=== PATIENT | male | born 1950 | race African-American/Black ===

== ENCOUNTER 2016-06-09 01:21 | Inpatient (IN) | payer MEDICARE, MEDICAID ==
[2016-06-09] MEDS ORDERED: NITROGLYCERIN/D5W 250 ML IV PRN (01:28)
--- NOTE | 2016-06-09 01:28 | ER Document Report ---
ED Respiratory Problem - General Stated Complaint: DIFFICULT BREATHING Time seen by provider: 01:28 Mode of Arrival: Medic Information source: Patient, Emergency Med Personnel TRAVEL OUTSIDE OF THE [place] IN LAST 30 DAYS: No - HPI Patient complains to provider of: Chest pain, Cough, Short of breath Onset: This evening Duration: Worse/persistent Quality of pain: Achy Severity: Mild Short of Breath: Severe Chest pain/discomfort: Tightness Cough: Nonproductive Associated symptoms: Chest pain/discomfort, Cough, Difficulty breathing, Short of breath Similar symptoms previously: Yes Recently seen / treated by doctor: Yes Notes: Patient is a 66-year-old male with a history of end-stage renal disease who was brought to the emergency room by EMS for complaints of chest tightness with difficulty breathing that's worsened throughout the evening, at time of arrival patient was on BiPAP which was started by EMS, reports chest tightness, difficulty breathing, feeling short of breath, nonproductive cough, no fever, no sick contacts, he does report that he saw his primary care provider proximally 3 weeks ago for similar symptoms and was placed on the antibiotic which he cannot recall the name of, patient denies any fevers - Related Data Allergies/Adverse Reactions: No Known Allergies Allergy (Unverified 06/09/10 10:59) Past Medical History - General Information source: Patient, Emergency Med Personnel - Social History Smoking Status: Unknown if Ever Smoked Family History: Reviewed & Not Pertinent - Past Medical History Cardiac Medical History: Reports: Hx Hypertension Denies: Hx Coronary Artery Disease, Hx Heart Attack Pulmonary Medical History: Reports: Hx Pneumonia Denies: Hx Asthma, Hx Bronchitis, Hx COPD Neurological Medical History: Denies: Hx Cerebrovascular Accident, Hx Seizures Endocrine Medical History: Reports: Hx Diabetes Mellitus Type 2 - INSULIN DEPENDENT Renal/ Medical History: Reports: Hx End Stage Renal Disease, Hx Hemodialysis Musculoskeltal Medical History: Reports Hx Arthritis Past Surgical History: Reports: Hx Neurologic Surgery - back BIOPSY, Hx Vascular Surgery - AV FISTULA ARAMIS. Denies: Hx Pacemaker - Immunizations Hx Diphtheria, Pertussis, Tetanus Vaccination: Yes Hx Pneumococcal Vaccination: 03/26/06 Review of Systems - Review of Systems Constitutional: No symptoms reported EENT: No symptoms reported Cardiovascular: See HPI Respiratory: See HPI Gastrointestinal: No symptoms reported Genitourinary: No symptoms reported Male Genitourinary: No symptoms reported Musculoskeletal: No symptoms reported Skin: No symptoms reported Hematologic/Lymphatic: No symptoms reported Neurological/Psychological: No symptoms reported -: Yes All other systems reviewed and negative Physical Exam - Vital signs Vitals: Resp Pulse Ox 24 H 97 06/09/16 01:25 06/09/16 01:25 Interpretation: Hypertensive, Tachycardic, Tachypneic - General General appearance: Alert In distress: Severe - HEENT Head: Normocephalic, Atraumatic Eyes: Normal Conjunctiva: Normal Extraocular movements intact: Yes Eyelashes: Normal Pupils: PERRL - Respiratory Respiratory status: Respiratory distress, Labored, Tachypnea Chest status: Nontender Breath sounds: Nonproductive cough, Rales, Rhonchi Chest palpation: Normal - Cardiovascular Rhythm: Regular, Tachycardia Heart sounds: Normal auscultation Murmur: No - Abdominal Inspection: Normal Distension: No distension Bowel sounds: Normal Tenderness: Nontender Organomegaly: No organomegaly - Back Back: Normal, Nontender - Extremities General upper extremity: Nontender, Normal color, Normal ROM, Normal temperature General lower extremity: Normal inspection, Nontender, Normal color, Normal ROM , Normal temperature. No: Janice's sign Arm: Other - AV fistula in right upper arm, positive thrill - Neurological Neuro grossly intact: Yes Cognition: Normal Orientation: AAOx4 Hallie Coma Scale Eye Opening: Spontaneous Hallie Coma Scale Verbal: Oriented [place] Coma Scale Motor: Obeys Commands [place] Coma Scale Total: 15 Speech: Normal Motor strength normal: LUE, RUE, LLE, RLE Sensory: Normal - Psychological Associated symptoms: Normal affect, Normal mood - Skin Skin Temperature: Warm Skin Moisture: Dry Skin Color: Normal Course - Re-evaluation Re-evalutation: 06/09/16 02:33 Patient was discussed with primary care provider, Dr. Burleson, who agrees with admission, he reports that he believes that patient was recently on a Z-Marky , request patient get ceftriaxone intravenously, patient will be admitted to the IMCU where he reports feeling much better and vital signs are significantly improved 06/09/16 03:28 Patient vital signs are significantly improved, he reports feeling much better, chest pain is resolved, IV antibiotics have been ordered, patient will be admitted to the IMCU, patient stable at time of transfer of care - Vital Signs Vital signs: Temp Pulse Resp BP Pulse Ox 96.8 F L 107 H 15 163/66 H 97 03/17/17 01:49 06/09/16 01:49 06/09/16 02:31 06/09/16 02:31 06/09/16 02:31 - Laboratory Result Diagrams: 06/09/16 01:28 06/09/16 01:28 Laboratory results interpreted by me: 06/09/16 06/09/16 06/09/16 01:28 01:28 01:28 WBC 18.9 H RBC 3.71 L Hgb 11.1 L Hct 34.9 L MCHC 31.9 L RDW 16.7 H Seg Neutrophils % 80.7 H Lymphocytes % 10.8 L Absolute Neutrophils 15.3 H Anion Gap 21 H BUN 44 H Creatinine 10.23 H Est GFR ( Amer) 6 L Est GFR (Non-Af Amer) 5 L Glucose 143 H Alkaline Phosphatase 133 H NT-Pro-B Natriuret Pep 72807 H Total Protein 8.7 H - Diagnostic Test Radiology reviewed: Image reviewed, Reports reviewed - EKG Interpretation by Me EKG shows normal: Sinus rhythm Rate: Normal Rhythm: NSR Voltage: Consistant with LVH Critical Care Note - Critical Care Note Total time excluding time spent on procedures (mins): 60 Comments: Patient arrived in respiratory distress, tachypnea, tachycardic, hypertensive, requiring BiPAP placement nitroglycerin drip Discharge - Discharge Clinical Impression: Hypertensive urgency, End stage renal disease Pneumonia Qualifiers: Pneumonia type: due to unspecified organism Laterality: bilateral Lung location : unspecified part of lung Qualified Code(s): J18.9 - Pneumonia, unspecified organism Condition: Serious Disposition: ADMITTED INPATIENT Admitting Provider: [facility] Admitted: [facility]
[2016-06-09 02:03] LABS: ABSOLUTE BASOPHILS # (AUTO) 0.2 10^3/uL (0.0-0.2); ABSOLUTE EOSINOPHILS # (AUTO) 0.3 10^3/uL (0.0-0.6); ABSOLUTE MONOCYTES (AUTO) 1.1 10^3/uL (0.1-1.4); ABSOLUTE NEUT (AUTO) 15.3 10^3/uL (1.7-8.2); EOSINOPHILS % (AUTO) 1.8 % (0-6); HEMATOCRIT 34.9 % (37.9-51.0); HEMOGLOBIN 11.1 g/dL (13.5-17.0); HGB HCT DIFFERENCE -1.6; LYMPHOCYTES % (AUTO) 10.8 % (13-45); MEAN CORPUSCULAR HGB CONC 31.9 g/dL (32.0-36.0); MEAN CORPUSCULAR VOLUME 94 fl (80-97); MONOCYTES % (AUTO) 5.7 % (3-13); RED BLOOD COUNT 3.71 10^6/uL (4.35-5.55); RED CELL DISTRIBUTION WIDTH 16.7 % (11.5-14.0); SEGMENTED NEUTROPHILS % (AUTO) 80.7 % (42-78); WHITE BLOOD COUNT 18.9 10^3/uL (4.0-10.5)
[2016-06-09 02:04] LABS: ALANINE AMINOTRANSFERASE 37 U/L (21-72); ALBUMIN 4.7 g/dL (3.5-5.0); ALKALINE PHOSPHATASE 133 U/L (38-126); ASPARTATE AMINO TRANSFERASE 28 U/L (17-59); BILIRUBIN,TOTAL 0.7 mg/dL (0.2-1.3); BLOOD UREA NITROGEN 44 mg/dL (7-20); CALCIUM 10.1 mg/dL (8.4-10.2); CARBON DIOXIDE 26 mmol/L (22-30); CHLORIDE 98 mmol/L (98-107); CREATINE KINASE 146 U/L (55-170); CREATININE RESULT 10.23 mg/dL (0.52-1.25); GLUCOSE 143 mg/dL (75-110); POTASSIUM 4.1 mmol/L (3.6-5.0); TOTAL PROTEIN 8.7 g/dL (6.3-8.2)
[2016-06-09 02:16] LABS: CREATINE KINASE MB 2.54 ng/mL (<4.55)
[2016-06-09 02:21] LABS: SODIUM 144.9 mmol/L (137-145)
[2016-06-09 02:22] LABS: ANION GAP 21 (5-19); TROPONIN I 0.046 ng/mL
[2016-06-09] MEDS ORDERED: CEFTRIAXONE INJ 500 MG VIAL IV ONE (03:28)
[2016-06-09] MEDS ORDERED: AZITHROMYCIN INJ 500 MG VIAL IV ONE (03:28)
[2016-06-09] MEDS ORDERED: CEFTRIAXONE 1 GM/D5W RTU 1 GM/50 ML RTUPB IV ONE (03:43)
--- NOTE | 2016-06-09 05:40 | EKG REPORT ---
SEVERITY:- ABNORMAL ECG - SINUS RHYTHM BIATRIAL ABNORMALITIES LEFT VENTRICULAR HYPERTROPHY ANTERIOR Q WAVES, POSSIBLY DUE TO LVH BORDERLINE PROLONGED QT INTERVAL : Confirmed by: Eri Luna MD 09-Jun-2016 05:39:50
[2016-06-09] MEDS ORDERED: CALCIUM ACETATE 667 MG CAPSULE PO PRN (11:15)
[2016-06-09] MEDS ORDERED: ACETAMINOPHEN 325 MG TABLET PO PRN (12:30)
[2016-06-09] MEDS ORDERED: ASPIRIN 81 MG TABLET, ENT COATED PO ONE (13:00)
[2016-06-09] MEDS ORDERED: CEFEPIME 1 GM/D5W RTU 1 GM/50 ML RTUPB IV ONE (13:00)
[2016-06-09] MEDS ORDERED: FUROSEMIDE 40 MG TABLET PO ONE (13:00)
[2016-06-09] MEDS ORDERED: AZITHROMYCIN 500 MG in DEXTROSE 5%-WATER 250 ML IV ONE (13:00)
[2016-06-09] MEDS ORDERED: FOLIC ACID/VITAMIN B COMP W-C CAPSULE PO ONE (13:00)
[2016-06-09] MEDS: CALCIUM ACETATE 667 MG CAPSULE PO SCH ×2 (13:39→17:03)
[2016-06-09] MEDS: CLONIDINE HCL 0.1 MG TABLET PO SCH ×2 (13:40→21:43)
--- NOTE | 2016-06-09 16:34 | PDOC CONSULTATION ---
Consultation Consult Date: 06/09/16 Consult reason:: Hypertensive urgency and ESRD for dialysis History of Present Illness Admission Date/PCP: 06/09/16 06:10 ALEKS HARKINS MD History of Present Illness: MARILU CRAWFORD is a 66 year old male With history of long-standing diabetes mellitus hypertension and ESRD on hemodialysis comes in with history of progressive shortness of breath. He apparently had some shaking chills but denies any history of fever no history of any chest pains. Has noticed some pedal edema of lately but also admits to indiscretions with diet. Initial evaluations in the ER revealed that he was having hypertensive urgency. Chest x-ray showed possibilities of CHF versus multifocal pneumonia. He has been given antibiotics and is being admitted for further evaluations and treatment. Patient seen currently undergoing emergency dialysis. Discussions were done with the treating nurse Belkis. Plan to remove at least 3 L of fluid as tolerated. Past Medical History Cardiac Medical History: Reports: Hypertension-primary Denies: Coronary Artery Disease, Myocardial Infarction Pulmonary Medical History: Reports: Pneumonia Denies: Asthma, Bronchitis, Chronic Obstructive Pulmonary Disease (COPD) Neurological Medical History: Denies: Seizures Endocrine Medical History: Reports: Diabetes Mellitus Type 2 - INSULIN DEPENDENT Renal/ Medical History: Reports: End Stage Renal Disease Musculoskeltal Medical History: Reports: Arthritis Hematology Medical History: Reports Anemia of Chronic Kidney Disease Past Surgical History Past Surgical History: Reports: Vascular Surgery - AV FISTULA ARAMIS Denies: Pacemaker Social History Smoking Status: Current Every Day Smoker Cigarettes Packs Per Day: 0.5 Frequency of Alcohol Use: None Hx Recreational Drug Use: No Drugs: None Hx Prescription Drug Abuse: No - Advance Directive Resuscitation Status: Full Code Family History Parental Family History Reviewed: Yes Children Family History Reviewed: Yes Sibling(s) Family History Reviewed.: Yes - His brother with diabetes also had ESRD and was on hemodialysis before he . Medication/Allergy Home Medications: Acetaminophen [Tylenol Extra Strength 500 mg Tablet] 500 mg PO DAILYP PRN Aspirin [Ecotrin 81 mg EC Tablet] 81 mg PO DAILY 06/09/16 Atorvastatin Calcium [Lipitor 20 mg Tablet] 20 mg PO QHS 06/09/16 Calcium Acetate [Phoslo 667 mg Capsule] 2,001 mg PO MEALS 06/09/16 Calcium Acetate [Phoslo 667 mg Capsule] 667 mg PO .ASDIR 06/09/16 Clonidine HCl [Catapres 0.3 mg Tablet] 0.3 mg PO Q8 06/09/16 Docusate Sodium [Colace 100 mg Capsule] 100 mg PO BID 06/09/16 Folic Acid/Vitamin B Comp W-C [Nephrocaps Multiple Vitamin Capsule] 1 cap PO DAILY 06/09/16 Furosemide [Lasix] 40 mg PO DAILY 06/09/16 Insulin Glargine,Hum.rec.anlog [Lantus] 20 units SQ QHS 06/09/16 Irbesartan [Avapro] 150 mg PO DAILY 06/09/16 Nifedipine [Procardia Xl] 90 mg PO Q12 06/09/16 Omeprazole 20 mg PO BID 06/09/16 Allergies/Adverse Reactions: No Known Allergies Allergy (Unverified 06/09/10 10:59) Review of Systems Review of Systems: Constitutional: PRESENT: as per HPI. ABSENT: chills, headache(s), weight gain, weight loss Eyes: ABSENT: visual disturbances Ears: ABSENT: hearing changes Cardiovascular: ABSENT: chest pain, edema, orthropnea, palpitations Respiratory: ABSENT: cough, hemoptysis Gastrointestinal: ABSENT: abdominal pain, constipation, diarrhea, hematemesis, hematochezia, nausea, vomiting Musculoskeletal: ABSENT: joint swelling Integumentary: ABSENT: rash, wounds Neurological: ABSENT: abnormal gait, abnormal speech, confusion, dizziness, focal weakness, syncope Psychiatric: ABSENT: anxiety, depression, homicidal ideation, suicidal ideation Endocrine: ABSENT: cold intolerance, heat intolerance, polydipsia, polyuria Hematologic/Lymphatic: ABSENT: easy bleeding, easy bruising, lymphadenopathy Physical Exam Vital Signs: Temp Pulse Resp BP Pulse Ox 97.8 F 70 19 181/72 H 100 06/09/16 15:48 06/09/16 15:48 06/09/16 15:48 06/09/16 15:48 06/09/16 15:48 Intake & Output 06/08/16 06/09/16 06/10/16 06:59 06:59 06:59 Intake Total 356 Balance 356 Weight 88.5 kg General appearance: PRESENT: no acute distress Eye exam: PRESENT: conjunctiva pink, EOMI, PERRLA. ABSENT: nystagmus, scleral icterus Ear exam: PRESENT: normal external ear exam Mouth exam: PRESENT: moist Neck exam: ABSENT: lymphadenopathy, meningismus, tenderness, thyromegaly, tracheal deviation Respiratory exam: PRESENT: clear to auscultation bob, crackles, symmetrical. ABSENT: rhonchi Cardiovascular exam: PRESENT: +S1, +S2, systolic murmur GI/Abdominal exam: PRESENT: normal bowel sounds, soft. ABSENT: firm, guarding, hernia, hyperactive bowel sounds, mass, tenderness Extremities exam: PRESENT: +1 edema Neurological exam: PRESENT: alert, awake, oriented to person, oriented to place , oriented to time Psychiatric exam: PRESENT: flat affect Skin exam: ABSENT: cyanosis, erythema, mottled, rash Results Impressions: Chest X-Ray 06/09/16 01:28 IMPRESSION: [id number] CHF pattern. Differential diagnosis includes multifocal pneumonia. Assessment & Plan - Diagnosis (1) CHF (congestive heart failure), NYHA class II Plan: Clinically and radiologically he looks like he has got an element of congestive heart failure. He could very well also have pneumonia in combination. Hypertensive urgency could be as a result of his CHF. Therefore prompt dialysis as he is undergoing now should help him. See how he responds to dialysis and ultrafiltration. See how his blood pressure response to fluid removal before we make any titration of his medications. Discussed with patient 's about dietary indiscretions that he should not be having. (2) End stage renal disease Plan: Patient presently undergoing dialysis without any issues. Discussions on orders were done with the treating nurse. See how he responds to ultrafiltration of approximately 3 L in morning if tolerated. Signs are stable. (3) Hypertensive urgency Plan: She response to ultrafiltration and hemodialysis before he further titrate his medications. (4) Pneumonia Qualifiers: Pneumonia type: due to unspecified organism Laterality: bilateral Lung location: unspecified part of lung Qualified Code(s): J18.9 - Pneumonia , unspecified organism Plan: He has been begun on antibiotics and see the response.
[2016-06-09] MEDS ORDERED: NIFEDIPINE 30 MG TAB.ER.24 PO ONE (17:00)
[2016-06-09] MEDS: LANSOPRAZOLE 15 MG TAB.RAP.DR PO SCH (17:03)
[2016-06-09] MEDS: DOCUSATE SODIUM 100 MG CAPSULE PO SCH (17:03)
[2016-06-09] MEDS ORDERED: GLUCAGON,HUMAN RECOMB 1 MG INJ IM PRN (19:02)
[2016-06-09] MEDS ORDERED: DEXTROSE 50%-WATER SYRINGE 25 GM/50 ML DOSE IV PRN (19:02)
[2016-06-09] MEDS ORDERED: DEXTROSE 50%-WATER SYRINGE 12.5 GM/25 ML DOSE IV PRN (19:02)
[2016-06-09] MEDS ORDERED: DEXTROSE 40% GEL 15 GM TUBE PO PRN (19:02)
[2016-06-09] MEDS ORDERED: DEXTROSE 40% GEL 15 GM TUBE X 2 PO PRN (19:02)
[2016-06-09] MEDS: INSULIN LISPRO 100 UNIT/ML 3 ML VIAL SUBCUT PRN (19:06)
--- NOTE | 2016-06-09 19:39 | PDOC H&P ---
History of Present Illness Admission Date/PCP: 06/09/16 06:10 ALEKS HARKINS MD History of Present Illness: Patient 66-year-old male with end-stage renal disease on maintenance hemodialysis he came emergency room this morning because of progressive shortness of breath orthopnea cough in the emergency room was evaluated, he was found to have leukocytosis WBC was 18,000 pretest echo that was done showed multifocal pneumonia versus pulmonary edema. He was dialyzed earlier this morning on repeat chest x-ray was done the multifocal airspace disease persist despite hemodialysis this suggests that he has pneumonia rather than pulmonary edema. Patient is a lifelong smoker he also had peripheral vascular disease and diabetes mellitus on insulin. Past Medical History Cardiac Medical History: Reports: Hypertension, Peripheral Vascular Disease Pulmonary Medical History: Reports: Pneumonia Endocrine Medical History: Reports: Diabetes Mellitus Type 2 - INSULIN DEPENDENT Renal/ Medical History: Reports: End Stage Renal Disease Musculoskeltal Medical History: Reports: Arthritis Hematology: Denies: Anemia Past Surgical History Past Surgical History: Reports: Vascular Surgery - AV FISTULA ARAMIS Social History Smoking Status: Current Every Day Smoker Cigarettes Packs Per Day: 0.5 Frequency of Alcohol Use: None Hx Recreational Drug Use: No Drugs: None Hx Prescription Drug Abuse: No - Advance Directive Resuscitation Status: Full Code Family History Family History: Reviewed & Not Pertinent, DM Parental Family History Reviewed: Yes Children Family History Reviewed: Yes Sibling(s) Family History Reviewed.: Yes Medication/Allergy Home Medications: Acetaminophen [Tylenol Extra Strength 500 mg Tablet] 500 mg PO DAILYP PRN Aspirin [Ecotrin 81 mg EC Tablet] 81 mg PO DAILY 06/09/16 Atorvastatin Calcium [Lipitor 20 mg Tablet] 20 mg PO QHS 06/09/16 Calcium Acetate [Phoslo 667 mg Capsule] 2,001 mg PO MEALS 06/09/16 Calcium Acetate [Phoslo 667 mg Capsule] 667 mg PO .ASDIR 06/09/16 Clonidine HCl [Catapres 0.3 mg Tablet] 0.3 mg PO Q8 06/09/16 Docusate Sodium [Colace 100 mg Capsule] 100 mg PO BID 06/09/16 Folic Acid/Vitamin B Comp W-C [Nephrocaps Multiple Vitamin Capsule] 1 cap PO DAILY 06/09/16 Furosemide [Lasix] 40 mg PO DAILY 06/09/16 Insulin Glargine,Hum.rec.anlog [Lantus] 20 units SQ QHS 06/09/16 Irbesartan [Avapro] 75 mg PO DAILY 06/09/16 Nifedipine [Procardia Xl] 90 mg PO Q12 06/09/16 Omeprazole 20 mg PO BID 06/09/16 Allergies/Adverse Reactions: No Known Allergies Allergy (Unverified 06/09/10 10:59) Review of Systems Constitutional: PRESENT: chills, fever(s) Eyes: ABSENT: visual disturbances Ears: ABSENT: hearing changes Cardiovascular: PRESENT: dyspnea on exertion, orthropnea Respiratory: PRESENT: cough, dyspnea Gastrointestinal: ABSENT: abdominal pain, constipation, diarrhea, hematemesis, hematochezia, nausea, vomiting Genitourinary: ABSENT: dysuria, hematuria Musculoskeletal: ABSENT: joint swelling Integumentary: ABSENT: rash, wounds Neurological: ABSENT: abnormal gait, abnormal speech, confusion, dizziness, focal weakness, syncope Psychiatric: ABSENT: anxiety, depression, homidical ideation, suicidal ideation Endocrine: ABSENT: cold intolerance, heat intolerance, menstrual abnormalities, polydipsia, polyuria Hematologic/Lymphatic: ABSENT: easy bleeding, easy bruising, lymphadenopathy Physical Exam Vital Signs: Temp Pulse Resp BP Pulse Ox 97.8 F 70 19 181/72 H 100 06/09/16 15:48 06/09/16 15:48 06/09/16 15:48 06/09/16 15:48 06/09/16 16:00 Intake & Output 06/08/16 06/09/16 06/10/16 06:59 06:59 06:59 Intake Total 916 Balance 916 Weight 88.5 kg General appearance: PRESENT: mild distress Head exam: PRESENT: atraumatic, normocephalic Eye exam: PRESENT: conjunctiva pink, EOMI, PERRLA Ear exam: PRESENT: normal external ear exam Mouth exam: PRESENT: moist Neck exam: PRESENT: full ROM Respiratory exam: PRESENT: rhonchi, wheezes Cardiovascular exam: PRESENT: RRR, +S1, +S2 Vascular exam: PRESENT: normal capillary refill GI/Abdominal exam: PRESENT: normal bowel sounds, soft Rectal exam: PRESENT: deferred Neurological exam: PRESENT: alert, awake, oriented to person, oriented to place , oriented to time, oriented to situation, CN II-XII grossly intact Psychiatric exam: PRESENT: appropriate affect, normal mood Skin exam: PRESENT: dry, intact, warm Results Impressions: Chest X-Ray 06/09/16 01:28 IMPRESSION: [id number] CHF pattern. Differential diagnosis includes multifocal pneumonia. Assessment & Plan - Diagnosis (1) Multifocal pneumonia Is this a current diagnosis for this admission?: YesPlan: Patient is admitted to the hospital to be treated with IV antibiotic for community-acquired pneumonia. (2) End stage renal disease Plan: He was dialyzed today when he arrived in the hospital, postdialysis chest x-ray still showed persistent multifocal airspace disease, did suggest pneumonia rather than the fluid overload from end-stage renal disease. 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 and IV medication to control blood pressure, patient to be placed on hydralazine on as needed basis for systolic blood pressure more than 160.
[2016-06-09] MEDS: ATORVASTATIN CALCIUM 20 MG TABLET PO SCH (21:42)
[2016-06-09] MEDS: INSULIN GLARGINE,HUM.REC.ANLOG 300 UNIT/3 ML INSULN.PEN SUBCUT SCH (21:46)
[2016-06-09] MEDS ORDERED: NIFEDIPINE 30 MG TAB.ER.24 PO SCH (22:00)
[2016-06-10] MEDS: HYDRALAZINE HCL INJ/PF 20 MG/1 ML SDV IV PRN (00:49)
[2016-06-10] MEDS: CLONIDINE HCL 0.1 MG TABLET PO SCH ×3 (05:35→21:35)
[2016-06-10] MEDS: NIFEDIPINE 30 MG TAB.ER.24 PO SCH ×2 (05:35→18:49)
[2016-06-10] MEDS: CALCIUM ACETATE 667 MG CAPSULE PO SCH ×3 (07:48→18:49)
[2016-06-10] MEDS: ASPIRIN 81 MG TABLET, ENT COATED PO SCH (09:43)
[2016-06-10] MEDS: DOCUSATE SODIUM 100 MG CAPSULE PO SCH ×2 (09:44→18:49)
[2016-06-10] MEDS: AZITHROMYCIN 500 MG in DEXTROSE 5%-WATER 250 ML IV SCH (09:44)
[2016-06-10] MEDS: LANSOPRAZOLE 15 MG TAB.RAP.DR PO SCH ×2 (09:44→18:49)
[2016-06-10] MEDS: FUROSEMIDE 40 MG TABLET PO SCH (09:44)
[2016-06-10] MEDS: FOLIC ACID/VITAMIN B COMP W-C CAPSULE PO SCH (09:54)
[2016-06-10] MEDS ORDERED: (PENDING PHARMACY ID) (Irbesartan [Avapro] 150 MG) PO SCH (10:00)
[2016-06-10] MEDS: INSULIN LISPRO 100 UNIT/ML 3 ML VIAL SUBCUT PRN ×2 (11:58→21:57)
--- NOTE | 2016-06-10 17:36 | PDOC PROGRESS REPORT ---
Subjective Progress Note for:: 06/10/16 Subjective:: Was seen by the bedside, he feels much better, there is no more shortness of breath on IV antibiotic Physical Exam Vital Signs: Temp Pulse Resp BP Pulse Ox 98.2 F 78 20 154/68 H 98 06/10/16 11:46 06/10/16 14:00 06/10/16 11:46 06/10/16 11:46 06/10/16 11:46 Intake & Output 06/09/16 06/10/16 06/11/16 06:59 06:59 06:59 Intake Total 1347 360 Balance 1347 360 Weight 88.5 kg General appearance: PRESENT: no acute distress Eye exam: PRESENT: PERRLA Respiratory exam: PRESENT: clear to auscultation bob Cardiovascular exam: PRESENT: +S1, +S2 GI/Abdominal exam: PRESENT: soft Neurological exam: PRESENT: alert, CN II-XII grossly intact Results Impressions: Chest X-Ray 06/09/16 01:28 IMPRESSION: [id number] CHF pattern. Differential diagnosis includes multifocal pneumonia. Assessment & Plan - Diagnosis (1) Multifocal pneumonia Is this a current diagnosis for this admission?: YesPlan: He will continue IV antibiotic for the pneumonia. 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
[2016-06-10] MEDS: CEFEPIME 1 GM/D5W RTU 1 GM/50 ML RTUPB IV SCH (21:35)
[2016-06-10] MEDS: ATORVASTATIN CALCIUM 20 MG TABLET PO SCH (21:35)
[2016-06-10] MEDS: INSULIN GLARGINE,HUM.REC.ANLOG 300 UNIT/3 ML INSULN.PEN SUBCUT SCH (21:51)
[2016-06-11] MEDS: NIFEDIPINE 30 MG TAB.ER.24 PO SCH ×2 (05:22→17:15)
[2016-06-11] MEDS: CLONIDINE HCL 0.1 MG TABLET PO SCH ×3 (05:22→21:09)
[2016-06-11] MEDS: CALCIUM ACETATE 667 MG CAPSULE PO SCH ×3 (08:35→17:15)
[2016-06-11] MEDS: NICOTINE 21 MG/24 HR PATCH.TD24 TD SCH (10:02)
[2016-06-11] MEDS: FOLIC ACID/VITAMIN B COMP W-C CAPSULE PO SCH (10:03)
[2016-06-11] MEDS: ASPIRIN 81 MG TABLET, ENT COATED PO SCH (10:03)
[2016-06-11] MEDS: FUROSEMIDE 40 MG TABLET PO SCH (10:03)
[2016-06-11] MEDS: DOCUSATE SODIUM 100 MG CAPSULE PO SCH ×2 (10:03→17:15)
[2016-06-11] MEDS: LANSOPRAZOLE 15 MG TAB.RAP.DR PO SCH ×2 (10:03→17:13)
[2016-06-11] MEDS: AZITHROMYCIN 500 MG in DEXTROSE 5%-WATER 250 ML IV SCH (10:18)
[2016-06-11] MEDS: INSULIN LISPRO 100 UNIT/ML 3 ML VIAL SUBCUT PRN (17:12)
--- NOTE | 2016-06-11 17:32 | PDOC PROGRESS REPORT ---
Subjective Progress Note for:: 06/11/16 Subjective:: Patient was seen by the bedside, it was admitted because of pneumonia Physical Exam Vital Signs: Temp Pulse Resp BP Pulse Ox 98.0 F 72 16 162/70 H 100 06/11/16 16:00 06/11/16 16:00 06/11/16 16:00 06/11/16 16:00 06/11/16 11:57 Intake & Output 06/10/16 06/11/16 06/12/16 06:59 06:59 06:59 Intake Total 1347 1544 Balance 1347 1544 Weight 88.5 kg General appearance: PRESENT: no acute distress Eye exam: PRESENT: PERRLA Respiratory exam: PRESENT: clear to auscultation bob Cardiovascular exam: PRESENT: +S1, +S2 GI/Abdominal exam: PRESENT: soft Neurological exam: PRESENT: alert, CN II-XII grossly intact Results Impressions: Chest X-Ray 06/09/16 01:28 IMPRESSION: [id number] CHF pattern. Differential diagnosis includes multifocal pneumonia. 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
[2016-06-11 18:08] LABS: ABSOLUTE BASOPHILS # (AUTO) 0.1 10^3/uL (0.0-0.2); ABSOLUTE EOSINOPHILS # (AUTO) 0.3 10^3/uL (0.0-0.6); ABSOLUTE LYMPHOCYTES (AUTO) 1.2 10^3/uL (0.5-4.7); ABSOLUTE MONOCYTES (AUTO) 0.7 10^3/uL (0.1-1.4); ABSOLUTE NEUT (AUTO) 4.7 10^3/uL (1.7-8.2); BASOPHILS % (AUTO) 1.5 % (0-2); EOSINOPHILS % (AUTO) 3.7 % (0-6); HEMATOCRIT 31.8 % (37.9-51.0); HEMOGLOBIN 10.3 g/dL (13.5-17.0); HGB HCT DIFFERENCE -0.9; LYMPHOCYTES % (AUTO) 17.3 % (13-45); MEAN CORPUSCULAR HEMOGLOBIN 30.1 pg (27.0-33.4); MEAN CORPUSCULAR HGB CONC 32.4 g/dL (32.0-36.0); MEAN CORPUSCULAR VOLUME 93 fl (80-97); MONOCYTES % (AUTO) 9.6 % (3-13); RED BLOOD COUNT 3.43 10^6/uL (4.35-5.55); RED CELL DISTRIBUTION WIDTH 16.8 % (11.5-14.0); SEGMENTED NEUTROPHILS % (AUTO) 67.9 % (42-78); WHITE BLOOD COUNT 6.9 10^3/uL (4.0-10.5)
[2016-06-11] MEDS: ATORVASTATIN CALCIUM 20 MG TABLET PO SCH (21:08)
[2016-06-11] MEDS: CEFEPIME 1 GM/D5W RTU 1 GM/50 ML RTUPB IV SCH (21:10)
[2016-06-11] MEDS: INSULIN GLARGINE,HUM.REC.ANLOG 300 UNIT/3 ML INSULN.PEN SUBCUT SCH (21:11)
[2016-06-11] MEDS: HYDRALAZINE HCL INJ/PF 20 MG/1 ML SDV IV PRN (23:56)
[2016-06-12] MEDS: NIFEDIPINE 30 MG TAB.ER.24 PO SCH ×2 (05:30→17:25)
[2016-06-12] MEDS: CLONIDINE HCL 0.1 MG TABLET PO SCH ×3 (05:42→22:23)
[2016-06-12] MEDS: CALCIUM ACETATE 667 MG CAPSULE PO SCH ×3 (08:39→17:25)
[2016-06-12] MEDS: NICOTINE 21 MG/24 HR PATCH.TD24 TD SCH (13:28)
[2016-06-12] MEDS: FUROSEMIDE 40 MG TABLET PO SCH (13:29)
[2016-06-12] MEDS: ASPIRIN 81 MG TABLET, ENT COATED PO SCH (13:29)
[2016-06-12] MEDS: FOLIC ACID/VITAMIN B COMP W-C CAPSULE PO SCH (13:29)
[2016-06-12] MEDS: LANSOPRAZOLE 15 MG TAB.RAP.DR PO SCH ×2 (13:30→17:25)
[2016-06-12] MEDS: DOCUSATE SODIUM 100 MG CAPSULE PO SCH ×2 (13:30→17:25)
[2016-06-12] MEDS: AZITHROMYCIN 500 MG in DEXTROSE 5%-WATER 250 ML IV SCH (13:32)
--- NOTE | 2016-06-12 16:59 | PDOC PROGRESS REPORT ---
Subjective Progress Note for:: 06/12/16 Subjective:: Patient was seen on dialysis today. He is feeling lots better. He denies any history of chest pain shortness of breath. No history of any fever chills. Orders were discussed with the treating dialysis nurse. Physical Exam Vital Signs: Temp Pulse Resp BP Pulse Ox 97.3 F 86 18 191/69 H 97 06/12/16 13:17 06/12/16 14:00 06/12/16 13:17 06/12/16 13:17 06/12/16 13:17 Intake & Output 06/11/16 06/12/16 06/13/16 06:59 06:59 06:59 Intake Total 1544 1037 222 Output Total 0 Balance 1544 1037 222 Weight 89.4 kg General appearance: PRESENT: no acute distress Respiratory exam: PRESENT: clear to auscultation bob. ABSENT: crackles, rhonchi Cardiovascular exam: PRESENT: +S1, +S2, systolic murmur GI/Abdominal exam: PRESENT: normal bowel sounds, soft. ABSENT: firm, guarding, hernia, hyperactive bowel sounds, mass, tenderness Extremities exam: ABSENT: pedal edema Neurological exam: PRESENT: awake, oriented to person, oriented to place, oriented to time Skin exam: ABSENT: cyanosis, erythema, mottled, rash Results Laboratory Results: 06/11/16 17:40 06/11/16 17:40 WBC 6.9 RBC 3.43 L Hgb 10.3 L Hct 31.8 L MCV 93 MCH 30.1 MCHC 32.4 RDW 16.8 H Plt Count 259 Seg Neutrophils % 67.9 Lymphocytes % 17.3 Monocytes % 9.6 Eosinophils % 3.7 Basophils % 1.5 Absolute Neutrophils 4.7 Absolute Lymphocytes 1.2 Absolute Monocytes 0.7 Absolute Eosinophils 0.3 Absolute Basophils 0.1 Impressions: Chest X-Ray 06/09/16 01:28 IMPRESSION: [id number] CHF pattern. Differential diagnosis includes multifocal pneumonia. Assessment & Plan - Diagnosis (1) CHF (congestive heart failure), NYHA class II Plan: Doing very well. Continue present lines of management. See how he responds to further pooling of fluid. Advised appropriate dietary modifications as I think he will be going home soon (2) End stage renal disease Plan: Patient presently undergoing dialysis without any issues. Discussions on orders were done with the treating nurse. See how he responds to ultrafiltration of approximately 1-2L.Vital Signs are stable. (3) Hypertensive urgency Plan: Uncontrolled. Start hydralazine 25 mg 3 times daily. See further response to ultrafiltration and hemodialysis . (4) Pneumonia Qualifiers: Pneumonia type: due to unspecified organism Laterality: bilateral Lung location: unspecified part of lung Qualified Code(s): J18.9 - Pneumonia , unspecified organism Plan: Improving on antibiotics . 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
[2016-06-12] MEDS: INSULIN LISPRO 100 UNIT/ML 3 ML VIAL SUBCUT PRN (17:23)
--- NOTE | 2016-06-12 20:58 | PDOC DISCHARGE SUMMARY ---
General - Admit/Disc Date/PCP Admission Date/Primary Care Provider: 06/09/16 06:10 ALEKS HARKINS MD Discharge Date: 06/12/16 - Discharge Diagnosis (1) Multifocal pneumonia Is this a current diagnosis for this admission?: Yes (3) Diabetes mellitus type II, controlled Is this a current diagnosis for this admission?: Yes (4) Peripheral arterial disease Is this a current diagnosis for this admission?: Yes (5) Hypertensive urgency Is this a current diagnosis for this admission?: Yes - Additional Information Resuscitation Status: Full Code Home Medications: Acetaminophen [Tylenol Extra Strength 500 mg Tablet] 500 mg PO DAILYP PRN Aspirin [Ecotrin 81 mg EC Tablet] 81 mg PO DAILY 06/09/16 Atorvastatin Calcium [Lipitor 20 mg Tablet] 20 mg PO QHS 06/09/16 Calcium Acetate [Phoslo 667 mg Capsule] 2,001 mg PO MEALS 06/09/16 Calcium Acetate [Phoslo 667 mg Capsule] 667 mg PO .ASDIR 06/09/16 Clonidine HCl [Catapres 0.3 mg Tablet] 0.3 mg PO Q8 06/09/16 Docusate Sodium [Colace 100 mg Capsule] 100 mg PO BID 06/09/16 Folic Acid/Vitamin B Comp W-C [Nephrocaps Multiple Vitamin Capsule] 1 cap PO DAILY 06/09/16 Furosemide [Lasix] 40 mg PO DAILY 06/09/16 Insulin Glargine,Hum.rec.anlog [Lantus] 20 units SQ QHS 06/09/16 Irbesartan [Avapro] 75 mg PO DAILY 06/09/16 Nifedipine [Procardia Xl] 90 mg PO Q12 06/09/16 Omeprazole 20 mg PO BID 06/09/16 History of Present Illness History of Present Illness: Patient 66-year-old male with end-stage renal disease on maintenance hemodialysis he came emergency room this morning because of progressive shortness of breath orthopnea cough in the emergency room he was evaluated, he was found to have leukocytosis WBC was 18,000 CXR was done showed multifocal pneumonia versus pulmonary edema. He was dialyzed earlier this morning , repeat chest x-ray was done ,the multifocal airspace disease persist despite hemodialysis this suggests that he has pneumonia rather than pulmonary edema. Patient is a lifelong smoker he also had peripheral vascular disease and diabetes mellitus on insulin. Hospital Course Hospital Course: Patient was admitted because of multifocal pneumonia, he was treated with IV antibiotic azithromycin and cefepime with good results he was also hemodialyzed in the hospital because he has end-stage renal disease on hemodialysis. Physical Exam Vital Signs: Temp Pulse Resp BP Pulse Ox 98.1 F 73 16 176/68 H 97 06/12/16 19:41 06/12/16 19:41 06/12/16 19:41 06/12/16 19:41 06/12/16 19:41 Intake & Output 06/11/16 06/12/16 06/13/16 06:59 06:59 06:59 Intake Total 1544 1037 709 Output Total 0 Balance 1544 1037 709 Weight 89.4 kg General appearance: PRESENT: no acute distress Eye exam: PRESENT: PERRLA Respiratory exam: PRESENT: clear to auscultation bob Cardiovascular exam: PRESENT: +S1, +S2 GI/Abdominal exam: PRESENT: soft Neurological exam: PRESENT: alert Results Laboratory Results: 06/11/16 17:40 Impressions: Chest X-Ray 06/09/16 01:28 IMPRESSION: [id number] CHF pattern. Differential diagnosis includes multifocal pneumonia.
[2016-06-12] MEDS: INSULIN GLARGINE,HUM.REC.ANLOG 300 UNIT/3 ML INSULN.PEN SUBCUT SCH (22:15)
[2016-06-12] MEDS: CEFEPIME 1 GM/D5W RTU 1 GM/50 ML RTUPB IV SCH (22:22)
[2016-06-12] MEDS: HYDRALAZINE HCL 25 MG TABLET PO SCH (22:24)
[2016-06-12] MEDS: ATORVASTATIN CALCIUM 20 MG TABLET PO SCH (22:24)
[2016-06-13] MEDS: CLONIDINE HCL 0.1 MG TABLET PO SCH (06:38)
[2016-06-13] MEDS: HYDRALAZINE HCL 25 MG TABLET PO SCH (06:40)
[2016-06-13] MEDS: NIFEDIPINE 30 MG TAB.ER.24 PO SCH (06:40)
[2016-06-13] MEDS: CALCIUM ACETATE 667 MG CAPSULE PO SCH (08:34)
[2016-06-13] MEDS: DOCUSATE SODIUM 100 MG CAPSULE PO SCH (09:31)
[2016-06-13] MEDS: LANSOPRAZOLE 15 MG TAB.RAP.DR PO SCH (09:31)
[2016-06-13] MEDS: FOLIC ACID/VITAMIN B COMP W-C CAPSULE PO SCH (09:31)
[2016-06-13] MEDS: FUROSEMIDE 40 MG TABLET PO SCH (09:31)
[2016-06-13] MEDS: ASPIRIN 81 MG TABLET, ENT COATED PO SCH (09:31)
[2016-06-13] MEDS: NICOTINE 21 MG/24 HR PATCH.TD24 TD SCH (09:34)
[2016-06-13 09:46] VITALS: BP 161/71
[2016-06-13] MEDS ORDERED: AZITHROMYCIN 250 MG TABLET PO SCH (10:00)
== END 2016-06-13 11:18 | disposition home or self-care (01) | DRG 193 ==
LOC: ER 01:21 → UNDOADMIN 02:40 → EH 02:40 → 3S 05:10
PROVIDERS: ADMIT Internal Medicine; ATTEND Internal Medicine
PROC: 5A1D60Z (ICD-10-PCS; principal; 2016-06-09)
PROC: 5A09357 Assistance with Respiratory Ventilation, Less than 24 Consecutive Hours, Continuous Positive Airway Pressure (ICD-10-PCS; 2016-06-09)
DX: J18.9 Pneumonia, unspecified organism (principal); N18.6 End stage renal disease; I13.2 Hypertensive heart and chronic kidney disease with heart failure and with stage 5 chronic kidney disease, or end stage renal disease; E11.51 Type 2 diabetes mellitus with diabetic peripheral angiopathy without gangrene; I16.0 Hypertensive urgency; M19.90 Unspecified osteoarthritis, unspecified site; D63.1 Anemia in chronic kidney disease; E11.22 Type 2 diabetes mellitus with diabetic chronic kidney disease; I50.9 Heart failure, unspecified; F17.210 Nicotine dependence, cigarettes, uncomplicated; Z99.2 Dependence on renal dialysis; Z79.899 Other long term (current) drug therapy; Z79.4 Long term (current) use of insulin
CPT/HCPCS: 36415; 71010; 80053; 82550; 82553; 82962; 83880; 84484; 85025; 87040; 93005; 93010; 94660; 96365; 99291; J0360; J0456; J0692; J0696; J1815; J3490; J7060

== ENCOUNTER 2016-07-19 01:19 | Inpatient (IN) | payer MEDICARE, MEDICAID ==
--- NOTE | 2016-07-19 01:37 | ER Document Report ---
ED Respiratory Problem - General Chief Complaint: Shortness Of Breath Stated Complaint: RESPIRATORY DISTRESS Notes: The patient is a 66-year-old male, past medical history ESRD (MWF), hypertension , presents with 2 hours of increasing shortness of breath. He called 911 and when EMS arrived, he tried to refuse transport. He was 72% on room air and he does not wear oxygen at home. He was placed on a nonrebreather with a DuoNeb and his oxygenation increased to 86%. He is still tachypneic on arrival and unable to speak any words. He said that he has not missed any of his dialysis treatments or medications and denies chest pain, cough, back pain, nausea, vomiting, leg swelling, hemoptysis, fevers or chills. TRAVEL OUTSIDE OF THE [place] IN LAST 30 DAYS: No - Related Data Allergies/Adverse Reactions: No Known Allergies Allergy (Verified 07/19/16 03:07) Past Medical History - General Information source: Patient - Social History Smoking Status: Current Every Day Smoker Family History: Reviewed & Not Pertinent, DM - Past Medical History Cardiac Medical History: Reports: Hx Hypertension, Hx Peripheral Vascular Disease Denies: Hx Coronary Artery Disease, Hx Heart Attack Pulmonary Medical History: Reports: Hx Pneumonia Denies: Hx Asthma, Hx Bronchitis, Hx COPD Neurological Medical History: Denies: Hx Cerebrovascular Accident, Hx Seizures Endocrine Medical History: Reports: Hx Diabetes Mellitus Type 2 - INSULIN DEPENDENT Renal/ Medical History: Reports: Hx End Stage Renal Disease, Hx Hemodialysis Musculoskeltal Medical History: Reports Hx Arthritis Past Surgical History: Reports: Hx Neurologic Surgery - back BIOPSY, Hx Vascular Surgery - AV FISTULA ARAMIS. Denies: Hx Pacemaker - Immunizations Hx Diphtheria, Pertussis, Tetanus Vaccination: Yes Hx Pneumococcal Vaccination: 03/26/06 Review of Systems - Review of Systems Notes: REVIEW OF SYSTEMS: CONSTITUTIONAL: -fevers, -chills EENT: -eye pain, -difficulty swallowing, -nasal congestion CARDIOVASCULAR:-chest pain, -syncope. RESPIRATORY: -cough, +SOB GASTROINTESTINAL: -abdominal pain, - nausea, -vomiting, -diarrhea GENITOURINARY: -dysuria, -hematuria MUSCULOSKELETAL: -back pain, -neck pain SKIN: -rash or skin lesions. HEMATOLOGIC: -easy bruising or bleeding. LYMPHATIC: -swollen, enlarged glands. NEUROLOGICAL: -altered mental status or loss of consciousness, -headache, - neurologic symptoms PSYCHIATRIC: -anxiety, -depression. ALL OTHER SYSTEMS REVIEWED AND NEGATIVE. Physical Exam - Vital signs Vitals: Temp 97.4 F 07/19/16 01:20 - Notes Notes: PHYSICAL EXAMINATION: GENERAL: Moderate respiratory distress HEAD: Atraumatic, normocephalic. EYES: Pupils equal round and reactive to light, extraocular movements intact, sclera anicteric, conjunctiva are normal. ENT: Poor dentition, very loose top front tooth, nares patent, oropharynx clear without exudates. Moist mucous membranes. NECK: Normal range of motion, supple without lymphadenopathy LUNGS: Bilateral rales and crackles up to the mid lungs, tachypnea, no wheezing HEART: Regular rhythm, tachycardia ABDOMEN: Soft, nontender, normoactive bowel sounds. No guarding, no rebound. No masses appreciated. EXTREMITIES: Normal range of motion, no pitting or edema. No cyanosis. Dialysis graft in right upper extremity with good thrill. NEUROLOGICAL: Cranial nerves grossly intact. Normal speech, normal gait. Normal sensory, motor, and reflex exams. PSYCH: Normal mood, normal affect. SKIN: Warm, Dry, normal turgor, no rashes or lesions noted. Course - Re-evaluation Re-evalutation: Patient with hypoxia and severe respiratory distress. On arrival to the emergency room, he is placed on BiPAP. Chest x-ray shows bilateral pulmonary edema and possible multifocal pneumonia. With the leukocytosis, tachypnea and tachycardia, will cover for HCAP. Patient appears fluid overloaded and started on nitro drip. ABG reveals a respiratory acidosis and patient is not tolerating BiPAP. Decision was made to intubate patient due to worsening hypoxic and hypercarbic respiratory failure. When opening the mouth for the intubation, the patient's loose top front tooth fell out. Patient's primary care physician is Dr. Harkins. Patient is due for dialysis this morning. Will contact nephrology to arrange. 07/19/16 05:[address] Tomas ([employer] division chair) and she will arrange dialysis. She is calling Dr. Abbott. 07/19/16 05:[address] Harkins and will admit patient to ICU as inpatient. Pt remains hypertensive despite propofol and high-dose nitroglycerin gtt. This should resolve after dialysis. - Vital Signs Vital signs: Temp Pulse Resp BP Pulse Ox 97.4 F 16 237/98 H 98 07/19/16 01:20 07/19/16 05:31 07/19/16 05:31 07/19/16 05:31 - Laboratory Result Diagrams: 07/19/16 01:45 07/19/16 01:45 Laboratory results interpreted by me: 07/19/16 07/19/16 07/19/16 01:45 01:45 01:45 WBC 20.6 H RBC 3.44 L Hgb 10.5 L Hct 33.0 L MCHC 31.7 L RDW 17.9 H Seg Neuts % (Manual) 82 H Band Neutrophils % 2 L Lymphocytes % (Manual) 11 L Abs Neuts (Manual) 17.3 H Carbonic Acid ABG pH ABG pCO2 ABG pO2 ABG HCO3 ABG Total CO2 ABG O2 Saturation Sodium 148.3 H Chloride 97 L Anion Gap 22 H BUN 45 H Creatinine 10.18 H Est GFR ( Amer) 6 L Est GFR (Non-Af Amer) 5 L Glucose 225 H Direct Bilirubin 0.8 H Alkaline Phosphatase 148 H NT-Pro-B Natriuret Pep 68830 H Total Protein 8.6 H 07/19/16 02:13 WBC RBC Hgb Hct MCHC RDW Seg Neuts % (Manual) Band Neutrophils % Lymphocytes % (Manual) Abs Neuts (Manual) Carbonic Acid 2.31 H ABG pH 7.21 L ABG pCO2 76.8 H* ABG pO2 40.8 L* ABG HCO3 29.7 H ABG Total CO2 32.0 H ABG O2 Saturation 63.2 L Sodium Chloride Anion Gap BUN Creatinine Est GFR ( Amer) Est GFR (Non-Af Amer) Glucose Direct Bilirubin Alkaline Phosphatase NT-Pro-B Natriuret Pep Total Protein - Diagnostic Test Radiology reviewed: Image reviewed, Reports reviewed Radiology results interpreted by me: CXR: Worsened severe bilateral airspace opacities may indicate pulmonary edema, multifocal pneumonia, and/or CHF. - EKG Interpretation by Me EKG shows normal: Sinus rhythm, [place], Intervals, QRS Complexes Rate: Tachycardia Voltage: Consistant with LVH When compared to previous EKG there are: No significant change Additional EKG results interpreted by me: ST depressions in anterolateral leads Critical Care Note - Critical Care Note Total time excluding time spent on procedures (mins): 50 Discharge - Discharge Clinical Impression: Acute respiratory failure with hypoxia and hypercapnia Pulmonary edema Qualifiers: Chronicity: acute Qualified Code(s): J81.0 - Acute pulmonary edema Pneumonia Qualifiers: Pneumonia type: due to unspecified organism Laterality: bilateral Lung location : lower lobe of lung Qualified Code(s): J18.9 - Pneumonia, unspecified organism Condition: Serious Disposition: ADMITTED INPATIENT Admitting Provider: Benjy Unit Admitted: ICU Referrals: ALEKS HARKINS MD [Primary Care Provider] - Follow up as needed
[2016-07-19 02:12] LABS: PROTHROMBIN TIME 12.7 SEC (11.4-15.4)
[2016-07-19 02:13] LABS: PARTIAL THROMBOPLASTIN TIME 33.8 SEC (23.5-35.8)
[2016-07-19 02:18] LABS: ALANINE AMINOTRANSFERASE 35 U/L (21-72); ALBUMIN 4.7 g/dL (3.5-5.0); ALKALINE PHOSPHATASE 148 U/L (38-126); ASPARTATE AMINO TRANSFERASE 35 U/L (17-59); BILIRUBIN,DIRECT 0.8 mg/dL (0.0-0.4); BILIRUBIN,TOTAL 0.9 mg/dL (0.2-1.3); BLOOD UREA NITROGEN 45 mg/dL (7-20); CALCIUM 9.8 mg/dL (8.4-10.2); CARBON DIOXIDE 29 mmol/L (22-30); CHLORIDE 97 mmol/L (98-107); CREATINE KINASE 157 U/L (55-170); CREATININE RESULT 10.18 mg/dL (0.52-1.25); GLUCOSE 225 mg/dL (75-110); LIPASE 168.5 U/L (23-300); POTASSIUM 4.1 mmol/L (3.6-5.0); SODIUM 148.3 mmol/L (137-145); TOTAL PROTEIN 8.6 g/dL (6.3-8.2)
[2016-07-19 02:20] LABS: ANION GAP 22 (5-19)
[2016-07-19] MEDS: NITROGLYCERIN/D5W 250 ML IV PRN ×2 (02:22→21:03)
[2016-07-19 02:33] LABS: TROPONIN I 0.043 ng/mL
[2016-07-19 02:40] LABS: ARTERIAL BLOOD BASE EXCESS 0 mmol/L; ARTERIAL BLOOD O2 SATURATION 63.2 % (94-98)
[2016-07-19 02:46] LABS: HEMOGLOBIN 10.5 g/dL (13.5-17.0); HGB HCT DIFFERENCE -1.5; MEAN CORPUSCULAR HEMOGLOBIN 30.4 pg (27.0-33.4); MEAN CORPUSCULAR HGB CONC 31.7 g/dL (32.0-36.0); MEAN CORPUSCULAR VOLUME 96 fl (80-97); RED BLOOD COUNT 3.44 10^6/uL (4.35-5.55); RED CELL DISTRIBUTION WIDTH 17.9 % (11.5-14.0); WHITE BLOOD COUNT 20.6 10^3/uL (4.0-10.5)
[2016-07-19 02:48] LABS: BAND NEUTROPHILS % (MANUAL) 2 % (3-5); BASOPHILS % (MANUAL) 0 % (0-2); EOSINOPHILS % (MANUAL) 1 % (0-6); LYMPHOCYTES % (MANUAL) 11 % (13-45); TOTAL CELLS COUNTED 100
[2016-07-19 02:50] LABS: ANISOCYTOSIS 1+; BURR CELLS SLIGHT; OVALOCYTES SLIGHT; POIKILOCYTOSIS SLIGHT; POLYCHROMASIA SLIGHT; SCHISTOCYTES SLIGHT; TOXIC GRANULATION SLIGHT
[2016-07-19] MEDS ORDERED: PIPERACILLIN/TAZOBACTAM 3.375 GM VIAL IV ONE (02:52)
[2016-07-19] MEDS ORDERED: VANCOMYCIN HCL INJ 1000 MG VIAL IV ONE (02:52)
[2016-07-19] MEDS ORDERED: ETOMIDATE INJ/PF 20 MG/10 ML SDV IV ONE (03:24)
[2016-07-19] MEDS ORDERED: ROCURONIUM BROMIDE INJ 50 MG/5 ML VIAL IV ONE ×2 (03:24→09:06)
[2016-07-19] MEDS ORDERED: PROPOFOL 100 ML IV ONE (03:53)
[2016-07-19] MEDS: PROPOFOL 100 ML IV PRN ×5 (05:07→23:00)
[2016-07-19] MEDS ORDERED: GLUCAGON,HUMAN RECOMB 1 MG INJ IM PRN (07:35)
[2016-07-19] MEDS ORDERED: DEXTROSE 40% GEL 15 GM TUBE PO PRN ×2 (07:35)
[2016-07-19] MEDS ORDERED: CEFEPIME 2 GM/D5W RTU 50 ML IV SCH (07:45)
[2016-07-19] MEDS ORDERED: VANCOMYCIN HCL 0 MG in DEXTROSE 5%-WATER 250 ML IV NR (07:45)
--- NOTE | 2016-07-19 07:47 | EKG REPORT ---
SEVERITY:- ABNORMAL ECG - SINUS TACHYCARDIA LEFT ATRIAL ABNORMALITY LVH WITH SECONDARY REPOLARIZATION ABNORMALITY ST DEPRESSION, CONSIDER ISCHEMIA, ANT-LAT LDS ANTERIOR ST ELEVATION, PROBABLY DUE TO LVH : Confirmed by: Elsa Quick 19-Jul-2016 07:46:34
[2016-07-19 09:12] LABS: PARTIAL THROMBOPLASTIN TIME 28.6 SEC (23.5-35.8)
[2016-07-19 09:43] LABS: CREATINE KINASE MB 7.36 ng/mL (<4.55)
[2016-07-19 09:54] LABS: TROPONIN I 0.69 ng/mL
--- NOTE | 2016-07-19 09:59 | PDOC PROGRESS REPORT ---
Bedside Procedure - Central Line Right Internal jugular Consent obtained: Yes Central line pre-insertion: Sterile PPE donned, Betadine prep applied, Sterile drapes applied Central line lumen type: Triple Anesthetic type: 1% Lidocaine Ultrasound guided: Yes Line secured with sutures: Yes Central line post-insertion: Blood return from lumens, Biopatch applied, Sutured , Sterile dressing applied, Position confirmed w/ CXR Complications: No
[2016-07-19 10:01] LABS: THYROID STIMULATING HORMONE 0.87 uIU/mL (0.47-4.68)
--- NOTE | 2016-07-19 10:17 | PDOC CONSULTATION ---
Consultation Consult Date: 07/19/16 Attending physician:: ALEKS HARKINS Consult reason:: resp fail History of Present Illness Admission Date/PCP: 07/19/16 07:28 ALEKS HARKINS MD History of Present Illness: MARILU CRAWFORD is a 66 year old malemultipe medical problems found unresponsive decreased respiratory rate aspirated was subsequently intubabatedPatient is on hemo Past Medical History Cardiac Medical History: Reports: Hypertension, Peripheral Vascular Disease Denies: Coronary Artery Disease, Myocardial Infarction Pulmonary Medical History: Reports: Pneumonia Denies: Asthma, Bronchitis, Chronic Obstructive Pulmonary Disease (COPD) Neurological Medical History: Denies: Seizures Endocrine Medical History: Reports: Diabetes Mellitus Type 2 - INSULIN DEPENDENT Renal/ Medical History: Reports: End Stage Renal Disease Musculoskeltal Medical History: Reports: Arthritis Hematology: Denies: Anemia Past Surgical History Past Surgical History: Reports: Vascular Surgery - AV FISTULA ARAMIS Denies: Pacemaker Social History Information Source: [facility] Records Smoking Status: Current Every Day Smoker Frequency of Alcohol Use: None Hx Recreational Drug Use: No Drugs: None Hx Prescription Drug Abuse: No Family History Family History: Reviewed & Not Pertinent, DM Parental Family History Reviewed: No Children Family History Reviewed: No Sibling(s) Family History Reviewed.: No Medication/Allergy Home Medications: Aspirin [Aspirin EC] 81 mg PO DAILY 07/19/16 Atorvastatin Calcium [Lipitor 20 mg Tablet] 20 mg PO QHS 07/19/16 B Complex & C No.20/Folic Acid [[place] Caps Softgel] 1 cap PO DAILY 07/19/16 Calcium Acetate [Phoslo 667 mg Capsule] 3 cap PO BID 07/19/16 Clonidine HCl [Catapres 0.3 mg Tablet] 0.3 mg PO Q8 07/19/16 Docusate Sodium [Colace 100 mg Capsule] 100 mg PO BID 07/19/16 Furosemide [Lasix] 40 mg PO DAILY 07/19/16 Insulin Glargine,Hum.rec.anlog [Lantus] 20 units SQ QHS 07/19/16 Irbesartan [Avapro] 150 mg PO QHS 07/19/16 Isosorb Dinit/Hydralazine HCl [Bidil Tablet] 1 tab PO TID 07/19/16 Nifedipine [Procardia Xl] 90 mg PO Q12 07/19/16 Omeprazole 20 mg PO BID 07/19/16 Allergies/Adverse Reactions: No Known Allergies Allergy (Verified 07/19/16 03:07) Review of Systems ROS unobtainable: Due to endotracheal tube Physical Exam Vital Signs: Temp Pulse Resp BP Pulse Ox 98.2 F 22 H 158/76 H 98 07/19/16 08:00 07/19/16 08:00 07/19/16 07:55 07/19/16 08:00 General appearance: PRESENT: no acute distress, disheveled, severe distress Head exam: PRESENT: atraumatic, normocephalic Eye exam: PRESENT: conjunctiva pale Mouth exam: PRESENT: dry mucosa, other - ET tube Teeth exam: PRESENT: poor dentation Neck exam: ABSENT: carotid bruit, JVD, lymphadenopathy, thyromegaly Respiratory exam: PRESENT: crackles, decreased breath sounds, prolonged expiratory phas, rhonchi, symmetrical, unlabored Cardiovascular exam: PRESENT: RRR, +S1, +S2 Pulses: PRESENT: normal radial pulses GI/Abdominal exam: PRESENT: normal bowel sounds, soft. ABSENT: distended, guarding, mass, organolmegaly, rebound, tenderness Rectal exam: PRESENT: deferred Gentrourinary exam: PRESENT: indwelling catheter Musculoskeletal exam: PRESENT: normal inspection Skin exam: PRESENT: dry, warm Results Impressions: Chest X-Ray 07/19/16 03:50 IMPRESSION: Worsened moderate-severe pulmonary edema pattern. Cannot exclude multifocal pneumonia. Lines and tubes. Assessment & Plan - Diagnosis (1) Acute respiratory failure with hypoxia and hypercapnia Is this a current diagnosis for this admission?: YesPlan: adjust for current hypoventilation (2) Pneumonia Qualifiers: Pneumonia type: due to unspecified organism Laterality: bilateral Lung location: lower lobe of lung Qualified Code(s): J18.9 - Pneumonia, unspecified organism (3) Pulmonary edema Qualifiers: Chronicity: acute Qualified Code(s): J81.0 - Acute pulmonary edema Is this a current diagnosis for this admission?: Yes (4) CHF (congestive heart failure), NYHA class II Is this a current diagnosis for this admission?: Yes (5) End stage renal disease Is this a current diagnosis for this admission?: Yes - Time Critical Time spent with patient: 35 or more minutes - 90 min
[2016-07-19 10:55] LABS: ARTERIAL BLOOD BASE EXCESS -0.2 mmol/L; ARTERIAL BLOOD O2 SATURATION 98.7 % (94-98)
[2016-07-19] MEDS: AZITHROMYCIN 500 MG in DEXTROSE 5%-WATER 250 ML IV SCH (11:53)
[2016-07-19] MEDS ORDERED: ACETAMINOPHEN 650 MG SUPP.RECT PR ONE (13:35)
[2016-07-19] MEDS: INSULIN LISPRO 100 UNIT/ML 3 ML VIAL SUBCUT PRN (14:50)
[2016-07-19] MEDS: HEPARIN SOD (PORCINE) 5,000 UNIT/ML 1 ML SYRINGE SUBCUT SCH ×2 (14:52→21:22)
--- NOTE | 2016-07-19 16:05 | PDOC H&P ---
History of Present Illness Admission Date/PCP: 07/19/16 07:28 ALEKS HARKINS MD History of Present Illness: Patient 66-year-old with history of end-stage renal disease on maintenance hemodialysis, he came to the emergency room this morning because of acute onset shortness of breath, he called rescue squad when EMS arrived at his residence the oxygen saturation was 72% he was placed on a nonrebreather and the oxygen saturation improved to 86% when he arrived in the emergency room he was tachypneic unable to speak any words he was then intubated in the emergency room. The chest x-ray was done showed severe multifocal predominantly midlower bilateral airspace opacities there is a suggestion of multifocal pneumonia versus CHF but there is associated leukocytosis. He presented in a similar fashion back on 06/09/2016 and at that time he was discharged on 06/12/2016 and on that admission he had multifocal pneumonia and he was successfully treated with intravenous cefepime and. azithromycin .when I saw patient he was already intubated in the emergency room no history could be taken from this patient, most of the history is from chart review and old records. Patient unfortunately continues to smoke cigarettes despite history of severe PAD, COPD and insulin requiring diabetes mellitus. Past Medical History Cardiac Medical History: Reports: Hypertension, Peripheral Vascular Disease Pulmonary Medical History: Reports: Chronic Obstructive Pulmonary Disease (COPD) , Pneumonia Endocrine Medical History: Reports: Diabetes Mellitus Type 2 - INSULIN DEPENDENT Renal/ Medical History: Reports: End Stage Renal Disease, Other - Secondary hyperparathyroidism Musculoskeltal Medical History: Reports: Arthritis Past Surgical History Past Surgical History: Reports: Vascular Surgery - AV FISTULA ARAMIS Social History Smoking Status: Current Every Day Smoker Frequency of Alcohol Use: None Hx Recreational Drug Use: No Drugs: None Hx Prescription Drug Abuse: No Family History Family History: Reviewed & Not Pertinent, DM Parental Family History Reviewed: Yes Children Family History Reviewed: Yes Sibling(s) Family History Reviewed.: Yes Medication/Allergy Home Medications: Aspirin [Aspirin EC] 81 mg PO DAILY 07/19/16 Atorvastatin Calcium [Lipitor 20 mg Tablet] 20 mg PO QHS 07/19/16 B Complex & C No.20/Folic Acid [[place] Caps Softgel] 1 cap PO DAILY 07/19/16 Calcium Acetate [Phoslo 667 mg Capsule] 3 cap PO BID 07/19/16 Clonidine HCl [Catapres 0.3 mg Tablet] 0.3 mg PO Q8 07/19/16 Docusate Sodium [Colace 100 mg Capsule] 100 mg PO BID 07/19/16 Furosemide [Lasix] 40 mg PO DAILY 07/19/16 Insulin Glargine,Hum.rec.anlog [Lantus] 20 units SQ QHS 07/19/16 Irbesartan [Avapro] 150 mg PO QHS 07/19/16 Isosorb Dinit/Hydralazine HCl [Bidil Tablet] 1 tab PO TID 07/19/16 Nifedipine [Procardia Xl] 90 mg PO Q12 07/19/16 Omeprazole 20 mg PO BID 07/19/16 Allergies/Adverse Reactions: No Known Allergies Allergy (Verified 07/19/16 03:07) Review of Systems ROS unobtainable: Due to endotracheal tube Physical Exam Vital Signs: Temp Pulse Resp BP Pulse Ox 100.6 F H 79 22 H 158/76 H 100 07/19/16 09:00 07/19/16 09:00 07/19/16 08:00 07/19/16 07:55 07/19/16 11:43 Intake & Output 07/18/16 07/19/16 07/20/16 06:59 06:59 06:59 Weight 87.5 kg General appearance: PRESENT: severe distress Eye exam: PRESENT: PERRLA Respiratory exam: PRESENT: crackles Cardiovascular exam: PRESENT: +S1, +S2 GI/Abdominal exam: PRESENT: soft Neurological exam: PRESENT: other Results Laboratory Results: 07/19/16 07/19/16 07/19/16 08:50 08:50 08:50 Carbonic Acid HCO3/H2CO3 Ratio ABG pH ABG pCO2 ABG pO2 ABG HCO3 ABG O2 Saturation ABG Base Excess FiO2 Ammonia 23.8 Triglycerides Amylase 205 H TSH 0.87 Free T4 1.11 07/19/16 07/19/16 08:50 10:35 Carbonic Acid 0.95 L HCO3/H2CO3 Ratio 24:1 ABG pH 7.48 H ABG pCO2 31.7 L ABG pO2 122.3 H ABG HCO3 22.9 ABG O2 Saturation 98.7 H ABG Base Excess -0.2 FiO2 50% Ammonia Triglycerides 106 Amylase TSH Free T4 07/19/16 07/19/16 08:50 08:50 Creatine Kinase 139 CK-MB (CK-2) 7.36 H Troponin I 0.690 Impressions: Chest X-Ray 07/19/16 09:51 IMPRESSION: 1. Support tubes and lines above. 2. Diffuse airspace opacities noted throughout the lungs, similar to prior study. Pulmonary vascular congestion interstitial edema, unchanged. SUPPORT DEVICE(S) IN EXPECTED LOCATIONS. Assessment & Plan - Diagnosis (1) Acute hypoxemic respiratory failure Is this a current diagnosis for this admission?: YesPlan: Patient on mechanical ventilation, consultation will be obtained from pulmonary for vent management (2) Multifocal pneumonia Is this a current diagnosis for this admission?: YesPlan: He has multifocal pneumonia he will empirically be treated with intravenous azithromycin, cefepime and vancomycin this antibiotic will cover all potential pathogens (4) Diabetes mellitus type 2 in nonobese Is this a current diagnosis for this admission?: Yes (5) Peripheral vascular disease Is this a current diagnosis for this admission?: Yes (6) Sepsis Qualifiers: Sepsis type: sepsis due to unspecified organism Qualified Code(s): A41.9 - Sepsis, unspecified organism Is this a current diagnosis for this admission?: YesPlan: Patient with sepsis from pneumonia
[2016-07-19 16:17] LABS: CREATINE KINASE MB 7.58 ng/mL (<4.55); TROPONIN I 3.33 ng/mL
[2016-07-19 16:25] LABS: ARTERIAL BLOOD BASE EXCESS 8.5 mmol/L; ARTERIAL BLOOD O2 SATURATION 92.1 % (94-98)
[2016-07-19] MEDS: MIDAZOLAM HCL 100 ML IV PRN ×2 (16:52→23:00)
[2016-07-19] MEDS ORDERED: CEFEPIME 1 GM/D5W RTU 1 GM/50 ML RTUPB IV ONE (18:00)
--- NOTE | 2016-07-19 18:23 | PDOC CONSULTATION ---
Consultation Consult Date: 07/19/16 Consult reason:: Hemodialysis in the setting of heart failure and respiratory failure status post intubation. History of Present Illness Admission Date/PCP: 07/19/16 07:28 ALEKS HARKINS MD History of Present Illness: Patient 66-year-old with history of diabetes mellitus, hypertension, end- stage renal disease on maintenance hemodialysis, came to the emergency room this morning because of acute onset shortness of breath. Apparently he called rescue squad and when EMS arrived at his residence the oxygen saturation was 72% . He was placed on a nonrebreather and the oxygen saturation improved to 86%. When he arrived in the emergency room he was tachypneic unable to speak any words he was then intubated in the emergency room. The chest x-ray done showed severe multifocal predominantly midlower bilateral airspace opacities there is a suggestion of multifocal pneumonia versus CHF. He presented in a similar fashion back on 06/09/2016 and at that time he was discharged on 06/12/2016 and on that admission he had multifocal pneumonia and he was successfully treated with intravenous cefepime and. azithromycin . Patient is currently intubated and sedated and unable to cooperate with history taking. Past Medical History Cardiac Medical History: Reports: Hypertension-primary, Peripheral Vascular Disease Denies: Coronary Artery Disease, Myocardial Infarction Pulmonary Medical History: Reports: Chronic Obstructive Pulmonary Disease (COPD) , Pneumonia Denies: Asthma, Bronchitis Neurological Medical History: Denies: Seizures Endocrine Medical History: Reports: Diabetes Mellitus Type 2 - INSULIN DEPENDENT Renal/ Medical History: Reports: End Stage Renal Disease, Other - Secondary hyperparathyroidism Musculoskeltal Medical History: Reports: Arthritis Hematology Medical History: Reports Anemia of Chronic Kidney Disease Past Surgical History Past Surgical History: Reports: Vascular Surgery - AV FISTULA ARAMIS Denies: Pacemaker Social History Smoking Status: Current Every Day Smoker Frequency of Alcohol Use: None Hx Recreational Drug Use: No Drugs: None Hx Prescription Drug Abuse: No Family History Parental Family History Reviewed: No Children Family History Reviewed: No Sibling(s) Family History Reviewed.: Yes - He had a brother on hemodialysis who has earlier. Medication/Allergy Home Medications: Aspirin [Aspirin EC] 81 mg PO DAILY 07/19/16 Atorvastatin Calcium [Lipitor 20 mg Tablet] 20 mg PO QHS 07/19/16 B Complex & C No.20/Folic Acid [[place] Caps Softgel] 1 cap PO DAILY 07/19/16 Calcium Acetate [Phoslo 667 mg Capsule] 3 cap PO BID 07/19/16 Clonidine HCl [Catapres 0.3 mg Tablet] 0.3 mg PO Q8 07/19/16 Docusate Sodium [Colace 100 mg Capsule] 100 mg PO BID 07/19/16 Furosemide [Lasix] 40 mg PO DAILY 07/19/16 Insulin Glargine,Hum.rec.anlog [Lantus] 20 units SQ QHS 07/19/16 Irbesartan [Avapro] 150 mg PO QHS 07/19/16 Isosorb Dinit/Hydralazine HCl [Bidil Tablet] 1 tab PO TID 07/19/16 Nifedipine [Procardia Xl] 90 mg PO Q12 07/19/16 Omeprazole 20 mg PO BID 07/19/16 Allergies/Adverse Reactions: No Known Allergies Allergy (Verified 07/19/16 03:07) Review of Systems Review of Systems: He is intubated and sedated state and unable to cooperate. Chart review was done and discussions were done the treating nurse. Physical Exam Vital Signs: Temp Pulse Resp BP Pulse Ox 99.9 F 79 20 158/69 H 100 07/19/16 18:00 07/19/16 09:00 07/19/16 16:45 07/19/16 16:45 07/19/16 16:45 Intake & Output 07/18/16 07/19/16 07/20/16 06:59 06:59 06:59 Intake Total 685 Output Total 4801 Balance -4116 Weight 87.5 kg Exam: Patient intubated and sedated. Eye exam: PRESENT: EOMI, PERRLA Neck exam: ABSENT: lymphadenopathy, meningismus, tenderness, thyromegaly Respiratory exam: PRESENT: clear to auscultation bob, crackles Cardiovascular exam: PRESENT: +S1, +S2 GI/Abdominal exam: PRESENT: normal bowel sounds, soft. ABSENT: distended, firm , organomegaly, tenderness Extremities exam: PRESENT: +1 edema Skin exam: ABSENT: cyanosis, erythema, mottled, rash Results Laboratory Results: 07/19/16 07/19/16 07/19/16 08:50 08:50 08:50 Carbonic Acid HCO3/H2CO3 Ratio ABG pH ABG pCO2 ABG pO2 ABG HCO3 ABG O2 Saturation ABG Base Excess FiO2 Ammonia 23.8 Triglycerides Amylase 205 H TSH 0.87 Free T4 1.11 07/19/16 07/19/16 07/19/16 08:50 10:35 16:10 Carbonic Acid 0.95 L 1.25 HCO3/H2CO3 Ratio 24:1 25:1 ABG pH 7.48 H 7.51 H ABG pCO2 31.7 L 41.4 ABG pO2 122.3 H 57.1 L ABG HCO3 22.9 32.3 H ABG O2 Saturation 98.7 H 92.1 L ABG Base Excess -0.2 8.5 FiO2 50% 40% Ammonia Triglycerides 106 Amylase TSH Free T4 07/19/16 07/19/16 07/19/16 08:50 08:50 15:35 Creatine Kinase 139 CK-MB (CK-2) 7.36 H 7.58 H Troponin I 0.690 3.330 07/19/16 15:35 Creatine Kinase 132 CK-MB (CK-2) Troponin I Impressions: Chest X-Ray 07/19/16 09:51 IMPRESSION: 1. Support tubes and lines above. 2. Diffuse airspace opacities noted throughout the lungs, similar to prior study. Pulmonary vascular congestion interstitial edema, unchanged. SUPPORT DEVICE(S) IN EXPECTED LOCATIONS. Assessment & Plan - Diagnosis (1) Acute congestive heart failure Plan: He should Respond to dialysis which is undergoing at the moment. Discuss orders with the treating nurse. Plan to ultrafiltrate 5 L and see how he responds. (2) Acute hypoxemic respiratory failure Is this a current diagnosis for this admission?: YesPlan: Also combination of congestive heart failure with possible underlying pneumonia as well. Patient on antibiotics as well besides undergoing emergent hemodialysis. (4) Multifocal pneumonia Is this a current diagnosis for this admission?: YesPlan: Possible. On antibiotics. (5) Pulmonary edema Qualifiers: Chronicity: acute Qualified Code(s): J81.0 - Acute pulmonary edema Is this a current diagnosis for this admission?: Yes (6) Hypertension Qualifiers: Hypertension type: essential hypertension Qualified Code(s): I10 - Essential (primary) hypertension Plan: See the response to dialysis.
[2016-07-19 20:54] LABS: CREATINE KINASE MB 5.37 ng/mL (<4.55); TROPONIN I 3.24 ng/mL
[2016-07-20] MEDS: PROPOFOL 100 ML IV PRN ×5 (01:30→20:56)
[2016-07-20] MEDS: MIDAZOLAM HCL 100 ML IV PRN (04:15)
[2016-07-20] MEDS: HEPARIN SOD (PORCINE) 5,000 UNIT/ML 1 ML SYRINGE SUBCUT SCH ×3 (06:20→21:10)
[2016-07-20 06:47] LABS: ARTERIAL BLOOD BASE EXCESS 4.8 mmol/L; ARTERIAL BLOOD O2 SATURATION 98.6 % (94-98)
[2016-07-20 07:00] LABS: ALANINE AMINOTRANSFERASE 35 U/L (21-72); ALBUMIN 3.4 g/dL (3.5-5.0); ALKALINE PHOSPHATASE 113 U/L (38-126); ANION GAP 18 (5-19); ASPARTATE AMINO TRANSFERASE 38 U/L (17-59); BILIRUBIN,DIRECT 0.7 mg/dL (0.0-0.4); BILIRUBIN,TOTAL 0.9 mg/dL (0.2-1.3); BLOOD UREA NITROGEN 32 mg/dL (7-20); CARBON DIOXIDE 29 mmol/L (22-30); CHLORIDE 95 mmol/L (98-107); CHOLESTEROL 117.29 mg/dL (0-200); CREATININE RESULT 7.78 mg/dL (0.52-1.25); Direct HDL 33 mg/dL (>40); GLUCOSE 122 mg/dL (75-110); MAGNESIUM 1.8 mg/dL (1.6-2.3); POTASSIUM 3.8 mmol/L (3.6-5.0); SODIUM 141.8 mmol/L (137-145); TOTAL PROTEIN 6.6 g/dL (6.3-8.2); TRIGLYCERIDES 129 mg/dL (<150)
[2016-07-20] MEDS: NITROGLYCERIN/D5W 250 ML IV PRN ×2 (07:00→14:29)
[2016-07-20 07:01] LABS: ABSOLUTE EOSINOPHILS # (AUTO) 0.1 10^3/uL (0.0-0.6); ABSOLUTE LYMPHOCYTES (AUTO) 0.7 10^3/uL (0.5-4.7); ABSOLUTE MONOCYTES (AUTO) 0.9 10^3/uL (0.1-1.4); BASOPHILS % (AUTO) 0.5 % (0-2); EOSINOPHILS % (AUTO) 0.6 % (0-6); HEMATOCRIT 27.5 % (37.9-51.0); HEMOGLOBIN 9.2 g/dL (13.5-17.0); HGB HCT DIFFERENCE 0.1; LYMPHOCYTES % (AUTO) 7.6 % (13-45); MEAN CORPUSCULAR HEMOGLOBIN 30.9 pg (27.0-33.4); MEAN CORPUSCULAR HGB CONC 33.3 g/dL (32.0-36.0); MONOCYTES % (AUTO) 9.1 % (3-13); RED BLOOD COUNT 2.97 10^6/uL (4.35-5.55); RED CELL DISTRIBUTION WIDTH 17.5 % (11.5-14.0); SEGMENTED NEUTROPHILS % (AUTO) 82.2 % (42-78); WHITE BLOOD COUNT 9.7 10^3/uL (4.0-10.5)
[2016-07-20 07:02] LABS: MEAN CORPUSCULAR VOLUME 93 fl (80-97)
[2016-07-20 07:11] LABS: DIRECT LDL 43 mg/dL (<100)
[2016-07-20] MEDS: AZITHROMYCIN 500 MG in DEXTROSE 5%-WATER 250 ML IV SCH (11:22)
[2016-07-20] MEDS: FUROSEMIDE 40 MG TABLET NG SCH (11:23)
[2016-07-20] MEDS: LOSARTAN POTASSIUM 50 MG TABLET NG SCH (11:24)
[2016-07-20] MEDS ORDERED: ASPIRIN 81 MG TABLET, ENT COATED PO SCH (12:00)
[2016-07-20] MEDS ORDERED: FUROSEMIDE 40 MG TABLET PO SCH (12:00)
[2016-07-20] MEDS ORDERED: LOSARTAN POTASSIUM 50 MG TABLET PO SCH (12:00)
[2016-07-20] MEDS ORDERED: NIFEDIPINE 30 MG TAB.ER.24 PO ONE (12:00)
[2016-07-20] MEDS ORDERED: FOLIC ACID/VITAMIN B COMP W-C CAPSULE PO SCH (12:00)
[2016-07-20] MEDS: FOLIC ACID/VITAMIN B COMP W-C CAPSULE NG SCH (12:08)
[2016-07-20] MEDS: ISOSORB DINIT/HYDRALAZINE HCL 20-37.5 MG TABLET NG SCH ×2 (13:40→18:50)
[2016-07-20] MEDS: CLONIDINE HCL 0.1 MG TABLET NG SCH ×2 (13:40→21:08)
[2016-07-20] MEDS ORDERED: ISOSORB DINIT/HYDRALAZINE HCL 20-37.5 MG TABLET PO SCH (14:00)
[2016-07-20] MEDS ORDERED: CLONIDINE HCL 0.1 MG TABLET PO SCH (14:00)
[2016-07-20] MEDS ORDERED: AMLODIPINE BESYLATE 10 MG TABLET NG ONE (15:00)
[2016-07-20] MEDS ORDERED: NICARDIPINE HCL RTU, ISO-OS 20 MG/200 ML RTUINJ IV ONE (15:17)
[2016-07-20] MEDS ORDERED: LANSOPRAZOLE 15 MG TAB.RAP.DR PO SCH ×2 (17:00→18:00)
[2016-07-20] MEDS: NICARDIPINE HCL RTU, ISO-OS 20 MG/200 ML RTUINJ IV PRN ×3 (17:46→23:00)
[2016-07-20] MEDS ORDERED: CALCIUM ACETATE 667 MG CAPSULE PO SCH (18:00)
[2016-07-20] MEDS ORDERED: DOCUSATE SODIUM 100 MG CAPSULE PO SCH (18:00)
[2016-07-20] MEDS: LANSOPRAZOLE 15 MG TAB.RAP.DR NG SCH (18:50)
[2016-07-20] MEDS: CEFEPIME HCL 0.5 GM in DEXTROSE 5%-WATER 25 ML IV SCH (18:53)
--- NOTE | 2016-07-20 19:07 | PDOC PROGRESS REPORT ---
Subjective Progress Note for:: 07/20/16 Subjective:: Was seen in the ICU today. Remains intubated and sedated. Discussed his care with the treating nurse. Labs were reviewed. As well as medications.For dialysis in the morning. Physical Exam Vital Signs: Temp Pulse Resp BP Pulse Ox 99.4 F 99 18 146/55 H 99 07/20/16 16:00 07/20/16 16:00 07/20/16 18:57 07/20/16 18:57 07/20/16 18:57 Intake & Output 07/19/16 07/20/16 07/21/16 06:59 06:59 06:59 Intake Total 1726 1166 Output Total 4801 Balance -3075 1166 Weight 82.2 kg Exam: Intubated sedated. Respiratory exam: PRESENT: clear to auscultation bob. ABSENT: crackles, rhonchi Cardiovascular exam: PRESENT: +S1, +S2 GI/Abdominal exam: PRESENT: normal bowel sounds, soft. ABSENT: distended, firm , organomegaly, tenderness Extremities exam: PRESENT: pedal edema Results Laboratory Results: 07/20/16 06:30 07/20/16 06:30 07/20/16 07/20/16 07/20/16 06:30 06:30 06:30 WBC 9.7 RBC 2.97 L Hgb 9.2 L Hct 27.5 L MCV 93 MCH 30.9 MCHC 33.3 RDW 17.5 H Plt Count 213 Seg Neutrophils % 82.2 H Lymphocytes % 7.6 L Monocytes % 9.1 Eosinophils % 0.6 Basophils % 0.5 Absolute Neutrophils 8.0 Absolute Lymphocytes 0.7 Absolute Monocytes 0.9 Absolute Eosinophils 0.1 Absolute Basophils 0.0 Carbonic Acid 0.98 L HCO3/H2CO3 Ratio 27:1 ABG pH 7.54 H ABG pCO2 32.4 L ABG pO2 113.2 H ABG HCO3 27.1 H ABG O2 Saturation 98.6 H ABG Base Excess 4.8 FiO2 40% Sodium 141.8 Potassium 3.8 Chloride 95 L Carbon Dioxide 29 Anion Gap 18 BUN 32 H Creatinine 7.78 H Est GFR ( Amer) 8 L Est GFR (Non-Af Amer) 7 L Glucose 122 H Calcium 9.0 Magnesium 1.8 Total Bilirubin 0.9 AST 38 ALT 35 Alkaline Phosphatase 113 Total Protein 6.6 Albumin 3.4 L Triglycerides 129 Cholesterol 117.29 LDL Cholesterol Direct 43 VLDL Cholesterol 26.0 HDL Cholesterol 33 L 07/19/16 07/19/16 07/19/16 08:50 08:50 15:35 Creatine Kinase 139 CK-MB (CK-2) 7.36 H 7.58 H Troponin I 0.690 3.330 NT-Pro-B Natriuret Pep 07/19/16 07/19/16 07/19/16 15:35 20:05 20:05 Creatine Kinase 132 101 CK-MB (CK-2) 5.37 H Troponin I 3.240 NT-Pro-B Natriuret Pep 07/20/16 06:30 Creatine Kinase CK-MB (CK-2) Troponin I NT-Pro-B Natriuret Pep 23853 H Impressions: Chest X-Ray 07/20/16 06:00 IMPRESSION: 1. Support tubes and lines as above. 2. There has been interval improvement in the airspace opacities noted throughout both lungs in comparison the prior study. Some residual opacity seen in the left hilar and left lung base which could represent residual of effusion/infiltrate and/or atelectasis. There is small left-sided pleural effusion. Assessment & Plan - Diagnosis (1) Acute congestive heart failure Plan: Better. However patient still intubated. Reviewed x-ray. See response to further ultrafiltration tomorrow. (2) Acute hypoxemic respiratory failure Is this a current diagnosis for this admission?: YesPlan: Debated sedated. (3) End stage renal disease Plan: Orders placed for dialysis in the morning. (4) Multifocal pneumonia Is this a current diagnosis for this admission?: Yes (5) Pulmonary edema Qualifiers: Chronicity: acute Qualified Code(s): J81.0 - Acute pulmonary edema Is this a current diagnosis for this admission?: Yes (6) Hypertension Qualifiers: Hypertension type: essential hypertension Qualified Code(s): I10 - Essential (primary) hypertension Plan: Was labile earlier but seems to responded to change from nitroglycerin to Cardene IV drip.
[2016-07-20] MEDS: CALCIUM ACETATE 667 MG CAPSULE NG SCH (19:08)
[2016-07-20] MEDS ORDERED: ACETAMINOPHEN SOLN 325 MG/10.15 ML UDCUP NG PRN (19:09)
[2016-07-20] MEDS: INSULIN LISPRO 100 UNIT/ML 3 ML VIAL SUBCUT PRN (19:16)
--- NOTE | 2016-07-20 21:00 | PDOC PROGRESS REPORT ---
Subjective Progress Note for:: 07/20/16 Subjective:: Patient remained intubated, blood pressure elevated now requires Cardizem infusion Physical Exam Vital Signs: Temp Pulse Resp BP Pulse Ox 99.2 F 99 18 146/55 H 99 07/20/16 19:45 07/20/16 16:00 07/20/16 18:57 07/20/16 18:57 07/20/16 18:57 Intake & Output 07/19/16 07/20/16 07/21/16 06:59 06:59 06:59 Intake Total 1726 1166 Output Total 4801 0 Balance -3075 1166 Weight 82.2 kg Eye exam: PRESENT: PERRLA Respiratory exam: PRESENT: crackles Cardiovascular exam: PRESENT: +S1, +S2 GI/Abdominal exam: PRESENT: soft Neurological exam: PRESENT: altered Results Laboratory Results: 07/20/16 06:30 07/20/16 06:30 07/20/16 07/20/16 07/20/16 06:30 06:30 06:30 WBC 9.7 RBC 2.97 L Hgb 9.2 L Hct 27.5 L MCV 93 MCH 30.9 MCHC 33.3 RDW 17.5 H Plt Count 213 Seg Neutrophils % 82.2 H Lymphocytes % 7.6 L Monocytes % 9.1 Eosinophils % 0.6 Basophils % 0.5 Absolute Neutrophils 8.0 Absolute Lymphocytes 0.7 Absolute Monocytes 0.9 Absolute Eosinophils 0.1 Absolute Basophils 0.0 Carbonic Acid 0.98 L HCO3/H2CO3 Ratio 27:1 ABG pH 7.54 H ABG pCO2 32.4 L ABG pO2 113.2 H ABG HCO3 27.1 H ABG O2 Saturation 98.6 H ABG Base Excess 4.8 FiO2 40% Sodium 141.8 Potassium 3.8 Chloride 95 L Carbon Dioxide 29 Anion Gap 18 BUN 32 H Creatinine 7.78 H Est GFR ( Amer) 8 L Est GFR (Non-Af Amer) 7 L Glucose 122 H Calcium 9.0 Magnesium 1.8 Total Bilirubin 0.9 AST 38 ALT 35 Alkaline Phosphatase 113 Total Protein 6.6 Albumin 3.4 L Triglycerides 129 Cholesterol 117.29 LDL Cholesterol Direct 43 VLDL Cholesterol 26.0 HDL Cholesterol 33 L 07/19/16 07/19/16 07/19/16 08:50 08:50 15:35 Creatine Kinase 139 CK-MB (CK-2) 7.36 H 7.58 H Troponin I 0.690 3.330 NT-Pro-B Natriuret Pep 07/19/16 07/19/16 07/19/16 15:35 20:05 20:05 Creatine Kinase 132 101 CK-MB (CK-2) 5.37 H Troponin I 3.240 NT-Pro-B Natriuret Pep 07/20/16 06:30 Creatine Kinase CK-MB (CK-2) Troponin I NT-Pro-B Natriuret Pep 81584 H Impressions: Chest X-Ray 07/20/16 06:00 IMPRESSION: 1. Support tubes and lines as above. 2. There has been interval improvement in the airspace opacities noted throughout both lungs in comparison the prior study. Some residual opacity seen in the left hilar and left lung base which could represent residual of effusion/infiltrate and/or atelectasis. There is small left-sided pleural effusion. Assessment & Plan - Diagnosis (1) Acute hypoxemic respiratory failure Is this a current diagnosis for this admission?: YesPlan: Patient continues to require mechanical ventilation, pulmonary is following (2) Multifocal pneumonia Is this a current diagnosis for this admission?: YesPlan: Continue IV antibiotic (3) End stage renal disease Is this a current diagnosis for this admission?: YesPlan: Hemodialysis per nephrology (4) Diabetes mellitus type 2 in nonobese Is this a current diagnosis for this admission?: Yes (5) Peripheral vascular disease Is this a current diagnosis for this admission?: Yes (6) Sepsis Qualifiers: Sepsis type: sepsis due to unspecified organism Qualified Code(s): A41.9 - Sepsis, unspecified organism Is this a current diagnosis for this admission?: Yes
[2016-07-20] MEDS: ATORVASTATIN CALCIUM 20 MG TABLET NG SCH (21:08)
[2016-07-20] MEDS: INSULIN GLARGINE,HUM.REC.ANLOG 300 UNIT/3 ML INSULN.PEN SUBCUT SCH (21:11)
[2016-07-20] MEDS ORDERED: ATORVASTATIN CALCIUM 20 MG TABLET PO SCH (22:00)
[2016-07-20] MEDS ORDERED: NIFEDIPINE 30 MG TAB.ER.24 PO SCH (22:00)
[2016-07-21] MEDS: PROPOFOL 100 ML IV PRN ×5 (00:20→23:41)
[2016-07-21] MEDS: NICARDIPINE HCL RTU, ISO-OS 20 MG/200 ML RTUINJ IV PRN ×2 (02:17→05:58)
[2016-07-21] MEDS ORDERED: EPOETIN ALFA INJ 20000 UNIT/1 ML VIAL (RENAL) IV PRN (05:00)
[2016-07-21] MEDS: HEPARIN SOD (PORCINE) 5,000 UNIT/ML 1 ML SYRINGE SUBCUT SCH ×3 (05:59→22:52)
[2016-07-21] MEDS: LANSOPRAZOLE 15 MG TAB.RAP.DR NG SCH ×2 (05:59→17:44)
[2016-07-21] MEDS: CLONIDINE HCL 0.1 MG TABLET NG SCH ×3 (05:59→22:52)
[2016-07-21 06:14] LABS: ABSOLUTE BASOPHILS # (AUTO) 0.1 10^3/uL (0.0-0.2); ABSOLUTE EOSINOPHILS # (AUTO) 0.2 10^3/uL (0.0-0.6); ABSOLUTE LYMPHOCYTES (AUTO) 0.9 10^3/uL (0.5-4.7); ABSOLUTE NEUT (AUTO) 6.6 10^3/uL (1.7-8.2); ARTERIAL BLOOD BASE EXCESS 4.2 mmol/L; ARTERIAL BLOOD O2 SATURATION 96.4 % (94-98); BASOPHILS % (AUTO) 0.6 % (0-2); EOSINOPHILS % (AUTO) 2.8 % (0-6); HEMATOCRIT 28.3 % (37.9-51.0); HEMOGLOBIN 9.4 g/dL (13.5-17.0); HGB HCT DIFFERENCE -0.1; LYMPHOCYTES % (AUTO) 10.1 % (13-45); MEAN CORPUSCULAR HEMOGLOBIN 30.7 pg (27.0-33.4); MEAN CORPUSCULAR HGB CONC 33.3 g/dL (32.0-36.0); MEAN CORPUSCULAR VOLUME 92 fl (80-97); MONOCYTES % (AUTO) 11.8 % (3-13); RED BLOOD COUNT 3.07 10^6/uL (4.35-5.55); RED CELL DISTRIBUTION WIDTH 17.4 % (11.5-14.0); SEGMENTED NEUTROPHILS % (AUTO) 74.7 % (42-78); WHITE BLOOD COUNT 8.9 10^3/uL (4.0-10.5)
[2016-07-21 06:41] LABS: ALANINE AMINOTRANSFERASE 37 U/L (21-72); ALBUMIN 3.4 g/dL (3.5-5.0); ALKALINE PHOSPHATASE 107 U/L (38-126); ASPARTATE AMINO TRANSFERASE 28 U/L (17-59); BILIRUBIN,DIRECT 0.5 mg/dL (0.0-0.4); BILIRUBIN,TOTAL 0.7 mg/dL (0.2-1.3); BLOOD UREA NITROGEN 41 mg/dL (7-20); CALCIUM 8.9 mg/dL (8.4-10.2); CARBON DIOXIDE 26 mmol/L (22-30); CREATININE RESULT 9.74 mg/dL (0.52-1.25); GLUCOSE 66 mg/dL (75-110); TOTAL PROTEIN 6.2 g/dL (6.3-8.2)
[2016-07-21 06:51] LABS: ANION GAP 19 (5-19); CHLORIDE 92 mmol/L (98-107); SODIUM 137.1 mmol/L (137-145)
[2016-07-21] MEDS: DEXTROSE 50%-WATER 25 GM/50 ML DISP.SYRIN IV PRN (07:58)
--- NOTE | 2016-07-21 09:54 | PDOC PROGRESS REPORT ---
Subjective Progress Note for:: 07/21/16 Subjective:: Patient was seen in the ICU today. He still remains intubated but he is not as sedated as he is in the process of being weaned. Discussions were done with the treating nurse in the ICU as well as Stella by dialysis nurse who is treating him with dialysis. He is undergoing dialysis without any issues. Vital signs are stable. Plan to remove at least 4 and 5 L of fluid as tolerated. Labs were reviewed with the treating nurses.Chest x-ray done today was reviewed which shows possibility of left basilar pneumonia/atelectasis. Physical Exam Vital Signs: Temp Pulse Resp BP Pulse Ox 97.9 F 69 12 145/61 H 100 07/21/16 08:00 07/21/16 08:00 07/21/16 08:00 07/21/16 08:00 07/21/16 08:00 Intake & Output 07/20/16 07/21/16 07/22/16 06:59 06:59 06:59 Intake Total 1726 6 Output Total 4801 0 Balance -3075 6 Weight 82.2 kg 84.8 kg Exam: Is intubated but not as sedated as he is in the process of being weaned. Respiratory exam: PRESENT: clear to auscultation bob, crackles. ABSENT: rhonchi Cardiovascular exam: PRESENT: +S1, +S2 GI/Abdominal exam: PRESENT: normal bowel sounds, soft. ABSENT: distended, firm , organomegaly, tenderness Extremities exam: PRESENT: pedal edema Skin exam: ABSENT: erythema, mottled, rash Results Laboratory Results: 07/21/16 06:09 07/21/16 06:09 07/21/16 07/21/16 07/21/16 06:09 06:09 06:09 WBC 8.9 RBC 3.07 L Hgb 9.4 L Hct 28.3 L MCV 92 MCH 30.7 MCHC 33.3 RDW 17.4 H Plt Count 225 Seg Neutrophils % 74.7 Lymphocytes % 10.1 L Monocytes % 11.8 Eosinophils % 2.8 Basophils % 0.6 Absolute Neutrophils 6.6 Absolute Lymphocytes 0.9 Absolute Monocytes 1.0 Absolute Eosinophils 0.2 Absolute Basophils 0.1 Carbonic Acid 1.08 HCO3/H2CO3 Ratio 25:1 ABG pH 7.50 H ABG pCO2 35.9 ABG pO2 77.1 L ABG HCO3 27.4 H ABG O2 Saturation 96.4 ABG Base Excess 4.2 FiO2 30% Sodium 137.1 Potassium 4.0 Chloride 92 L Carbon Dioxide 26 Anion Gap 19 BUN 41 H Creatinine 9.74 H Est GFR ( Amer) 7 L Est GFR (Non-Af Amer) 5 L Glucose 66 L Calcium 8.9 Total Bilirubin 0.7 AST 28 ALT 37 Alkaline Phosphatase 107 Total Protein 6.2 L Albumin 3.4 L 07/19/16 07/19/16 07/19/16 08:50 08:50 15:35 Creatine Kinase 139 CK-MB (CK-2) 7.36 H 7.58 H Troponin I 0.690 3.330 NT-Pro-B Natriuret Pep 07/19/16 07/19/16 07/19/16 15:35 20:05 20:05 Creatine Kinase 132 101 CK-MB (CK-2) 5.37 H Troponin I 3.240 NT-Pro-B Natriuret Pep 07/20/16 07/21/16 06:30 06:09 Creatine Kinase CK-MB (CK-2) Troponin I NT-Pro-B Natriuret Pep 10247 H 75551 H Impressions: Chest X-Ray 07/21/16 06:00 IMPRESSION: Trace right pleural fluid. Left retrocardiac basilar consolidation atelectasis versus pneumonia. This is unchanged from 07/20/2016 Assessment & Plan - Diagnosis (1) Acute congestive heart failure Plan: Still in respiratory failure but improving as to be able to remove fluid on dialysis. See how he responds to today's ultrafiltration and hopefully he will be successfully weaned later on today. (2) Acute hypoxemic respiratory failure Is this a current diagnosis for this admission?: YesPlan: Remains intubated but less sedated as he is in the process of being weaned postdialysis. (3) End stage renal disease Plan: Patient undergoing dialysis without any issues. Vital signs are stable. Orders were discussed with the treating nurse. Plan to remove between 4 and 5 L as tolerated. (4) Multifocal pneumonia Is this a current diagnosis for this admission?: YesPlan: Patient on antibiotics currently. Chest x-ray reviewed today shows possibility of left basilar pneumonia (5) Pulmonary edema Qualifiers: Chronicity: acute Qualified Code(s): J81.0 - Acute pulmonary edema Is this a current diagnosis for this admission?: Yes (6) Hypertension Qualifiers: Hypertension type: essential hypertension Qualified Code(s): I10 - Essential (primary) hypertension Plan: Stable. Currently weaned off the IV antihypertensives. Monitor. See response to removal of fluid.
[2016-07-21] MEDS: AMLODIPINE BESYLATE 10 MG TABLET NG SCH (13:10)
[2016-07-21] MEDS: ISOSORB DINIT/HYDRALAZINE HCL 20-37.5 MG TABLET NG SCH ×3 (13:11→17:45)
[2016-07-21] MEDS: ASPIRIN 81 MG TABLET, CHEWABLE NG SCH (13:11)
[2016-07-21] MEDS: LOSARTAN POTASSIUM 50 MG TABLET NG SCH (13:11)
[2016-07-21] MEDS: FUROSEMIDE 40 MG TABLET NG SCH (13:12)
--- NOTE | 2016-07-21 14:29 | PDOC PROGRESS REPORT ---
Subjective Progress Note for:: 07/20/16 Subjective:: Intubated and sedated Physical Exam Vital Signs: Temp Pulse Resp BP Pulse Ox 98.3 F 79 18 169/78 H 100 07/20/16 07:44 07/20/16 07:44 07/20/16 07:44 07/20/16 06:12 07/20/16 06:12 Intake & Output 07/19/16 07/20/16 07/21/16 06:59 06:59 06:59 Intake Total 1726 Output Total 4801 Balance -3075 Weight 82.2 kg General appearance: PRESENT: no acute distress, disheveled, thin, well-developed Head exam: PRESENT: atraumatic, normocephalic Eye exam: PRESENT: conjunctiva pale Mouth exam: PRESENT: dry mucosa, neck supple, other - ET tube in place Teeth exam: PRESENT: poor dentation Neck exam: ABSENT: carotid bruit, JVD, lymphadenopathy, thyromegaly Respiratory exam: PRESENT: decreased breath sounds, prolonged expiratory phas, rhonchi, symmetrical, unlabored Cardiovascular exam: PRESENT: RRR, +S1, +S2 Pulses: PRESENT: normal radial pulses GI/Abdominal exam: PRESENT: normal bowel sounds, soft. ABSENT: distended, guarding, mass, organolmegaly, rebound, tenderness Rectal exam: PRESENT: deferred Gentrourinary exam: PRESENT: indwelling catheter Extremities exam: PRESENT: other - A-V access right upper extremity Skin exam: PRESENT: dry, warm Results Laboratory Results: 07/20/16 06:30 07/20/16 06:30 07/19/16 07/19/16 07/19/16 08:50 08:50 08:50 WBC RBC Hgb Hct MCV MCH MCHC RDW Plt Count Seg Neutrophils % Lymphocytes % Monocytes % Eosinophils % Basophils % Absolute Neutrophils Absolute Lymphocytes Absolute Monocytes Absolute Eosinophils Absolute Basophils Carbonic Acid HCO3/H2CO3 Ratio ABG pH ABG pCO2 ABG pO2 ABG HCO3 ABG O2 Saturation ABG Base Excess FiO2 Sodium Potassium Chloride Carbon Dioxide Anion Gap BUN Creatinine Est GFR ( Amer) Est GFR (Non-Af Amer) Glucose Calcium Magnesium Total Bilirubin AST ALT Alkaline Phosphatase Ammonia 23.8 Total Protein Albumin Triglycerides Cholesterol LDL Cholesterol Direct VLDL Cholesterol HDL Cholesterol Amylase 205 H TSH 0.87 Free T4 1.11 07/19/16 07/19/16 07/19/16 08:50 10:35 16:10 WBC RBC Hgb Hct MCV MCH MCHC RDW Plt Count Seg Neutrophils % Lymphocytes % Monocytes % Eosinophils % Basophils % Absolute Neutrophils Absolute Lymphocytes Absolute Monocytes Absolute Eosinophils Absolute Basophils Carbonic Acid 0.95 L 1.25 HCO3/H2CO3 Ratio 24:1 25:1 ABG pH 7.48 H 7.51 H ABG pCO2 31.7 L 41.4 ABG pO2 122.3 H 57.1 L ABG HCO3 22.9 32.3 H ABG O2 Saturation 98.7 H 92.1 L ABG Base Excess -0.2 8.5 FiO2 50% 40% Sodium Potassium Chloride Carbon Dioxide Anion Gap BUN Creatinine Est GFR ( Amer) Est GFR (Non-Af Amer) Glucose Calcium Magnesium Total Bilirubin AST ALT Alkaline Phosphatase Ammonia Total Protein Albumin Triglycerides 106 Cholesterol LDL Cholesterol Direct VLDL Cholesterol HDL Cholesterol Amylase TSH Free T4 07/20/16 07/20/16 07/20/16 06:30 06:30 06:30 WBC 9.7 RBC 2.97 L Hgb 9.2 L Hct 27.5 L MCV 93 MCH 30.9 MCHC 33.3 RDW 17.5 H Plt Count 213 Seg Neutrophils % 82.2 H Lymphocytes % 7.6 L Monocytes % 9.1 Eosinophils % 0.6 Basophils % 0.5 Absolute Neutrophils 8.0 Absolute Lymphocytes 0.7 Absolute Monocytes 0.9 Absolute Eosinophils 0.1 Absolute Basophils 0.0 Carbonic Acid 0.98 L HCO3/H2CO3 Ratio 27:1 ABG pH 7.54 H ABG pCO2 32.4 L ABG pO2 113.2 H ABG HCO3 27.1 H ABG O2 Saturation 98.6 H ABG Base Excess 4.8 FiO2 40% Sodium 141.8 Potassium 3.8 Chloride 95 L Carbon Dioxide 29 Anion Gap 18 BUN 32 H Creatinine 7.78 H Est GFR ( Amer) 8 L Est GFR (Non-Af Amer) 7 L Glucose 122 H Calcium 9.0 Magnesium 1.8 Total Bilirubin 0.9 AST 38 ALT 35 Alkaline Phosphatase 113 Ammonia Total Protein 6.6 Albumin 3.4 L Triglycerides 129 Cholesterol 117.29 LDL Cholesterol Direct 43 VLDL Cholesterol 26.0 HDL Cholesterol 33 L Amylase TSH Free T4 07/19/16 07/19/16 07/19/16 08:50 08:50 15:35 Creatine Kinase 139 CK-MB (CK-2) 7.36 H 7.58 H Troponin I 0.690 3.330 07/19/16 07/19/16 07/19/16 15:35 20:05 20:05 Creatine Kinase 132 101 CK-MB (CK-2) 5.37 H Troponin I 3.240 Impressions: Chest X-Ray 07/20/16 06:00 IMPRESSION: 1. Support tubes and lines as above. 2. There has been interval improvement in the airspace opacities noted throughout both lungs in comparison the prior study. Some residual opacity seen in the left hilar and left lung base which could represent residual of effusion/infiltrate and/or atelectasis. There is small left-sided pleural effusion. Assessment & Plan - Diagnosis (1) Acute respiratory failure with hypoxia and hypercapnia Is this a current diagnosis for this admission?: Yes (2) Pneumonia Qualifiers: Pneumonia type: due to unspecified organism Laterality: bilateral Lung location: lower lobe of lung Qualified Code(s): J18.9 - Pneumonia, unspecified organism (3) Pulmonary edema Qualifiers: Chronicity: acute Qualified Code(s): J81.0 - Acute pulmonary edema Is this a current diagnosis for this admission?: Yes (4) CHF (congestive heart failure), NYHA class II Is this a current diagnosis for this admission?: Yes (5) End stage renal disease Is this a current diagnosis for this admission?: Yes - Time Critical Time spent with patient: 35 or more minutes
--- NOTE | 2016-07-21 14:31 | PDOC PROGRESS REPORT ---
Subjective Progress Note for:: 07/21/16 Subjective:: Intubated and sedated Physical Exam Vital Signs: Temp Pulse Resp BP Pulse Ox 97.9 F 69 12 145/61 H 100 07/21/16 08:00 07/21/16 08:00 07/21/16 08:00 07/21/16 08:00 07/21/16 08:00 Intake & Output 07/20/16 07/21/16 07/22/16 06:59 06:59 06:59 Intake Total 1726 2055 Output Total 4801 0 Balance -3075 2055 Weight 82.2 kg 84.8 kg General appearance: PRESENT: no acute distress, disheveled, thin, well-developed Head exam: PRESENT: normocephalic Eye exam: PRESENT: conjunctiva pale Mouth exam: PRESENT: dry mucosa, neck supple, other - ET tube in place Teeth exam: PRESENT: poor dentation Neck exam: ABSENT: carotid bruit, JVD, lymphadenopathy, thyromegaly Respiratory exam: PRESENT: decreased breath sounds, prolonged expiratory phas, rales, rhonchi, unlabored Cardiovascular exam: PRESENT: RRR, +S1, +S2 Pulses: PRESENT: normal radial pulses GI/Abdominal exam: PRESENT: normal bowel sounds, soft. ABSENT: distended, guarding, mass, organolmegaly, rebound, tenderness Rectal exam: PRESENT: deferred Gentrourinary exam: PRESENT: indwelling catheter Extremities exam: PRESENT: other - Arterial venous access right upper Skin exam: PRESENT: dry Results Laboratory Results: 07/21/16 06:09 07/21/16 06:09 07/21/16 07/21/16 07/21/16 06:09 06:09 06:09 WBC 8.9 RBC 3.07 L Hgb 9.4 L Hct 28.3 L MCV 92 MCH 30.7 MCHC 33.3 RDW 17.4 H Plt Count 225 Seg Neutrophils % 74.7 Lymphocytes % 10.1 L Monocytes % 11.8 Eosinophils % 2.8 Basophils % 0.6 Absolute Neutrophils 6.6 Absolute Lymphocytes 0.9 Absolute Monocytes 1.0 Absolute Eosinophils 0.2 Absolute Basophils 0.1 Carbonic Acid 1.08 HCO3/H2CO3 Ratio 25:1 ABG pH 7.50 H ABG pCO2 35.9 ABG pO2 77.1 L ABG HCO3 27.4 H ABG O2 Saturation 96.4 ABG Base Excess 4.2 FiO2 30% Sodium 137.1 Potassium 4.0 Chloride 92 L Carbon Dioxide 26 Anion Gap 19 BUN 41 H Creatinine 9.74 H Est GFR ( Amer) 7 L Est GFR (Non-Af Amer) 5 L Glucose 66 L Calcium 8.9 Total Bilirubin 0.7 AST 28 ALT 37 Alkaline Phosphatase 107 Total Protein 6.2 L Albumin 3.4 L 07/19/16 07/19/16 07/19/16 08:50 08:50 15:35 Creatine Kinase 139 CK-MB (CK-2) 7.36 H 7.58 H Troponin I 0.690 3.330 NT-Pro-B Natriuret Pep 07/19/16 07/19/16 07/19/16 15:35 20:05 20:05 Creatine Kinase 132 101 CK-MB (CK-2) 5.37 H Troponin I 3.240 NT-Pro-B Natriuret Pep 07/20/16 07/21/16 06:30 06:09 Creatine Kinase CK-MB (CK-2) Troponin I NT-Pro-B Natriuret Pep 55456 H 12030 H Assessment & Plan - Diagnosis (1) Acute respiratory failure with hypoxia and hypercapnia Is this a current diagnosis for this admission?: Yes (2) Pneumonia Qualifiers: Pneumonia type: due to unspecified organism Laterality: bilateral Lung location: lower lobe of lung Qualified Code(s): J18.9 - Pneumonia, unspecified organism (3) Pulmonary edema Qualifiers: Chronicity: acute Qualified Code(s): J81.0 - Acute pulmonary edema Is this a current diagnosis for this admission?: Yes (4) CHF (congestive heart failure), NYHA class II Is this a current diagnosis for this admission?: Yes (5) End stage renal disease Is this a current diagnosis for this admission?: Yes - Time Critical Time spent with patient: 35 or more minutes
[2016-07-21] MEDS: FOLIC ACID/VITAMIN B COMP W-C CAPSULE NG SCH (15:39)
[2016-07-21] MEDS: CALCIUM ACETATE 667 MG CAPSULE NG SCH ×2 (15:39→17:46)
[2016-07-21] MEDS: AZITHROMYCIN 250 MG TABLET NG SCH (15:44)
[2016-07-21] MEDS: CEFEPIME HCL 0.5 GM in DEXTROSE 5%-WATER 25 ML IV SCH (17:45)
[2016-07-21] MEDS ORDERED: VANCOMYCIN HCL 750 MG in DEXTROSE 5%-WATER 250 ML IV SCH (18:00)
--- NOTE | 2016-07-21 20:52 | PDOC PROGRESS REPORT ---
Subjective Progress Note for:: 07/21/16 Subjective:: Patient is seen by the bedside he continues to require mechanical ventilation Physical Exam Vital Signs: Temp Pulse Resp BP Pulse Ox 98.7 F 73 16 135/68 H 99 07/21/16 18:00 07/21/16 12:00 07/21/16 18:00 07/21/16 17:58 07/21/16 18:00 Intake & Output 07/20/16 07/21/16 07/22/16 06:59 06:59 06:59 Intake Total 1726 6 419 Output Total 4801 0 5000 Balance -3075 2055 -594 Weight 82.2 kg 84.8 kg General appearance: PRESENT: mild distress Eye exam: PRESENT: PERRLA Respiratory exam: PRESENT: rhonchi Cardiovascular exam: PRESENT: +S1, +S2 GI/Abdominal exam: PRESENT: soft Neurological exam: PRESENT: alert Results Laboratory Results: 07/21/16 06:09 07/21/16 06:09 07/21/16 07/21/16 07/21/16 06:09 06:09 06:09 WBC 8.9 RBC 3.07 L Hgb 9.4 L Hct 28.3 L MCV 92 MCH 30.7 MCHC 33.3 RDW 17.4 H Plt Count 225 Seg Neutrophils % 74.7 Lymphocytes % 10.1 L Monocytes % 11.8 Eosinophils % 2.8 Basophils % 0.6 Absolute Neutrophils 6.6 Absolute Lymphocytes 0.9 Absolute Monocytes 1.0 Absolute Eosinophils 0.2 Absolute Basophils 0.1 Carbonic Acid 1.08 HCO3/H2CO3 Ratio 25:1 ABG pH 7.50 H ABG pCO2 35.9 ABG pO2 77.1 L ABG HCO3 27.4 H ABG O2 Saturation 96.4 ABG Base Excess 4.2 FiO2 30% Sodium 137.1 Potassium 4.0 Chloride 92 L Carbon Dioxide 26 Anion Gap 19 BUN 41 H Creatinine 9.74 H Est GFR ( Amer) 7 L Est GFR (Non-Af Amer) 5 L Glucose 66 L Calcium 8.9 Total Bilirubin 0.7 AST 28 ALT 37 Alkaline Phosphatase 107 Total Protein 6.2 L Albumin 3.4 L 07/19/16 07/19/16 07/19/16 08:50 08:50 15:35 Creatine Kinase 139 CK-MB (CK-2) 7.36 H 7.58 H Troponin I 0.690 3.330 NT-Pro-B Natriuret Pep 07/19/16 07/19/16 07/19/16 15:35 20:05 20:05 Creatine Kinase 132 101 CK-MB (CK-2) 5.37 H Troponin I 3.240 NT-Pro-B Natriuret Pep 07/20/16 07/21/16 06:30 06:09 Creatine Kinase CK-MB (CK-2) Troponin I NT-Pro-B Natriuret Pep 52581 H 38392 H Impressions: Chest X-Ray 07/21/16 06:00 IMPRESSION: Trace right pleural fluid. Left retrocardiac basilar consolidation atelectasis versus pneumonia. This is unchanged from 07/20/2016 Assessment & Plan - Diagnosis (1) Acute hypoxemic respiratory failure Is this a current diagnosis for this admission?: YesPlan: Patient is on weaning mode (2) Multifocal pneumonia Is this a current diagnosis for this admission?: Yes (3) End stage renal disease Is this a current diagnosis for this admission?: Yes (4) Diabetes mellitus type 2 in nonobese Is this a current diagnosis for this admission?: Yes (5) Peripheral vascular disease Is this a current diagnosis for this admission?: Yes (6) Sepsis Qualifiers: Sepsis type: sepsis due to unspecified organism Qualified Code(s): A41.9 - Sepsis, unspecified organism Is this a current diagnosis for this admission?: Yes
[2016-07-21] MEDS: INSULIN GLARGINE,HUM.REC.ANLOG 300 UNIT/3 ML INSULN.PEN SUBCUT SCH (22:52)
[2016-07-21] MEDS: ATORVASTATIN CALCIUM 20 MG TABLET NG SCH (22:52)
[2016-07-22 04:36] LABS: ABSOLUTE BASOPHILS # (AUTO) 0.1 10^3/uL (0.0-0.2); ABSOLUTE EOSINOPHILS # (AUTO) 0.2 10^3/uL (0.0-0.6); ABSOLUTE LYMPHOCYTES (AUTO) 0.8 10^3/uL (0.5-4.7); ABSOLUTE MONOCYTES (AUTO) 0.9 10^3/uL (0.1-1.4); ABSOLUTE NEUT (AUTO) 4.3 10^3/uL (1.7-8.2); BASOPHILS % (AUTO) 1.2 % (0-2); EOSINOPHILS % (AUTO) 3.5 % (0-6); HEMATOCRIT 27.6 % (37.9-51.0); HEMOGLOBIN 9.2 g/dL (13.5-17.0); LYMPHOCYTES % (AUTO) 13.1 % (13-45); MEAN CORPUSCULAR HEMOGLOBIN 31.1 pg (27.0-33.4); MEAN CORPUSCULAR HGB CONC 33.3 g/dL (32.0-36.0); MEAN CORPUSCULAR VOLUME 93 fl (80-97); RED BLOOD COUNT 2.96 10^6/uL (4.35-5.55); RED CELL DISTRIBUTION WIDTH 17.8 % (11.5-14.0); SEGMENTED NEUTROPHILS % (AUTO) 68.2 % (42-78); WHITE BLOOD COUNT 6.3 10^3/uL (4.0-10.5)
[2016-07-22 04:57] LABS: ALANINE AMINOTRANSFERASE 31 U/L (21-72); ALBUMIN 3.4 g/dL (3.5-5.0); ALKALINE PHOSPHATASE 104 U/L (38-126); ANION GAP 14 (5-19); ASPARTATE AMINO TRANSFERASE 31 U/L (17-59); BILIRUBIN,DIRECT 0.6 mg/dL (0.0-0.4); BILIRUBIN,TOTAL 0.8 mg/dL (0.2-1.3); BLOOD UREA NITROGEN 30 mg/dL (7-20); CARBON DIOXIDE 28 mmol/L (22-30); CHLORIDE 95 mmol/L (98-107); CREATININE RESULT 7.31 mg/dL (0.52-1.25); GLUCOSE 41 mg/dL (75-110); POTASSIUM 4.5 mmol/L (3.6-5.0); SODIUM 137.3 mmol/L (137-145); TOTAL PROTEIN 6.6 g/dL (6.3-8.2); TRIGLYCERIDES 109 mg/dL (<150)
[2016-07-22 05:22] LABS: ARTERIAL BLOOD BASE EXCESS 3.7 mmol/L
[2016-07-22] MEDS: HEPARIN SOD (PORCINE) 5,000 UNIT/ML 1 ML SYRINGE SUBCUT SCH ×3 (05:24→22:40)
[2016-07-22] MEDS: DEXTROSE 50%-WATER 25 GM/50 ML DISP.SYRIN IV PRN ×4 (05:25→18:50)
[2016-07-22] MEDS: LANSOPRAZOLE 15 MG TAB.RAP.DR NG SCH ×2 (05:25→16:52)
[2016-07-22] MEDS: CLONIDINE HCL 0.1 MG TABLET NG SCH ×3 (05:26→22:40)
[2016-07-22] MEDS: PROPOFOL 100 ML IV PRN (05:36)
[2016-07-22] MEDS: AZITHROMYCIN 250 MG TABLET NG SCH (09:39)
[2016-07-22] MEDS: AMLODIPINE BESYLATE 10 MG TABLET NG SCH (09:39)
[2016-07-22] MEDS: ASPIRIN 81 MG TABLET, CHEWABLE NG SCH (09:39)
[2016-07-22] MEDS: CALCIUM ACETATE 667 MG CAPSULE NG SCH ×2 (09:40→17:35)
[2016-07-22] MEDS: ISOSORB DINIT/HYDRALAZINE HCL 20-37.5 MG TABLET NG SCH ×3 (09:40→20:33)
--- NOTE | 2016-07-22 10:32 | PDOC PROGRESS REPORT ---
Subjective Progress Note for:: 07/22/16 Subjective:: Intubated and responsive Physical Exam Vital Signs: Temp Pulse Resp BP Pulse Ox 98.2 F 72 14 137/65 H 100 07/22/16 08:00 07/22/16 04:00 07/22/16 07:45 07/22/16 07:45 07/22/16 08:05 Intake & Output 07/21/16 07/22/16 07/23/16 06:59 06:59 06:59 Intake Total 6 605 Output Total 0 5000 0 Balance 2055 -4395 0 Weight 84.8 kg 80.1 kg General appearance: PRESENT: no acute distress, thin, well-developed Head exam: PRESENT: atraumatic, normocephalic Eye exam: PRESENT: conjunctiva pale, EOMI Mouth exam: PRESENT: dry mucosa, neck supple, other - ET tube Neck exam: ABSENT: carotid bruit, JVD, lymphadenopathy, thyromegaly Respiratory exam: PRESENT: prolonged expiratory phas, rhonchi, unlabored Cardiovascular exam: PRESENT: RRR, +S1, +S2 Pulses: PRESENT: normal radial pulses GI/Abdominal exam: PRESENT: ascites Rectal exam: PRESENT: deferred Musculoskeletal exam: PRESENT: normal inspection Neurological exam: PRESENT: awake Skin exam: PRESENT: dry Results Laboratory Results: 07/22/16 04:25 07/22/16 04:25 07/22/16 07/22/16 07/22/16 04:25 04:25 04:50 WBC 6.3 RBC 2.96 L Hgb 9.2 L Hct 27.6 L MCV 93 MCH 31.1 MCHC 33.3 RDW 17.8 H Plt Count 229 Seg Neutrophils % 68.2 Lymphocytes % 13.1 Monocytes % 14.0 H Eosinophils % 3.5 Basophils % 1.2 Absolute Neutrophils 4.3 Absolute Lymphocytes 0.8 Absolute Monocytes 0.9 Absolute Eosinophils 0.2 Absolute Basophils 0.1 Carbonic Acid 1.22 HCO3/H2CO3 Ratio 22:1 ABG pH 7.46 H ABG pCO2 40.4 ABG pO2 77.5 L ABG HCO3 27.9 H ABG O2 Saturation 96.0 ABG Base Excess 3.7 FiO2 25% Sodium 137.3 Potassium 4.5 Chloride 95 L Carbon Dioxide 28 Anion Gap 14 BUN 30 H Creatinine 7.31 H Est GFR ( Amer) 9 L Est GFR (Non-Af Amer) 8 L Glucose 41 L Calcium 9.0 Total Bilirubin 0.8 AST 31 ALT 31 Alkaline Phosphatase 104 Total Protein 6.6 Albumin 3.4 L Triglycerides 109 07/19/16 07/19/16 07/19/16 08:50 08:50 15:35 Creatine Kinase 139 CK-MB (CK-2) 7.36 H 7.58 H Troponin I 0.690 3.330 NT-Pro-B Natriuret Pep 07/19/16 07/19/16 07/19/16 15:35 20:05 20:05 Creatine Kinase 132 101 CK-MB (CK-2) 5.37 H Troponin I 3.240 NT-Pro-B Natriuret Pep 07/20/16 07/21/16 07/22/16 06:30 06:09 04:25 Creatine Kinase CK-MB (CK-2) Troponin I NT-Pro-B Natriuret Pep 94681 H 84852 H 51739 H Impressions: Chest X-Ray 07/22/16 06:00 IMPRESSION: Mild improved aeration in the left lung base. Assessment & Plan - Diagnosis (1) Acute respiratory failure with hypoxia and hypercapnia Is this a current diagnosis for this admission?: YesPlan: plan to extubate (2) Pneumonia Qualifiers: Pneumonia type: due to unspecified organism Laterality: bilateral Lung location: lower lobe of lung Qualified Code(s): J18.9 - Pneumonia, unspecified organism (3) Pulmonary edema Qualifiers: Chronicity: acute Qualified Code(s): J81.0 - Acute pulmonary edema Is this a current diagnosis for this admission?: Yes (4) CHF (congestive heart failure), NYHA class II Is this a current diagnosis for this admission?: Yes (5) End stage renal disease Is this a current diagnosis for this admission?: Yes - Time Critical Time spent with patient: 35 or more minutes
[2016-07-22] MEDS: LOSARTAN POTASSIUM 50 MG TABLET NG SCH ×2 (11:56→20:31)
[2016-07-22] MEDS: FUROSEMIDE 40 MG TABLET NG SCH ×2 (11:56→20:33)
[2016-07-22] MEDS: FOLIC ACID/VITAMIN B COMP W-C CAPSULE NG SCH (11:56)
[2016-07-22] MEDS: ENALAPRILAT DIHYDRATE INJ/PF 2.5 MG/2 ML SDV IV SCH ×2 (15:01→20:39)
[2016-07-22] MEDS: NICARDIPINE HCL RTU, ISO-OS 20 MG/200 ML RTUINJ IV PRN ×3 (16:51→22:40)
--- NOTE | 2016-07-22 17:17 | PDOC PROGRESS REPORT ---
Subjective Progress Note for:: 07/22/16 Subjective:: Patient was extubated today, he has profuse diarrhea, stool negative for C. difficile toxin, he is not able to take p.o. meds yet Physical Exam Vital Signs: Temp Pulse Resp BP Pulse Ox 99.0 F 84 20 198/86 H 99 07/22/16 16:00 07/22/16 16:00 07/22/16 16:00 07/22/16 16:00 07/22/16 16:00 Intake & Output 07/21/16 07/22/16 07/23/16 06:59 06:59 06:59 Intake Total 6 605 Output Total 0 5000 1 Balance 2055 -4395 -1 Weight 84.8 kg 80.1 kg General appearance: PRESENT: no acute distress Eye exam: PRESENT: PERRLA Respiratory exam: PRESENT: rhonchi Cardiovascular exam: PRESENT: +S1, +S2 GI/Abdominal exam: PRESENT: soft Neurological exam: PRESENT: alert, CN II-XII grossly intact Results Laboratory Results: 07/22/16 04:25 07/22/16 04:25 07/22/16 07/22/16 07/22/16 04:25 04:25 04:50 WBC 6.3 RBC 2.96 L Hgb 9.2 L Hct 27.6 L MCV 93 MCH 31.1 MCHC 33.3 RDW 17.8 H Plt Count 229 Seg Neutrophils % 68.2 Lymphocytes % 13.1 Monocytes % 14.0 H Eosinophils % 3.5 Basophils % 1.2 Absolute Neutrophils 4.3 Absolute Lymphocytes 0.8 Absolute Monocytes 0.9 Absolute Eosinophils 0.2 Absolute Basophils 0.1 Carbonic Acid 1.22 HCO3/H2CO3 Ratio 22:1 ABG pH 7.46 H ABG pCO2 40.4 ABG pO2 77.5 L ABG HCO3 27.9 H ABG O2 Saturation 96.0 ABG Base Excess 3.7 FiO2 25% Sodium 137.3 Potassium 4.5 Chloride 95 L Carbon Dioxide 28 Anion Gap 14 BUN 30 H Creatinine 7.31 H Est GFR ( Amer) 9 L Est GFR (Non-Af Amer) 8 L Glucose 41 L Calcium 9.0 Total Bilirubin 0.8 AST 31 ALT 31 Alkaline Phosphatase 104 Total Protein 6.6 Albumin 3.4 L Triglycerides 109 07/20/16 14:00 Sputum Gram Stain - Final 07/20/16 14:00 Sputum Sputum Culture - Final NO GROWTH 2 DAYS 07/19/16 07/19/16 07/19/16 08:50 08:50 15:35 Creatine Kinase 139 CK-MB (CK-2) 7.36 H 7.58 H Troponin I 0.690 3.330 NT-Pro-B Natriuret Pep 07/19/16 07/19/16 07/19/16 15:35 20:05 20:05 Creatine Kinase 132 101 CK-MB (CK-2) 5.37 H Troponin I 3.240 NT-Pro-B Natriuret Pep 07/20/16 07/21/16 07/22/16 06:30 06:09 04:25 Creatine Kinase CK-MB (CK-2) Troponin I NT-Pro-B Natriuret Pep 73140 H 48501 H 72183 H Impressions: Chest X-Ray 07/22/16 06:00 IMPRESSION: Mild improved aeration in the left lung base. Assessment & Plan - Diagnosis (1) Acute hypoxemic respiratory failure Is this a current diagnosis for this admission?: Yes (2) Multifocal pneumonia Is this a current diagnosis for this admission?: Yes (3) End stage renal disease Is this a current diagnosis for this admission?: Yes (4) Diabetes mellitus type 2 in nonobese Is this a current diagnosis for this admission?: Yes (5) Peripheral vascular disease Is this a current diagnosis for this admission?: Yes (6) Sepsis Qualifiers: Sepsis type: sepsis due to unspecified organism Qualified Code(s): A41.9 - Sepsis, unspecified organism Is this a current diagnosis for this admission?: Yes - Plan Summary Plan Summary: Uncontrolled hypertension he be started on Cardene infusion
[2016-07-22] MEDS ORDERED: PHARMACY COMMUNICATION ORDER MC NR (17:30)
[2016-07-22] MEDS ORDERED: LOPERAMIDE HCL ORAL SOLN 1 MG/5 ML UDC NG PRN (17:48)
[2016-07-22] MEDS ORDERED: LOPERAMIDE HCL ORAL SOLN 1 MG/5 ML UDC ONE (18:33)
[2016-07-22] MEDS: CEFEPIME HCL 0.5 GM in DEXTROSE 5%-WATER 25 ML IV SCH (18:49)
[2016-07-22] MEDS: ATORVASTATIN CALCIUM 20 MG TABLET NG SCH (22:40)
[2016-07-23] MEDS: ENALAPRILAT DIHYDRATE INJ/PF 2.5 MG/2 ML SDV IV SCH ×4 (02:32→21:01)
[2016-07-23] MEDS: LANSOPRAZOLE 15 MG TAB.RAP.DR NG SCH ×2 (05:17→17:32)
[2016-07-23] MEDS: CLONIDINE HCL 0.1 MG TABLET NG SCH ×3 (05:18→22:27)
[2016-07-23] MEDS: HEPARIN SOD (PORCINE) 5,000 UNIT/ML 1 ML SYRINGE SUBCUT SCH ×3 (05:18→22:27)
[2016-07-23] MEDS: NICARDIPINE HCL RTU, ISO-OS 20 MG/200 ML RTUINJ IV PRN ×4 (05:21→20:46)
[2016-07-23 06:38] LABS: ABSOLUTE BASOPHILS # (AUTO) 0.1 10^3/uL (0.0-0.2); ABSOLUTE EOSINOPHILS # (AUTO) 0.4 10^3/uL (0.0-0.6); ABSOLUTE LYMPHOCYTES (AUTO) 0.8 10^3/uL (0.5-4.7); ABSOLUTE MONOCYTES (AUTO) 1.7 10^3/uL (0.1-1.4); EOSINOPHILS % (AUTO) 3.8 % (0-6); HEMATOCRIT 29.9 % (37.9-51.0); HEMOGLOBIN 9.9 g/dL (13.5-17.0); HGB HCT DIFFERENCE -0.2; MEAN CORPUSCULAR HEMOGLOBIN 30.6 pg (27.0-33.4); MEAN CORPUSCULAR HGB CONC 33.2 g/dL (32.0-36.0); MEAN CORPUSCULAR VOLUME 92 fl (80-97); MONOCYTES % (AUTO) 15.3 % (3-13); RED BLOOD COUNT 3.25 10^6/uL (4.35-5.55); RED CELL DISTRIBUTION WIDTH 16.8 % (11.5-14.0); SEGMENTED NEUTROPHILS % (AUTO) 72.9 % (42-78)
[2016-07-23 06:40] LABS: ARTERIAL BLOOD BASE EXCESS 1.9 mmol/L; ARTERIAL BLOOD O2 SATURATION 96.1 % (94-98)
[2016-07-23 06:56] LABS: ALANINE AMINOTRANSFERASE 34 U/L (21-72); ALBUMIN 3.7 g/dL (3.5-5.0); ALKALINE PHOSPHATASE 128 U/L (38-126); ANION GAP 19 (5-19); ASPARTATE AMINO TRANSFERASE 34 U/L (17-59); BILIRUBIN,DIRECT 0.9 mg/dL (0.0-0.4); BILIRUBIN,TOTAL 0.9 mg/dL (0.2-1.3); BLOOD UREA NITROGEN 41 mg/dL (7-20); CALCIUM 9.2 mg/dL (8.4-10.2); CARBON DIOXIDE 25 mmol/L (22-30); CHLORIDE 93 mmol/L (98-107); CREATININE RESULT 10.52 mg/dL (0.52-1.25); GLUCOSE 99 mg/dL (75-110); SODIUM 137.3 mmol/L (137-145)
[2016-07-23 07:01] LABS: POTASSIUM 4.3 mmol/L (3.6-5.0)
[2016-07-23] MEDS: ISOSORB DINIT/HYDRALAZINE HCL 20-37.5 MG TABLET NG SCH ×3 (09:28→17:32)
[2016-07-23] MEDS: ASPIRIN 81 MG TABLET, CHEWABLE NG SCH (09:28)
[2016-07-23] MEDS: AZITHROMYCIN 250 MG TABLET NG SCH (09:28)
[2016-07-23] MEDS: CALCIUM ACETATE 667 MG CAPSULE NG SCH ×2 (09:29→17:11)
[2016-07-23] MEDS: AMLODIPINE BESYLATE 10 MG TABLET NG SCH (10:00)
--- NOTE | 2016-07-23 12:19 | PDOC PROGRESS REPORT ---
Subjective Progress Note for:: 07/23/16 Subjective:: 24hrs/s/p extubation,stable awake ,lethargic but responsive Physical Exam Vital Signs: Temp Pulse Resp BP Pulse Ox 97.5 F 73 19 165/62 H 100 07/23/16 01:32 07/23/16 01:32 07/23/16 06:01 07/23/16 06:01 07/23/16 06:01 Intake & Output 07/22/16 07/23/16 07/24/16 06:59 06:59 06:59 Intake Total 605 916 Output Total 5000 2 Balance -4395 914 Weight 80.1 kg 78.5 kg General appearance: PRESENT: no acute distress, cooperative, disheveled, well- developed, well-nourished Head exam: PRESENT: atraumatic, normocephalic Eye exam: PRESENT: conjunctiva pale, EOMI Mouth exam: PRESENT: dry mucosa, neck supple, tongue midline Teeth exam: PRESENT: poor dentation Neck exam: ABSENT: carotid bruit, JVD, lymphadenopathy, thyromegaly Respiratory exam: PRESENT: decreased breath sounds, prolonged expiratory phas, rhonchi, symmetrical, unlabored Cardiovascular exam: PRESENT: RRR, +S1, +S2 Pulses: PRESENT: normal radial pulses GI/Abdominal exam: PRESENT: normal bowel sounds, soft. ABSENT: distended, guarding, mass, organolmegaly, rebound, tenderness Rectal exam: PRESENT: deferred Gentrourinary exam: PRESENT: indwelling catheter Musculoskeletal exam: PRESENT: normal inspection Neurological exam: PRESENT: awake, oriented to person, oriented to place, oriented to time Psychiatric exam: PRESENT: flat affect Skin exam: PRESENT: dry, warm Results Laboratory Results: 07/23/16 06:20 07/23/16 06:20 07/23/16 07/23/16 07/23/16 06:20 06:20 06:20 WBC 11.0 H RBC 3.25 L Hgb 9.9 L Hct 29.9 L MCV 92 MCH 30.6 MCHC 33.2 RDW 16.8 H Plt Count 257 Seg Neutrophils % 72.9 Lymphocytes % 7.0 L Monocytes % 15.3 H Eosinophils % 3.8 Basophils % 1.0 Absolute Neutrophils 8.0 Absolute Lymphocytes 0.8 Absolute Monocytes 1.7 H Absolute Eosinophils 0.4 Absolute Basophils 0.1 Carbonic Acid 1.19 HCO3/H2CO3 Ratio 21:1 ABG pH 7.44 ABG pCO2 39.5 ABG pO2 79.3 L ABG HCO3 26.1 H ABG O2 Saturation 96.1 ABG Base Excess 1.9 FiO2 FLOW RATE 2 Sodium 137.3 Potassium 4.3 Chloride 93 L Carbon Dioxide 25 Anion Gap 19 BUN 41 H Creatinine 10.52 H Est GFR ( Amer) 6 L Est GFR (Non-Af Amer) 5 L Glucose 99 Calcium 9.2 Total Bilirubin 0.9 AST 34 ALT 34 Alkaline Phosphatase 128 H Total Protein 7.0 Albumin 3.7 07/20/16 14:00 Sputum Gram Stain - Final 07/20/16 14:00 Sputum Sputum Culture - Final NO GROWTH 2 DAYS 07/19/16 07/19/16 07/19/16 08:50 08:50 15:35 Creatine Kinase 139 CK-MB (CK-2) 7.36 H 7.58 H Troponin I 0.690 3.330 NT-Pro-B Natriuret Pep 07/19/16 07/19/16 07/19/16 15:35 20:05 20:05 Creatine Kinase 132 101 CK-MB (CK-2) 5.37 H Troponin I 3.240 NT-Pro-B Natriuret Pep 07/20/16 07/21/16 07/22/16 06:30 06:09 04:25 Creatine Kinase CK-MB (CK-2) Troponin I NT-Pro-B Natriuret Pep 51409 H 07085 H 02049 H Impressions: Chest X-Ray 07/22/16 06:00 IMPRESSION: Mild improved aeration in the left lung base. KUB X-Ray 07/22/16 17:31 IMPRESSION: Nonstandard patient positioning limits examination. Enteric tube with the tip and proximal port projecting subdiaphragmatically in the left upper quadrant. Grossly stable position and appearance of a right central vascular access catheter. Stable, persistent left lung base pulmonary parenchymal opacities. Assessment & Plan - Diagnosis (1) Acute respiratory failure with hypoxia and hypercapnia Is this a current diagnosis for this admission?: YesPlan: stable (2) Pneumonia Qualifiers: Pneumonia type: due to unspecified organism Laterality: bilateral Lung location: lower lobe of lung Qualified Code(s): J18.9 - Pneumonia, unspecified organism (3) Pulmonary edema Qualifiers: Chronicity: acute Qualified Code(s): J81.0 - Acute pulmonary edema Is this a current diagnosis for this admission?: Yes (4) CHF (congestive heart failure), NYHA class II Is this a current diagnosis for this admission?: Yes (5) End stage renal disease Is this a current diagnosis for this admission?: YesPlan: nepro for nutrition - Time Critical Time spent with patient: 35 or more minutes
[2016-07-23] MEDS: FOLIC ACID/VITAMIN B COMP W-C CAPSULE NG SCH (12:33)
[2016-07-23] MEDS ORDERED: LABETALOL HCL INJ 20 MG/4 ML DISP.SYRIN IV PRN (16:37)
[2016-07-23] MEDS: CEFEPIME HCL 0.5 GM in DEXTROSE 5%-WATER 25 ML IV SCH (17:31)
--- NOTE | 2016-07-23 18:24 | PDOC PROGRESS REPORT ---
Subjective Progress Note for:: 07/23/16 Subjective:: Patient extubated, blood pressure very labile, on intravenous nicardipine infusion, add labetalol as needed Physical Exam Vital Signs: Temp Pulse Resp BP Pulse Ox 97.7 F 89 22 H 141/60 H 96 07/23/16 16:00 07/23/16 10:00 07/23/16 18:01 07/23/16 18:01 07/23/16 18:01 Intake & Output 07/22/16 07/23/16 07/24/16 06:59 06:59 06:59 Intake Total 605 916 576 Output Total 5000 2 20 Balance -4395 914 556 Weight 80.1 kg 78.5 kg General appearance: PRESENT: no acute distress Eye exam: PRESENT: PERRLA Respiratory exam: PRESENT: rhonchi Cardiovascular exam: PRESENT: +S1, +S2 GI/Abdominal exam: PRESENT: soft Neurological exam: PRESENT: alert Results Laboratory Results: 07/23/16 06:20 07/23/16 06:20 07/23/16 07/23/16 07/23/16 06:20 06:20 06:20 WBC 11.0 H RBC 3.25 L Hgb 9.9 L Hct 29.9 L MCV 92 MCH 30.6 MCHC 33.2 RDW 16.8 H Plt Count 257 Seg Neutrophils % 72.9 Lymphocytes % 7.0 L Monocytes % 15.3 H Eosinophils % 3.8 Basophils % 1.0 Absolute Neutrophils 8.0 Absolute Lymphocytes 0.8 Absolute Monocytes 1.7 H Absolute Eosinophils 0.4 Absolute Basophils 0.1 Carbonic Acid 1.19 HCO3/H2CO3 Ratio 21:1 ABG pH 7.44 ABG pCO2 39.5 ABG pO2 79.3 L ABG HCO3 26.1 H ABG O2 Saturation 96.1 ABG Base Excess 1.9 FiO2 FLOW RATE 2 Sodium 137.3 Potassium 4.3 Chloride 93 L Carbon Dioxide 25 Anion Gap 19 BUN 41 H Creatinine 10.52 H Est GFR ( Amer) 6 L Est GFR (Non-Af Amer) 5 L Glucose 99 Calcium 9.2 Total Bilirubin 0.9 AST 34 ALT 34 Alkaline Phosphatase 128 H Total Protein 7.0 Albumin 3.7 07/19/16 07/19/16 07/19/16 08:50 08:50 15:35 Creatine Kinase 139 CK-MB (CK-2) 7.36 H 7.58 H Troponin I 0.690 3.330 NT-Pro-B Natriuret Pep 07/19/16 07/19/16 07/19/16 15:35 20:05 20:05 Creatine Kinase 132 101 CK-MB (CK-2) 5.37 H Troponin I 3.240 NT-Pro-B Natriuret Pep 07/20/16 07/21/16 07/22/16 06:30 06:09 04:25 Creatine Kinase CK-MB (CK-2) Troponin I NT-Pro-B Natriuret Pep 81960 H 27228 H 81875 H Impressions: KUB X-Ray 07/22/16 17:31 IMPRESSION: Nonstandard patient positioning limits examination. Enteric tube with the tip and proximal port projecting subdiaphragmatically in the left upper quadrant. Grossly stable position and appearance of a right central vascular access catheter. Stable, persistent left lung base pulmonary parenchymal opacities. Chest X-Ray 07/23/16 06:00 IMPRESSION: The patient has been extubated. No other significant changes. Assessment & Plan - Diagnosis (1) Acute hypoxemic respiratory failure Is this a current diagnosis for this admission?: Yes (2) Multifocal pneumonia Is this a current diagnosis for this admission?: Yes (3) End stage renal disease Is this a current diagnosis for this admission?: Yes (4) Diabetes mellitus type 2 in nonobese Is this a current diagnosis for this admission?: Yes (5) Peripheral vascular disease Is this a current diagnosis for this admission?: Yes (6) Sepsis Qualifiers: Sepsis type: sepsis due to unspecified organism Qualified Code(s): A41.9 - Sepsis, unspecified organism Is this a current diagnosis for this admission?: Yes - Plan Summary Plan Summary: Patient be started on labetalol as needed for systolic more than 140
[2016-07-23] MEDS: ATORVASTATIN CALCIUM 20 MG TABLET NG SCH (22:27)
[2016-07-24] MEDS: ENALAPRILAT DIHYDRATE INJ/PF 2.5 MG/2 ML SDV IV SCH ×4 (03:53→21:10)
[2016-07-24] MEDS: CLONIDINE HCL 0.1 MG TABLET NG SCH ×3 (06:15→21:09)
[2016-07-24] MEDS: HEPARIN SOD (PORCINE) 5,000 UNIT/ML 1 ML SYRINGE SUBCUT SCH ×3 (06:15→21:06)
[2016-07-24] MEDS: LANSOPRAZOLE 15 MG TAB.RAP.DR NG SCH ×2 (06:15→17:42)
[2016-07-24 06:24] LABS: ABSOLUTE BASOPHILS # (AUTO) 0.1 10^3/uL (0.0-0.2); ABSOLUTE EOSINOPHILS # (AUTO) 0.4 10^3/uL (0.0-0.6); ABSOLUTE LYMPHOCYTES (AUTO) 0.8 10^3/uL (0.5-4.7); ABSOLUTE MONOCYTES (AUTO) 1.6 10^3/uL (0.1-1.4); ABSOLUTE NEUT (AUTO) 7.8 10^3/uL (1.7-8.2); EOSINOPHILS % (AUTO) 3.3 % (0-6); HEMATOCRIT 28.7 % (37.9-51.0); HEMOGLOBIN 9.5 g/dL (13.5-17.0); HGB HCT DIFFERENCE -0.2; LYMPHOCYTES % (AUTO) 7.6 % (13-45); MEAN CORPUSCULAR HEMOGLOBIN 30.7 pg (27.0-33.4); MEAN CORPUSCULAR HGB CONC 33.2 g/dL (32.0-36.0); MEAN CORPUSCULAR VOLUME 93 fl (80-97); MONOCYTES % (AUTO) 15.1 % (3-13); RED BLOOD COUNT 3.11 10^6/uL (4.35-5.55); RED CELL DISTRIBUTION WIDTH 16.6 % (11.5-14.0); WHITE BLOOD COUNT 10.7 10^3/uL (4.0-10.5)
[2016-07-24 06:44] LABS: ALANINE AMINOTRANSFERASE 37 U/L (21-72); ALBUMIN 3.5 g/dL (3.5-5.0); ALKALINE PHOSPHATASE 132 U/L (38-126); ASPARTATE AMINO TRANSFERASE 32 U/L (17-59); BILIRUBIN,DIRECT 0.8 mg/dL (0.0-0.4); BILIRUBIN,TOTAL 0.9 mg/dL (0.2-1.3); BLOOD UREA NITROGEN 55 mg/dL (7-20); CALCIUM 9.4 mg/dL (8.4-10.2); CARBON DIOXIDE 24 mmol/L (22-30); CHLORIDE 91 mmol/L (98-107); GLUCOSE 112 mg/dL (75-110); POTASSIUM 4.6 mmol/L (3.6-5.0); SODIUM 136.1 mmol/L (137-145); TOTAL PROTEIN 6.9 g/dL (6.3-8.2)
[2016-07-24 06:50] LABS: CREATININE RESULT 12.58 mg/dL (0.52-1.25)
[2016-07-24 06:51] LABS: ANION GAP 21 (5-19)
[2016-07-24] MEDS ORDERED: EPOETIN ALFA INJ 20000 UNIT/1 ML VIAL (RENAL) IV PRN (11:00)
[2016-07-24] MEDS ORDERED: EPOETIN ALFA 10,000 UNIT in SYRINGE, DISPOSABLE, 1 EACH IV PRN (11:00)
[2016-07-24] MEDS: AMLODIPINE BESYLATE 10 MG TABLET NG SCH (11:19)
[2016-07-24] MEDS: CALCIUM ACETATE 667 MG CAPSULE NG SCH ×2 (11:19→17:42)
[2016-07-24] MEDS: AZITHROMYCIN 250 MG TABLET NG SCH (11:19)
[2016-07-24] MEDS: LOSARTAN POTASSIUM 50 MG TABLET NG SCH (11:20)
[2016-07-24] MEDS: FUROSEMIDE 40 MG TABLET NG SCH (11:20)
[2016-07-24] MEDS: FOLIC ACID/VITAMIN B COMP W-C CAPSULE NG SCH (11:20)
[2016-07-24] MEDS: ASPIRIN 81 MG TABLET, CHEWABLE NG SCH (11:20)
[2016-07-24] MEDS: ISOSORB DINIT/HYDRALAZINE HCL 20-37.5 MG TABLET NG SCH ×3 (11:21→17:42)
--- NOTE | 2016-07-24 14:19 | PDOC PROGRESS REPORT ---
Subjective Progress Note for:: 07/24/16 Subjective:: 24hrs/s/p extubation,stable awake , responsive Physical Exam Vital Signs: Temp Pulse Resp BP Pulse Ox 98.2 F 89 22 H 146/64 H 97 07/24/16 06:00 07/23/16 10:00 07/24/16 08:16 07/24/16 08:16 07/24/16 08:16 Intake & Output 07/23/16 07/24/16 07/25/16 06:59 06:59 06:59 Intake Total 916 965 Output Total 2 20 Balance 914 945 Weight 78.5 kg 80.7 kg General appearance: PRESENT: no acute distress, cooperative, disheveled, obese Head exam: PRESENT: atraumatic, normocephalic Eye exam: PRESENT: conjunctiva pale, EOMI Mouth exam: PRESENT: dry mucosa, neck supple Teeth exam: PRESENT: poor dentation Neck exam: ABSENT: carotid bruit, JVD, lymphadenopathy, thyromegaly Respiratory exam: PRESENT: decreased breath sounds, prolonged expiratory phas, rales, rhonchi, stridor, unlabored Cardiovascular exam: PRESENT: irregular rhythm Pulses: PRESENT: normal radial pulses GI/Abdominal exam: PRESENT: normal bowel sounds, soft. ABSENT: distended, guarding, mass, organolmegaly, rebound, tenderness Rectal exam: PRESENT: deferred Gentrourinary exam: PRESENT: indwelling catheter Extremities exam: PRESENT: other - Right upper extremity AV shunt Musculoskeletal exam: PRESENT: normal inspection Neurological exam: PRESENT: alert, awake Skin exam: PRESENT: dry, warm Results Laboratory Results: 07/24/16 06:15 07/24/16 06:15 07/24/16 07/24/16 06:15 06:15 WBC 10.7 H RBC 3.11 L Hgb 9.5 L Hct 28.7 L MCV 93 MCH 30.7 MCHC 33.2 RDW 16.6 H Plt Count 272 Seg Neutrophils % 73.0 Lymphocytes % 7.6 L Monocytes % 15.1 H Eosinophils % 3.3 Basophils % 1.0 Absolute Neutrophils 7.8 Absolute Lymphocytes 0.8 Absolute Monocytes 1.6 H Absolute Eosinophils 0.4 Absolute Basophils 0.1 Sodium 136.1 L Potassium 4.6 Chloride 91 L Carbon Dioxide 24 Anion Gap 21 H BUN 55 H Creatinine 12.58 H Est GFR ( Amer) 5 L Est GFR (Non-Af Amer) 4 L Glucose 112 H Calcium 9.4 Total Bilirubin 0.9 AST 32 ALT 37 Alkaline Phosphatase 132 H Total Protein 6.9 Albumin 3.5 07/19/16 07/19/16 07/19/16 08:50 08:50 15:35 Creatine Kinase 139 CK-MB (CK-2) 7.36 H 7.58 H Troponin I 0.690 3.330 NT-Pro-B Natriuret Pep 07/19/16 07/19/16 07/19/16 15:35 20:05 20:05 Creatine Kinase 132 101 CK-MB (CK-2) 5.37 H Troponin I 3.240 NT-Pro-B Natriuret Pep 07/20/16 07/21/16 07/22/16 06:30 06:09 04:25 Creatine Kinase CK-MB (CK-2) Troponin I NT-Pro-B Natriuret Pep 59512 H 26532 H 15909 H Impressions: KUB X-Ray 07/22/16 17:31 IMPRESSION: Nonstandard patient positioning limits examination. Enteric tube with the tip and proximal port projecting subdiaphragmatically in the left upper quadrant. Grossly stable position and appearance of a right central vascular access catheter. Stable, persistent left lung base pulmonary parenchymal opacities. Chest X-Ray 07/23/16 06:00 IMPRESSION: The patient has been extubated. No other significant changes. Assessment & Plan - Diagnosis (1) Acute respiratory failure with hypoxia and hypercapnia Is this a current diagnosis for this admission?: No (2) Pneumonia Qualifiers: Pneumonia type: due to unspecified organism Laterality: bilateral Lung location: lower lobe of lung Qualified Code(s): J18.9 - Pneumonia, unspecified organism Is this a current diagnosis for this admission?: No (3) Pulmonary edema Qualifiers: Chronicity: acute Qualified Code(s): J81.0 - Acute pulmonary edema Is this a current diagnosis for this admission?: No (4) CHF (congestive heart failure), NYHA class II Is this a current diagnosis for this admission?: Yes (5) End stage renal disease Is this a current diagnosis for this admission?: Yes
[2016-07-24] MEDS: CEFEPIME HCL 0.5 GM in DEXTROSE 5%-WATER 25 ML IV SCH (17:41)
[2016-07-24] MEDS ORDERED: VANCOMYCIN HCL 1,000 MG in DEXTROSE 5%-WATER 250 ML IV SCH (18:00)
--- NOTE | 2016-07-24 18:15 | PDOC PROGRESS REPORT ---
Subjective Progress Note for:: 07/24/16 Subjective:: Patient was seen in the ICU today. He has been extubated and is in good spirits and talking. He states he wants to go home. Discussions were done with the treating nurse in the ICU as well as Stella by dialysis nurse who is treating him with dialysis. He is undergoing dialysis without any issues. Vital signs are stable. Plan to remove at least 1 and 2 L of fluid as tolerated. Labs were reviewed with the treating nurses. Physical Exam Vital Signs: Temp Pulse Resp BP Pulse Ox 97.9 F 78 22 H 139/88 H 96 07/24/16 16:00 07/24/16 08:36 07/24/16 18:00 07/24/16 17:47 07/24/16 18:00 Intake & Output 07/23/16 07/24/16 07/25/16 06:59 06:59 06:59 Intake Total 916 965 204 Output Total 2 20 2200 Balance 914 945 -1996 Weight 78.5 kg 80.7 kg General appearance: PRESENT: no acute distress Respiratory exam: PRESENT: clear to auscultation bob. ABSENT: crackles, rhonchi Cardiovascular exam: PRESENT: +S1, +S2 GI/Abdominal exam: PRESENT: normal bowel sounds, soft. ABSENT: distended, firm , organomegaly, tenderness Extremities exam: ABSENT: pedal edema Neurological exam: PRESENT: awake, oriented to person, oriented to place Results Laboratory Results: 07/24/16 06:15 07/24/16 06:15 07/24/16 07/24/16 06:15 06:15 WBC 10.7 H RBC 3.11 L Hgb 9.5 L Hct 28.7 L MCV 93 MCH 30.7 MCHC 33.2 RDW 16.6 H Plt Count 272 Seg Neutrophils % 73.0 Lymphocytes % 7.6 L Monocytes % 15.1 H Eosinophils % 3.3 Basophils % 1.0 Absolute Neutrophils 7.8 Absolute Lymphocytes 0.8 Absolute Monocytes 1.6 H Absolute Eosinophils 0.4 Absolute Basophils 0.1 Sodium 136.1 L Potassium 4.6 Chloride 91 L Carbon Dioxide 24 Anion Gap 21 H BUN 55 H Creatinine 12.58 H Est GFR ( Amer) 5 L Est GFR (Non-Af Amer) 4 L Glucose 112 H Calcium 9.4 Total Bilirubin 0.9 AST 32 ALT 37 Alkaline Phosphatase 132 H Total Protein 6.9 Albumin 3.5 07/19/16 07/19/16 07/19/16 08:50 08:50 15:35 Creatine Kinase 139 CK-MB (CK-2) 7.36 H 7.58 H Troponin I 0.690 3.330 NT-Pro-B Natriuret Pep 07/19/16 07/19/16 07/19/16 15:35 20:05 20:05 Creatine Kinase 132 101 CK-MB (CK-2) 5.37 H Troponin I 3.240 NT-Pro-B Natriuret Pep 07/20/16 07/21/16 07/22/16 06:30 06:09 04:25 Creatine Kinase CK-MB (CK-2) Troponin I NT-Pro-B Natriuret Pep 70886 H 33300 H 85460 H Impressions: KUB X-Ray 07/22/16 17:31 IMPRESSION: Nonstandard patient positioning limits examination. Enteric tube with the tip and proximal port projecting subdiaphragmatically in the left upper quadrant. Grossly stable position and appearance of a right central vascular access catheter. Stable, persistent left lung base pulmonary parenchymal opacities. Chest X-Ray 07/23/16 06:00 IMPRESSION: The patient has been extubated. No other significant changes. Assessment & Plan - Diagnosis (1) Acute congestive heart failure Plan: Resolved and has had a good response to hemodialysis. Continue present management. (2) Acute hypoxemic respiratory failure Is this a current diagnosis for this admission?: YesPlan: Resolved and he is extubated and stable. (3) End stage renal disease Is this a current diagnosis for this admission?: YesPlan: Patient undergoing dialysis without any issues. Vital signs are stable. Orders were discussed with the treating nurse. Plan to remove between 1 and 2 L as tolerated. (4) Multifocal pneumonia Is this a current diagnosis for this admission?: Yes (5) Pulmonary edema Qualifiers: Chronicity: acute Qualified Code(s): J81.0 - Acute pulmonary edema Is this a current diagnosis for this admission?: No (6) Hypertension Qualifiers: Hypertension type: essential hypertension Qualified Code(s): I10 - Essential (primary) hypertension Plan: Stable.
--- NOTE | 2016-07-24 20:25 | PDOC PROGRESS REPORT ---
Subjective Progress Note for:: 07/24/16 Subjective:: Patient is alert he be downgraded to the telemetry Physical Exam Vital Signs: Temp Pulse Resp BP Pulse Ox 97.9 F 78 22 H 139/88 H 96 07/24/16 16:00 07/24/16 08:36 07/24/16 18:00 07/24/16 17:47 07/24/16 18:00 Intake & Output 07/23/16 07/24/16 07/25/16 06:59 06:59 06:59 Intake Total 916 965 204 Output Total 2 2200 Balance 914 945 Weight 78.5 kg 80.7 kg General appearance: PRESENT: no acute distress Eye exam: PRESENT: PERRLA Respiratory exam: PRESENT: crackles Cardiovascular exam: PRESENT: +S1, +S2 Results Laboratory Results: 07/24/16 06:15 07/24/16 06:15 07/24/16 07/24/16 06:15 06:15 WBC 10.7 H RBC 3.11 L Hgb 9.5 L Hct 28.7 L MCV 93 MCH 30.7 MCHC 33.2 RDW 16.6 H Plt Count 272 Seg Neutrophils % 73.0 Lymphocytes % 7.6 L Monocytes % 15.1 H Eosinophils % 3.3 Basophils % 1.0 Absolute Neutrophils 7.8 Absolute Lymphocytes 0.8 Absolute Monocytes 1.6 H Absolute Eosinophils 0.4 Absolute Basophils 0.1 Sodium 136.1 L Potassium 4.6 Chloride 91 L Carbon Dioxide 24 Anion Gap 21 H BUN 55 H Creatinine 12.58 H Est GFR ( Amer) 5 L Est GFR (Non-Af Amer) 4 L Glucose 112 H Calcium 9.4 Total Bilirubin 0.9 AST 32 ALT 37 Alkaline Phosphatase 132 H Total Protein 6.9 Albumin 3.5 07/19/16 07/19/16 07/19/16 08:50 08:50 15:35 Creatine Kinase 139 CK-MB (CK-2) 7.36 H 7.58 H Troponin I 0.690 3.330 NT-Pro-B Natriuret Pep 07/19/16 07/19/16 07/19/16 15:35 20:05 20:05 Creatine Kinase 132 101 CK-MB (CK-2) 5.37 H Troponin I 3.240 NT-Pro-B Natriuret Pep 07/20/16 07/21/16 07/22/16 06:30 06:09 04:25 Creatine Kinase CK-MB (CK-2) Troponin I NT-Pro-B Natriuret Pep 09578 H 03609 H 13714 H Impressions: KUB X-Ray 07/22/16 17:31 IMPRESSION: Nonstandard patient positioning limits examination. Enteric tube with the tip and proximal port projecting subdiaphragmatically in the left upper quadrant. Grossly stable position and appearance of a right central vascular access catheter. Stable, persistent left lung base pulmonary parenchymal opacities. Chest X-Ray 07/23/16 06:00 IMPRESSION: The patient has been extubated. No other significant changes. Assessment & Plan - Diagnosis (1) Acute hypoxemic respiratory failure Is this a current diagnosis for this admission?: Yes (2) Multifocal pneumonia Is this a current diagnosis for this admission?: Yes (3) End stage renal disease Is this a current diagnosis for this admission?: Yes (4) Diabetes mellitus type 2 in nonobese Is this a current diagnosis for this admission?: Yes (5) Peripheral vascular disease Is this a current diagnosis for this admission?: Yes (6) Sepsis Qualifiers: Sepsis type: sepsis due to unspecified organism Qualified Code(s): A41.9 - Sepsis, unspecified organism Is this a current diagnosis for this admission?: Yes
[2016-07-24] MEDS: ATORVASTATIN CALCIUM 20 MG TABLET NG SCH (21:08)
[2016-07-25] MEDS: INSULIN GLARGINE,HUM.REC.ANLOG 300 UNIT/3 ML INSULN.PEN SUBCUT SCH ×2 (01:06→21:38)
[2016-07-25] MEDS: ENALAPRILAT DIHYDRATE INJ/PF 2.5 MG/2 ML SDV IV SCH ×4 (03:48→21:39)
[2016-07-25] MEDS: HEPARIN SOD (PORCINE) 5,000 UNIT/ML 1 ML SYRINGE SUBCUT SCH ×3 (05:26→21:39)
[2016-07-25] MEDS: CLONIDINE HCL 0.1 MG TABLET NG SCH ×3 (05:27→21:40)
[2016-07-25] MEDS: LANSOPRAZOLE 15 MG TAB.RAP.DR NG SCH ×2 (05:28→17:08)
[2016-07-25] MEDS: ASPIRIN 81 MG TABLET, CHEWABLE NG SCH (09:39)
[2016-07-25] MEDS: ISOSORB DINIT/HYDRALAZINE HCL 20-37.5 MG TABLET NG SCH ×3 (09:39→17:08)
[2016-07-25] MEDS: AMLODIPINE BESYLATE 10 MG TABLET NG SCH (09:39)
[2016-07-25] MEDS: CALCIUM ACETATE 667 MG CAPSULE NG SCH ×2 (09:40→17:08)
[2016-07-25] MEDS: FOLIC ACID/VITAMIN B COMP W-C CAPSULE NG SCH (11:38)
[2016-07-25] MEDS: LOSARTAN POTASSIUM 50 MG TABLET NG SCH (11:39)
[2016-07-25] MEDS: FUROSEMIDE 40 MG TABLET NG SCH (11:39)
[2016-07-25] MEDS: CEFEPIME HCL 0.5 GM in DEXTROSE 5%-WATER 25 ML IV SCH (17:09)
--- NOTE | 2016-07-25 20:43 | PDOC PROGRESS REPORT ---
Subjective Progress Note for:: 07/25/16 Subjective:: Patient seen by the bedside NG tube will be discontinued and started on p.o. diet Physical Exam Vital Signs: Temp Pulse Resp BP Pulse Ox 98.4 F 75 14 167/66 H 98 07/25/16 20:00 07/25/16 16:00 07/25/16 17:28 07/25/16 17:28 07/25/16 17:28 Intake & Output 07/24/16 07/25/16 07/26/16 06:59 06:59 06:59 Intake Total 965 454 758 Output Total 20 2200 0 Balance 945 -1746 758 Weight 80.7 kg 78.5 kg General appearance: PRESENT: no acute distress Eye exam: PRESENT: PERRLA Respiratory exam: PRESENT: clear to auscultation bob Cardiovascular exam: PRESENT: +S1, +S2 Neurological exam: PRESENT: alert Results Laboratory Results: 07/24/16 06:15 07/24/16 06:15 07/19/16 07/19/16 07/19/16 08:50 08:50 15:35 Creatine Kinase 139 CK-MB (CK-2) 7.36 H 7.58 H Troponin I 0.690 3.330 NT-Pro-B Natriuret Pep 07/19/16 07/19/16 07/19/16 15:35 20:05 20:05 Creatine Kinase 132 101 CK-MB (CK-2) 5.37 H Troponin I 3.240 NT-Pro-B Natriuret Pep 07/20/16 07/21/16 07/22/16 06:30 06:09 04:25 Creatine Kinase CK-MB (CK-2) Troponin I NT-Pro-B Natriuret Pep 07537 H 12875 H 90947 H Impressions: KUB X-Ray 07/22/16 17:31 IMPRESSION: Nonstandard patient positioning limits examination. Enteric tube with the tip and proximal port projecting subdiaphragmatically in the left upper quadrant. Grossly stable position and appearance of a right central vascular access catheter. Stable, persistent left lung base pulmonary parenchymal opacities. Chest X-Ray 07/23/16 06:00 IMPRESSION: The patient has been extubated. No other significant changes. Assessment & Plan - Diagnosis (1) Acute hypoxemic respiratory failure Is this a current diagnosis for this admission?: Yes (2) Multifocal pneumonia Is this a current diagnosis for this admission?: Yes (3) End stage renal disease Is this a current diagnosis for this admission?: Yes (4) Diabetes mellitus type 2 in nonobese Is this a current diagnosis for this admission?: Yes (5) Peripheral vascular disease Is this a current diagnosis for this admission?: Yes (6) Sepsis Qualifiers: Sepsis type: sepsis due to unspecified organism Qualified Code(s): A41.9 - Sepsis, unspecified organism Is this a current diagnosis for this admission?: Yes
--- NOTE | 2016-07-25 20:44 | PDOC PROGRESS REPORT ---
Subjective Progress Note for:: 07/25/16 Subjective:: 24hrs/s/p extubation,stable awake , responsive Physical Exam Vital Signs: Temp Pulse Resp BP Pulse Ox 97.9 F 74 11 L 144/61 H 98 07/25/16 07:31 07/25/16 07:31 07/25/16 07:31 07/25/16 07:31 07/25/16 07:31 Intake & Output 07/24/16 07/25/16 07/26/16 06:59 06:59 06:59 Intake Total 965 454 Output Total 20 2200 0 Balance 945 -1746 0 Weight 80.7 kg 78.5 kg General appearance: PRESENT: no acute distress, disheveled, hard of hearing Head exam: PRESENT: atraumatic, normocephalic Eye exam: PRESENT: conjunctiva pink, EOMI Mouth exam: PRESENT: dry mucosa, neck supple Teeth exam: PRESENT: poor dentation Neck exam: ABSENT: carotid bruit, JVD, lymphadenopathy, thyromegaly Respiratory exam: PRESENT: decreased breath sounds, prolonged expiratory phas, rhonchi, symmetrical, unlabored Cardiovascular exam: PRESENT: RRR, +S1, +S2 Pulses: PRESENT: normal radial pulses GI/Abdominal exam: PRESENT: normal bowel sounds, soft. ABSENT: distended, guarding, mass, organolmegaly, rebound, tenderness Rectal exam: PRESENT: deferred Gentrourinary exam: PRESENT: indwelling catheter Musculoskeletal exam: PRESENT: normal inspection Neurological exam: PRESENT: alert Skin exam: PRESENT: dry Results Laboratory Results: 07/24/16 06:15 07/24/16 06:15 07/19/16 07/19/16 07/19/16 08:50 08:50 15:35 Creatine Kinase 139 CK-MB (CK-2) 7.36 H 7.58 H Troponin I 0.690 3.330 NT-Pro-B Natriuret Pep 07/19/16 07/19/16 07/19/16 15:35 20:05 20:05 Creatine Kinase 132 101 CK-MB (CK-2) 5.37 H Troponin I 3.240 NT-Pro-B Natriuret Pep 07/20/16 07/21/16 07/22/16 06:30 06:09 04:25 Creatine Kinase CK-MB (CK-2) Troponin I NT-Pro-B Natriuret Pep 55447 H 51383 H 64685 H Impressions: KUB X-Ray 07/22/16 17:31 IMPRESSION: Nonstandard patient positioning limits examination. Enteric tube with the tip and proximal port projecting subdiaphragmatically in the left upper quadrant. Grossly stable position and appearance of a right central vascular access catheter. Stable, persistent left lung base pulmonary parenchymal opacities. Chest X-Ray 07/23/16 06:00 IMPRESSION: The patient has been extubated. No other significant changes. Assessment & Plan - Diagnosis (1) Acute respiratory failure with hypoxia and hypercapnia Is this a current diagnosis for this admission?: No (2) Pneumonia Qualifiers: Qualified Code(s): J18.9 - Pneumonia, unspecified organism Is this a current diagnosis for this admission?: No (3) Pulmonary edema Qualifiers: Qualified Code(s): J81.0 - Acute pulmonary edema Is this a current diagnosis for this admission?: No (4) CHF (congestive heart failure), NYHA class II Is this a current diagnosis for this admission?: Yes (5) End stage renal disease Is this a current diagnosis for this admission?: Yes - Time Critical Time spent with patient: 25-34 minutes
[2016-07-25] MEDS: ATORVASTATIN CALCIUM 20 MG TABLET NG SCH (21:40)
[2016-07-25] MEDS: INSULIN LISPRO 100 UNIT/ML 3 ML VIAL SUBCUT PRN (21:50)
[2016-07-26] MEDS: ENALAPRILAT DIHYDRATE INJ/PF 2.5 MG/2 ML SDV IV SCH ×4 (02:06→21:27)
[2016-07-26] MEDS: LANSOPRAZOLE 15 MG TAB.RAP.DR NG SCH ×2 (05:36→17:46)
[2016-07-26 06:12] LABS: ABSOLUTE BASOPHILS # (AUTO) 0.1 10^3/uL (0.0-0.2); ABSOLUTE EOSINOPHILS # (AUTO) 0.4 10^3/uL (0.0-0.6); ABSOLUTE LYMPHOCYTES (AUTO) 1.7 10^3/uL (0.5-4.7); ABSOLUTE MONOCYTES (AUTO) 1.6 10^3/uL (0.1-1.4); ABSOLUTE NEUT (AUTO) 6.7 10^3/uL (1.7-8.2); BASOPHILS % (AUTO) 1.3 % (0-2); EOSINOPHILS % (AUTO) 3.5 % (0-6); HEMATOCRIT 30.3 % (37.9-51.0); HEMOGLOBIN 10.2 g/dL (13.5-17.0); HGB HCT DIFFERENCE 0.3; LYMPHOCYTES % (AUTO) 15.7 % (13-45); MEAN CORPUSCULAR HEMOGLOBIN 31.2 pg (27.0-33.4); MEAN CORPUSCULAR HGB CONC 33.7 g/dL (32.0-36.0); MEAN CORPUSCULAR VOLUME 93 fl (80-97); MONOCYTES % (AUTO) 15.5 % (3-13); RED BLOOD COUNT 3.27 10^6/uL (4.35-5.55); RED CELL DISTRIBUTION WIDTH 16.8 % (11.5-14.0); WHITE BLOOD COUNT 10.5 10^3/uL (4.0-10.5)
[2016-07-26 06:23] LABS: BLOOD UREA NITROGEN 53 mg/dL (7-20); CALCIUM 10.1 mg/dL (8.4-10.2); CHLORIDE 91 mmol/L (98-107); CREATININE RESULT 11.71 mg/dL (0.52-1.25); GLUCOSE 72 mg/dL (75-110)
[2016-07-26 06:36] LABS: CARBON DIOXIDE 28 mmol/L (22-30); POTASSIUM 4.4 mmol/L (3.6-5.0)
[2016-07-26 06:54] LABS: SODIUM 140.4 mmol/L (137-145)
[2016-07-26 06:58] LABS: ANION GAP 21 (5-19)
[2016-07-26] MEDS ORDERED: HEPARIN SOD (PORCINE) 1,000 UNIT/ML 10 ML VIAL IV PRN (09:07)
[2016-07-26] MEDS: CLONIDINE HCL 0.1 MG TABLET NG SCH ×3 (09:39→21:27)
[2016-07-26] MEDS: FOLIC ACID/VITAMIN B COMP W-C CAPSULE NG SCH (13:51)
[2016-07-26] MEDS: CALCIUM ACETATE 667 MG CAPSULE NG SCH ×2 (13:51→17:45)
[2016-07-26] MEDS: FUROSEMIDE 40 MG TABLET NG SCH (13:52)
[2016-07-26] MEDS: LOSARTAN POTASSIUM 50 MG TABLET NG SCH (13:54)
[2016-07-26] MEDS: ASPIRIN 81 MG TABLET, CHEWABLE NG SCH (13:54)
[2016-07-26] MEDS: AMLODIPINE BESYLATE 10 MG TABLET NG SCH (13:54)
[2016-07-26] MEDS: HEPARIN SOD (PORCINE) 5,000 UNIT/ML 1 ML SYRINGE SUBCUT SCH ×2 (14:02→21:28)
[2016-07-26] MEDS: ISOSORB DINIT/HYDRALAZINE HCL 20-37.5 MG TABLET NG SCH ×3 (14:04→17:45)
--- NOTE | 2016-07-26 15:57 | PDOC PROGRESS REPORT ---
Subjective Progress Note for:: 07/26/16 Subjective:: Patient was seen today on HD. He has been transferred to the floor after extubation in ICU 3 days ago. Discussions were done with the data migration lead Stella by dialysis nurse who is treating him with dialysis. He is undergoing dialysis without any issues. Vital signs are stable. Plan to remove at least 1 and 2 L of fluid as tolerated. Labs were reviewed with the treating nurses. Physical Exam Vital Signs: Temp Pulse Resp BP Pulse Ox 97.6 F 79 15 149/61 H 100 07/26/16 03:27 07/26/16 07:00 07/26/16 03:27 07/26/16 03:27 07/26/16 03:27 Intake & Output 07/25/16 07/26/16 07/27/16 06:59 06:59 06:59 Intake Total 454 898 120 Output Total 2200 0 1700 Balance -1746 898 -1580 Weight 78.5 kg 79.7 kg General appearance: PRESENT: no acute distress Respiratory exam: PRESENT: clear to auscultation bob. ABSENT: crackles, rhonchi Cardiovascular exam: PRESENT: +S1, +S2 GI/Abdominal exam: PRESENT: normal bowel sounds, soft. ABSENT: distended, firm , organomegaly, tenderness Extremities exam: ABSENT: pedal edema Neurological exam: PRESENT: awake, oriented to person, oriented to place, oriented to time Results Laboratory Results: 07/26/16 05:45 07/26/16 05:45 07/26/16 07/26/16 05:45 05:45 WBC 10.5 RBC 3.27 L Hgb 10.2 L Hct 30.3 L MCV 93 MCH 31.2 MCHC 33.7 RDW 16.8 H Plt Count 350 Seg Neutrophils % 64.0 Lymphocytes % 15.7 Monocytes % 15.5 H Eosinophils % 3.5 Basophils % 1.3 Absolute Neutrophils 6.7 Absolute Lymphocytes 1.7 Absolute Monocytes 1.6 H Absolute Eosinophils 0.4 Absolute Basophils 0.1 Sodium 140.4 Potassium 4.4 Chloride 91 L Carbon Dioxide 28 Anion Gap 21 H BUN 53 H Creatinine 11.71 H Est GFR ( Amer) 5 L Est GFR (Non-Af Amer) 4 L Glucose 72 L Calcium 10.1 07/19/16 07/19/16 07/19/16 08:50 08:50 15:35 Creatine Kinase 139 CK-MB (CK-2) 7.36 H 7.58 H Troponin I 0.690 3.330 NT-Pro-B Natriuret Pep 07/19/16 07/19/16 07/19/16 15:35 20:05 20:05 Creatine Kinase 132 101 CK-MB (CK-2) 5.37 H Troponin I 3.240 NT-Pro-B Natriuret Pep 07/20/16 07/21/16 07/22/16 06:30 06:09 04:25 Creatine Kinase CK-MB (CK-2) Troponin I NT-Pro-B Natriuret Pep 28678 H 03488 H 33742 H Impressions: KUB X-Ray 07/22/16 17:31 IMPRESSION: Nonstandard patient positioning limits examination. Enteric tube with the tip and proximal port projecting subdiaphragmatically in the left upper quadrant. Grossly stable position and appearance of a right central vascular access catheter. Stable, persistent left lung base pulmonary parenchymal opacities. Chest X-Ray 07/23/16 06:00 IMPRESSION: The patient has been extubated. No other significant changes. Assessment & Plan - Diagnosis (1) Acute congestive heart failure Plan: Resolved and has had a good response to hemodialysis. Continue present management. (2) Acute hypoxemic respiratory failure Is this a current diagnosis for this admission?: YesPlan: Resolved and he is extubated and stable. (3) End stage renal disease Is this a current diagnosis for this admission?: YesPlan: Patient undergoing dialysis without any issues. Vital signs are stable. Orders were discussed with the treating nurse. Plan to remove between 1 and 2 L as tolerated. (4) Multifocal pneumonia Is this a current diagnosis for this admission?: Yes (5) Pulmonary edema Qualifiers: Chronicity: acute Qualified Code(s): J81.0 - Acute pulmonary edema Is this a current diagnosis for this admission?: No (6) Hypertension Qualifiers: Hypertension type: essential hypertension Qualified Code(s): I10 - Essential (primary) hypertension
--- NOTE | 2016-07-26 16:06 | PDOC PROGRESS REPORT ---
Subjective Progress Note for:: 07/26/16 Subjective:: Patient is doing well today, is eating, he was dialyzed today Physical Exam Vital Signs: Temp Pulse Resp BP Pulse Ox 97.6 F 79 15 149/61 H 100 07/26/16 03:27 07/26/16 07:00 07/26/16 03:27 07/26/16 03:27 07/26/16 03:27 Intake & Output 07/25/16 07/26/16 07/27/16 06:59 06:59 06:59 Intake Total 454 898 120 Output Total 2200 0 1700 Balance -1746 898 -1580 Weight 78.5 kg 79.7 kg General appearance: PRESENT: no acute distress Eye exam: PRESENT: PERRLA Respiratory exam: PRESENT: rhonchi Cardiovascular exam: PRESENT: +S1, +S2 GI/Abdominal exam: PRESENT: soft Neurological exam: PRESENT: alert Results Laboratory Results: 07/26/16 05:45 07/26/16 05:45 07/26/16 07/26/16 05:45 05:45 WBC 10.5 RBC 3.27 L Hgb 10.2 L Hct 30.3 L MCV 93 MCH 31.2 MCHC 33.7 RDW 16.8 H Plt Count 350 Seg Neutrophils % 64.0 Lymphocytes % 15.7 Monocytes % 15.5 H Eosinophils % 3.5 Basophils % 1.3 Absolute Neutrophils 6.7 Absolute Lymphocytes 1.7 Absolute Monocytes 1.6 H Absolute Eosinophils 0.4 Absolute Basophils 0.1 Sodium 140.4 Potassium 4.4 Chloride 91 L Carbon Dioxide 28 Anion Gap 21 H BUN 53 H Creatinine 11.71 H Est GFR ( Amer) 5 L Est GFR (Non-Af Amer) 4 L Glucose 72 L Calcium 10.1 07/19/16 07/19/16 07/19/16 08:50 08:50 15:35 Creatine Kinase 139 CK-MB (CK-2) 7.36 H 7.58 H Troponin I 0.690 3.330 NT-Pro-B Natriuret Pep 07/19/16 07/19/16 07/19/16 15:35 20:05 20:05 Creatine Kinase 132 101 CK-MB (CK-2) 5.37 H Troponin I 3.240 NT-Pro-B Natriuret Pep 07/20/16 07/21/16 07/22/16 06:30 06:09 04:25 Creatine Kinase CK-MB (CK-2) Troponin I NT-Pro-B Natriuret Pep 20020 H 32884 H 25787 H Impressions: KUB X-Ray 07/22/16 17:31 IMPRESSION: Nonstandard patient positioning limits examination. Enteric tube with the tip and proximal port projecting subdiaphragmatically in the left upper quadrant. Grossly stable position and appearance of a right central vascular access catheter. Stable, persistent left lung base pulmonary parenchymal opacities. Chest X-Ray 07/23/16 06:00 IMPRESSION: The patient has been extubated. No other significant changes. Assessment & Plan - Diagnosis (1) Acute hypoxemic respiratory failure Is this a current diagnosis for this admission?: Yes (2) Multifocal pneumonia Is this a current diagnosis for this admission?: Yes (3) End stage renal disease Is this a current diagnosis for this admission?: Yes (4) Diabetes mellitus type 2 in nonobese Is this a current diagnosis for this admission?: Yes (5) Peripheral vascular disease Is this a current diagnosis for this admission?: Yes (6) Sepsis Qualifiers: Sepsis type: sepsis due to unspecified organism Qualified Code(s): A41.9 - Sepsis, unspecified organism Is this a current diagnosis for this admission?: Yes - Plan Summary Plan Summary: Continue IV antibiotic
[2016-07-26] MEDS: CEFEPIME HCL 0.5 GM in DEXTROSE 5%-WATER 25 ML IV SCH (17:46)
[2016-07-26] MEDS ORDERED: VANCOMYCIN HCL 750 MG in DEXTROSE 5%-WATER 250 ML IV SCH (18:00)
[2016-07-26] MEDS: ATORVASTATIN CALCIUM 20 MG TABLET NG SCH (21:27)
[2016-07-26] MEDS: INSULIN GLARGINE,HUM.REC.ANLOG 300 UNIT/3 ML INSULN.PEN SUBCUT SCH (21:28)
[2016-07-26] MEDS: INSULIN LISPRO 100 UNIT/ML 3 ML VIAL SUBCUT PRN (21:28)
[2016-07-27] MEDS: ENALAPRILAT DIHYDRATE INJ/PF 2.5 MG/2 ML SDV IV SCH ×3 (04:28→17:05)
[2016-07-27] MEDS: LANSOPRAZOLE 15 MG TAB.RAP.DR NG SCH ×2 (05:17→17:04)
[2016-07-27] MEDS: CLONIDINE HCL 0.1 MG TABLET NG SCH ×2 (05:17→13:01)
[2016-07-27] MEDS: HEPARIN SOD (PORCINE) 5,000 UNIT/ML 1 ML SYRINGE SUBCUT SCH ×2 (05:17→13:03)
[2016-07-27] MEDS: ISOSORB DINIT/HYDRALAZINE HCL 20-37.5 MG TABLET NG SCH ×3 (09:44→17:06)
[2016-07-27] MEDS: ASPIRIN 81 MG TABLET, CHEWABLE NG SCH (09:45)
[2016-07-27] MEDS: CALCIUM ACETATE 667 MG CAPSULE NG SCH ×2 (09:45→17:05)
[2016-07-27] MEDS: AMLODIPINE BESYLATE 10 MG TABLET NG SCH (09:45)
[2016-07-27] MEDS: FOLIC ACID/VITAMIN B COMP W-C CAPSULE NG SCH (13:01)
[2016-07-27] MEDS: LOSARTAN POTASSIUM 50 MG TABLET NG SCH (13:02)
[2016-07-27] MEDS: FUROSEMIDE 40 MG TABLET NG SCH (13:02)
--- NOTE | 2016-07-27 19:10 | PDOC DISCHARGE SUMMARY ---
General - Admit/Disc Date/PCP Admission Date/Primary Care Provider: 07/19/16 07:28 ALEKS HARKINS MD Discharge Date: 07/27/16 - Discharge Diagnosis (1) Acute hypoxemic respiratory failure Is this a current diagnosis for this admission?: Yes (2) Multifocal pneumonia Is this a current diagnosis for this admission?: Yes (3) End stage renal disease Is this a current diagnosis for this admission?: Yes (4) Diabetes mellitus type 2 in nonobese Is this a current diagnosis for this admission?: Yes (5) Peripheral vascular disease Is this a current diagnosis for this admission?: Yes (6) Sepsis Is this a current diagnosis for this admission?: Yes - Additional Information Resuscitation Status: Full Code Discharge Activity: Activity As Tolerated, Balance Activity w/Rest, Weigh Daily Home Medications: Aspirin [Aspirin EC] 81 mg PO DAILY 07/19/16 Atorvastatin Calcium [Lipitor 20 mg Tablet] 20 mg PO QHS 07/19/16 B Complex & C No.20/Folic Acid [[place] Caps Softgel] 1 cap PO DAILY 07/19/16 Calcium Acetate [Phoslo 667 mg Capsule] 3 cap PO BID 07/19/16 Clonidine HCl [Catapres 0.3 mg Tablet] 0.3 mg PO Q8 07/19/16 Docusate Sodium [Colace 100 mg Capsule] 100 mg PO BID 07/19/16 Furosemide [Lasix] 40 mg PO DAILY 07/19/16 Insulin Glargine,Hum.rec.anlog [Lantus] 20 units SQ QHS 07/19/16 Irbesartan [Avapro] 150 mg PO QHS 07/19/16 Isosorb Dinit/Hydralazine HCl [Bidil Tablet] 1 tab PO TID 07/19/16 Nifedipine [Procardia Xl] 90 mg PO Q12 07/19/16 Omeprazole 20 mg PO BID 07/19/16 History of Present Illness History of Present Illness: Patient 66-year-old with history of end-stage renal disease on maintenance hemodialysis, he came to the emergency room this morning because of acute onset shortness of breath, he called rescue squad when EMS arrived at his residence the oxygen saturation was 72% he was placed on a nonrebreather and the oxygen saturation improved to 86% when he arrived in the emergency room he was tachypneic unable to speak any words he was then intubated in the emergency room. The chest x-ray was done showed severe multifocal predominantly midlower bilateral airspace opacities there is a suggestion of multifocal pneumonia versus CHF but there is associated leukocytosis. He presented in a similar fashion back on 06/09/2016 and at that time he was discharged on 06/12/2016 and on that admission he had multifocal pneumonia and he was successfully treated with intravenous cefepime and. azithromycin .when I saw patient he was already intubated in the emergency room no history could be taken from this patient, most of the history is from chart review and old records. Patient unfortunately continues to smoke cigarettes despite history of severe PAD, COPD and insulin requiring diabetes mellitus. Hospital Course Hospital Course: Patient was admitted because of acute hypoxemic respiratory failure due to multifocal pneumonia, he was treated with IV antibiotic and he was managed in intensive care unit with mechanical ventilation. He required invasive positive pressure ventilation with mechanical ventilation, he presented in the emergency room with respiratory distress requiring mechanical ventilation. He also have end-stage renal disease on maintenance hemodialysis he was seen by cube cutter and he required hemodialysis in the hospital during this inpatient care. Physical Exam Vital Signs: Temp Pulse Resp BP Pulse Ox 98.0 F 69 18 183/76 H 100 07/27/16 16:05 07/27/16 16:05 07/27/16 16:05 07/27/16 16:05 07/27/16 16:05 Intake & Output 07/26/16 07/27/16 07/28/16 06:59 06:59 06:59 Intake Total 898 650 610 Output Total 0 1700 Balance 898 -1050 610 Weight 79.7 kg 78.6 kg General appearance: PRESENT: no acute distress Head exam: PRESENT: atraumatic, normocephalic Eye exam: PRESENT: conjunctiva pink, EOMI, PERRLA Ear exam: PRESENT: normal external ear exam Mouth exam: PRESENT: moist, tongue midline Neck exam: PRESENT: full ROM Respiratory exam: PRESENT: clear to auscultation bob Cardiovascular exam: PRESENT: RRR. ABSENT: diastolic murmur, rubs, systolic murmur Vascular exam: PRESENT: normal capillary refill GI/Abdominal exam: PRESENT: normal bowel sounds, soft Rectal exam: PRESENT: deferred Neurological exam: PRESENT: alert, awake, oriented to person, oriented to place , oriented to time, oriented to situation, CN II-XII grossly intact. ABSENT: motor sensory deficit Psychiatric exam: PRESENT: appropriate affect, normal mood Skin exam: PRESENT: dry, intact, warm Results Laboratory Results: 07/26/16 05:45 07/26/16 05:45 07/19/16 07/19/16 07/19/16 08:50 08:50 15:35 Creatine Kinase 139 CK-MB (CK-2) 7.36 H 7.58 H Troponin I 0.690 3.330 NT-Pro-B Natriuret Pep 07/19/16 07/19/16 07/19/16 15:35 20:05 20:05 Creatine Kinase 132 101 CK-MB (CK-2) 5.37 H Troponin I 3.240 NT-Pro-B Natriuret Pep 07/20/16 07/21/16 07/22/16 06:30 06:09 04:25 Creatine Kinase CK-MB (CK-2) Troponin I NT-Pro-B Natriuret Pep 73467 H 07169 H 39280 H Impressions: KUB X-Ray 07/22/16 17:31 IMPRESSION: Nonstandard patient positioning limits examination. Enteric tube with the tip and proximal port projecting subdiaphragmatically in the left upper quadrant. Grossly stable position and appearance of a right central vascular access catheter. Stable, persistent left lung base pulmonary parenchymal opacities. Chest X-Ray 07/23/16 06:00 IMPRESSION: The patient has been extubated. No other significant changes.
[2016-07-27 19:54] VITALS: BP 154/66
--- NOTE | 2016-07-31 14:46 | PDOC PROGRESS REPORT ---
Subjective Progress Note for:: 07/26/16 Subjective:: Feeling better Physical Exam Vital Signs: Temp Pulse Resp BP Pulse Ox 97.6 F 71 15 149/61 H 100 07/26/16 03:27 07/26/16 03:27 07/26/16 03:27 07/26/16 03:27 07/26/16 03:27 Intake & Output 07/25/16 07/26/16 07/27/16 06:59 06:59 06:59 Intake Total 454 898 Output Total 2200 0 Balance -1746 898 Weight 78.5 kg 79.7 kg General appearance: PRESENT: no acute distress, cooperative, disheveled, thin, well-developed Head exam: PRESENT: atraumatic, normocephalic Eye exam: PRESENT: conjunctiva pale, EOMI Mouth exam: PRESENT: dry mucosa, neck supple Teeth exam: PRESENT: poor dentation Neck exam: ABSENT: carotid bruit, JVD, lymphadenopathy, thyromegaly Respiratory exam: PRESENT: decreased breath sounds, prolonged expiratory phas, rhonchi, symmetrical, unlabored Cardiovascular exam: PRESENT: RRR, +S1, +S2 Pulses: PRESENT: normal radial pulses GI/Abdominal exam: PRESENT: normal bowel sounds, soft. ABSENT: distended, guarding, mass, organolmegaly, rebound, tenderness Rectal exam: PRESENT: deferred Gentrourinary exam: PRESENT: indwelling catheter Musculoskeletal exam: PRESENT: normal inspection Neurological exam: PRESENT: alert, awake Psychiatric exam: PRESENT: normal mood Skin exam: PRESENT: dry, warm Results Laboratory Results: 07/26/16 05:45 07/26/16 05:45 07/26/16 07/26/16 05:45 05:45 WBC 10.5 RBC 3.27 L Hgb 10.2 L Hct 30.3 L MCV 93 MCH 31.2 MCHC 33.7 RDW 16.8 H Plt Count 350 Seg Neutrophils % 64.0 Lymphocytes % 15.7 Monocytes % 15.5 H Eosinophils % 3.5 Basophils % 1.3 Absolute Neutrophils 6.7 Absolute Lymphocytes 1.7 Absolute Monocytes 1.6 H Absolute Eosinophils 0.4 Absolute Basophils 0.1 Sodium 140.4 Potassium 4.4 Chloride 91 L Carbon Dioxide 28 Anion Gap 21 H BUN 53 H Creatinine 11.71 H Est GFR ( Amer) 5 L Est GFR (Non-Af Amer) 4 L Glucose 72 L Calcium 10.1 07/19/16 07/19/16 07/19/16 08:50 08:50 15:35 Creatine Kinase 139 CK-MB (CK-2) 7.36 H 7.58 H Troponin I 0.690 3.330 NT-Pro-B Natriuret Pep 07/19/16 07/19/16 07/19/16 15:35 20:05 20:05 Creatine Kinase 132 101 CK-MB (CK-2) 5.37 H Troponin I 3.240 NT-Pro-B Natriuret Pep 07/20/16 07/21/16 07/22/16 06:30 06:09 04:25 Creatine Kinase CK-MB (CK-2) Troponin I NT-Pro-B Natriuret Pep 26958 H 00407 H 96509 H Impressions: KUB X-Ray 07/22/16 17:31 IMPRESSION: Nonstandard patient positioning limits examination. Enteric tube with the tip and proximal port projecting subdiaphragmatically in the left upper quadrant. Grossly stable position and appearance of a right central vascular access catheter. Stable, persistent left lung base pulmonary parenchymal opacities. Chest X-Ray 07/23/16 06:00 IMPRESSION: The patient has been extubated. No other significant changes. Assessment & Plan - Diagnosis (1) Acute respiratory failure with hypoxia and hypercapnia Is this a current diagnosis for this admission?: No (2) Pneumonia Qualifiers: Pneumonia type: due to unspecified organism Laterality: bilateral Lung location: lower lobe of lung Qualified Code(s): J18.9 - Pneumonia, unspecified organism Is this a current diagnosis for this admission?: No (3) Pulmonary edema Qualifiers: Chronicity: acute Qualified Code(s): J81.0 - Acute pulmonary edema Is this a current diagnosis for this admission?: No (4) CHF (congestive heart failure), NYHA class II Is this a current diagnosis for this admission?: Yes (5) End stage renal disease Is this a current diagnosis for this admission?: Yes
== END 2016-07-27 20:28 | disposition home or self-care (01) | DRG 871 ==
LOC: ER 01:19 → EH 05:59 → UNDOADMIN 05:59 → EH 07:28 → ICU 08:15 → 4S 07-25 23:16
PROVIDERS: ADMIT Internal Medicine; ATTEND Internal Medicine
PROC: 0BH17EZ Insertion of Endotracheal Airway into Trachea, Via Natural or Artificial Opening (ICD-10-PCS; principal; 2016-07-19)
PROC: 5A1945Z Respiratory Ventilation, 24-96 Consecutive Hours (ICD-10-PCS; 2016-07-19)
PROC: 5A1D60Z (ICD-10-PCS; 2016-07-19)
PROC: 02HV33Z Insertion of Infusion Device into Superior Vena Cava, Percutaneous Approach (ICD-10-PCS; 2016-07-19)
DX: A41.9 Sepsis, unspecified organism (principal); J96.01 Acute respiratory failure with hypoxia; J18.9 Pneumonia, unspecified organism; N18.6 End stage renal disease; J96.02 Acute respiratory failure with hypercapnia; I13.2 Hypertensive heart and chronic kidney disease with heart failure and with stage 5 chronic kidney disease, or end stage renal disease; N25.81 Secondary hyperparathyroidism of renal origin; E11.22 Type 2 diabetes mellitus with diabetic chronic kidney disease; I50.9 Heart failure, unspecified; D63.1 Anemia in chronic kidney disease; I73.9 Peripheral vascular disease, unspecified; F17.210 Nicotine dependence, cigarettes, uncomplicated; K08.409 Partial loss of teeth, unspecified cause, unspecified class; Z99.2 Dependence on renal dialysis
CPT/HCPCS: 36415; 36556; 36600; 71010; 74000; 76937; 80048; 80053; 80061; 80076; 80202; 82140; 82150; 82550; 82553; 82803; 82962; 83036; 83605; 83690; 83735; 83880; 84439; 84443; 84478; 84484; 85025; 85610; 85730; 87040; 87070; 87077; 87186; 87205; 87493; 93005; 93010; 94002; 94003; 94660; 94799; 96365; 96366; 96368; 96375; 99291; C1751; J0456; J0692; J1644; J1815; J2250; J2543; J2704; J3370; J3490; J7060; Q4081

== ENCOUNTER 2016-07-28 15:45 | Emergency (ER) | payer MEDICARE, MEDICAID ==
[2016-07-28] MEDS ORDERED: HYDROCORTISONE 1% CREAM 28.35 GM TP ONE (17:17)
--- NOTE | 2016-07-28 17:22 | ER Document Report ---
ED General - General Chief Complaint: Groin Pain Stated Complaint: GROIN PAIN Notes: Patient is a 66-year-old male who presents with concerns of pain along the proximal dorsal aspect of his penile shaft. States that this is been irritated ever since he was discharged from the hospital. Apparently had a catheter taped to the area. does describe a pulling, dull, burning pain that is worsened by movement. He has not tried anything to improve the pain. No history of similar symptoms in the past. States he is anuric. TRAVEL OUTSIDE OF THE [place] IN LAST 30 DAYS: No - Related Data Allergies/Adverse Reactions: No Known Allergies Allergy (Verified 07/19/16 03:07) Past Medical History - General Information source: Patient - Social History Smoking Status: Former Smoker Frequency of alcohol use: None Drug Abuse: None Lives with: Alone Family History: Reviewed & Not Pertinent, DM Patient has suicidal ideation: No Patient has homicidal ideation: No - Past Medical History Cardiac Medical History: Reports: Hx Hypertension, Hx Peripheral Vascular Disease Denies: Hx Coronary Artery Disease, Hx Heart Attack Pulmonary Medical History: Reports: Hx COPD, Hx Pneumonia Denies: Hx Asthma, Hx Bronchitis Neurological Medical History: Denies: Hx Cerebrovascular Accident, Hx Seizures Endocrine Medical History: Reports: Hx Diabetes Mellitus Type 2 - INSULIN DEPENDENT Renal/ Medical History: Reports: Hx End Stage Renal Disease, Hx Hemodialysis. Denies: Hx Peritoneal Dialysis Musculoskeltal Medical History: Reports Hx Arthritis Past Surgical History: Reports: Hx Neurologic Surgery - back BIOPSY, Hx Vascular Surgery - AV FISTULA ARAMIS. Denies: Hx Pacemaker - Immunizations Hx Diphtheria, Pertussis, Tetanus Vaccination: Yes Hx Pneumococcal Vaccination: 03/26/06 Review of Systems - Review of Systems Notes: Constitutional: Negative for fever. HENT: Negative for sore throat. Eyes: Negative for visual changes. Cardiovascular: Negative for chest pain. Respiratory: Negative for shortness of breath. Gastrointestinal: Negative for abdominal pain, vomiting or diarrhea. Genitourinary: Negative for dysuria. Positive for penile discomfort Musculoskeletal: Negative for back pain. Skin: Negative for rash. Neurological: Negative for headaches, weakness or numbness. 10 point ROS negative except as marked above and in HPI. Physical Exam - Vital signs Interpretation: Normal Notes: PHYSICAL EXAMINATION: GENERAL: Well-appearing, well-nourished and in no acute distress. HEAD: Atraumatic, normocephalic. EYES: Pupils equal round and reactive to light, extraocular movements intact, sclera anicteric, conjunctiva are normal. ENT: nares patent, oropharynx clear without exudates. Moist mucous membranes. NECK: Normal range of motion, supple without lymphadenopathy LUNGS: Breath sounds clear to auscultation bilaterally and equal. No wheezes rales or rhonchi. HEART: Regular rate and rhythm without murmurs ABDOMEN: Soft, nontender, normoactive bowel sounds. No guarding, no rebound. No masses appreciated. : Patient has a small amount of tape residue on the basis penile shaft which was removed. No evidence of erythema, discharge or lesions to the head of the penis or penile shaft. No epididymal or testicular tenderness. EXTREMITIES: Normal range of motion, no pitting or edema. No cyanosis. NEUROLOGICAL: No focal neurological deficits. Moves all extremities spontaneously and on command. PSYCH: Normal mood, normal affect. SKIN: Warm, Dry, normal turgor, no rashes or lesions noted. Course - Re-evaluation Re-evalutation: 07/28/16 17:21 Patient presents with concerns of pain at the dorsal proximal aspect of the penis. The tape residue was removed and local hydrocortisone and lidocaine was applied. No evidence of balanitis, testicular torsion, epididymitis, and patient is anuric.patient states these symptoms have been following him for at least the past 1 month. At this time will discharge with return precautions and follow-up recommendations. Verbal discharge instructions given a the bedside and opportunity for questions given. Medication warnings reviewed. Patient is in agreement with this plan and has verbalized understanding of return precautions and the need for primary care follow-up in the next 24-72 hours. Discharge - Discharge Clinical Impression: Irritation of penis Condition: Good Disposition: HOME, SELF-CARE Additional Instructions: Please apply the steroid cream that you were sent home with 3 times daily to the affected area as needed. Follow up with your primary doctor in the next several days. Return for any additional concerns.
[2016-07-28] MEDS ORDERED: LIDOCAINE 2% JELLY 30 ML TUBE TOP ONE (17:23)
[2016-07-28 17:46] VITALS: BP 176/64
[2016-07-28] MEDS ORDERED: LIDOCAINE 2% JELLY 5 ML TUBE ONE (17:52)
[2016-07-28] MEDS ORDERED: LIDOCAINE 2% JELLY 5 ML TUBE TOP ONE (18:00)
== END 2016-07-28 18:00 | disposition home or self-care (01) ==
LOC: ER 15:45
DX: N48.89 Other specified disorders of penis (principal); E11.22 Type 2 diabetes mellitus with diabetic chronic kidney disease; I12.0 Hypertensive chronic kidney disease with stage 5 chronic kidney disease or end stage renal disease; N18.6 End stage renal disease; Z99.2 Dependence on renal dialysis; Z79.4 Long term (current) use of insulin; J44.9 Chronic obstructive pulmonary disease, unspecified
CPT/HCPCS: 99283; J3490

== ENCOUNTER 2016-07-30 12:30 | Emergency (ER) | payer MEDICARE, MEDICAID ==
[2016-07-30 14:22] LABS: ABSOLUTE BASOPHILS # (AUTO) 0.1 10^3/uL (0.0-0.2); ABSOLUTE EOSINOPHILS # (AUTO) 0.2 10^3/uL (0.0-0.6); ABSOLUTE LYMPHOCYTES (AUTO) 1.1 10^3/uL (0.5-4.7); ABSOLUTE MONOCYTES (AUTO) 0.9 10^3/uL (0.1-1.4); ABSOLUTE NEUT (AUTO) 7.8 10^3/uL (1.7-8.2); BASOPHILS % (AUTO) 1.3 % (0-2); EOSINOPHILS % (AUTO) 2.1 % (0-6); HEMOGLOBIN 9.3 g/dL (13.5-17.0); HGB HCT DIFFERENCE -0.1; LYMPHOCYTES % (AUTO) 10.6 % (13-45); MEAN CORPUSCULAR HEMOGLOBIN 31.8 pg (27.0-33.4); MEAN CORPUSCULAR HGB CONC 33.2 g/dL (32.0-36.0); MEAN CORPUSCULAR VOLUME 96 fl (80-97); MONOCYTES % (AUTO) 8.8 % (3-13); RED BLOOD COUNT 2.93 10^6/uL (4.35-5.55); RED CELL DISTRIBUTION WIDTH 17.4 % (11.5-14.0); SEGMENTED NEUTROPHILS % (AUTO) 77.2 % (42-78); WHITE BLOOD COUNT 10.1 10^3/uL (4.0-10.5)
[2016-07-30 14:38] LABS: ALANINE AMINOTRANSFERASE 65 U/L (21-72); ALBUMIN 4.2 g/dL (3.5-5.0); ALKALINE PHOSPHATASE 140 U/L (38-126); ANION GAP 16 (5-19); ASPARTATE AMINO TRANSFERASE 50 U/L (17-59); BILIRUBIN,DIRECT 0.8 mg/dL (0.0-0.4); BILIRUBIN,TOTAL 0.8 mg/dL (0.2-1.3); BLOOD UREA NITROGEN 53 mg/dL (7-20); CALCIUM 10.6 mg/dL (8.4-10.2); CARBON DIOXIDE 30 mmol/L (22-30); CHLORIDE 94 mmol/L (98-107); CREATININE RESULT 12.29 mg/dL (0.52-1.25); GLUCOSE 171 mg/dL (75-110); POTASSIUM 4.9 mmol/L (3.6-5.0); SODIUM 140.1 mmol/L (137-145); TOTAL PROTEIN 7.9 g/dL (6.3-8.2)
[2016-07-30 14:40] LABS: APPEARANCE,URINE CLOUDY; BILIRUBIN,URINE NEGATIVE (NEGATIVE); GLUCOSE, URINE 50 mg/dL (NEGATIVE); KETONES,URINE 20 mg/dL (NEGATIVE)
[2016-07-30 14:41] LABS: LEUKOCYTE ESTERASE,URINE NEGATIVE (NEGATIVE); NITRITE,URINE NEGATIVE (NEGATIVE); PROTEIN,URINE NEGATIVE (NEGATIVE); UROBILINOGEN,URINE NEGATIVE mg/dL (<2.0)
[2016-07-30] MEDS ORDERED: LEVOFLOXACIN 750 MG TABLET PO ONE (15:29)
--- NOTE | 2016-07-30 17:52 | ER Document Report ---
ED GI/ - General Chief Complaint: Urinary Problem Stated Complaint: ABDOMINAL PAIN Notes: Patient says that he has pain and blood coming is penis for the past week. Also has not had a bowel movement for 2 weeks. Patient usually produces only a small amount of urine because he's a renal dialysis patient on Sunday, Sunday , and Sunday dialysis for about 8 years. He's never had bleeding coming from his penis before. Has not had a fever. No vomiting or diarrhea. TRAVEL OUTSIDE OF THE [place] IN LAST 30 DAYS: No - Related Data Allergies/Adverse Reactions: No Known Allergies Allergy (Verified 07/19/16 03:07) Past Medical History - Social History Smoking Status: Current Every Day Smoker Family History: Reviewed & Not Pertinent, DM - Past Medical History Cardiac Medical History: Reports: Hx Hypertension, Hx Peripheral Vascular Disease Pulmonary Medical History: Reports: Hx COPD, Hx Pneumonia Endocrine Medical History: Reports: Hx Diabetes Mellitus Type 1, Hx Diabetes Mellitus Type 2 - INSULIN DEPENDENT Renal/ Medical History: Reports: Hx End Stage Renal Disease, Hx Hemodialysis - Sunday, Sunday, and Sunday Musculoskeltal Medical History: Reports Hx Arthritis Past Surgical History: Reports: Hx Neurologic Surgery - back BIOPSY, Hx Vascular Surgery - AV FISTULA ARAMIS - Immunizations Hx Diphtheria, Pertussis, Tetanus Vaccination: Yes Hx Pneumococcal Vaccination: 03/26/06 Review of Systems - Review of Systems Notes: REVIEW OF SYSTEMS: CONSTITUTIONAL : Denies fever. EENT: Denies eye, ear, nose or mouth or throat pain or other symptoms. CARDIOVASCULAR: Denies chest pain. RESPIRATORY: Denies cough, chest congestion, or shortness of breath. GASTROINTESTINAL: Lower midline abdominal pain and tenderness. No rectal pain. No vomiting or diarrhea. GENITOURINARY: Patient only makes a very limited amount of urine because of his chronic renal failure and being on dialysis. MUSCULOSKELETAL: Denies back or neck pain. Denies joint pain or swelling. SKIN: Denies rash or skin lesions. NEUROLOGICAL: Denies LOC or altered mental status. Denies headache. Denies sensory loss or motor deficits. ALL OTHER SYSTEMS REVIEWED AND NEGATIVE. Physical Exam - Vital signs Vitals: Temp Pulse Resp BP Pulse Ox 97.6 F 82 16 139/61 H 99 07/30/16 12:40 07/30/16 12:40 07/30/16 12:40 07/30/16 12:40 07/30/16 12:40 Interpretation: Normal - Notes Notes: PHYSICAL EXAMINATION: GENERAL: Uncomfortable appearing . Vital signs are all normal. HEAD: Atraumatic, normocephalic. NECK: Normal range of motion, supple. LUNGS: Breath sounds clear and equal bilaterally. HEART: Regular rate and rhythm without murmurs. ABDOMEN: Soft, tender suprapubic region. No guarding or rebound. No masses felt. No bruits heard. Rectal exam performed and only a very small amount of yellow stool noted on the examining glove. Rectal vault does not have any stool present. Patient's prostate is enlarged. BACK: No tenderness throughout entire back. EXTREMITIES: Normal range of motion without pain. NEUROLOGICAL: Normal speech, normal gait. Normal sensory, motor, and reflex exams. Awake, alert, and oriented x3. Cranial nerves normal. SKIN: Warm, dry, no rashes. Course - Re-evaluation Re-evalutation: 07/30/16 20:[address] Carter, urology on-call, he advised treating the patient with an antibiotic after culturing the urine and have him follow-up with urology. I'm going to try to call this patient's private doctor tomorrow to see if we can get him into a urology follow-up. - Vital Signs Vital signs: Temp Pulse Resp BP Pulse Ox 97.3 F 77 16 149/63 H 98 07/30/16 18:41 07/30/16 18:41 07/30/16 18:41 07/30/16 18:41 07/30/16 18:41 07/30/16 20:33 - Laboratory Result Diagrams: 07/30/16 14:00 07/30/16 14:00 Laboratory results interpreted by me: 07/30/16 07/30/16 07/30/16 13:26 14:00 14:00 RBC 2.93 L Hgb 9.3 L Hct 28.0 L RDW 17.4 H Lymphocytes % 10.6 L Chloride 94 L BUN 53 H Creatinine 12.29 H Est GFR ( Amer) 5 L Est GFR (Non-Af Amer) 4 L Glucose 171 H Calcium 10.6 H Direct Bilirubin 0.8 H Alkaline Phosphatase 140 H Urine Glucose (UA) 50 H Urine Ketones 20 H Urine Blood MODERATE H - Diagnostic Test Radiology reviewed: Image reviewed, Reports reviewed - Ultrasound shows atrophied kidneys bilaterally. There is a small mass noted in the bladder which could be a tumor. Radiology results interpreted by me: 07/30/16 20:34 Abdominal x-rays revealed increased gas, but no evidence of any acute intra- abdominal process. Discharge - Discharge Clinical Impression: Hematuria, Mass of urinary bladder UTI (urinary tract infection) Qualifiers: Urinary tract infection type: site unspecified Hematuria presence: with hematuria Qualified Code(s): N39.0 - Urinary tract infection, site not specified Condition: Stable Disposition: HOME, SELF-CARE Additional Instructions: Hematuria Hematuria, or blood in your urine, can be caused by minor medical problems , such as a bladder infection, or by more serious medical conditions, such as kidney stones or even tumors of the bladder or kidney. If the cause of the hematuria is known (such as a bladder infection) and can be treated, it may not need further evaluation. If the cause is not known, it will usually require further evaluation by a specialist, such as a urologist. In particular, unexplained hematuria in the older patient must be evaluated to rule out a serious condition, such as a bladder or kidney tumor. If the hematuria worsens or you are passing clots and then are unable to urinate, you should be re-evaluated. A catheter may need to be placed in the bladder to permit passage of urine. If you develop high fever, severe pain, or other new or worsening symptoms, return to the Emergency Department for re- evaluation. URINARY TRACT INFECTION: Your evaluation indicates that you have a urinary tract infection. This is due to germs growing in the bladder. This is a common problem. This infection usually responds quickly to antibiotics. Your antibiotic should be taken exactly as prescribed. Drink plenty of fluids -- three to four quarts a day. Occasionally, a bladder anesthetic will be prescribed to help stop the feeling of urgency until the antibiotic has a chance to clear the infection. This may cause your urine to be dark orange. Certain urine infections require a culture. If the doctor obtained a culture, the results will be back in two days. You should call to see if a change in treatment is needed. A repeat urinalysis after you finish treatment is often recommended. The physician will let you know if further testing is required. Call the doctor if you develop fever, chills, flank pain, inability to urinate, or blood in the urine. ANTIBIOTIC THERAPY: You have been given an antibiotic prescription. It's important that you take all the medication, unless instructed otherwise by your physician. Failure to complete the entire course can result in relapse of your condition. Common side effects of antibiotics include nausea, intestinal cramping, or diarrhea. Women may develop vaginal yeast infections, and babies can get yeast (thrush) in the mouth following the use of antibiotics. Contact your physician if you develop significant side effects from this medication. Allergy to this antibiotic can result in hives, wheezing, faintness, or itching. If symptoms of allergy occur, stop the medication and call the doctor. LEVOFLOXACIN: You have been given an antibacterial agent, levofloxacin (Levaquin). This medicine is not related to the penicillins, sulfas, cephalosporins, or tetracyclines. It is often given to patients who are allergic to these drugs. It has been chosen for you either because other drugs are not appropriate, or because of the nature of your problem. Levaquin should not be taken with antacids, as these can decrease its effectiveness. It can be taken without regard to meals. LEVAQUIN SHOULD NOT BE TAKEN BY CHILDREN, NURSING WOMEN, OR WOMEN. Although Levaquin is usually well-tolerated, common side effects can include nausea and diarrhea. Contact your doctor if you experience any unusual symptoms while on this medication, such as joint pain or swelling, shortness of breath, wheezing, faintness, or hives. On your ultrasound, there may be a mass in your bladder. This possible mass will need to be worked up further by seeing a urology specialist. Contact your doctor, Dr. Mathew, tomorrow to get to scheduled to see a urology specialist. FOLLOW-UP CARE: If you have been referred to a physician for follow-up care, call the physician s office for an appointment as you were instructed or within the next two days. If you experience worsening or a significant change in your symptoms, notify the physician immediately or return to the Emergency Department at any time for re-evaluation. Prescriptions: Levofloxacin [Levaquin 750 mg Tablet] 750 mg PO DAILY #5 tablet Referrals: ALEKS HARKINS MD [ACTIVE STAFF] - Follow up tomorrow
[2016-07-30 18:46] VITALS: BP 149/63
== END 2016-07-30 18:41 | disposition home or self-care (01) ==
LOC: ER 12:30
DX: N39.0 Urinary tract infection, site not specified (principal); R31.9 Hematuria, unspecified; N32.89 Other specified disorders of bladder; N48.89 Other specified disorders of penis; J44.9 Chronic obstructive pulmonary disease, unspecified; E11.22 Type 2 diabetes mellitus with diabetic chronic kidney disease; I12.0 Hypertensive chronic kidney disease with stage 5 chronic kidney disease or end stage renal disease; N18.6 End stage renal disease; Z99.2 Dependence on renal dialysis; Z79.4 Long term (current) use of insulin
CPT/HCPCS: 99284; 51702; 36415; 87086; 85025; 82272; 80053; 81001; 74020; 76770; A9270

== ENCOUNTER → 2016-08-08 | Outpatient (CLI) | payer MEDICARE, MEDICAID | LOC: RAD 09:48 | PROVIDERS: ATTEND Internal Medicine Nephrology | DX: R33.9 Retention of urine, unspecified (principal); N40.1 Benign prostatic hyperplasia with lower urinary tract symptoms; R33.8 Other retention of urine | CPT/HCPCS: 76856 ==

== ENCOUNTER 2016-09-19 09:03 | Day surgery (SDC) | payer MEDICARE, MEDICAID ==
[~2016-09-19 09:03] MED LIST: FENTANYL CITRATE INJ/PF 100 MCG/2 ML AMPUL ONE; LIDOCAINE 0.5% INJ-PF (5 MG/ML) 50 ML SDV ONE; LIDOCAINE 2% INJ-PF (20 MG/ML) 10 ML AMPUL ONE; MIDAZOLAM 2 MG/2 ML INJ ONE; PROPOFOL INJ 200 MG/20 ML VIAL IV ONE
[2016-09-19 09:43] LABS: HEMATOCRIT 43.1 % (37.9-51.0); HEMOGLOBIN 13.9 g/dL (13.5-17.0); HGB HCT DIFFERENCE -1.4; MEAN CORPUSCULAR HEMOGLOBIN 31.1 pg (27.0-33.4); MEAN CORPUSCULAR HGB CONC 32.3 g/dL (32.0-36.0); MEAN CORPUSCULAR VOLUME 96 fl (80-97); RED BLOOD COUNT 4.48 10^6/uL (4.35-5.55); RED CELL DISTRIBUTION WIDTH 14.5 % (11.5-14.0); WHITE BLOOD COUNT 6.4 10^3/uL (4.0-10.5)
[2016-09-19 10:02] LABS: ANION GAP 17 (5-19); BLOOD UREA NITROGEN 45 mg/dL (7-20); CALCIUM 9.6 mg/dL (8.4-10.2); CARBON DIOXIDE 29 mmol/L (22-30); CHLORIDE 97 mmol/L (98-107); CREATININE RESULT 9.31 mg/dL (0.52-1.25); GLUCOSE 50 mg/dL (75-110); POTASSIUM 4.4 mmol/L (3.6-5.0); SODIUM 142.6 mmol/L (137-145)
--- NOTE | 2016-09-19 10:05 | PDOC H&P ---
General Chief Complaint: The patient is referred across for malfunctioning AV fistula. - Current Medications/Allergies Home Medications: Aspirin [Aspirin EC] 81 mg PO DAILY 07/19/16 Atorvastatin Calcium [Lipitor 20 mg Tablet] 20 mg PO QHS 07/19/16 B Complex & C No.20/Folic Acid [[place] Caps Softgel] 1 cap PO DAILY 07/19/16 Calcium Acetate [Phoslo 667 mg Capsule] 3 cap PO BID 07/19/16 Clonidine HCl [Catapres 0.3 mg Tablet] 0.3 mg PO Q8 07/19/16 Docusate Sodium [Colace 100 mg Capsule] 100 mg PO BID 07/19/16 Furosemide [Lasix] 40 mg PO DAILY 07/19/16 Insulin Glargine,Hum.rec.anlog [Lantus] 20 units SQ QHS 07/19/16 Irbesartan [Avapro] 150 mg PO QHS 07/19/16 Isosorb Dinit/Hydralazine HCl [Bidil Tablet] 1 tab PO TID 07/19/16 Nifedipine [Procardia Xl] 90 mg PO Q12 07/19/16 Omeprazole 20 mg PO BID 07/19/16 Finasteride 5 mg PO DAILY 09/19/16 Tamsulosin HCl 0.4 mg PO DAILY 09/19/16 Allergies/Adverse Reactions: No Known Allergies Allergy (Verified 07/19/16 03:07) Past Medical History Cardiac Medical History: Reports: Hypertension, Peripheral Vascular Disease Denies: Coronary Artery Disease, Myocardial Infarction Pulmonary Medical History: Reports: Chronic Obstructive Pulmonary Disease (COPD) , Pneumonia Denies: Asthma, Bronchitis Neurological Medical History: Denies: Seizures Endocrine Medical History: Reports: Diabetes Mellitus Type 1, Diabetes Mellitus Type 2 - INSULIN DEPENDENT Renal/ Medical History: Reports: End Stage Renal Disease Musculoskeltal Medical History: Reports: Arthritis Hematology: Denies: Anemia Past Surgical History Past Surgical History: Reports: Vascular Surgery - AV FISTULA ARAMIS Denies: Pacemaker Family History Family History: Reviewed & Not Pertinent, DM Parental Family History Reviewed: No Children Family History Reviewed: No Sibling(s) Family History Reviewed.: No Social History Smoking Status: Current Every Day Smoker Frequency of Alcohol Use: None Hx Recreational Drug Use: No Drugs: None Hx Prescription Drug Abuse: No Physical Exam Vital Signs: Temp Pulse Resp BP Pulse Ox 98.2 F 75 17 161/62 H 98 06/27/17 09:00 09/19/16 09:00 09/19/16 09:00 09/19/16 09:00 09/19/16 09:00 Intake & Output 09/18/16 09/19/16 09/20/16 06:59 06:59 06:59 Intake Total 0 Balance 0 Weight 73.94 kg Additional comments: Constitutional: Well-developed well-nourished -[place] gentleman. No apparent acute distress. Eyes: Mucous membranes pink and moist, pupils equal and reactive to light. Conjunctiva normal. Cornea normal. ENT: Hearing grossly normal. External pinna normal to inspection. Teeth mostly intact. Tongue normal to inspection. Cardiac: Heart sounds 1 and 2 normal, no murmurs. Respiratory breath sounds are present bilaterally, normal. Normal respiratory effort. Psychiatric: Judgment, memory, insight seem normal. Mood is pleasant and appropriate. Extremities: Upper extremities show normal range of movement. Pulses present noted to the radial arteries. Capillary refill normal. No cyanosis noted. No muscle wasting noted. Right arm transposed basilic vein fistula noted. Somewhat ectatic. Firm suggesting cephalad stenosis. Impression/Plan Impression: #1 malfunctioning AV fistula right arm transposed basilic fistula. 2. End-stage renal disease on hemodialysis. 3. Coronary artery disease. #4 diabetes mellitus type 2. 5. Hypertension. Plan: In this patient with a right arm transposed arm fistula functioning for some years, angiogram and angiogram possible angioplasty are recommended due to malfunction. The risks, benefits, expected outcome and alternatives are familiar to the patient and he wishes to proceed.
[2016-09-19] MEDS ORDERED: OXYCODONE-ACETAMINOPHEN 5-325 MG TABLET PO PRN (10:31)
[2016-09-19] MEDS ORDERED: ONDANSETRON HCL INJ/PF 4 MG/2 ML SDV IV PRN (10:31)
[2016-09-19] MEDS ORDERED: FENTANYL CITRATE INJ/PF 100 MCG/2 ML AMPUL IV PRN ×2 (10:31)
[2016-09-19] MEDS ORDERED: PROMETHAZINE HCL INJ 25 MG/1 ML VIAL IV PRN (10:31)
[2016-09-19] MEDS ORDERED: DIPHENHYDRAMINE HCL 50 MG/ML VIAL IV PRN (10:31)
[2016-09-19] MEDS ORDERED: MEPERIDINE HCL/PF INJ 25 MG/1 ML DISP.SYRIN IV PRN (10:31)
[2016-09-19] MEDS ORDERED: DEXTROSE 50%-WATER 25 GM/50 ML DISP.SYRIN IV ONE (10:47)
--- NOTE | 2016-09-19 11:01 | PDOC DISCHARGE SUMMARY ---
Discharge Summary (SDC) - Discharge Final Diagnosis: #1 malfunctioning AV fistula right arm transposed basilic fistula. 2. End-stage renal disease on hemodialysis. 3. Coronary artery disease. #4 diabetes mellitus type 2. 5. Hypertension. Date of Surgery: 09/19/16 Discharge Date: 09/19/16 Condition: Fair Treatment or Instructions: Discharge home [after recovery per ASU criteria]. Diet , [renal],as tolerated, when fully awake advance as tolerated. Activities within moderation encouraged. Follow up in my office by appointment in about [1 month]. Call for appointment. Leave wounds [covered], [keep clean and dry, until hemodialysis. Hold of on school/work [until evaluation in office]. May shower [in 48 hrs], [try to keep operated area as dry as possible]. Discharge Diet: Other (Comments) - Renal Report the Following to Your Physician Immediately: Shortness of Breath, Unusual Bleeding
--- NOTE | 2016-09-19 11:21 | Operative Report ---
Operative Report DATE OF SURGERY: 09/19/16 PREOPERATIVE DIAGNOSIS: #1 malfunctioning AV fistula right arm transposed basilic fistula. 2. End-stage renal disease on hemodialysis. 3. Coronary artery disease. #4 diabetes mellitus type 2. 5. Hypertension. POSTOPERATIVE DIAGNOSIS: #1 [address] fistula right arm transposed basilic fistula. Post fistula angioplasty. 2. End-stage renal disease on hemodialysis. 3. Coronary artery disease. #4 diabetes mellitus type 2. 5. Hypertension. OPERATION: 1. Needle introduction and arteriovenous fistula. 2. Angioplasty and arteriovenous fistula. 3. Angiogram and interpretation. SURGEON: LALI ROBINS TILE SETTER: None ANESTHESIA: LMAC TISSUE REMOVED OR ALTERED: Not applicable. COMPLICATIONS: None ESTIMATED BLOOD LOSS: 5 mL. INTRAOPERATIVE FINDINGS: Of a well founded, somewhat ectatic fixed fistula. Firm initially suggesting cephalad stenosis. Cephalad stenosis noted at about 20 cm for about 1 cm representing about 70% of the adjacent lumen. This area is somewhat challenging the past with the guidewire, suggesting that it was in fact significant. Angioplasty was a 8 and then a 9 mm angioplasty balloon eradicated stenosis. The conclusion of the fistula was appropriately softer. PROCEDURE: PROCEDURE: After verifying the procedure and having obtained informed consent, the patient's right arm was prepared with Chlorhexidine and draped out with sterile linen. Local anesthesia infiltrated. Percutaneous access into the fistula ,[ antegrade], obtained about [4 cm] from the arteriovenous anastomosis using a micro puncture needle followed by micro puncture wire and then a micro puncture catheter. Angiogram demonstrated the aforementioned findings. Angioplasty was elected. A 0.035 Spearman wire was inserted, and over this, a 7 Maldivian short introducer was placed, this was followed by a [8mm] angioplasty balloon . Angioplasty was serially done using a 3 mils syringe at the culprit area. For 2 minutes. Completion angiogram showed residual stenosis. A 9 mm angioplasty balloon was then inserted and placed over the culprit area. It was inflated with a 3 mils syringe. For 2 minutes. Completion angiogram demonstrated [satisfactory result]. The instrumentation was now withdrawn over had depression for 10 minutes. Dressings applied, procedure concluded. Exposure time: 1.9 minutes Radiation: 3.55 mcg/cm Contrast: 35 mL of Isovue-300, low osmolality. DICTATING PHYSICIAN: LALI ARROYO M.D. cc: LALI ARROYO M.D. ([id number]) >>
[2016-09-19 13:26] VITALS: BP 152/60
--- NOTE | 2016-09-19 15:23 | RADIOLOGY REPORT (SQ) ---
EXAM DESCRIPTION: ELBOW RIGHT AP/LAT; NO CHG FLUORO COMPLETED DATE/TIME: 09/19/2016 2:03 pm REASON FOR STUDY: PLASTY T82.858A STENOSIS OF OTHER VASCULAR PROSTH DEV/GRFT, INIT COMPARISON: None. FLUOROSCOPY TIME: 1.9 minutes 14 series of digital images saved to PACS. TECHNIQUE: Intra-operative images acquired during surgical procedure to evaluate progress. NUMBER OF IMAGES: Cine fluoroscopic images. LIMITATIONS: None. FINDINGS: Imaging in fluoroscopy during right/left upper extremity dialysis access evaluation and pl asty by Dr. Coulter . Please refer to the operative report for further details. IMPRESSION: INTRA PROCEDURAL IMAGING ABOVE . COMMENT: Quality ID [id number]: Final reports for procedures using fluoroscopy that document radiation exp osure indices, or exposure time and number of fluorographic images (if radiation exposure indices are not available) Please consult full operative report of the attending physician for description of the procedure. TECHNICAL DOCUMENTATION: JOB ID: [id number] [employer]- All Rights Reserved
== END 2016-09-19 13:35 | disposition home or self-care (01) ==
LOC: OROUT 09:03
PROVIDERS: ATTEND Surgery
PROC: 057D3DZ Dilation of Right Cephalic Vein with Intraluminal Device, Percutaneous Approach (ICD-10-PCS; principal; 2016-09-19 10:45)
DX: T82.858A Stenosis of other vascular prosthetic devices, implants and grafts, initial encounter (principal); Y83.2 Surgical operation with anastomosis, bypass or graft as the cause of abnormal reaction of the patient, or of later complication, without mention of misadventure at the time of the procedure; E10.22 Type 1 diabetes mellitus with diabetic chronic kidney disease; I12.0 Hypertensive chronic kidney disease with stage 5 chronic kidney disease or end stage renal disease; N18.6 End stage renal disease; Z99.2 Dependence on renal dialysis; J44.9 Chronic obstructive pulmonary disease, unspecified; I73.9 Peripheral vascular disease, unspecified; I25.10 Atherosclerotic heart disease of native coronary artery without angina pectoris; Z79.82 Long term (current) use of aspirin; Z79.01 Long term (current) use of anticoagulants; Z87.01 Personal history of pneumonia (recurrent); Z79.4 Long term (current) use of insulin
CPT/HCPCS: 36415; 82962; 85027; 80048; 73070; 36901; C1725; C1752; C1894; Q9967; C1769; J2250; J3490 ×3; J3010; J2704; J1644; 01844

== ENCOUNTER 2016-12-18 07:37 | Day surgery (SDC) | payer MEDICARE, MEDICAID ==
[2016-12-18] MEDS ORDERED: DIAZEPAM 5 MG TABLET ONE (08:22)
[2016-12-18] MEDS ORDERED: OXYCODONE-ACETAMINOPHEN 5-325 MG TABLET ONE (08:22)
[2016-12-18] MEDS ORDERED: FENTANYL CITRATE INJ/PF 100 MCG/2 ML AMPUL ONE (08:34)
[2016-12-18] MEDS ORDERED: MIDAZOLAM 2 MG/2 ML INJ ONE (08:34)
[2016-12-18 08:35] LABS: ANION GAP 18 (5-19); BLOOD UREA NITROGEN 53 mg/dL (7-20); CALCIUM 10.1 mg/dL (8.4-10.2); CARBON DIOXIDE 27 mmol/L (22-30); CHLORIDE 96 mmol/L (98-107); CREATININE RESULT 10.63 mg/dL (0.52-1.25); GLUCOSE 141 mg/dL (75-110); POTASSIUM 4.5 mmol/L (3.6-5.0); SODIUM 141.1 mmol/L (137-145)
[2016-12-18] MEDS ORDERED: HEPARIN SOD (PORCINE) 5,000 UNIT/ML 1 ML SYRINGE ONE (08:35)
[2016-12-18] MEDS ORDERED: LIDOCAINE 0.5% INJ-PF (5 MG/ML) 50 ML SDV ONE (08:35)
--- NOTE | 2016-12-18 10:14 | PDOC DISCHARGE SUMMARY ---
Discharge Summary (SDC) - Discharge Final Diagnosis: #1 malfunctioning arteriovenous fistula. 2. End-stage renal disease on hemodialysis. 3. Diabetes mellitus type 2. 4. Peripheral vascular disease. 5. Hypertension. Date of Surgery: 12/18/16 Discharge Date: 12/18/16 Condition: Fair Treatment or Instructions: Discharge home [after recovery per ASU criteria]. Diet , [renal],as tolerated, when fully awake advance as tolerated. Activities within moderation encouraged. Follow up in my office by appointment in about 2 months call for appointment. Leave wounds [covered], [keep clean and dry, until hemodialysis. Hold of on school/work [until evaluation in office]. May shower [in 48 hrs], [try to keep operated area as dry as possible]. Referrals: ALEKS HARKINS MD [Primary Care Provider] - Discharge Diet: Other (Comments) - Renal Respiratory Treatments at Home: Deep Breathing/Coughing Discharge Activity: Activity As Tolerated Report the Following to Your Physician Immediately: Shortness of Breath, Unusual Bleeding
--- NOTE | 2016-12-18 10:23 | Operative Report ---
Operative Report DATE OF SURGERY: 12/18/16 PREOPERATIVE DIAGNOSIS: #1 malfunctioning arteriovenous fistula. 2. End-stage renal disease on hemodialysis. 3. Diabetes mellitus type 2. 4. Peripheral vascular disease. 5. Hypertension. POSTOPERATIVE DIAGNOSIS: #1 malfunctioning arteriovenous fistula. Post angioplasty and drug-eluting balloon. 2. End-stage renal disease on hemodialysis. 3. Diabetes mellitus type 2. 4. Peripheral vascular disease. 5. Hypertension. OPERATION: 1. Needle access and arteriovenous fistula, right transposed basilic vein. 2. AV fistula angioplasty. 3. Delivery of drug-eluting balloon. 4. Angiogram and interpretation. SURGEON: LALI ROBINS WELL LOGGING OPERATOR MUD ANALYSIS: None ANESTHESIA: Moderate Sedation TISSUE REMOVED OR ALTERED: Not applicable. COMPLICATIONS: None ESTIMATED BLOOD LOSS: 5 mL. INTRAOPERATIVE FINDINGS: Of a well founded right arm transposed basilic vein fistula. An area of stenosis is noted at the right subclavian to the superior vena cava. Difficult to quantify, appears to be about 40% on evaluation of the waist. Complete elimination on angioplasty up to 8 mm balloon. Proven by post dilatation angiogram. Of 2 years of stenosis with intervening stenosis at about 15-19 cm, 4 cm long estimated to be 40% of the adjacent lumen, almost completely eliminated except for a very brief waist, less than 5%. Drug- eluting balloons were used in this case in this patient who has had frequent interventions for recurrent stenoses. The hope is to increase the intervals for intervention. PROCEDURE: PROCEDURE: After verifying the procedure and having obtained informed consent, the patient's right for arm was prepared with Chlorhexidine and draped out with sterile linen. Local anesthesia infiltrated. Percutaneous access into the fistula ,[ antegrade], obtained about 4 cm] from the arteriovenous anastomosis using a micro puncture needle followed by micro puncture wire and then a micro puncture catheter. Angiogram demonstrated the aforementioned findings. Angioplasty was elected. A 0.035 [place] wire was inserted, and over this, a 7 Bulgarian short introducer was placed, this was followed by a [8-mm ] angioplasty balloon . Angioplasty was done of the superior vena cava subclavian junction using an 8 mm balloon inflating up to 18 oscar in order to eliminate the waist. This was sustained for 2 minutes. Deflation done. Balloon withdrawn and angiogram done which demonstrated elimination of any stenosis. A drug-eluting balloon was now inserted according to lasting machine operator bed's instructions and placed across the area of prior stenosis. It was now inflated up to 6 ocsar sustained for 3 minutes. It was now deflated. Angioplasty was now done in the area from 15-19 cm demonstrated on initial angiogram. Inflating up to 18 atmospheres for 2 minutes in order to eliminate the waist .] Completion angiogram demonstrated residual stenosis. A 9 mm high- pressure angioplasty balloon was now inserted over the Glidewire at this area and inflated up to 20 oscar for 2 minutes. Completion angiogram demonstrated residual resolution of the lesions.. A 9 mm drug-eluting balloon was now inserted according to lasting machine operator bed's instructions and placed across the area of prior stenosis. It was now inflated up to 10 oscar sustained for 3 minutes. It was now deflated. Completion angiogram demonstrated [satisfactory result]. The instrumentation was now withdrawn over and pressure for 10 minutes. Palpation of the fistula was improved over initial. Dressings applied, procedure concluded. Exposure time: 3.9 minutes Radiation: 8.15 mg/cm. Contrast: 25 mL of Isovue-300, low osmolality. DICTATING PHYSICIAN: LALI ARROYO M.D. cc: LALI ARROYO M.D. ([id number]) >>
[2016-12-18 11:26] VITALS: BP 160/66
== END 2016-12-18 11:10 | disposition home or self-care (01) ==
LOC: SC 07:37
PROVIDERS: ATTEND Surgery
PROC: 05783DZ Dilation of Left Axillary Vein with Intraluminal Device, Percutaneous Approach (ICD-10-PCS; principal; 2016-12-18)
DX: T82.858A Stenosis of other vascular prosthetic devices, implants and grafts, initial encounter (principal); Y83.2 Surgical operation with anastomosis, bypass or graft as the cause of abnormal reaction of the patient, or of later complication, without mention of misadventure at the time of the procedure; I12.0 Hypertensive chronic kidney disease with stage 5 chronic kidney disease or end stage renal disease; E11.9 Type 2 diabetes mellitus without complications; N18.6 End stage renal disease; Z99.2 Dependence on renal dialysis; I73.9 Peripheral vascular disease, unspecified; Z79.82 Long term (current) use of aspirin; Z79.899 Other long term (current) drug therapy; Z79.4 Long term (current) use of insulin
CPT/HCPCS: 36415; 80048; 36907; J1644 ×2; A9270 ×2; J3490; J2250; J3010

== ENCOUNTER 2017-09-10 16:59 | Inpatient (IN) | payer MEDICARE, MEDICAID ==
--- NOTE | 2017-09-10 19:28 | ER Document Report ---
ED Medical Screen (RME) - General Chief Complaint: Nausea Stated Complaint: NAUSEA Time Seen by Provider: 09/10/17 19:24 Mode of Arrival: Wheelchair Information source: Patient Notes: Patient with c/o vomiting/diarrhea and abd pain x24 hours with shaking. Denies any fevers. Dialysis patient, last dialysis today. I have greeted and performed a rapid initial assessment of this patient. A comprehensive ED assessment and evaluation of the patient, analysis of test results and completion of the medical decision making process will be conducted by additional ED providers. TRAVEL OUTSIDE OF THE [place] IN LAST 30 DAYS: No - Related Data Allergies/Adverse Reactions: No Known Allergies Allergy (Verified 12/18/16 08:51) Past Medical History - General Information source: Patient - Social History Cigarette use (# per day): Yes Frequency of alcohol use: Social Drug Abuse: None Lives with: Family Family history: Reviewed & Not Pertinent - Past Medical History Cardiac Medical History: Reports: Hx Hypertension, Hx Peripheral Vascular Disease Denies: Hx Coronary Artery Disease, Hx Heart Attack Pulmonary Medical History: Reports: Hx COPD, Hx Pneumonia Denies: Hx Asthma, Hx Bronchitis Neurological Medical History: Denies: Hx Cerebrovascular Accident, Hx Seizures Endocrine Medical History: Reports: Hx Diabetes Mellitus Type 1, Hx Diabetes Mellitus Type 2 - INSULIN DEPENDENT Renal/ Medical History: Reports: Hx End Stage Renal Disease, Hx Hemodialysis - Sunday, Sunday, and Sunday Musculoskeltal Medical History: Reports Hx Arthritis Past Surgical History: Reports: Hx Neurologic Surgery - back BIOPSY, Hx Vascular Surgery - AV FISTULA ARAMIS. Denies: Hx Pacemaker - Immunizations Hx Diphtheria, Pertussis, Tetanus Vaccination: Yes Review of Systems - Review of Systems Constitutional: No symptoms reported EENT: No symptoms reported Cardiovascular: No symptoms reported Respiratory: No symptoms reported Gastrointestinal: See HPI Genitourinary: No symptoms reported Male Genitourinary: No symptoms reported Musculoskeletal: No symptoms reported Skin: No symptoms reported Hematologic/Lymphatic: No symptoms reported Neurological/Psychological: No symptoms reported Physical Exam - Vital signs Vitals: Temp Pulse Resp BP Pulse Ox 100.1 F 91 16 133/57 H 96 09/10/17 17:53 09/10/17 17:53 09/10/17 17:53 09/10/17 17:53 09/10/17 17:53 - Notes Notes: PHYSICAL EXAMINATION: LUNGS: Breath sounds clear to auscultation bilaterally and equal. No wheezes rales or rhonchi. HEART: Regular rate and rhythm without murmurs ABDOMEN: Soft, nondistended abdomen with generalized TTP. No guarding, no rebound. No masses appreciated. Course - Vital Signs Vital signs: Temp Pulse Resp BP Pulse Ox 100.1 F 91 16 133/57 H 96 09/10/17 17:53 09/10/17 17:53 09/10/17 17:53 09/10/17 17:53 09/10/17 17:53 Doctor's Discharge - Discharge Referrals: ALEKS HARKINS MD [Primary Care Provider] - Follow up as needed
[2017-09-10 20:46] LABS: HEMATOCRIT 36.5 % (37.9-51.0); HEMOGLOBIN 12.3 g/dL (13.5-17.0); MEAN CORPUSCULAR HEMOGLOBIN 32.2 pg (27.0-33.4); MEAN CORPUSCULAR HGB CONC 33.7 g/dL (32.0-36.0); MEAN CORPUSCULAR VOLUME 95 fl (80-97); PLATELET COUNT 285 10^3/uL (150-450); RED BLOOD COUNT 3.83 10^6/uL (4.35-5.55); RED CELL DISTRIBUTION WIDTH 15.5 % (11.5-14.0)
[2017-09-10 21:05] LABS: ALANINE AMINOTRANSFERASE 24 U/L (21-72); ALBUMIN 4.4 g/dL (3.5-5.0); ALKALINE PHOSPHATASE 131 U/L (38-126); ANION GAP 17 (5-19); ASPARTATE AMINO TRANSFERASE 24 U/L (17-59); BILIRUBIN,DIRECT 0.7 mg/dL (0.0-0.4); BILIRUBIN,TOTAL 0.8 mg/dL (0.2-1.3); BLOOD UREA NITROGEN 38 mg/dL (7-20); CALCIUM 9.9 mg/dL (8.4-10.2); CARBON DIOXIDE 28 mmol/L (22-30); CHLORIDE 96 mmol/L (98-107); GLUCOSE 135 mg/dL (75-110); LIPASE 92.2 U/L (23-300); SODIUM 140.8 mmol/L (137-145); TOTAL PROTEIN 7.6 g/dL (6.3-8.2)
[2017-09-10 21:16] LABS: ABSOLUTE LYMPHOCYTES# (MANUAL) 1.8 10^3/uL (0.5-4.7); ABSOLUTE MONOCYTES # (MANUAL) 0.6 10^3/uL (0.1-1.4); ABSOLUTE NEUTROPHILS# (MANUAL) 13.6 10^3/uL (1.7-8.2); BAND NEUTROPHILS % (MANUAL) 5 % (3-5); BASOPHILS % (MANUAL) 0 % (0-2); EOSINOPHILS % (MANUAL) 0 % (0-6); LYMPHOCYTES % (MANUAL) 11 % (13-45); MONOCYTES % (MANUAL) 4 % (3-13); SEGMENTED NEUTROPHILS % (MAN) 80 % (42-78); TOTAL CELLS COUNTED 100
[2017-09-10 21:17] LABS: ANISOCYTOSIS SLIGHT; PLATELET COMMENT ADEQUATE; TOXIC GRANULATION 1+; TOXIC VACUOLATION PRESENT
[2017-09-10] MEDS ORDERED: FENTANYL CITRATE INJ/PF 100 MCG/2 ML AMPUL IV PRN (23:10)
--- NOTE | 2017-09-10 23:13 | ER Document Report ---
ED General - General Chief Complaint: Nausea Stated Complaint: NAUSEA Time Seen by Provider: 09/10/17 19:24 Mode of Arrival: Wheelchair Notes: The patient is a 67-year-old male with a past medical history of hypertension, chronic kidney disease with dialysis dependence last received dialysis today who presents with 24 hours of generalized abdominal pain with associated nausea and vomiting. The patient is a poor historian and somewhat reluctant to provide significant details. He does however state that throughout the day he has had a cramping, aching, constant pain. Nothing improves or worsens this pain. He notes that he has had 1-2 episodes of nonbilious, nonbloody vomiting today. He went to dialysis today but when the pain continued he presented to the emergency department. He has not contacted his general doctor regarding these concerns. He denies a history of similar symptoms in the past. He notes that he did have a regular bowel movements today. He does not make urine anymore. TRAVEL OUTSIDE OF THE [place] IN LAST 30 DAYS: No - Related Data Allergies/Adverse Reactions: No Known Allergies Allergy (Verified 12/18/16 08:51) Past Medical History - General Information source: Patient - Social History Smoking Status: Current Every Day Smoker Cigarette use (# per day): Yes Chew tobacco use (# tins/day): No Frequency of alcohol use: None Drug Abuse: None Lives with: Family Family History: Reviewed & Not Pertinent, DM Patient has suicidal ideation: No Patient has homicidal ideation: No - Past Medical History Cardiac Medical History: Reports: Hx Hypertension, Hx Peripheral Vascular Disease Denies: Hx Coronary Artery Disease, Hx Heart Attack Pulmonary Medical History: Reports: Hx COPD, Hx Pneumonia Denies: Hx Asthma, Hx Bronchitis Neurological Medical History: Denies: Hx Cerebrovascular Accident, Hx Seizures Endocrine Medical History: Reports: Hx Diabetes Mellitus Type 1, Hx Diabetes Mellitus Type 2 - INSULIN DEPENDENT Renal/ Medical History: Reports: Hx End Stage Renal Disease, Hx Hemodialysis - Sunday, Sunday, and Sunday. Denies: Hx Peritoneal Dialysis Musculoskeltal Medical History: Reports Hx Arthritis Past Surgical History: Reports: Hx Neurologic Surgery - back BIOPSY, Hx Vascular Surgery - AV FISTULA ARAMIS. Denies: Hx Pacemaker - Immunizations Hx Diphtheria, Pertussis, Tetanus Vaccination: Yes Hx Pneumococcal Vaccination: 03/26/06 Review of Systems - Review of Systems Notes: Constitutional: Negative for fever. HENT: Negative for sore throat. Eyes: Negative for visual changes. Cardiovascular: Negative for chest pain. Respiratory: Negative for shortness of breath. Gastrointestinal: Positive for abdominal pain and vomiting Genitourinary: Negative for dysuria. Musculoskeletal: Negative for back pain. Skin: Negative for rash. Neurological: Negative for headaches, weakness or numbness. 10 point ROS negative except as marked above and in HPI. Physical Exam - Vital signs Vitals: Temp Pulse Resp BP Pulse Ox 100.1 F 91 16 133/57 H 96 09/10/17 17:53 09/10/17 17:53 09/10/17 17:53 09/10/17 17:53 09/10/17 17:53 Interpretation: Normal Notes: PHYSICAL EXAMINATION: GENERAL: Appears mildly uncomfortable but in no acute distress HEAD: Atraumatic, normocephalic. EYES: Pupils equal round and reactive to light, extraocular movements intact, sclera anicteric, conjunctiva are normal. ENT: nares patent, oropharynx clear without exudates. Moderately dry mucous membranes. NECK: Normal range of motion, supple without lymphadenopathy LUNGS: Breath sounds clear to auscultation bilaterally and equal. No wheezes rales or rhonchi. HEART: Regular rate and rhythm without murmurs ABDOMEN: Soft, generalized abdominal tenderness with more focal tenderness the right lower and right upper quadrants. Some involuntary guarding is present. Bowel sounds present. No rebound. No masses. EXTREMITIES: Normal range of motion, no pitting or edema. No cyanosis. NEUROLOGICAL: No focal neurological deficits. Moves all extremities spontaneously and on command. PSYCH: Normal mood, normal affect. SKIN: Warm, Dry, normal turgor, no rashes or lesions noted. Course - Re-evaluation Re-evalutation: 09/10/17 23:12 The patient presents with generalized abdominal pain as well as nausea and vomiting since earlier this morning. On abdominal examination he has focal tenderness with voluntary guarding throughout the entirety of the right side of his abdomen. He is otherwise nontoxic in appearance although does appear somewhat dehydrated. His labs are notable for leukocytosis, chronic kidney dysfunction, he does not make urine anymore per his report. Will proceed with a CT abdomen pelvis with IV and oral contrast to evaluate for possible bowel obstruction, perforation, less likely acute appendicitis. 09/11/17 03:37 CT abdomen pelvis does appear to demonstrate a possible infectious colitis versus a possible malignancy of the transverse colon. The patient does also have a mass in his right kidney as well as in the right acetabulum worrisome for metastatic malignancy. The patient has had multiple episodes of vomiting here in the emergency department. He has been empirically started on ciprofloxacin and metronidazole for treatment of a possible infectious colitis although I believe the most likely etiology is malignancy. I discussed with the patient's primary care doctor Dr. Harkins who has accepted the patient for admission. I have discussed with the patient who verbalized an understanding of the diagnosis. - Vital Signs Vital signs: Temp Pulse Resp BP Pulse Ox 100.1 F 89 16 175/66 H 100 09/10/17 17:53 09/10/17 21:56 09/10/17 21:56 09/11/17 02:01 09/11/17 02:01 - Laboratory Result Diagrams: 09/10/17 20:25 09/10/17 20:25 Laboratory results interpreted by me: 09/10/17 09/10/17 20:25 20:25 WBC 16.0 H RBC 3.83 L Hgb 12.3 L Hct 36.5 L RDW 15.5 H Seg Neuts % (Manual) 80 H Lymphocytes % (Manual) 11 L Abs Neuts (Manual) 13.6 H Chloride 96 L BUN 38 H Creatinine 7.69 H Est GFR ( Amer) 9 L Est GFR (Non-Af Amer) 7 L Glucose 135 H Direct Bilirubin 0.7 H Alkaline Phosphatase 131 H - Diagnostic Test Radiology reviewed: Reports reviewed Discharge - Discharge Clinical Impression: End stage renal disease, Cancer of transverse colon, Infectious colitis, Right kidney mass, Lytic bone lesion of hip Nausea and vomiting Qualifiers: Vomiting type: unspecified Vomiting Intractability: non-intractable Qualified Code(s): R11.2 - Nausea with vomiting, unspecified Condition: Fair Disposition: ADMITTED INPATIENT Admitting Provider: Benjy Unit Admitted: Telemetry Referrals: ALEKS HARKINS MD [Primary Care Provider] - Follow up as needed
--- NOTE | 2017-09-11 03:22 | RADIOLOGY REPORT (SQ) ---
EXAM DESCRIPTION: CT ABDOMEN PELVIS WITH IV CONTRAST COMPLETED DATE/TME: 09/11/2017 00:00 CLINICAL HISTORY: 67 years Male, diffuse abdominal pain, vomiting Comparison: None. Technique: IV contrast. Coronal and sagittal reformat. This exam was performed according to our departmental dose-optimization program, which includes automated exposure control, adjustment of the mA and/or kV according to patient size and/or use of iterative reconstruction technique.[facility]: Dose Right [facility]: CareDose [facility]: Dose Right [facility]: Teradose 4D [facility]: Signostics LIMITATIONS: No post excretion imaging. Findings: Masslike diffuse bowel wall thickening of the distal and mid transverse colon, image 36 of series 3, with moderate inflamed surrounding fat. Numerous bilateral renal lesions include an indeterminate 2.4 cm lesion of the upper pole of the right kidney. Dynamic contrast CT or MRI of the kidneys recommended. Subchondral lytic well-defined lesions with sclerotic thin zone margination of bilateral acetabula measure up to 4.2 cm on the right with cortical dehiscence/pathologic fracture at the acetabular cortex on the right. Small atelectasis or scar bilateral lower lobes, atherosclerosis, small free pelvic fluid, moderate diffuse urinary bladder wall thickening, moderate renal volume loss, small bilateral inguinal fat only hernia. Inferior thorax, liver, gallbladder, pancreas, spleen, adrenals, pelvic organs, lymphatics, vasculature, and musculoskeleton appear otherwise unremarkable. IMPRESSION: 1. Masslike diffuse wall thickening of the mid and distal transverse colon. Differential etiologies include infectious, inflammatory, and neoplastic processes. 2. Indeterminate 2.4 cm right renal lesion; differential diagnosis includes neoplasm. Dynamic contrast CT or MRI of the kidneys recommended. 3. Lytic lesions of bilateral acetabula measure up to 4.2 cm on the right, with a pathologic fracture/dehiscence of the cortex at the right acetabulum.
[2017-09-11] MEDS ORDERED: METOCLOPRAMIDE HCL INJ/PF 10 MG/2 ML SDV IV ONE (03:28)
[2017-09-11] MEDS ORDERED: METRONIDAZOLE 500 MG/NS RTU 100 ML IV ONE (03:28)
[2017-09-11] MEDS ORDERED: CIPROFLOXACIN 400 MG/D5W RTU 400 MG/200 ML RTUPB IV ONE (04:00)
[2017-09-11] MEDS ORDERED: CIPROFLOXACIN 400 MG/D5W RTU 400 MG/200 ML RTUPB IV SCH (04:00)
[2017-09-11] MEDS ORDERED: DEXTROSE 40% GEL 15 GM TUBE PO PRN ×2 (04:41)
[2017-09-11] MEDS ORDERED: HYDROMORPHONE HCL INJ/PF 2 MG/ML AMPULE IV PRN (04:41)
[2017-09-11] MEDS ORDERED: GLUCAGON,HUMAN RECOMB 1 MG INJ IM PRN (04:41)
[2017-09-11] MEDS ORDERED: DEXTROSE 50%-WATER 25 GM/50 ML DISP.SYRIN IV PRN ×2 (04:41)
[2017-09-11] MEDS ORDERED: ERTAPENEM SODIUM 1 GM in NORMAL SALINE 50 ML IV ONE ×2 (04:45→08:30)
[2017-09-11] MEDS ORDERED: ERTAPENEM SODIUM INJ 1 GM VIAL IV PRN (04:45)
[2017-09-11 06:11] LABS: INTERNATIONAL RATION (INR) 1.07; PARTIAL THROMBOPLASTIN TIME 35.6 SEC (23.5-35.8); PROTHROMBIN TIME 14.4 SEC (11.4-15.4)
[2017-09-11 06:24] LABS: LIPASE 49.2 U/L (23-300); PHOSPHORUS 3.7 mg/dL (2.5-4.5)
[2017-09-11] MEDS: HEPARIN SOD (PORCINE) 5,000 UNIT/ML 1 ML SYRINGE SUBCUT SCH ×3 (07:16→22:37)
[2017-09-11 07:19] LABS: CREATINE KINASE MB 2.12 ng/mL (<4.55); TROPONIN I 0.018 ng/mL
[2017-09-11 08:14] LABS: FREE T4 (FREE THYROXINE) 1.06 ng/dL (0.78-2.19)
[2017-09-11 08:28] LABS: THYROID STIMULATING HORMONE 1.25 uIU/mL (0.47-4.68)
[2017-09-11 09:23] LABS: ARTERIAL BLOOD BASE EXCESS 1.7 mmol/L; ARTERIAL BLOOD H2CO3 1.05 mmol/L (1.05-1.35); ARTERIAL BLOOD HCO3 25.1 mmol/L (20-26); ARTERIAL BLOOD O2 SATURATION 96.1 % (94-98); ARTERIAL BLOOD PCO2 34.9 mmHg (35-45); ARTERIAL BLOOD PH 7.47 (7.35-7.45); ARTERIAL BLOOD PO2 76.4 mmHg (80-100); ARTERIAL BLOOD TOTAL CO2 26.1 mmol/L (23-27)
[2017-09-11 09:24] LABS: ARTERIAL BLOOD FIO2 ROOM AIR
[2017-09-11] MEDS ORDERED: ONDANSETRON HCL INJ/PF 4 MG/2 ML SDV IV PRN (11:23)
--- NOTE | 2017-09-11 11:38 | PDOC CONSULTATION ---
Consultation Consult Date: 09/11/17 Consult reason:: diarrhea, transverse colon mass History of Present Illness Admission Date/PCP: 09/11/17 03:44 ALEKS HARKINS MD Patient complains of: diarrhea and nausea History of Present Illness: MARILU CRAWFORD is a 67 year old male who presents to the ER with a 24 hrs c/o multiple episodes of explosive diarrhea associated with severe nausea. The patient denies fever, chills, weight loss, loss of appetite, or other symptoms. He denies abdominal pain. A CT scan A/P has been done nad it reveals a masslike appearance of distal transverse colon. Past Medical History Cardiac Medical History: Reports: Hypertension, Peripheral Vascular Disease Denies: Coronary Artery Disease, Myocardial Infarction Pulmonary Medical History: Reports: Chronic Obstructive Pulmonary Disease (COPD) , Pneumonia Denies: Asthma, Bronchitis Neurological Medical History: Denies: Seizures Endocrine Medical History: Reports: Diabetes Mellitus Type 1, Diabetes Mellitus Type 2 - INSULIN DEPENDENT Renal/ Medical History: Reports: End Stage Renal Disease Musculoskeltal Medical History: Reports: Arthritis Hematology: Denies: Anemia Past Surgical History Past Surgical History: Reports: Vascular Surgery - AV FISTULA ARAMIS Denies: Pacemaker Social History Lives with: Family Smoking Status: Current Every Day Smoker Frequency of Alcohol Use: None Hx Recreational Drug Use: No Drugs: None Hx Prescription Drug Abuse: No Family History Family History: Reviewed & Not Pertinent, DM Parental Family History Reviewed: No Children Family History Reviewed: No Sibling(s) Family History Reviewed.: No Medication/Allergy Home Medications: Aspirin [Aspirin EC] 81 mg PO DAILY 07/19/16 Atorvastatin Calcium [Lipitor 20 mg Tablet] 20 mg PO QHS 07/19/16 B Complex W-C No.20/Folic Acid [[place] Caps Softgel] 1 cap PO DAILY 07/19/16 Clonidine HCl [Catapres 0.3 mg Tablet] 0.3 mg PO Q8 07/19/16 Docusate Sodium [Colace 100 mg Capsule] 100 mg PO BID 07/19/16 Furosemide [Lasix] 40 mg PO DAILY 07/19/16 Irbesartan [Avapro] 75 mg PO QHS 07/19/16 Nifedipine [Procardia Xl] 90 mg PO Q12 07/19/16 Omeprazole 20 mg PO BID 07/19/16 Calcium Acetate [Phoslo 667 mg Capsule] 1,334 mg PO MEALS 12/18/16 Finasteride [Proscar 5 mg Tablet] 5 mg PO NOON 12/18/16 Tamsulosin HCl 0.4 mg PO DAILY 12/18/16 Isosorb Dinit/Hydralazine HCl [Bidil 20-37.5 mg Tablet] 1 tab PO Q8 09/11/17 Varenicline Tartrate [Chantix 0.5 Mg Tablet] 0.5 mg PO NOON 09/11/17 Allergies/Adverse Reactions: No Known Allergies Allergy (Verified 09/11/17 07:52) Physical Exam Vital Signs: Temp Pulse Resp BP Pulse Ox 99.2 F 91 15 160/63 H 97 09/11/17 09:17 09/11/17 06:43 09/11/17 10:01 09/11/17 10:01 09/11/17 10:01 General appearance: PRESENT: no acute distress, cooperative Head exam: PRESENT: atraumatic Eye exam: PRESENT: EOMI Mouth exam: PRESENT: moist, neck supple Teeth exam: PRESENT: edentulous - partially, poor dentation Respiratory exam: PRESENT: clear to auscultation bob Cardiovascular exam: PRESENT: RRR GI/Abdominal exam: PRESENT: normal bowel sounds, soft - not distended, not tender Extremities exam: PRESENT: other - right arm fistula with buit and thrill Skin exam: PRESENT: warm Results Laboratory Results: 09/11/17 09/11/17 09/11/17 05:25 05:25 05:25 Carbonic Acid HCO3/H2CO3 Ratio ABG pH ABG pCO2 ABG pO2 ABG HCO3 ABG O2 Saturation ABG Base Excess FiO2 Phosphorus 3.7 Magnesium 2.0 Ammonia < 8.7 L Amylase 189 H Lipase 49.2 TSH 1.25 Free T4 1.06 09/11/17 09:10 Carbonic Acid 1.05 HCO3/H2CO3 Ratio 23:1 ABG pH 7.47 H ABG pCO2 34.9 L ABG pO2 76.4 L ABG HCO3 25.1 ABG O2 Saturation 96.1 ABG Base Excess 1.7 FiO2 ROOM AIR Phosphorus Magnesium Ammonia Amylase Lipase TSH Free T4 09/11/17 09/11/17 05:25 05:25 Creatine Kinase 108 CK-MB (CK-2) 2.12 Troponin I 0.018 Impressions: Abdomen/Pelvis CT 09/11/17 00:00 IMPRESSION: 1. Masslike diffuse wall thickening of the mid and distal transverse colon. Differential etiologies include infectious, inflammatory, and neoplastic processes. 2. Indeterminate 2.4 cm right renal lesion; differential diagnosis includes neoplasm. Dynamic contrast CT or MRI of the kidneys recommended. 3. Lytic lesions of bilateral acetabula measure up to 4.2 cm on the right, with a pathologic fracture/dehiscence of the cortex at the right acetabulum. Assessment & Plan - Diagnosis (1) Diarrhea Qualifiers: Diarrhea type: unspecified type Qualified Code(s): R19.7 - Diarrhea, unspecified - Plan Summary Plan Summary: A/ Diarrhea x 24 hrs, explosive with nausea CT scan A/P significant for masslike thickening of distal transverse colon: D.D. includes inflammatory process, infection, neoplasia Low grade tempo (99.2) WBC 16K PE unremarkable with soft abdomen P/ Stools for Cx, C. Diff., WBC, gram stain Discontinue all narcotics Will follow patient; if no infectious process is identified in the next 48 hrs, bowel preparation for colonoscopy is indicated.
[2017-09-11 11:46] LABS: CREATINE KINASE MB 2.68 ng/mL (<4.55); TROPONIN I 0.02 ng/mL
[2017-09-11] MEDS: INSULIN LISPRO 100 UNIT/ML 3 ML VIAL SUBCUT PRN (11:53)
[2017-09-11] MEDS: METRONIDAZOLE RTU 500 MG/NS 100 ML IV SCH ×2 (14:34→17:11)
[2017-09-11 17:43] LABS: CREATINE KINASE MB 2.82 ng/mL (<4.55); TROPONIN I 0.022 ng/mL
--- NOTE | 2017-09-11 20:51 | PDOC H&P ---
History of Present Illness Admission Date/PCP: 09/11/17 03:44 ALEKS HARKINS MD History of Present Illness: MARILU CRAWFORD is a 67 year old male,He came to the emergency room last night for evaluation of generalized abdominal pain, nausea and vomiting, in the emergency room he was evaluated, he was found to be febrile, on examination of the abdomen there was focal tenderness with voluntary guarding throughout the right side of the abdomen also found was leukocytosis a CAT scan of the abdomen and pelvis with IV contrast was done it showed diffuse thickening of the wall of the distal and mid transverse colon also found was numerous bilateral renal lesions including an indeterminate 2.4 cm lesion of the upper pole of the right kidney also found was sub-chondral lytic well-defined lesions with sclerotic findings on margination of bilateral acetabular measure up to 4.2centimeter on the right with cortical dehiscence. Patient had diarrhea the stool was sent for C. difficile toxin, came back positive Past Medical History Cardiac Medical History: Reports: Hypertension, Peripheral Vascular Disease Pulmonary Medical History: Reports: Chronic Obstructive Pulmonary Disease (COPD) , Pneumonia Endocrine Medical History: Reports: Diabetes Mellitus Type 2 Renal/ Medical History: Reports: End Stage Renal Disease Musculoskeltal Medical History: Reports: Arthritis Past Surgical History Past Surgical History: Reports: Vascular Surgery - AV FISTULA ARAMIS Denies: Pacemaker Social History Lives with: Family Smoking Status: Current Every Day Smoker Cigarettes Packs Per Day: 10 Number of Years Smokin Frequency of Alcohol Use: None Hx Recreational Drug Use: No Drugs: None Hx Prescription Drug Abuse: No - Advance Directive Resuscitation Status: Full Code Family History Family History: Reviewed & Not Pertinent, DM Parental Family History Reviewed: Yes Children Family History Reviewed: Yes Sibling(s) Family History Reviewed.: Yes Medication/Allergy Home Medications: Aspirin [Aspirin EC] 81 mg PO DAILY 07/19/16 Atorvastatin Calcium [Lipitor 20 mg Tablet] 20 mg PO QHS 07/19/16 B Complex W-C No.20/Folic Acid [[place] Caps Softgel] 1 cap PO DAILY 07/19/16 Clonidine HCl [Catapres 0.3 mg Tablet] 0.3 mg PO Q8 07/19/16 Docusate Sodium [Colace 100 mg Capsule] 100 mg PO BID 07/19/16 Furosemide [Lasix] 40 mg PO DAILY 07/19/16 Irbesartan [Avapro] 75 mg PO QHS 07/19/16 Nifedipine [Procardia Xl] 90 mg PO Q12 07/19/16 Omeprazole 20 mg PO BID 07/19/16 Calcium Acetate [Phoslo 667 mg Capsule] 1,334 mg PO MEALS 12/18/16 Finasteride [Proscar 5 mg Tablet] 5 mg PO NOON 12/18/16 Tamsulosin HCl 0.4 mg PO DAILY 12/18/16 Isosorb Dinit/Hydralazine HCl [Bidil 20-37.5 mg Tablet] 1 tab PO Q8 09/11/17 Varenicline Tartrate [Chantix 0.5 Mg Tablet] 0.5 mg PO NOON 09/11/17 Allergies/Adverse Reactions: No Known Allergies Allergy (Verified 09/11/17 07:52) Review of Systems Constitutional: ABSENT: chills, fever(s), headache(s), weight gain, weight loss Eyes: ABSENT: visual disturbances Ears: ABSENT: hearing changes Cardiovascular: ABSENT: chest pain, dyspnea on exertion, edema, orthropnea, palpitations Respiratory: ABSENT: cough, hemoptysis Gastrointestinal: PRESENT: abdominal pain, diarrhea. ABSENT: constipation, hematemesis, hematochezia, nausea, vomiting Genitourinary: ABSENT: dysuria, hematuria Musculoskeletal: ABSENT: joint swelling Integumentary: ABSENT: rash, wounds Neurological: ABSENT: abnormal gait, abnormal speech, confusion, dizziness, focal weakness, syncope Psychiatric: ABSENT: anxiety, depression, homidical ideation, suicidal ideation Endocrine: ABSENT: cold intolerance, heat intolerance, menstrual abnormalities, polydipsia, polyuria Hematologic/Lymphatic: ABSENT: easy bleeding, easy bruising, lymphadenopathy Physical Exam Vital Signs: Temp Pulse Resp BP Pulse Ox 99.8 F 90 20 178/59 H 99 09/11/17 19:57 09/11/17 19:57 09/11/17 19:57 09/11/17 19:57 09/11/17 19:57 Intake & Output 09/10/17 09/11/17 09/12/17 06:59 06:59 06:59 Intake Total 300 Output Total 0 Balance 300 General appearance: PRESENT: mild distress Head exam: PRESENT: atraumatic, normocephalic Eye exam: PRESENT: conjunctiva pink, EOMI, PERRLA Ear exam: PRESENT: normal external ear exam Mouth exam: PRESENT: moist, tongue midline Neck exam: PRESENT: full ROM Respiratory exam: PRESENT: clear to auscultation bob Cardiovascular exam: PRESENT: RRR, +S1, +S2 Pulses: PRESENT: +1 pedal pulses bilateral Vascular exam: PRESENT: normal capillary refill GI/Abdominal exam: PRESENT: normal bowel sounds, soft, tenderness Rectal exam: PRESENT: deferred Neurological exam: PRESENT: alert, awake, oriented to person, oriented to place , oriented to time, oriented to situation, CN II-XII grossly intact Psychiatric exam: PRESENT: appropriate affect, normal mood Skin exam: PRESENT: dry, intact, warm Results Laboratory Results: 09/11/17 09/11/17 09/11/17 05:25 05:25 05:25 Carbonic Acid HCO3/H2CO3 Ratio ABG pH ABG pCO2 ABG pO2 ABG HCO3 ABG O2 Saturation ABG Base Excess FiO2 Phosphorus 3.7 Magnesium 2.0 Ammonia < 8.7 L Amylase 189 H Lipase 49.2 TSH 1.25 Free T4 1.06 Stool Occult Blood Stool for White Cells 09/11/17 09/11/17 09/11/17 09:10 11:38 11:38 Carbonic Acid 1.05 HCO3/H2CO3 Ratio 23:1 ABG pH 7.47 H ABG pCO2 34.9 L ABG pO2 76.4 L ABG HCO3 25.1 ABG O2 Saturation 96.1 ABG Base Excess 1.7 FiO2 ROOM AIR Phosphorus Magnesium Ammonia Amylase Lipase TSH Free T4 Stool Occult Blood POSITIVE Stool for White Cells NO WBCs SEEN 09/11/17 09/11/17 09/11/17 05:25 05:25 10:41 Creatine Kinase 108 118 CK-MB (CK-2) 2.12 Troponin I 0.018 09/11/17 09/11/17 09/11/17 10:41 16:50 16:58 Creatine Kinase 135 CK-MB (CK-2) 2.68 2.82 Troponin I 0.020 0.022 Impressions: Abdomen/Pelvis CT 09/11/17 00:00 IMPRESSION: 1. Masslike diffuse wall thickening of the mid and distal transverse colon. Differential etiologies include infectious, inflammatory, and neoplastic processes. 2. Indeterminate 2.4 cm right renal lesion; differential diagnosis includes neoplasm. Dynamic contrast CT or MRI of the kidneys recommended. 3. Lytic lesions of bilateral acetabula measure up to 4.2 cm on the right, with a pathologic fracture/dehiscence of the cortex at the right acetabulum.
--- NOTE | 2017-09-11 21:13 | PDOC CONSULTATION ---
Consultation Consult Date: 09/11/17 Consult reason:: ESRD History of Present Illness Admission Date/PCP: 09/11/17 03:44 ALEKS HARKINS MD History of Present Illness: MARILU CRAWFORD is a 67 year old male with history of ESRD, hypertension and diabetes came to the ER yesterday night due nausea, vomiting and diarrhea. Yesterday I saw him at the dialysis unit. He was complaining of the same symptoms and they had just started that morning. He denied eating anything abnormal at the time. He stated that he had vomited once and had three loose bowel movements. According to him the bowel movements were just more watery. He was given zofran and imodium. He was advised to contact his primary care or the dialysis unit if it did not improve after a couple of days. Shortly after dialysis is when he came to the ER. In the ER stool cultures and an abdominal CT was done. The CT showed possible lesions or inflammation the transverse colon, a lesion on the kidney and the pelvis. He was seen by surgery that stated they believed it to be more infectious inflammatory. At the time of exam he denied any more nausea and vomiting. He did still have a few more loose bowel movements. He denied fever or chills at the time. Past Medical History Cardiac Medical History: Reports: Hypertension-primary, Peripheral Vascular Disease Denies: Coronary Artery Disease, Myocardial Infarction Pulmonary Medical History: Reports: Chronic Obstructive Pulmonary Disease (COPD) , Pneumonia Denies: Asthma, Bronchitis Neurological Medical History: Denies: Seizures Endocrine Medical History: Reports: Diabetes Mellitus Type 1, Diabetes Mellitus Type 2 - INSULIN DEPENDENT Renal/ Medical History: Reports: End Stage Renal Disease Musculoskeltal Medical History: Reports: Arthritis Psychiatric Medical History: Denies: Depression Past Surgical History Past Surgical History: Reports: Vascular Surgery - AV FISTULA ARAMIS Denies: Pacemaker Social History Lives with: Family Smoking Status: Current Every Day Smoker Cigarettes Packs Per Day: 10 Number of Years Smokin Frequency of Alcohol Use: None Hx Recreational Drug Use: No Drugs: None Hx Prescription Drug Abuse: No - Advance Directive Resuscitation Status: Full Code Family History Parental Family History Reviewed: No Children Family History Reviewed: NA Sibling(s) Family History Reviewed.: NA Medication/Allergy Home Medications: Aspirin [Aspirin EC] 81 mg PO DAILY 07/19/16 Atorvastatin Calcium [Lipitor 20 mg Tablet] 20 mg PO QHS 07/19/16 B Complex W-C No.20/Folic Acid [[place] Caps Softgel] 1 cap PO DAILY 07/19/16 Clonidine HCl [Catapres 0.3 mg Tablet] 0.3 mg PO Q8 07/19/16 Docusate Sodium [Colace 100 mg Capsule] 100 mg PO BID 07/19/16 Furosemide [Lasix] 40 mg PO DAILY 07/19/16 Irbesartan [Avapro] 75 mg PO QHS 07/19/16 Nifedipine [Procardia Xl] 90 mg PO Q12 07/19/16 Omeprazole 20 mg PO BID 07/19/16 Calcium Acetate [Phoslo 667 mg Capsule] 1,334 mg PO MEALS 12/18/16 Finasteride [Proscar 5 mg Tablet] 5 mg PO NOON 12/18/16 Tamsulosin HCl 0.4 mg PO DAILY 12/18/16 Isosorb Dinit/Hydralazine HCl [Bidil 20-37.5 mg Tablet] 1 tab PO Q8 09/11/17 Varenicline Tartrate [Chantix 0.5 Mg Tablet] 0.5 mg PO NOON 09/11/17 Allergies/Adverse Reactions: No Known Allergies Allergy (Verified 09/11/17 07:52) Review of Systems Constitutional: ABSENT: anorexia, chills, fatigue, fever(s), headache(s), weakness Nose, Mouth, and Throat: ABSENT: headache(s) Cardiovascular: ABSENT: chest pain, dyspnea on exertion, edema, orthropnea, palpitations Respiratory: ABSENT: cough, dyspnea, sputum Gastrointestinal: PRESENT: abdominal pain, diarrhea, nausea, vomiting. ABSENT: constipation, hematochezia, melena Genitourinary: ABSENT: dysuria, hematuria Musculoskeletal: ABSENT: joint swelling, muscle weakness Neurological: ABSENT: confusion, numbness, weakness Physical Exam Vital Signs: Temp Pulse Resp BP Pulse Ox 99.8 F 90 20 178/59 H 99 09/11/17 19:57 09/11/17 19:57 09/11/17 19:57 09/11/17 19:57 09/11/17 19:57 Intake & Output 09/10/17 09/11/17 09/12/17 06:59 06:59 06:59 Intake Total 300 Output Total 0 Balance 300 General appearance: PRESENT: no acute distress, well-developed, well-nourished Mouth exam: PRESENT: moist, neck supple Neck exam: PRESENT: full ROM. ABSENT: JVD Respiratory exam: PRESENT: clear to auscultation bob. ABSENT: chest wall tenderness, crackles, rales, rhonchi, wheezes Cardiovascular exam: PRESENT: RRR, +S1, +S2 GI/Abdominal exam: PRESENT: hyperactive bowel sounds, soft, tenderness. ABSENT : distended, firm, guarding, mass Extremities exam: ABSENT: pedal edema, tenderness, +1 edema, +2 edema Musculoskeletal exam: PRESENT: normal inspection. ABSENT: tenderness Neurological exam: PRESENT: alert, awake, oriented to person, oriented to place , oriented to time, oriented to situation Psychiatric exam: PRESENT: appropriate affect, normal mood Skin exam: PRESENT: dry, intact, warm. ABSENT: cyanosis Results Laboratory Results: 09/11/17 09/11/17 09/11/17 05:25 05:25 05:25 Carbonic Acid HCO3/H2CO3 Ratio ABG pH ABG pCO2 ABG pO2 ABG HCO3 ABG O2 Saturation ABG Base Excess FiO2 Phosphorus 3.7 Magnesium 2.0 Ammonia < 8.7 L Amylase 189 H Lipase 49.2 TSH 1.25 Free T4 1.06 Stool Occult Blood Stool for White Cells 09/11/17 09/11/17 09/11/17 09:10 11:38 11:38 Carbonic Acid 1.05 HCO3/H2CO3 Ratio 23:1 ABG pH 7.47 H ABG pCO2 34.9 L ABG pO2 76.4 L ABG HCO3 25.1 ABG O2 Saturation 96.1 ABG Base Excess 1.7 FiO2 ROOM AIR Phosphorus Magnesium Ammonia Amylase Lipase TSH Free T4 Stool Occult Blood POSITIVE Stool for White Cells NO WBCs SEEN 09/11/17 09/11/17 09/11/17 05:25 05:25 10:41 Creatine Kinase 108 118 CK-MB (CK-2) 2.12 Troponin I 0.018 09/11/17 09/11/17 09/11/17 10:41 16:50 16:58 Creatine Kinase 135 CK-MB (CK-2) 2.68 2.82 Troponin I 0.020 0.022 Impressions: Abdomen/Pelvis CT 09/11/17 00:00 IMPRESSION: 1. Masslike diffuse wall thickening of the mid and distal transverse colon. Differential etiologies include infectious, inflammatory, and neoplastic processes. 2. Indeterminate 2.4 cm right renal lesion; differential diagnosis includes neoplasm. Dynamic contrast CT or MRI of the kidneys recommended. 3. Lytic lesions of bilateral acetabula measure up to 4.2 cm on the right, with a pathologic fracture/dehiscence of the cortex at the right acetabulum. Assessment & Plan - Diagnosis (1) Infectious colitis Plan: Per primary, according to the nurse in charge of his care, surgery told her that a colonoscopy outpatient would be beneficial. (2) End stage renal disease Plan: will arrange for dialysis tomorrow (3) Hypertension Qualifiers: Hypertension type: essential hypertension Qualified Code(s): I10 - Essential (primary) hypertension Plan: will added clonidine dose that he takes at home. (4) Right kidney mass Plan: needs further evaluation as out patient.
--- NOTE | 2017-09-11 21:40 | PDOC H&P ---
History of Present Illness Admission Date/PCP: 09/11/17 03:44 ALEKS HARKINS MD History of Present Illness: MARILU CRAWFORD is a 67 year old male, He has a history of hypertension, end-stage renal disease on maintenance hemodialysis, he came to the emergency room last night for evaluation of generalized abdominal pain, nausea and vomiting, in the emergency room he was evaluated on abdominal examination he has focal tenderness with voluntary guarding throughout the right side of the abdomen. A CAT scan of the abdomen and pelvis with IV contrast was ordered it showed diffuse bowel wall thickening of the distal and mid transverse colon with moderate inflammation surrounding fat. Also found was numerous bilateral renal lesions including an indeterminate 2.4 cm lesion of the upper pole of the right kidney. There was subchondral lytic well-defined lesion with sclerotic thin zone margination of bilateral acetabular measure up to 4.2 cm on the right with cortical dehiscence/pathologic fracture at the acetabular contours on the right. Also found was leukocytosis, he had diarrhea the stool study was positive for C. difficile toxin.When he presented this morning there was concern for acute abdomen and most likely it was due to acute infection, before the diarrhea was obvious and profuse he was seen by the surgeon it was felt that it was not an acute abdomen Past Medical History Cardiac Medical History: Reports: Hypertension, Peripheral Vascular Disease Pulmonary Medical History: Reports: Chronic Obstructive Pulmonary Disease (COPD) , Pneumonia Endocrine Medical History: Reports: Diabetes Mellitus Type 2 Renal/ Medical History: Reports: End Stage Renal Disease Musculoskeltal Medical History: Reports: Arthritis Psychiatric Medical History: Denies: Depression Past Surgical History Past Surgical History: Reports: Vascular Surgery - [facility] Social History Lives with: Family Smoking Status: Current Every Day Smoker Cigarettes Packs Per Day: 10 Number of Years Smokin Frequency of Alcohol Use: None Hx Recreational Drug Use: No Drugs: None Hx Prescription Drug Abuse: No - Advance Directive Resuscitation Status: Full Code Family History Family History: Reviewed & Not Pertinent, DM Parental Family History Reviewed: Yes Children Family History Reviewed: Yes Sibling(s) Family History Reviewed.: Yes Medication/Allergy Home Medications: Aspirin [Aspirin EC] 81 mg PO DAILY 07/19/16 Atorvastatin Calcium [Lipitor 20 mg Tablet] 20 mg PO QHS 07/19/16 B Complex W-C No.20/Folic Acid [Jay Caps Softgel] 1 cap PO DAILY 07/19/16 Clonidine HCl [Catapres 0.3 mg Tablet] 0.3 mg PO Q8 07/19/16 Docusate Sodium [Colace 100 mg Capsule] 100 mg PO BID 07/19/16 Furosemide [Lasix] 40 mg PO DAILY 07/19/16 Irbesartan [Avapro] 75 mg PO QHS 07/19/16 Nifedipine [Procardia Xl] 90 mg PO Q12 07/19/16 Omeprazole 20 mg PO BID 07/19/16 Calcium Acetate [Phoslo 667 mg Capsule] 1,334 mg PO MEALS 12/18/16 Finasteride [Proscar 5 mg Tablet] 5 mg PO NOON 12/18/16 Tamsulosin HCl 0.4 mg PO DAILY 12/18/16 Isosorb Dinit/Hydralazine HCl [Bidil 20-37.5 mg Tablet] 1 tab PO Q8 09/11/17 Varenicline Tartrate [Chantix 0.5 Mg Tablet] 0.5 mg PO NOON 09/11/17 Allergies/Adverse Reactions: No Known Allergies Allergy (Verified 09/11/17 07:52) Review of Systems Constitutional: PRESENT: chills, fever(s) Ears: ABSENT: hearing changes Cardiovascular: ABSENT: chest pain, dyspnea on exertion, edema, orthropnea, palpitations Respiratory: ABSENT: cough, hemoptysis Gastrointestinal: PRESENT: abdominal pain, diarrhea Genitourinary: ABSENT: dysuria, hematuria Musculoskeletal: ABSENT: joint swelling Integumentary: ABSENT: rash, wounds Neurological: ABSENT: abnormal gait, abnormal speech, confusion, dizziness, focal weakness, syncope Psychiatric: ABSENT: anxiety, depression, homidical ideation, suicidal ideation Endocrine: ABSENT: cold intolerance, heat intolerance, menstrual abnormalities, polydipsia, polyuria Hematologic/Lymphatic: ABSENT: easy bleeding, easy bruising, lymphadenopathy Physical Exam Vital Signs: Temp Pulse Resp BP Pulse Ox 99.8 F 90 20 178/59 H 99 09/11/17 19:57 09/11/17 19:57 09/11/17 19:57 09/11/17 19:57 09/11/17 19:57 Intake & Output 09/10/17 09/11/17 09/12/17 06:59 06:59 06:59 Intake Total 300 Output Total 0 Balance 300 General appearance: PRESENT: mild distress Head exam: PRESENT: atraumatic, normocephalic Eye exam: PRESENT: conjunctiva pink, EOMI, PERRLA Ear exam: PRESENT: normal external ear exam Mouth exam: PRESENT: moist, tongue midline Neck exam: PRESENT: full ROM Respiratory exam: PRESENT: clear to auscultation bob Cardiovascular exam: PRESENT: RRR, +S1, +S2 Pulses: PRESENT: +1 pedal pulses bilateral Vascular exam: PRESENT: normal capillary refill GI/Abdominal exam: PRESENT: normal bowel sounds, soft, tenderness Rectal exam: PRESENT: deferred Neurological exam: PRESENT: alert, awake, oriented to person, oriented to place , oriented to time, oriented to situation, CN II-XII grossly intact Psychiatric exam: PRESENT: appropriate affect, normal mood Skin exam: PRESENT: dry, intact, warm Results Laboratory Results: 09/11/17 09/11/17 09/11/17 05:25 05:25 05:25 Carbonic Acid HCO3/H2CO3 Ratio ABG pH ABG pCO2 ABG pO2 ABG HCO3 ABG O2 Saturation ABG Base Excess FiO2 Phosphorus 3.7 Magnesium 2.0 Ammonia < 8.7 L Amylase 189 H Lipase 49.2 TSH 1.25 Free T4 1.06 Stool Occult Blood Stool for White Cells 09/11/17 09/11/17 09/11/17 09:10 11:38 11:38 Carbonic Acid 1.05 HCO3/H2CO3 Ratio 23:1 ABG pH 7.47 H ABG pCO2 34.9 L ABG pO2 76.4 L ABG HCO3 25.1 ABG O2 Saturation 96.1 ABG Base Excess 1.7 FiO2 ROOM AIR Phosphorus Magnesium Ammonia Amylase Lipase TSH Free T4 Stool Occult Blood POSITIVE Stool for White Cells NO WBCs SEEN 09/11/17 09/11/17 09/11/17 05:25 05:25 10:41 Creatine Kinase 108 118 CK-MB (CK-2) 2.12 Troponin I 0.018 09/11/17 09/11/17 09/11/17 10:41 16:50 16:58 Creatine Kinase 135 CK-MB (CK-2) 2.68 2.82 Troponin I 0.020 0.022 Impressions: Abdomen/Pelvis CT 09/11/17 00:00 IMPRESSION: 1. Masslike diffuse wall thickening of the mid and distal transverse colon. Differential etiologies include infectious, inflammatory, and neoplastic processes. 2. Indeterminate 2.4 cm right renal lesion; differential diagnosis includes neoplasm. Dynamic contrast CT or MRI of the kidneys recommended. 3. Lytic lesions of bilateral acetabula measure up to 4.2 cm on the right, with a pathologic fracture/dehiscence of the cortex at the right acetabulum. Assessment & Plan - Diagnosis (1) Sepsis Qualifiers: Sepsis type: sepsis due to unspecified organism Qualified Code(s): A41.9 - Sepsis, unspecified organism Is this a current diagnosis for this admission?: Yes Plan: He has sepsis due to severe C. difficile colitis, start Flagyl (2) Clostridium difficile colitis Is this a current diagnosis for this admission?: Yes (3) ESRD (end stage renal disease) Is this a current diagnosis for this admission?: Yes Plan: Consult nephrology for dialysis (4) Lytic bone lesion of hip Is this a current diagnosis for this admission?: Yes Plan: This need further evaluation this could represent malignancy, will order both skeletal survey and also bone scan
[2017-09-11] MEDS: CIPROFLOXACIN 400 MG/D5W RTU 400 MG/200 ML RTUPB IV SCH (22:38)
[2017-09-11] MEDS: CLONIDINE HCL 0.2 MG TABLET PO SCH (22:39)
[2017-09-11] MEDS: METRONIDAZOLE 500 MG TABLET PO SCH (22:42)
[2017-09-12 06:08] LABS: ABSOLUTE BASOPHILS # (AUTO) 0.1 10^3/uL (0.0-0.2); ABSOLUTE EOSINOPHILS # (AUTO) 0.2 10^3/uL (0.0-0.6); ABSOLUTE LYMPHOCYTES (AUTO) 0.9 10^3/uL (0.5-4.7); ABSOLUTE MONOCYTES (AUTO) 1.3 10^3/uL (0.1-1.4); ABSOLUTE NEUT (AUTO) 14.3 10^3/uL (1.7-8.2); BASOPHILS % (AUTO) 0.5 % (0-2); EOSINOPHILS % (AUTO) 1.2 % (0-6); HEMATOCRIT 32.7 % (37.9-51.0); HEMOGLOBIN 10.9 g/dL (13.5-17.0); LYMPHOCYTES % (AUTO) 5.2 % (13-45); MEAN CORPUSCULAR HEMOGLOBIN 31.8 pg (27.0-33.4); MEAN CORPUSCULAR HGB CONC 33.3 g/dL (32.0-36.0); MEAN CORPUSCULAR VOLUME 96 fl (80-97); MONOCYTES % (AUTO) 7.6 % (3-13); PLATELET COUNT 231 10^3/uL (150-450); RED BLOOD COUNT 3.43 10^6/uL (4.35-5.55); RED CELL DISTRIBUTION WIDTH 15.5 % (11.5-14.0); SEGMENTED NEUTROPHILS % (AUTO) 85.5 % (42-78); TOTAL CELLS COUNTED % (AUTO) 100 %; WHITE BLOOD COUNT 16.7 10^3/uL (4.0-10.5)
[2017-09-12 06:23] LABS: ALANINE AMINOTRANSFERASE 25 U/L (21-72); ALBUMIN 3.2 g/dL (3.5-5.0); ALKALINE PHOSPHATASE 111 U/L (38-126); ANION GAP 19 (5-19); ASPARTATE AMINO TRANSFERASE 24 U/L (17-59); BILIRUBIN,DIRECT 0.8 mg/dL (0.0-0.4); BILIRUBIN,TOTAL 0.8 mg/dL (0.2-1.3); BLOOD UREA NITROGEN 71 mg/dL (7-20); CALCIUM 8.9 mg/dL (8.4-10.2); CARBON DIOXIDE 24 mmol/L (22-30); CHLORIDE 95 mmol/L (98-107); CHOLESTEROL 106.19 mg/dL (0-200); GLUCOSE 109 mg/dL (75-110); POTASSIUM 4.5 mmol/L (3.6-5.0); SODIUM 137.8 mmol/L (137-145); TOTAL PROTEIN 5.8 g/dL (6.3-8.2); TRIGLYCERIDES 108 mg/dL (<150)
[2017-09-12 06:36] LABS: DIRECT LDL < 30 mg/dL (<100)
[2017-09-12] MEDS ORDERED: EPOETIN ALFA INJ 20000 UNIT/1 ML VIAL (RENAL) IV PRN (07:19)
[2017-09-12] MEDS ORDERED: EPOETIN ALFA 5,000 UNIT in SYRINGE, DISPOSABLE, 1 EACH IV PRN (07:43)
[2017-09-12] MEDS: METRONIDAZOLE 500 MG TABLET PO SCH ×3 (08:01→21:56)
[2017-09-12] MEDS: CLONIDINE HCL 0.2 MG TABLET PO SCH ×3 (08:02→20:05)
[2017-09-12] MEDS: HEPARIN SOD (PORCINE) 5,000 UNIT/ML 1 ML SYRINGE SUBCUT SCH ×3 (08:02→21:57)
[2017-09-12] MEDS ORDERED: ERTAPENEM SODIUM 1 GM in NORMAL SALINE 50 ML IV SCH (10:00)
--- NOTE | 2017-09-12 13:00 | RADIOLOGY REPORT (SQ) ---
EXAM DESCRIPTION: BONE SURVEY COMPLETE COMPLETED DATE/TIME: 09/12/2017 11:48 am REASON FOR STUDY: suspect multiple myeloma COMPARISON: Abdominal CT scan dated 09/11/2017 TECHNIQUE: Images of the axial and proximal appendicular skeleton are obtained, along with lateral s kull and frontal chest films. LIMITATIONS: None. FINDINGS: AP CHEST: No bony findings. Lungs are clear. LATERAL SKULL: No worrisome bone lesions. AP BOTH HUMERI: No worrisome bone lesions. TWO-VIEW LUMBAR SPINE: No worrisome bone lesions. TWO-VIEW THORACIC SPINE: No worrisome bone lesions. AP PELVIS: Symmetric lucent areas are identified involving the inferior pubic rami bilaterally presum ably degenerative in nature although the possibility of involvement by multiple myeloma cannot be exc luded AP BOTH FEMURS: No worrisome bone lesions. OTHER: The previously described cystic changes involving the acetabula are identified inner most cons istent with degenerative changes. Degenerative changes are identified in the vertebral column. Mult iple surgical clips are identified involving the right arm at the level of the mid and distal humerus . IMPRESSION: Symmetric lucent areas are identified involving the inferior pubic rami bilaterally pres umably degenerative in nature although the possibility of involvement by multiple myeloma cannot be e xcluded. Other findings as noted above TECHNICAL DOCUMENTATION: JOB ID: [id number] [employer]- All Rights Reserved Reading location - IP/workstation name: [email or web address]
[2017-09-12] MEDS: CIPROFLOXACIN 400 MG/D5W RTU 400 MG/200 ML RTUPB IV SCH ×2 (13:54→22:00)
--- NOTE | 2017-09-12 14:56 | PDOC PROGRESS REPORT ---
Subjective Progress Note for:: 09/12/17 Subjective:: Was admitted yesterday for the management of severe C. difficile colitis, he had bolus of a 2 day because of a lytic bone lesion on the pelvic bone, the skeletal survey was not suspicious for malignancy, he is getting bone scan today as well Reason For Visit: ACUTE ABDOMEN ? CAUSE ,COLITIS ,NEOPLASM Physical Exam Vital Signs: Temp Pulse Resp BP Pulse Ox 97.9 F 73 20 165/58 H 100 09/12/17 12:32 09/12/17 12:32 09/12/17 12:32 09/12/17 12:32 09/12/17 12:32 Intake & Output 09/11/17 09/12/17 09/13/17 06:59 06:59 06:59 Intake Total 1469 474 Output Total 0 0 Balance 1469 474 Weight 79.2 kg General appearance: PRESENT: no acute distress Eye exam: PRESENT: PERRLA Cardiovascular exam: PRESENT: +S1, +S2 GI/Abdominal exam: PRESENT: soft Neurological exam: PRESENT: alert Results Laboratory Results: 09/12/17 05:32 09/12/17 05:32 09/12/17 09/12/17 05:32 05:32 WBC 16.7 H RBC 3.43 L Hgb 10.9 L Hct 32.7 L MCV 96 MCH 31.8 MCHC 33.3 RDW 15.5 H Plt Count 231 Seg Neutrophils % 85.5 H Lymphocytes % 5.2 L Monocytes % 7.6 Eosinophils % 1.2 Basophils % 0.5 Absolute Neutrophils 14.3 H Absolute Lymphocytes 0.9 Absolute Monocytes 1.3 Absolute Eosinophils 0.2 Absolute Basophils 0.1 Sodium 137.8 Potassium 4.5 Chloride 95 L Carbon Dioxide 24 Anion Gap 19 BUN 71 H Creatinine 10.89 H Est GFR ( Amer) 6 L Est GFR (Non-Af Amer) 5 L Glucose 109 Calcium 8.9 Total Bilirubin 0.8 AST 24 ALT 25 Alkaline Phosphatase 111 Total Protein 5.8 L Albumin 3.2 L Triglycerides 108 Cholesterol 106.19 LDL Cholesterol Direct < 30 VLDL Cholesterol 22.0 HDL Cholesterol 28 L 09/11/17 09/11/17 09/11/17 05:25 05:25 10:41 Creatine Kinase 108 118 CK-MB (CK-2) 2.12 Troponin I 0.018 09/11/17 09/11/17 09/11/17 10:41 16:50 16:58 Creatine Kinase 135 CK-MB (CK-2) 2.68 2.82 Troponin I 0.020 0.022 Impressions: Abdomen/Pelvis CT 09/11/17 00:00 IMPRESSION: 1. Masslike diffuse wall thickening of the mid and distal transverse colon. Differential etiologies include infectious, inflammatory, and neoplastic processes. 2. Indeterminate 2.4 cm right renal lesion; differential diagnosis includes neoplasm. Dynamic contrast CT or MRI of the kidneys recommended. 3. Lytic lesions of bilateral acetabula measure up to 4.2 cm on the right, with a pathologic fracture/dehiscence of the cortex at the right acetabulum. Skeletal Survey 09/12/17 00:00 IMPRESSION: Symmetric lucent areas are identified involving the inferior pubic rami bilaterally presumably degenerative in nature although the possibility of involvement by multiple myeloma cannot be excluded. Other findings as noted above Assessment & Plan - Diagnosis (1) Sepsis Qualifiers: Sepsis type: sepsis due to unspecified organism Qualified Code(s): A41.9 - Sepsis, unspecified organism Is this a current diagnosis for this admission?: Yes (2) Clostridium difficile colitis Is this a current diagnosis for this admission?: Yes Plan: Continue Flagyl p.o. (3) ESRD (end stage renal disease) Is this a current diagnosis for this admission?: Yes (4) Lytic bone lesion of hip Is this a current diagnosis for this admission?: Yes Plan: She has a smoking history, risk of cancer, bone scan ordered
--- NOTE | 2017-09-12 15:52 | RADIOLOGY REPORT (SQ) ---
EXAM DESCRIPTION: NM WHOLE BODY BONE SCAN COMPLETED DATE/TIME: 09/12/2017 3:34 pm REASON FOR STUDY: renal lesions COMPARISON: Bone survey 09/12/2017 CT abdomen pelvis 09/11/2017 RADIONUCLIDE AND DOSE: 20 millicuries Tc99m HDP. The route of agent administration: Intravenous. ADDITIONAL DRUGS AND DOSES: None. TECHNIQUE: Routine delayed images at 3 hours post radionuclide injection acquired of the bony skelet on including anterior and posterior whole-body projections and additional focused images as needed. LIMITATIONS: None. FINDINGS: BONES: Normal visualization without areas of photopenia or increased bony uptake of radiop harmaceutical. Specifically, no abnormal uptake is seen in the superior margin of each acetabulum. KIDNEYS: No renal activity is seen. OTHER: No other significant finding. IMPRESSION: 1. No abnormal skeletal uptake. 2. No renal uptake is seen. COMMENT: Quality measure 147: Current bone scan is compared with any available plain radiographs, p rior bone scans, and CT/MRI. TECHNICAL DOCUMENTATION: JOB ID: [id number] [employer]- All Rights Reserved Reading location - IP/workstation name: [email or web address]
--- NOTE | 2017-09-12 17:40 | PDOC PROGRESS REPORT ---
Subjective Progress Note for:: 09/12/17 Subjective:: This is a 67-year-old male with multiple medical issues. The patient has thickening of his transverse colon on CT scan. The patient also has C. difficile colitis. The patient reports that his abdominal pain is much improved today. He denies any chest pain, shortness of breath, headache, blurry vision, fatigue, or malaise. Reason For Visit: ACUTE ABDOMEN ? CAUSE ,COLITIS ,NEOPLASM Physical Exam Vital Signs: Temp Pulse Resp BP Pulse Ox 97.9 F 74 20 165/58 H 100 09/12/17 12:32 09/12/17 14:00 09/12/17 12:32 09/12/17 12:32 09/12/17 12:32 Intake & Output 09/11/17 09/12/17 09/13/17 06:59 06:59 06:59 Intake Total 1469 474 Output Total 0 0 Balance 1469 474 Weight 79.2 kg General appearance: PRESENT: no acute distress Head exam: PRESENT: atraumatic, normocephalic Eye exam: PRESENT: EOMI, PERRLA. ABSENT: scleral icterus Mouth exam: PRESENT: neck supple Neck exam: ABSENT: meningismus, tenderness, thyromegaly, tracheal deviation Respiratory exam: PRESENT: clear to auscultation bob, symmetrical, unlabored. ABSENT: accessory muscle use, chest wall tenderness Cardiovascular exam: PRESENT: RRR Pulses: PRESENT: normal radial pulses GI/Abdominal exam: PRESENT: soft. ABSENT: distended, tenderness Rectal exam: PRESENT: deferred Neurological exam: PRESENT: alert, awake, oriented to person, oriented to place , oriented to time, oriented to situation, CN II-XII grossly intact Psychiatric exam: ABSENT: agitated, anxious, depressed Skin exam: ABSENT: cyanosis, erythema, jaundice Results Laboratory Results: 09/12/17 05:32 09/12/17 05:32 09/12/17 09/12/17 05:32 05:32 WBC 16.7 H RBC 3.43 L Hgb 10.9 L Hct 32.7 L MCV 96 MCH 31.8 MCHC 33.3 RDW 15.5 H Plt Count 231 Seg Neutrophils % 85.5 H Lymphocytes % 5.2 L Monocytes % 7.6 Eosinophils % 1.2 Basophils % 0.5 Absolute Neutrophils 14.3 H Absolute Lymphocytes 0.9 Absolute Monocytes 1.3 Absolute Eosinophils 0.2 Absolute Basophils 0.1 Sodium 137.8 Potassium 4.5 Chloride 95 L Carbon Dioxide 24 Anion Gap 19 BUN 71 H Creatinine 10.89 H Est GFR ( Amer) 6 L Est GFR (Non-Af Amer) 5 L Glucose 109 Calcium 8.9 Total Bilirubin 0.8 AST 24 ALT 25 Alkaline Phosphatase 111 Total Protein 5.8 L Albumin 3.2 L Triglycerides 108 Cholesterol 106.19 LDL Cholesterol Direct < 30 VLDL Cholesterol 22.0 HDL Cholesterol 28 L 09/11/17 09/11/17 09/11/17 05:25 05:25 10:41 Creatine Kinase 108 118 CK-MB (CK-2) 2.12 Troponin I 0.018 09/11/17 09/11/17 09/11/17 10:41 16:50 16:58 Creatine Kinase 135 CK-MB (CK-2) 2.68 2.82 Troponin I 0.020 0.022 Impressions: Abdomen/Pelvis CT 09/11/17 00:00 IMPRESSION: 1. Masslike diffuse wall thickening of the mid and distal transverse colon. Differential etiologies include infectious, inflammatory, and neoplastic processes. 2. Indeterminate 2.4 cm right renal lesion; differential diagnosis includes neoplasm. Dynamic contrast CT or MRI of the kidneys recommended. 3. Lytic lesions of bilateral acetabula measure up to 4.2 cm on the right, with a pathologic fracture/dehiscence of the cortex at the right acetabulum. Body Scan Nuclear Medicine 09/12/17 00:00 IMPRESSION: 1. No abnormal skeletal uptake. 2. No renal uptake is seen. Skeletal Survey 09/12/17 00:00 IMPRESSION: Symmetric lucent areas are identified involving the inferior pubic rami bilaterally presumably degenerative in nature although the possibility of involvement by multiple myeloma cannot be excluded. Other findings as noted above Assessment & Plan - Diagnosis (1) Clostridium difficile colitis Is this a current diagnosis for this admission?: Yes - Plan Summary Plan Summary: This is a 67-year-old male with thickening of the transverse colon. It certainly could be related to his Clostridium difficile infection, but malignancy must be ruled out. I recommend clearing of his C. difficile colitis before any colonoscopic investigation is performed. Have the patient follow-up with me in the office for outpatient colonoscopy in 2-4 weeks. His CEA level is mildly elevated. Overall his status is improved. I will see the patient again on an as-needed basis. Please renotify with any questions or concerns.
[2017-09-12] MEDS: INSULIN LISPRO 100 UNIT/ML 3 ML VIAL SUBCUT PRN (21:59)
[2017-09-13] MEDS: CLONIDINE HCL 0.2 MG TABLET PO SCH ×2 (05:27→13:42)
[2017-09-13] MEDS: METRONIDAZOLE 500 MG TABLET PO SCH ×2 (05:29→13:42)
[2017-09-13] MEDS: HEPARIN SOD (PORCINE) 5,000 UNIT/ML 1 ML SYRINGE SUBCUT SCH ×2 (05:30→13:42)
[2017-09-13 06:24] LABS: ABSOLUTE BASOPHILS # (AUTO) 0.1 10^3/uL (0.0-0.2); ABSOLUTE EOSINOPHILS # (AUTO) 0.2 10^3/uL (0.0-0.6); ABSOLUTE LYMPHOCYTES (AUTO) 0.9 10^3/uL (0.5-4.7); ABSOLUTE NEUT (AUTO) 8.8 10^3/uL (1.7-8.2); BASOPHILS % (AUTO) 0.6 % (0-2); EOSINOPHILS % (AUTO) 1.9 % (0-6); HEMATOCRIT 29.9 % (37.9-51.0); HEMOGLOBIN 10.1 g/dL (13.5-17.0); LYMPHOCYTES % (AUTO) 8.5 % (13-45); MEAN CORPUSCULAR HEMOGLOBIN 32.5 pg (27.0-33.4); MEAN CORPUSCULAR HGB CONC 33.7 g/dL (32.0-36.0); MEAN CORPUSCULAR VOLUME 97 fl (80-97); MONOCYTES % (AUTO) 8.9 % (3-13); PLATELET COUNT 225 10^3/uL (150-450); RED CELL DISTRIBUTION WIDTH 15.1 % (11.5-14.0); SEGMENTED NEUTROPHILS % (AUTO) 80.1 % (42-78); TOTAL CELLS COUNTED % (AUTO) 100 %
[2017-09-13 06:44] LABS: ALANINE AMINOTRANSFERASE 32 U/L (21-72); ALBUMIN 3.1 g/dL (3.5-5.0); ALKALINE PHOSPHATASE 105 U/L (38-126); ANION GAP 14 (5-19); ASPARTATE AMINO TRANSFERASE 28 U/L (17-59); BILIRUBIN,DIRECT 0.7 mg/dL (0.0-0.4); BILIRUBIN,TOTAL 0.8 mg/dL (0.2-1.3); BLOOD UREA NITROGEN 48 mg/dL (7-20); CALCIUM 8.9 mg/dL (8.4-10.2); CARBON DIOXIDE 30 mmol/L (22-30); CHLORIDE 94 mmol/L (98-107); GLUCOSE 150 mg/dL (75-110); POTASSIUM 3.9 mmol/L (3.6-5.0); SODIUM 138.1 mmol/L (137-145); TOTAL PROTEIN 5.8 g/dL (6.3-8.2)
[2017-09-13] MEDS: CIPROFLOXACIN 400 MG/D5W RTU 400 MG/200 ML RTUPB IV SCH (09:43)
--- NOTE | 2017-09-13 10:13 | PDOC PROGRESS REPORT ---
Subjective Progress Note for:: 09/13/17 Subjective:: Doing well today, denies any n/v/d. States that stomach pain has gone away. Denies chest pain or SOB. Denies fevers or chills. Reason For Visit: ACUTE ABDOMEN ? CAUSE ,COLITIS ,NEOPLASM Physical Exam Vital Signs: Temp Pulse Resp BP Pulse Ox 98.6 F 70 17 137/61 H 100 09/13/17 08:04 09/13/17 08:04 09/13/17 08:04 09/13/17 08:04 09/13/17 08:04 Intake & Output 09/12/17 09/13/17 09/14/17 06:59 06:59 06:59 Intake Total 1469 1455 Output Total 0 1000 Balance 1469 455 Weight 79.2 kg 79.2 kg General appearance: PRESENT: no acute distress, well-developed, well-nourished Mouth exam: PRESENT: moist, neck supple Respiratory exam: PRESENT: clear to auscultation bob. ABSENT: accessory muscle use, crackles, rales, rhonchi, wheezes Cardiovascular exam: PRESENT: RRR, +S1, +S2 GI/Abdominal exam: PRESENT: hyperactive bowel sounds, soft, tenderness. ABSENT : distended, firm, guarding, mass Extremities exam: ABSENT: pedal edema, tenderness, +1 edema, +2 edema Musculoskeletal exam: PRESENT: normal inspection. ABSENT: tenderness Neurological exam: PRESENT: alert, awake, oriented to person, oriented to place , oriented to time, oriented to situation Psychiatric exam: PRESENT: appropriate affect, normal mood Skin exam: PRESENT: dry, intact, warm. ABSENT: cyanosis Results Laboratory Results: 09/13/17 06:04 09/13/17 06:04 09/13/17 09/13/17 06:04 06:04 WBC 11.0 H RBC 3.10 L Hgb 10.1 L Hct 29.9 L MCV 97 MCH 32.5 MCHC 33.7 RDW 15.1 H Plt Count 225 Seg Neutrophils % 80.1 H Lymphocytes % 8.5 L Monocytes % 8.9 Eosinophils % 1.9 Basophils % 0.6 Absolute Neutrophils 8.8 H Absolute Lymphocytes 0.9 Absolute Monocytes 1.0 Absolute Eosinophils 0.2 Absolute Basophils 0.1 Sodium 138.1 Potassium 3.9 Chloride 94 L Carbon Dioxide 30 Anion Gap 14 BUN 48 H Creatinine 8.10 H Est GFR ( Amer) 8 L Est GFR (Non-Af Amer) 7 L Glucose 150 H Calcium 8.9 Total Bilirubin 0.8 AST 28 ALT 32 Alkaline Phosphatase 105 Total Protein 5.8 L Albumin 3.1 L 09/11/17 11:38 Stool - Stool - Final 09/11/17 11:38 Stool - Stool Stool Culture - Final NO SALMONELLA, SHIGELLA, CAMPYLOBACTER, OR E.COLI 0157 RECOVERED. NEGATIVE FOR SHIGA TOXINS 1&2. 09/11/17 09/11/17 09/11/17 05:25 05:25 10:41 Creatine Kinase 108 118 CK-MB (CK-2) 2.12 Troponin I 0.018 09/11/17 09/11/17 09/11/17 10:41 16:50 16:58 Creatine Kinase 135 CK-MB (CK-2) 2.68 2.82 Troponin I 0.020 0.022 Impressions: Abdomen/Pelvis CT 09/11/17 00:00 IMPRESSION: 1. Masslike diffuse wall thickening of the mid and distal transverse colon. Differential etiologies include infectious, inflammatory, and neoplastic processes. 2. Indeterminate 2.4 cm right renal lesion; differential diagnosis includes neoplasm. Dynamic contrast CT or MRI of the kidneys recommended. 3. Lytic lesions of bilateral acetabula measure up to 4.2 cm on the right, with a pathologic fracture/dehiscence of the cortex at the right acetabulum. Body Scan Nuclear Medicine 09/12/17 00:00 IMPRESSION: 1. No abnormal skeletal uptake. 2. No renal uptake is seen. Skeletal Survey 09/12/17 00:00 IMPRESSION: Symmetric lucent areas are identified involving the inferior pubic rami bilaterally presumably degenerative in nature although the possibility of involvement by multiple myeloma cannot be excluded. Other findings as noted above Assessment & Plan - Diagnosis (1) Clostridium difficile colitis Is this a current diagnosis for this admission?: Yes Plan: on flagyl (2) End stage renal disease Plan: will look to set up dialysis tomorrow if he is still in the hospital tomorrow (3) Hypertension Qualifiers: Hypertension type: essential hypertension Qualified Code(s): I10 - Essential (primary) hypertension Plan: stable (4) Right kidney mass Plan: needs work up as outpatient (5) Lytic bone lesion of hip Is this a current diagnosis for this admission?: Yes Plan: had a bone scan yesterday
--- NOTE | 2017-09-13 10:40 | Physician Advisory Note ---
Physician Advisor ProgressNote .: Pursuant to the plan for Jonathan Chan, I have reviewed the medical record for this patient. Physician Advisor Statement: Please consider documenting, if you agree: 1. "Sepsis was considered but is ruled out", or "Sepsis, due to ____, evidenced by " - Pt w/leukocytosis, mild tachycardia, so reasonable to consider possibility of sepsis. - Overall description of pt in ED & H&P is "nontoxic" & "NAD" except for dehydration, abd pain, low grade temps. BPs high, not low. No new organ dysfunction documented so far. 2. "Anemia of CKD", +/- "anemia of nutritional Fe defic" or "anemia of Fe defic due to chronic blood loss, due to " Thanks! CK
--- NOTE | 2017-09-13 11:57 | PDOC PROGRESS REPORT ---
Subjective Progress Note for:: 09/12/17 Reason For Visit: Mr. George Gonzalez is a 67 years old -[place] male with history of hypertension, ESRD on hemodialysis was brought into the hospital with history of nausea vomiting and diarrhea.This is been going on for couple of days and has been associated with some abdominal pains. No history of any hematochezia nausea vomiting or hematemesis. He has been diagnosed with C. difficile colitis on serology. The CT scan shows a mass lesion in the mid colon which needs further evaluation. Also possibility of mass in the the kidneys. Vital signs are stable. Labs and medications were reviewed with the patient. Physical Exam Vital Signs: Temp Pulse Resp BP Pulse Ox 97.9 F 74 20 165/58 H 100 09/12/17 12:32 09/12/17 14:00 09/12/17 12:32 09/12/17 12:32 09/12/17 12:32 Intake & Output 09/11/17 09/12/17 09/13/17 06:59 06:59 06:59 Intake Total 1469 474 Output Total 0 0 Balance 1469 474 Weight 79.2 kg General appearance: PRESENT: no acute distress Respiratory exam: PRESENT: clear to auscultation bob. ABSENT: crackles, rhonchi Cardiovascular exam: PRESENT: RRR, +S1, +S2 GI/Abdominal exam: PRESENT: hyperactive bowel sounds, soft, tenderness. ABSENT : distended, firm, guarding, mass Extremities exam: ABSENT: pedal edema Neurological exam: PRESENT: alert, awake, oriented to person, oriented to place Skin exam: ABSENT: cyanosis, erythema, mottled Results Laboratory Results: 09/12/17 05:32 09/12/17 05:32 09/12/17 09/12/17 05:32 05:32 WBC 16.7 H RBC 3.43 L Hgb 10.9 L Hct 32.7 L MCV 96 MCH 31.8 MCHC 33.3 RDW 15.5 H Plt Count 231 Seg Neutrophils % 85.5 H Lymphocytes % 5.2 L Monocytes % 7.6 Eosinophils % 1.2 Basophils % 0.5 Absolute Neutrophils 14.3 H Absolute Lymphocytes 0.9 Absolute Monocytes 1.3 Absolute Eosinophils 0.2 Absolute Basophils 0.1 Sodium 137.8 Potassium 4.5 Chloride 95 L Carbon Dioxide 24 Anion Gap 19 BUN 71 H Creatinine 10.89 H Est GFR ( Amer) 6 L Est GFR (Non-Af Amer) 5 L Glucose 109 Calcium 8.9 Total Bilirubin 0.8 AST 24 ALT 25 Alkaline Phosphatase 111 Total Protein 5.8 L Albumin 3.2 L Triglycerides 108 Cholesterol 106.19 LDL Cholesterol Direct < 30 VLDL Cholesterol 22.0 HDL Cholesterol 28 L 09/11/17 09/11/17 09/11/17 05:25 05:25 10:41 Creatine Kinase 108 118 CK-MB (CK-2) 2.12 Troponin I 0.018 09/11/17 09/11/17 09/11/17 10:41 16:50 16:58 Creatine Kinase 135 CK-MB (CK-2) 2.68 2.82 Troponin I 0.020 0.022 Impressions: Abdomen/Pelvis CT 09/11/17 00:00 IMPRESSION: 1. Masslike diffuse wall thickening of the mid and distal transverse colon. Differential etiologies include infectious, inflammatory, and neoplastic processes. 2. Indeterminate 2.4 cm right renal lesion; differential diagnosis includes neoplasm. Dynamic contrast CT or MRI of the kidneys recommended. 3. Lytic lesions of bilateral acetabula measure up to 4.2 cm on the right, with a pathologic fracture/dehiscence of the cortex at the right acetabulum. Body Scan Nuclear Medicine 09/12/17 00:00 IMPRESSION: 1. No abnormal skeletal uptake. 2. No renal uptake is seen. Skeletal Survey 09/12/17 00:00 IMPRESSION: Symmetric lucent areas are identified involving the inferior pubic rami bilaterally presumably degenerative in nature although the possibility of involvement by multiple myeloma cannot be excluded. Other findings as noted above Assessment & Plan - Diagnosis (1) Clostridium difficile colitis Is this a current diagnosis for this admission?: Yes Plan: Being treated. Since he he has a mass being detected in the colon he needs follow-up and is being seen by the surgeons for that. (2) ESRD (end stage renal disease) Is this a current diagnosis for this admission?: Yes Plan: Patient will have dialysis today. Otherwise stable.Orders were reviewed with the treating dialysis nurse. (3) Right kidney mass Plan: Needs follow-up as an outpatient with urology. (4) Sepsis Qualifiers: Sepsis type: sepsis due to unspecified organism Qualified Code(s): A41.9 - Sepsis, unspecified organism Is this a current diagnosis for this admission?: Yes Plan: From C. difficile colitis which is being treated. Monitor. (5) Diabetes mellitus type II, controlled Plan: Advised tight control. (6) Hypertension Qualifiers: Hypertension type: essential hypertension Qualified Code(s): I10 - Essential (primary) hypertension Plan: Relatively controlled. Monitor.
[2017-09-13] MEDS: INSULIN LISPRO 100 UNIT/ML 3 ML VIAL SUBCUT PRN (13:42)
--- NOTE | 2017-09-13 16:32 | RADIOLOGY REPORT (SQ) ---
EXAM DESCRIPTION: MRI ABDOMEN WITHOUT COMPLETED DATE/TIME: 09/13/2017 4:13 pm REASON FOR STUDY: MRI RT KIDNEY ,LESION ON RT KIDNEY COMPARISON: Bone scan 09/12/2017 Whole-body bone scan 09/12/2017 Skeletal survey 09/20/2017 CT abdomen pelvis 09/11/2017 TECHNIQUE: Multiplanar multisequence imaging performed without contrast including sagittal, axial an d coronal T2, axial T1, axial gradient fat sat T1 images CONTRAST TYPE AND DOSE: No IV contrast RENAL FUNCTION: Not required LIMITATIONS: None. FINDINGS: Profound wall thickening/colon wall edema is present along the splenic flexure of colon an d descending colon worrisome for ischemic or infectious colitis. Trace left upper chronic or free fl uid adjacent to the splenic flexure of colon. LIVER: Normal size. No masses. No dilated ducts. CBD normal. Decreased T2 weighted signal throughou t the hepatic parenchyma suggests diffuse increased iron deposition SPLEEN: Normal size. No focal lesions. Diffuse decreased T2 weighted signal throughout the spleen yeung ggests increased iron deposition. PANCREAS: No masses. No adjacent inflammation or peripancreatic fluid collections. Pancreatic duct no t dilated. GALLBLADDER: No masses. No stones. No gallbladder wall thickening or pericholecystic fluid. ADRENAL GLANDS: No significant masses or asymmetry. RIGHT KIDNEY AND URETER: Near completely replaced with multiple parenchymal cortical cysts. At 2.4 c m hemorrhagic cyst is present in the upper pole right kidney correlating with findings from CT 018. No hydronephrosis. LEFT KIDNEY AND URETER: Near completely replaced with multiple parenchymal cortical cysts. No hydron ephrosis. AORTA AND VESSELS: No aneurysm. No dissection. Renal arteries, SMA, celiac without stenosis. RETROPERITONEUM: No retroperitoneal adenopathy, hemorrhage or masses. BOWEL: As above ABDOMINAL WALL AND PERITONEUM: Trace left upper quadrant free fluid. BONES: Markedly decreased T2 and T1 weighted signal throughout the bone marrow, indicating red marrow conversion OTHER: No other significant finding. IMPRESSION: Hemorrhagic cyst upper pole right kidney correlates with CT 09/11/2017 Persistent profound wall thickening of the splenic flexure and descending colon worrisome for colitis . TECHNICAL DOCUMENTATION: JOB ID: [id number] [employer]- All Rights Reserved Reading location - IP/workstation name: [facility]
[2017-09-13 18:42] VITALS: BP 160/74
--- NOTE | 2017-09-13 20:36 | PDOC DISCHARGE SUMMARY ---
General - Admit/Disc Date/PCP Admission Date/Primary Care Provider: 09/11/17 03:44 ALEKS HARKINS MD Discharge Date: 09/13/17 - Discharge Diagnosis (1) Sepsis Is this a current diagnosis for this admission?: Yes (2) Clostridium difficile colitis Is this a current diagnosis for this admission?: Yes (3) ESRD (end stage renal disease) Is this a current diagnosis for this admission?: Yes (4) Lytic bone lesion of hip Is this a current diagnosis for this admission?: Yes - Additional Information Resuscitation Status: Full Code Discharge Diet: Cardiac, Diabetic, Other (Comments) Discharge Activity: Activity As Tolerated Prescriptions: Metronidazole [Flagyl 500 mg Tablet] 500 mg PO Q8 #21 tablet Home Medications: Aspirin [Aspirin EC] 81 mg PO DAILY 07/19/16 Atorvastatin Calcium [Lipitor 20 mg Tablet] 20 mg PO QHS 07/19/16 B Complex W-C No.20/Folic Acid [Lanier Caps Softgel] 1 cap PO DAILY 07/19/16 Clonidine HCl [Catapres 0.3 mg Tablet] 0.3 mg PO Q8 07/19/16 Docusate Sodium [Colace 100 mg Capsule] 100 mg PO BID 07/19/16 Furosemide [Lasix] 40 mg PO DAILY 07/19/16 Irbesartan [Avapro] 75 mg PO QHS 07/19/16 Nifedipine [Procardia Xl] 90 mg PO Q12 07/19/16 Omeprazole 20 mg PO BID 07/19/16 Calcium Acetate [Phoslo 667 mg Capsule] 1,334 mg PO MEALS 12/18/16 Finasteride [Proscar 5 mg Tablet] 5 mg PO NOON 12/18/16 Tamsulosin HCl 0.4 mg PO DAILY 12/18/16 Isosorb Dinit/Hydralazine HCl [Bidil 20-37.5 mg Tablet] 1 tab PO Q8 09/11/17 Varenicline Tartrate [Chantix 0.5 mg Tablet] 0.5 mg PO NOON 09/11/17 Metronidazole [Flagyl 500 mg Tablet] 500 mg PO Q8 #21 tablet 09/13/17 History of Present Illness History of Present Illness: MARILU CRAWFORD is a 67 year old male, He has a history of hypertension, end-stage renal disease on maintenance hemodialysis, he came to the emergency room last night for evaluation of generalized abdominal pain, nausea and vomiting, in the emergency room he was evaluated on abdominal examination he has focal tenderness with voluntary guarding throughout the right side of the abdomen. A CAT scan of the abdomen and pelvis with IV contrast was ordered it showed diffuse bowel wall thickening of the distal and mid transverse colon with moderate inflammation surrounding fat. Also found was numerous bilateral renal lesions including an indeterminate 2.4 cm lesion of the upper pole of the right kidney. There was subchondral lytic well-defined lesion with sclerotic thin zone margination of bilateral acetabular measure up to 4.2 cm on the right with cortical dehiscence/pathologic fracture at the acetabular contours on the right. Also found was leukocytosis, he had diarrhea the stool study was positive for C. difficile toxin.When he presented this morning there was concern for acute abdomen and most likely it was due to acute infection, before the diarrhea was obvious and profuse he was seen by the surgeon it was felt that it was not an acute abdomen Hospital Course Hospital Course: Patient was admitted for the management of severe Clostridium difficile colitis , he was treated with intravenous Flagyl, he has end-stage renal disease on maintenance hemodialysis, on admission there was lytic lesion found on the pelvic bone also there was a lesion on the kidney that was found from the CT scan of the abdomen and pelvis that was done. Because of concern for metastatic disease, skeletal survey and bone scan was done, it was negative for metastatic disease. MRI of the kidney was done, it showed that both kidneys are completely replaced with cyst. Patient presentation was consistent with sepsis syndrome, he has severe abdominal symptoms initially it was felt that he may have acute abdomen, he was also seen by the surgeon. He was seen by nephrology Dr. Irineo Abbott, he was dialyzed, Patient did respond to treatment. Physical Exam Vital Signs: Temp Pulse Resp BP Pulse Ox 98.3 F 66 14 160/74 H 100 09/13/17 18:40 09/13/17 18:40 09/13/17 18:40 09/13/17 18:40 09/13/17 18:40 Intake & Output 09/12/17 09/13/17 09/14/17 06:59 06:59 06:59 Intake Total 1469 1455 918 Output Total 0 1000 Balance 1469 455 918 Weight 79.2 kg 79.2 kg General appearance: PRESENT: no acute distress Eye exam: PRESENT: PERRLA Respiratory exam: PRESENT: clear to auscultation bob Cardiovascular exam: PRESENT: +S1, +S2 GI/Abdominal exam: PRESENT: soft Neurological exam: PRESENT: alert Results Laboratory Results: 09/13/17 06:04 09/13/17 06:04 09/13/17 09/13/17 06:04 06:04 WBC 11.0 H RBC 3.10 L Hgb 10.1 L Hct 29.9 L MCV 97 MCH 32.5 MCHC 33.7 RDW 15.1 H Plt Count 225 Seg Neutrophils % 80.1 H Lymphocytes % 8.5 L Monocytes % 8.9 Eosinophils % 1.9 Basophils % 0.6 Absolute Neutrophils 8.8 H Absolute Lymphocytes 0.9 Absolute Monocytes 1.0 Absolute Eosinophils 0.2 Absolute Basophils 0.1 Sodium 138.1 Potassium 3.9 Chloride 94 L Carbon Dioxide 30 Anion Gap 14 BUN 48 H Creatinine 8.10 H Est GFR ( Amer) 8 L Est GFR (Non-Af Amer) 7 L Glucose 150 H Calcium 8.9 Total Bilirubin 0.8 AST 28 ALT 32 Alkaline Phosphatase 105 Total Protein 5.8 L Albumin 3.1 L 09/11/17 11:38 Stool - Stool - Final 09/11/17 11:38 Stool - Stool Stool Culture - Final NO SALMONELLA, SHIGELLA, CAMPYLOBACTER, OR E.COLI 0157 RECOVERED. NEGATIVE FOR SHIGA TOXINS 1&2. 09/11/17 09/11/17 09/11/17 05:25 05:25 10:41 Creatine Kinase 108 118 CK-MB (CK-2) 2.12 Troponin I 0.018 09/11/17 09/11/17 09/11/17 10:41 16:50 16:58 Creatine Kinase 135 CK-MB (CK-2) 2.68 2.82 Troponin I 0.020 0.022 Impressions: Abdomen/Pelvis CT 09/11/17 00:00 IMPRESSION: 1. Masslike diffuse wall thickening of the mid and distal transverse colon. Differential etiologies include infectious, inflammatory, and neoplastic processes. 2. Indeterminate 2.4 cm right renal lesion; differential diagnosis includes neoplasm. Dynamic contrast CT or MRI of the kidneys recommended. 3. Lytic lesions of bilateral acetabula measure up to 4.2 cm on the right, with a pathologic fracture/dehiscence of the cortex at the right acetabulum. Body Scan Nuclear Medicine 09/12/17 00:00 IMPRESSION: 1. No abnormal skeletal uptake. 2. No renal uptake is seen. Skeletal Survey 09/12/17 00:00 IMPRESSION: Symmetric lucent areas are identified involving the inferior pubic rami bilaterally presumably degenerative in nature although the possibility of involvement by multiple myeloma cannot be excluded. Other findings as noted above Abdomen MRI 09/13/17 00:00 IMPRESSION: Hemorrhagic cyst upper pole right kidney correlates with CT 2017 Persistent profound wall thickening of the splenic flexure and descending colon worrisome for colitis. Qualifiers - * PATIENT BEING DISCHARGED WITH ANY OF THE FOLLOWING DIAGNOSIS: No
[2017-09-17 14:39] LABS: A/G RATIO. 1.2 (0.7-1.7); ALBUMIN 3 3.1 g/dL (2.9-4.4); ALPHA-1-GLOBULIN 0.4 g/dL (0.0-0.4); BETA GLOBULIN 0.7 g/dL (0.7-1.3); IMMUNOGLOBULIN A 209 mg/dL (61-437); IMMUNOGLOBULIN G 854 mg/dL (700-1600); IMMUNOGLOBULIN M 51 mg/dL (20-172); MONOCLONAL-SPIKE Not Observed g/dL (Not Observ); PROTEIN TOTAL SERUM 5.9 g/dL (6.0-8.5)
== END 2017-09-13 19:07 | disposition home or self-care (01) | DRG 871 ==
LOC: ER 16:59 → EH 09-11 03:44 → 3S 09-11 14:49
PROVIDERS: ADMIT Internal Medicine; ATTEND Internal Medicine
PROC: 5A1D70Z Performance of Urinary Filtration, Intermittent, Less than 6 Hours Per Day (ICD-10-PCS; principal; 2017-09-12)
DX: A41.9 Sepsis, unspecified organism (principal); N18.6 End stage renal disease; A04.72 Enterocolitis due to Clostridium difficile, not specified as recurrent; I13.11 Hypertensive heart and chronic kidney disease without heart failure, with stage 5 chronic kidney disease, or end stage renal disease; N28.9 Disorder of kidney and ureter, unspecified; E11.22 Type 2 diabetes mellitus with diabetic chronic kidney disease; E11.51 Type 2 diabetes mellitus with diabetic peripheral angiopathy without gangrene; J44.9 Chronic obstructive pulmonary disease, unspecified; M19.90 Unspecified osteoarthritis, unspecified site; F17.210 Nicotine dependence, cigarettes, uncomplicated; M89.9 Disorder of bone, unspecified; Z79.899 Other long term (current) drug therapy; Z99.2 Dependence on renal dialysis; Z79.4 Long term (current) use of insulin; Z83.3 Family history of diabetes mellitus; Z79.82 Long term (current) use of aspirin
CPT/HCPCS: 36415; 36600; 74177; 74181; 77075; 78306; 80048; 80053; 80061; 80076; 82140; 82150; 82272; 82378; 82550; 82553; 82803; 82962; 83036; 83690; 83735; 84100; 84439; 84443; 84484; 85025; 85610; 85730; 86320; 87040; 87045; 87205; 87493; 89055; 96374; 99285; A9561; J0744; J1335; J1644; J1815; J2765; J3010; J3490; Q4081

== ENCOUNTER 2017-10-11 08:09 | Day surgery (SDC) | payer MEDICARE, MEDICAID ==
[2017-10-11 09:04] LABS: HEMATOCRIT 36.5 % (37.9-51.0); HEMOGLOBIN 12.2 g/dL (13.5-17.0); MEAN CORPUSCULAR HEMOGLOBIN 32.3 pg (27.0-33.4); MEAN CORPUSCULAR HGB CONC 33.4 g/dL (32.0-36.0); MEAN CORPUSCULAR VOLUME 97 fl (80-97); PLATELET COUNT 280 10^3/uL (150-450); RED BLOOD COUNT 3.78 10^6/uL (4.35-5.55); WHITE BLOOD COUNT 4.9 10^3/uL (4.0-10.5)
[2017-10-11 09:22] LABS: BLOOD UREA NITROGEN 25 mg/dL (7-20)
[2017-10-11 09:30] LABS: INTERNATIONAL RATION (INR) 0.87; PROTHROMBIN TIME 12.3 SEC (11.4-15.4)
[2017-10-11 09:31] LABS: PARTIAL THROMBOPLASTIN TIME 34.8 SEC (23.5-35.8)
[2017-10-11] MEDS ORDERED: MIDAZOLAM 2 MG/2 ML INJ ONE (10:54)
[2017-10-11] MEDS ORDERED: LIDOCAINE 1% INJ-PF (10 MG/ML) 30 ML SDV ONE (10:55)
[2017-10-11] MEDS ORDERED: FENTANYL CITRATE INJ/PF 100 MCG/2 ML AMPUL ONE (10:55)
[2017-10-11 14:03] VITALS: BP 151/79
--- NOTE | 2017-10-11 15:06 | RADIOLOGY REPORT (SQ) ---
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 CT Fluoroscopy Time: 4.[address] scanners at this facility use dose modulation, iterative reconstruction, and/or weight based d osing when appropriate to reduce radiation dose to as low as reasonably achievable (ALARA). [facility]: Dose Right [facility]: CareDose [facility]: Dose Right [facility]: Teradose 4D [facility]: [employer] RADIATION DOSE: mGy. FINDINGS: After obtaining informed consent and explaining the risks and benefits of conscious sedati on,the patient agreed to the procedure. Prior to the procedure, a time out was performed to verify th e patient's identity and planned procedure. IV pain control was administered and physician direction by the registered nurse 50 micrograms of fe ntanyl, for pain control. Physiologic monitoring was provided before, during, and after sedation. The total pain control time 20 minutes. Documentation face to face time, the performing proceduralist, spent monitoring the patient: [address] scanning was performed to localize the percutaneous site for the biopsy approach. After sterile skin prep and local lidocaine for skin and deep tissue anesthesia, an 18 gauge needle w as used to access the lytic lesion with sclerotic margins in the right acetabular roof. This yielded thick yellow synovial fluid. No soft tissue. Synovial fluid was submitted to the lab for cytology. There were no immediate complications. Cytology is pending at the time of dictation. IMPRESSION: CT GUIDED ASPIRATION OF THE RIGHT ACETABULAR ROOF SYNOVIAL CYST PERFORMED WITHOUT IMMEDI ATE COMPLICATION. CYTOLOGY PENDING. COMMENT: Quality ID 145: Final reports for procedures using fluoroscopy that document radiation exp osure indices, or exposure time and number of fluorographic images (if radiation exposure indices are not available) Patient medication list reviewed: Yes- Quality ID# [id number]:Eligible professional attests to documenting i n the medical record they obtained, updated, or reviewed the patient's current medications.. TECHNICAL DOCUMENTATION: JOB ID: [id number] Quality ID# [id number]: Final reports with documentation of one or more dose reduction techniques (e.g., Aut omated exposure control, adjustment of the mA and/or kV according to patient size, use of iterative r econstruction technique) 2010 [employer]- All Rights Reserved Reading location - IP/workstation name: [email or web address]
--- NOTE | 2017-10-11 15:06 | RADIOLOGY REPORT (SQ) ---
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 CT Fluoroscopy Time: 4.[address] scanners at this facility use dose modulation, iterative reconstruction, and/or weight based d osing when appropriate to reduce radiation dose to as low as reasonably achievable (ALARA). [facility]: Dose Right [facility]: CareDose [facility]: Dose Right [facility]: Teradose 4D [facility]: [employer] RADIATION DOSE: mGy. FINDINGS: After obtaining informed consent and explaining the risks and benefits of conscious sedati on,the patient agreed to the procedure. Prior to the procedure, a time out was performed to verify th e patient's identity and planned procedure. IV pain control was administered and physician direction by the registered nurse 50 micrograms of fe ntanyl, for pain control. Physiologic monitoring was provided before, during, and after sedation. The total pain control time 20 minutes. Documentation face to face time, the performing proceduralist, spent monitoring the patient: [address] scanning was performed to localize the percutaneous site for the biopsy approach. After sterile skin prep and local lidocaine for skin and deep tissue anesthesia, an 18 gauge needle w as used to access the lytic lesion with sclerotic margins in the right acetabular roof. This yielded thick yellow synovial fluid. No soft tissue. Synovial fluid was submitted to the lab for cytology. There were no immediate complications. Cytology is pending at the time of dictation. IMPRESSION: CT GUIDED ASPIRATION OF THE RIGHT ACETABULAR ROOF SYNOVIAL CYST PERFORMED WITHOUT IMMEDI ATE COMPLICATION. CYTOLOGY PENDING. COMMENT: Quality ID 145: Final reports for procedures using fluoroscopy that document radiation exp osure indices, or exposure time and number of fluorographic images (if radiation exposure indices are not available) Patient medication list reviewed: Yes- Quality ID# [id number]:Eligible professional attests to documenting i n the medical record they obtained, updated, or reviewed the patient's current medications.. TECHNICAL DOCUMENTATION: JOB ID: [id number] Quality ID# [id number]: Final reports with documentation of one or more dose reduction techniques (e.g., Aut omated exposure control, adjustment of the mA and/or kV according to patient size, use of iterative r econstruction technique) 2010 [employer]- All Rights Reserved Reading location - IP/workstation name: [email or web address]
== END 2017-10-11 14:00 | disposition home or self-care (01) ==
LOC: RAD 08:09
PROVIDERS: ATTEND Internal Medicine Medical Oncology
DX: M85.651 Other cyst of bone, right thigh (principal); M89.9 Disorder of bone, unspecified; Z79.899 Other long term (current) drug therapy; F17.210 Nicotine dependence, cigarettes, uncomplicated; N28.89 Other specified disorders of kidney and ureter; I70.8 Atherosclerosis of other arteries; Z99.2 Dependence on renal dialysis; E11.22 Type 2 diabetes mellitus with diabetic chronic kidney disease; I12.9 Hypertensive chronic kidney disease with stage 1 through stage 4 chronic kidney disease, or unspecified chronic kidney disease; N18.9 Chronic kidney disease, unspecified; Z79.82 Long term (current) use of aspirin
CPT/HCPCS: 20225; 36415; 77012; 82565; 84520; 85027; 85610; 85730; 88305; J2250; J3010; J3490

== ENCOUNTER 2017-12-07 11:45 | Emergency (ER) | payer MEDICARE, MEDICAID ==
--- NOTE | 2017-12-07 11:49 | ER Document Report ---
ED Medical Screen (RME) - General Chief Complaint: Abdominal Pain >50 Stated Complaint: ABDOMINAL PAIN Time Seen by Provider: 12/07/17 11:47 Mode of Arrival: Ambulatory Information source: Patient Notes: 67-year-old male presents to ED for complaint of abdominal pain since Sunday. He is a dialysis patient and is not received dialysis since last Sunday. Abdomen is distended lungs are clear respirations regular and unlabored speaking in full sentences and walks with a even steady gait. I have greeted and performed a rapid initial assessment of this patient. A comprehensive ED assessment and evaluation of the patient, analysis of test results and completion of medical decision making process will be conducted by an additional ED providers. TRAVEL OUTSIDE OF THE [place] IN LAST 30 DAYS: No - Related Data Allergies/Adverse Reactions: No Known Allergies Allergy (Verified 09/11/17 07:52) Past Medical History - Social History Family history: Reviewed & Not Pertinent - Past Medical History Cardiac Medical History: Reports: Hx Hypertension, Hx Peripheral Vascular Disease Denies: Hx Coronary Artery Disease, Hx Heart Attack Pulmonary Medical History: Reports: Hx Pneumonia Denies: Hx Asthma, Hx Bronchitis, Hx COPD Neurological Medical History: Denies: Hx Cerebrovascular Accident, Hx Seizures Endocrine Medical History: Reports: Hx Diabetes Mellitus Type 1, Hx Diabetes Mellitus Type 2 Renal/ Medical History: Reports: Hx End Stage Renal Disease, Hx Hemodialysis - Sunday, Sunday, and Sunday. Denies: Hx Peritoneal Dialysis Musculoskeltal Medical History: Reports Hx Arthritis - Bilat legs Psychiatric Medical History: Denies: Hx Depression Past Surgical History: Reports: Hx Neurologic Surgery - back BIOPSY, Hx Vascular Surgery - AV FISTULA ARAMIS. Denies: Hx Pacemaker - Immunizations Hx Diphtheria, Pertussis, Tetanus Vaccination: Yes History of Influenza Vaccine for 12/2016 - 05/2017 Season: Unknown Doctor's Discharge - Discharge Referrals: ALEKS HARKINS MD [Primary Care Provider] - Follow up as needed
[2017-12-07 13:04] LABS: ALANINE AMINOTRANSFERASE 22 U/L (21-72); ALBUMIN 3.9 g/dL (3.5-5.0); ALKALINE PHOSPHATASE 125 U/L (38-126); ANION GAP 17 (5-19); ASPARTATE AMINO TRANSFERASE 20 U/L (17-59); BILIRUBIN,DIRECT 0.7 mg/dL (0.0-0.4); BILIRUBIN,TOTAL 0.7 mg/dL (0.2-1.3); BLOOD UREA NITROGEN 77 mg/dL (7-20); CALCIUM 9.4 mg/dL (8.4-10.2); CARBON DIOXIDE 25 mmol/L (22-30); CHLORIDE 97 mmol/L (98-107); GLUCOSE 168 mg/dL (75-110); POTASSIUM 4.4 mmol/L (3.6-5.0); SODIUM 139.3 mmol/L (137-145); TOTAL PROTEIN 7.2 g/dL (6.3-8.2)
[2017-12-07 13:12] LABS: ABSOLUTE BASOPHILS # (AUTO) 0.1 10^3/uL (0.0-0.2); ABSOLUTE EOSINOPHILS # (AUTO) 0.2 10^3/uL (0.0-0.6); ABSOLUTE LYMPHOCYTES (AUTO) 1.5 10^3/uL (0.5-4.7); ABSOLUTE MONOCYTES (AUTO) 0.7 10^3/uL (0.1-1.4); ABSOLUTE NEUT (AUTO) 5.8 10^3/uL (1.7-8.2); BASOPHILS % (AUTO) 0.7 % (0-2); HEMATOCRIT 37.3 % (37.9-51.0); HEMOGLOBIN 12.3 g/dL (13.5-17.0); LYMPHOCYTES % (AUTO) 17.7 % (13-45); MEAN CORPUSCULAR HEMOGLOBIN 31.7 pg (27.0-33.4); MEAN CORPUSCULAR HGB CONC 33.1 g/dL (32.0-36.0); MEAN CORPUSCULAR VOLUME 96 fl (80-97); MONOCYTES % (AUTO) 8.4 % (3-13); PLATELET COUNT 261 10^3/uL (150-450); RED CELL DISTRIBUTION WIDTH 14.7 % (11.5-14.0); SEGMENTED NEUTROPHILS % (AUTO) 70.2 % (42-78); TOTAL CELLS COUNTED % (AUTO) 100 %; WHITE BLOOD COUNT 8.3 10^3/uL (4.0-10.5)
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
[2017-12-07 13:42] VITALS: BP 173/103
== END 2017-12-07 13:47 | disposition home or self-care (01) ==
LOC: ER 11:45
DX: R10.84 Generalized abdominal pain (principal); T73.0XXA Starvation, initial encounter; X37.0XXA Hurricane, initial encounter; Y92.009 Unspecified place in unspecified non-institutional (private) residence as the place of occurrence of the external cause; I12.0 Hypertensive chronic kidney disease with stage 5 chronic kidney disease or end stage renal disease; E11.22 Type 2 diabetes mellitus with diabetic chronic kidney disease; N18.6 End stage renal disease; Z99.2 Dependence on renal dialysis; Z91.15 Patient's noncompliance with renal dialysis; F17.200 Nicotine dependence, unspecified, uncomplicated; E11.51 Type 2 diabetes mellitus with diabetic peripheral angiopathy without gangrene
CPT/HCPCS: 36415; 80053; 83690; 85025; 99284

== ENCOUNTER 2017-12-07 20:18 | Emergency (ER) | payer MEDICARE, MEDICAID ==
[2017-12-07] MEDS ORDERED: SODIUM POLYSTYRENE SULFONATE 15 GM/60 ML PO ONE (20:48)
--- NOTE | 2017-12-07 20:51 | ER Document Report ---
ED Medical Screen (RME) - General Chief Complaint: Nausea/Vomiting/Diarrhea Stated Complaint: VOMITING Time Seen by Provider: 12/07/17 20:26 Notes: 59-year-old male with intermittent right-sided abdominal pain presents the emergency department after he was seen earlier today. Patient states that earlier today he had an ultrasound done of his abdomen and lab work performed, states he was sent home. States that after eating in the hospital he felt better but then after eat again at home he vomited and had some diarrhea. Patient is also concerned because he was given a prescription from dialysis that he was supposed to fill and he never did. Patient is hoping in that get that prescription filled. This prescription was for Kayexalate 60 g per day until he has dialysis again on Sunday. TRAVEL OUTSIDE OF THE [place] IN LAST 30 DAYS: No - Related Data Allergies/Adverse Reactions: No Known Allergies Allergy (Verified 09/11/17 07:52) Past Medical History - General Information source: Patient, Relative - Nephew provides part of the history - Social History Cigarette use (# per day): Yes Family history: Reviewed & Not Pertinent - Past Medical History Cardiac Medical History: Reports: Hx Hypertension, Hx Peripheral Vascular Disease Denies: Hx Coronary Artery Disease, Hx Heart Attack Pulmonary Medical History: Reports: Hx Pneumonia Denies: Hx Asthma, Hx Bronchitis, Hx COPD Neurological Medical History: Denies: Hx Cerebrovascular Accident, Hx Seizures Endocrine Medical History: Reports: Hx Diabetes Mellitus Type 1, Hx Diabetes Mellitus Type 2 Renal/ Medical History: Reports: Hx End Stage Renal Disease, Hx Hemodialysis - Sunday, Sunday, and Sunday. Denies: Hx Peritoneal Dialysis Musculoskeltal Medical History: Reports Hx Arthritis - Bilat legs Psychiatric Medical History: Denies: Hx Depression Past Surgical History: Reports: Hx Neurologic Surgery - back BIOPSY, Hx Vascular Surgery - AV FISTULA ARAMIS. Denies: Hx Pacemaker - Immunizations Hx Diphtheria, Pertussis, Tetanus Vaccination: Yes History of Influenza Vaccine for 12/2016 - 05/2017 Season: Unknown Review of Systems - Review of Systems Gastrointestinal: Abdominal pain, Diarrhea, Nausea, Vomiting Physical Exam - Vital signs Vitals: Temp Pulse Resp BP Pulse Ox 98.2 F 83 20 205/82 H 98 12/07/17 20:24 12/07/17 20:24 12/07/17 20:24 12/07/17 20:24 12/07/17 20:24 Interpretation: Hypertensive - Notes Notes: Right upper, lateral and lower abdominal tenderness to palpation with a small amount of guarding but no rigidity or rebounding. Bowel sounds are present in all 4 quadrants. Course - Re-evaluation Re-evalutation: 12/07/17 20:50 Given the patient's age and comorbidities I do feel it is prudent to repeat the CBC to see if his white blood cell count is increasing and to perform serial abdominal examinations. Patient will be given his Kayexalate as this was ordered by his beater worker helper though his potassium was normal earlier. - Vital Signs Vital signs: Temp Pulse Resp BP Pulse Ox 98.2 F 83 20 205/82 H 98 12/07/17 20:24 12/07/17 20:24 12/07/17 20:24 12/07/17 20:24 12/07/17 20:24 Doctor's Discharge - Discharge Referrals: ALEKS HARKINS MD [Primary Care Provider] - Follow up as needed
[2017-12-07] MEDS ORDERED: ONDANSETRON 4 MG TAB.RAPDIS ONE (21:22)
[2017-12-07] MEDS ORDERED: ONDANSETRON HCL 8 MG TABLET PO ONE (21:27)
[2017-12-07 21:28] LABS: ABSOLUTE EOSINOPHILS # (AUTO) 0.2 10^3/uL (0.0-0.6); ABSOLUTE LYMPHOCYTES (AUTO) 1.4 10^3/uL (0.5-4.7); ABSOLUTE MONOCYTES (AUTO) 0.9 10^3/uL (0.1-1.4); ABSOLUTE NEUT (AUTO) 6.3 10^3/uL (1.7-8.2); BASOPHILS % (AUTO) 0.5 % (0-2); EOSINOPHILS % (AUTO) 2.7 % (0-6); HEMATOCRIT 37.1 % (37.9-51.0); HEMOGLOBIN 12.5 g/dL (13.5-17.0); LYMPHOCYTES % (AUTO) 15.9 % (13-45); MEAN CORPUSCULAR HEMOGLOBIN 31.9 pg (27.0-33.4); MEAN CORPUSCULAR HGB CONC 33.7 g/dL (32.0-36.0); MEAN CORPUSCULAR VOLUME 95 fl (80-97); MONOCYTES % (AUTO) 9.7 % (3-13); PLATELET COUNT 255 10^3/uL (150-450); RED BLOOD COUNT 3.92 10^6/uL (4.35-5.55); RED CELL DISTRIBUTION WIDTH 14.7 % (11.5-14.0); SEGMENTED NEUTROPHILS % (AUTO) 71.2 % (42-78); TOTAL CELLS COUNTED % (AUTO) 100 %; WHITE BLOOD COUNT 8.9 10^3/uL (4.0-10.5)
[2017-12-07 21:42] LABS: ANION GAP 16 (5-19); BLOOD UREA NITROGEN 88 mg/dL (7-20); CALCIUM 9.5 mg/dL (8.4-10.2); CARBON DIOXIDE 24 mmol/L (22-30); CHLORIDE 99 mmol/L (98-107); GLUCOSE 231 mg/dL (75-110); POTASSIUM 5.1 mmol/L (3.6-5.0); SODIUM 138.8 mmol/L (137-145)
--- NOTE | 2017-12-07 22:16 | RADIOLOGY REPORT (SQ) ---
XR ABDOMEN SUPINE AND ERECT WITH CHEST (ABD ACUTE SERIES) HISTORY: Vomiting/Obstruction. COMPARISON: None. FINDINGS/IMPRESSION: Copious stool throughout the colon and rectum; correlate clinically for constipation. Nonobstructive bowel gas pattern. No air-fluid levels or pneumoperitoneum on the upright view. Lungs are clear. No pleural effusions. Osseous structures are intact.
[2017-12-07 23:59] VITALS: BP 212/86
[2017-12-08] MEDS ORDERED: LACTULOSE SYRUP 20 GM/30 ML UDCUP PO ONE (00:04)
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
== END 2017-12-08 00:33 | disposition home or self-care (01) ==
LOC: ER 20:18
DX: K59.01 Slow transit constipation (principal); I12.0 Hypertensive chronic kidney disease with stage 5 chronic kidney disease or end stage renal disease; E11.22 Type 2 diabetes mellitus with diabetic chronic kidney disease; N18.6 End stage renal disease; Z99.2 Dependence on renal dialysis; Z91.15 Patient's noncompliance with renal dialysis; E11.51 Type 2 diabetes mellitus with diabetic peripheral angiopathy without gangrene; R11.2 Nausea with vomiting, unspecified; F17.210 Nicotine dependence, cigarettes, uncomplicated
CPT/HCPCS: 99284; 36415; 85025; 80048; 74022; A9270 ×2; S0119

== ENCOUNTER 2017-12-08 10:59 | Emergency (ER) | payer MEDICARE, MEDICAID ==
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
--- NOTE | 2017-12-08 12:31 | RADIOLOGY REPORT (SQ) ---
EXAM DESCRIPTION: CHEST SINGLE VIEW COMPLETED DATE/TIME: 12/08/2017 12:16 pm REASON FOR STUDY: sob COMPARISON: 06/09/2016 EXAM PARAMETERS: NUMBER OF VIEWS: One view. TECHNIQUE: Single frontal radiographic view of the chest acquired. RADIATION DOSE: NA LIMITATIONS: None. FINDINGS: LUNGS AND PLEURA: No opacities, masses or pneumothorax. No pleural effusion. MEDIASTINUM AND HILAR STRUCTURES: No masses. Contour normal. HEART AND VASCULAR STRUCTURES: Heart normal in size. Normal vasculature. BONES: No acute findings. HARDWARE: None in the chest. OTHER: No other significant finding. IMPRESSION: NO ACUTE RADIOGRAPHIC FINDING IN THE CHEST. TECHNICAL DOCUMENTATION: JOB ID: [id number] [employer]- All Rights Reserved Reading location - IP/workstation name: [email or web address]
--- NOTE | 2017-12-08 12:55 | ER Document Report ---
ED General - General Chief Complaint: Nausea/Vomiting Stated Complaint: VOMITING/DIALYSIS Time Seen by Provider: 12/08/17 11:46 Mode of Arrival: Ambulatory Notes: 67-year-old male to the emergency department for the third time for evaluation of not feeling well. Patient is a renal failure patient on dialysis. Went to dialysis on Sunday of last week. Is currently on Kayexalate. States he his having nausea and vomiting does not like to take the Kayexalate because it makes have diarrhea. Has any chest pain or shortness of breath at this time. TRAVEL OUTSIDE OF THE [place] IN LAST 30 DAYS: No - HPI Onset: Last week Onset/Duration: Gradual - Related Data Allergies/Adverse Reactions: No Known Allergies Allergy (Verified 12/08/17 11:00) Past Medical History - General Information source: Patient - Social History Smoking Status: Current Every Day Smoker Chew tobacco use (# tins/day): No Frequency of alcohol use: None Drug Abuse: None Family History: Reviewed & Not Pertinent, DM Patient has suicidal ideation: No Patient has homicidal ideation: No - Past Medical History Cardiac Medical History: Reports: Hx Hypertension, Hx Peripheral Vascular Disease Denies: Hx Coronary Artery Disease, Hx Heart Attack Pulmonary Medical History: Reports: Hx Pneumonia Denies: Hx Asthma, Hx Bronchitis, Hx COPD Neurological Medical History: Denies: Hx Cerebrovascular Accident, Hx Seizures Endocrine Medical History: Reports: Hx Diabetes Mellitus Type 1, Hx Diabetes Mellitus Type 2 Renal/ Medical History: Reports: Hx End Stage Renal Disease, Hx Hemodialysis - Sunday, Sunday, and Sunday. Denies: Hx Peritoneal Dialysis Musculoskeletal Medical History: Reports Hx Arthritis - Bilat legs Psychiatric Medical History: Denies: Hx Depression Past Surgical History: Reports: Hx Neurologic Surgery - back BIOPSY, Hx Vascular Surgery - AV FISTULA ARAMIS. Denies: Hx Pacemaker - Immunizations Hx Diphtheria, Pertussis, Tetanus Vaccination: Yes Hx Pneumococcal Vaccination: 03/26/06 Review of Systems - Review of Systems Notes: Constitutional: denies: Chills, Diaphoresis, Fever, Malaise, Weakness EENT: denies: Eye discharge, Blurred vision, Tearing, Double vision, Nose congestion, Nose discharge, Throat swelling, Mouth pain Cardiovascular: denies: Palpitations, Heart racing, Orthopnea, Dyspnea, Chest pain Respiratory: denies: Cough, Hurts to breathe, Wheezing, Shortness of breath Gastrointestinal: Patient is complaining of: Abdominal pain, Diarrhea, Nausea, Vomiting Genitourinary: denies: Burning, Dysuria, Discharge, Frequency, Flank pain, Hematuria Musculoskeletal: denies: Joint pain, Joint swelling, Muscle pain, Muscle stiffness, back pain Hematologic/Lymphatic: denies: Anemia, Easy bleeding, Easy bruising, Blood clots Neurological/Psychological: denies: Confusion, Dementia, Depression, Loss of consciousness Skin: No lesions, no masses, no skin breakdown, no abscesses Physical Exam - Vital signs Vitals: Temp Pulse Resp BP Pulse Ox 97.7 F 108 H 18 184/93 H 98 12/08/17 11:04 12/08/17 11:04 12/08/17 11:04 12/08/17 11:04 12/08/17 11:04 Interpretation: Tachycardic - General General appearance: Appears well, Alert - HEENT Head: Normocephalic, Atraumatic Eyes: Normal Pupils: PERRL - Respiratory Respiratory status: No respiratory distress Chest status: Nontender Breath sounds: Normal Chest palpation: Normal - Cardiovascular Rhythm: Tachycardia Heart sounds: Normal auscultation Murmur: No - Abdominal Inspection: Normal Distension: No distension Bowel sounds: Normal Tenderness: Nontender Organomegaly: No organomegaly - Back Back: Normal, Nontender - Extremities General upper extremity: Normal inspection, Nontender, Normal color, Normal ROM , Normal temperature, Other - Right upper extremity with AV fistula with palpable thrill and audible bruit General lower extremity: Normal inspection, Nontender, Normal color, Normal ROM , Normal temperature, Normal weight bearing. No: Janice's sign - Neurological Neuro grossly intact: Yes Cognition: Normal Orientation: AAOx4 Spencer Coma Scale Eye Opening: Spontaneous Spencer Coma Scale Verbal: Oriented Hallie Coma Scale Motor: Obeys Commands Hallie Coma Scale Total: 15 Speech: Normal Motor strength normal: LUE, RUE, LLE, RLE Sensory: Normal - Psychological Associated symptoms: Normal affect, Normal mood - Skin Skin Temperature: Warm Skin Moisture: Dry Skin Color: Normal Course - Re-evaluation Re-evalutation: 12/08/17 17:01 Patient's potassium is 5.1. Still maintaining his potassium at a slightly high level. Vomiting up the Kayexalate. Extremely hypertensive. Not responding well to clonidine. Will place on some nitroglycerin paste at this time. Will attempt to transfer patient as soon as possible as no dialysis is available at our facility 12/08/17 17:04 Laboratory 12/08/17 12/08/17 12/08/17 13:06 13:06 13:06 WBC 13.2 H RBC 4.77 Hgb 15.3 D Hct 45.1 MCV 94 MCH 32.0 MCHC 33.9 RDW 15.2 H Plt Count 301 Seg Neutrophils % 89.2 H Lymphocytes % 6.2 L Monocytes % 3.9 Eosinophils % 0.1 Basophils % 0.6 Absolute Neutrophils 11.8 H Absolute Lymphocytes 0.8 Absolute Monocytes 0.5 Absolute Eosinophils 0.0 Absolute Basophils 0.1 Sodium Cancelled Potassium Cancelled Chloride Cancelled Carbon Dioxide Cancelled Anion Gap Cancelled BUN Cancelled Creatinine Cancelled Est GFR ( Amer) Cancelled Est GFR (Non-Af Amer) Cancelled Glucose Cancelled Calcium Cancelled Total Bilirubin Cancelled Direct Bilirubin Cancelled Neonat Total Bilirubin Cancelled Neonat Direct Bilirubin Cancelled Neonat Indirect Bili Cancelled AST Cancelled ALT Cancelled Alkaline Phosphatase Cancelled Troponin I Cancelled NT-Pro-B Natriuret Pep Cancelled Total Protein Cancelled Albumin Cancelled Lipase Cancelled 12/08/17 12/08/17 12/08/17 13:35 13:35 14:55 WBC RBC Hgb Hct MCV MCH MCHC RDW Plt Count Seg Neutrophils % Lymphocytes % Monocytes % Eosinophils % Basophils % Absolute Neutrophils Absolute Lymphocytes Absolute Monocytes Absolute Eosinophils Absolute Basophils Sodium Cancelled 141.4 Potassium Cancelled 5.1 H Chloride Cancelled 99 Carbon Dioxide Cancelled 19 L Anion Gap Cancelled 23 H BUN Cancelled 108 H D Creatinine Cancelled 18.18 H Est GFR ( Amer) Cancelled 3 L Est GFR (Non-Af Amer) Cancelled 3 L Glucose Cancelled 230 H Calcium Cancelled 9.8 Total Bilirubin Cancelled 1.0 Direct Bilirubin Cancelled 1.0 H Neonat Total Bilirubin Cancelled Not Reportable Neonat Direct Bilirubin Cancelled Not Reportable Neonat Indirect Bili Cancelled Not Reportable AST Cancelled 32 ALT Cancelled 18 L Alkaline Phosphatase Cancelled 126 Troponin I Cancelled NT-Pro-B Natriuret Pep 58061 H Total Protein Cancelled 7.3 Albumin Cancelled 4.0 Lipase Cancelled 164.8 12/08/17 15:45 WBC RBC Hgb Hct MCV MCH MCHC RDW Plt Count Seg Neutrophils % Lymphocytes % Monocytes % Eosinophils % Basophils % Absolute Neutrophils Absolute Lymphocytes Absolute Monocytes Absolute Eosinophils Absolute Basophils Sodium Potassium Chloride Carbon Dioxide Anion Gap BUN Creatinine Est GFR ( Amer) Est GFR (Non-Af Amer) Glucose Calcium Total Bilirubin Direct Bilirubin Neonat Total Bilirubin Neonat Direct Bilirubin Neonat Indirect Bili AST ALT Alkaline Phosphatase Troponin I 0.056 NT-Pro-B Natriuret Pep Total Protein Albumin Lipase 12/08/17 18:13 Chest X-Ray 12/08/17 11:53 IMPRESSION: NO ACUTE RADIOGRAPHIC FINDING IN THE CHEST. KUB X-Ray 12/08/17 15:10 IMPRESSION: NO RADIOGRAPHIC EVIDENCE FOR ACUTE ABDOMINAL DISEASE. Patient with extremely elevated blood pressure. Potassium is still slightly elevated but not exceedingly bad. Patient has a chronic elevated troponin which is actually less than it normally is. EKG does not show any significant changes. At this time I am continuing to try to find clarification on the dialysis opportunities in this town tomorrow. Patient may need to stay here until dialysis can be arranged for temporizing measures if needed. Vomiting is controlled at this time with Zofran and Phenergan. Nitro patch placed on patient for hypertension. Clonidine given as well. 12/08/17 18:24 Pressure continues to elevate. Patient needs dialysis however dialysis is unavailable. At this time I am placing patient on a nicardipine drip. Discussed case with hospitalist as well as lighting adviser. 12/08/17 18:59 Aspirin [Aspirin EC] 81 mg PO DAILY 07/19/16 Atorvastatin Calcium [Lipitor 20 mg Tablet] 20 mg PO QHS 07/19/16 B Complex W-C No.20/Folic Acid [Benson Caps Softgel] 1 cap PO DAILY 07/19/16 Clonidine HCl [Catapres 0.3 mg Tablet] 0.3 mg PO Q8 07/19/16 Docusate Sodium [Colace 100 mg Capsule] 100 mg PO BID 07/19/16 Furosemide [Lasix] 40 mg PO DAILY 07/19/16 Irbesartan [Avapro] 75 mg PO QHS 07/19/16 Nifedipine [Procardia Xl] 90 mg PO Q12 07/19/16 Omeprazole 20 mg PO BID 07/19/16 Calcium Acetate [Phoslo 667 mg Capsule] 1,334 mg PO MEALS 12/18/16 Finasteride [Proscar 5 mg Tablet] 5 mg PO NOON 12/18/16 Tamsulosin HCl 0.4 mg PO DAILY 12/18/16 Isosorb Dinit/Hydralazine HCl [Bidil 20-37.5 mg Tablet] 1 tab PO Q8 09/11/17 12/08/17 19:00 Attempting to get patient transferred to [facility] at this time. 12/08/17 22:04 he has been accepted to [facility], Dr. Gomez - Vital Signs Vital signs: Temp Pulse Resp BP Pulse Ox 97.7 F 108 H 17 165/75 H 94 12/08/17 11:04 12/08/17 11:04 12/08/17 20:01 12/08/17 20:01 12/08/17 20:03 - Laboratory Result Diagrams: 12/08/17 13:06 12/08/17 14:55 Laboratory results interpreted by me: 12/08/17 12/08/17 12/08/17 13:06 13:35 14:55 WBC 13.2 H RDW 15.2 H Seg Neutrophils % 89.2 H Lymphocytes % 6.2 L Absolute Neutrophils 11.8 H Potassium 5.1 H Carbon Dioxide 19 L Anion Gap 23 H BUN 108 H D Creatinine 18.18 H Est GFR ( Amer) 3 L Est GFR (Non-Af Amer) 3 L Glucose 230 H Direct Bilirubin 1.0 H ALT 18 L NT-Pro-B Natriuret Pep 07278 H - EKG Interpretation by Pr EKG shows normal: Sinus rhythm, ST-T Waves [place]/QRS: Left axis deviation Voltage: Consistant with LVH When compared to previous EKG there are: No significant change Critical Care Note - Critical Care Note Total time excluding time spent on procedures (mins): 75 Comments: Retention, tachycardia, hyperkalemia, renal failure on dialysis, consultation with specialist, coordination of care. Discharge - Discharge Clinical Impression: Acute renal failure on dialysis, Hypertensive emergency, Hyperkalemia, Uremic encephalopathy Condition: Serious Disposition: [place] Referrals: ALEKS HARKINS MD [Primary Care Provider] - Follow up as needed
[2017-12-08] MEDS ORDERED: CLONIDINE HCL 0.1 MG TABLET PO ONE (13:20)
[2017-12-08 13:38] LABS: ABSOLUTE BASOPHILS # (AUTO) 0.1 10^3/uL (0.0-0.2); ABSOLUTE LYMPHOCYTES (AUTO) 0.8 10^3/uL (0.5-4.7); ABSOLUTE MONOCYTES (AUTO) 0.5 10^3/uL (0.1-1.4); ABSOLUTE NEUT (AUTO) 11.8 10^3/uL (1.7-8.2); BASOPHILS % (AUTO) 0.6 % (0-2); EOSINOPHILS % (AUTO) 0.1 % (0-6); HEMATOCRIT 45.1 % (37.9-51.0); LYMPHOCYTES % (AUTO) 6.2 % (13-45); MEAN CORPUSCULAR HGB CONC 33.9 g/dL (32.0-36.0); MEAN CORPUSCULAR VOLUME 94 fl (80-97); MONOCYTES % (AUTO) 3.9 % (3-13); PLATELET COUNT 301 10^3/uL (150-450); RED BLOOD COUNT 4.77 10^6/uL (4.35-5.55); RED CELL DISTRIBUTION WIDTH 15.2 % (11.5-14.0); SEGMENTED NEUTROPHILS % (AUTO) 89.2 % (42-78); TOTAL CELLS COUNTED % (AUTO) 100 %; WHITE BLOOD COUNT 13.2 10^3/uL (4.0-10.5)
[2017-12-08 13:39] LABS: HEMOGLOBIN 15.3 g/dL (13.5-17.0)
[2017-12-08] MEDS ORDERED: ONDANSETRON HCL INJ/PF 4 MG/2 ML SDV IV ONE (14:57)
[2017-12-08 15:41] LABS: ALANINE AMINOTRANSFERASE 18 U/L (21-72); ALKALINE PHOSPHATASE 126 U/L (38-126); ASPARTATE AMINO TRANSFERASE 32 U/L (17-59); CALCIUM 9.8 mg/dL (8.4-10.2); GLUCOSE 230 mg/dL (75-110); LIPASE 164.8 U/L (23-300); POTASSIUM 5.1 mmol/L (3.6-5.0); TOTAL PROTEIN 7.3 g/dL (6.3-8.2)
[2017-12-08 15:55] LABS: ANION GAP 23 (5-19); BLOOD UREA NITROGEN 108 mg/dL (7-20); CARBON DIOXIDE 19 mmol/L (22-30); CHLORIDE 99 mmol/L (98-107); SODIUM 141.4 mmol/L (137-145)
[2017-12-08] MEDS ORDERED: SODIUM POLYSTYRENE SULFONATE 15 GM/60 ML PO ONE (16:11)
[2017-12-08] MEDS ORDERED: PROMETHAZINE HCL INJ 50 MG/1 ML VIAL IM ONE (16:13)
--- NOTE | 2017-12-08 16:15 | RADIOLOGY REPORT (SQ) ---
EXAM DESCRIPTION: KUB/ABDOMEN (SINGLE VIEW) COMPLETED DATE/TIME: 12/08/2017 4:07 pm REASON FOR STUDY: abd pain,vomintg COMPARISON: None. NUMBER OF VIEWS: One view. TECHNIQUE: Supine radiographic image of the abdomen acquired. LIMITATIONS: None. FINDINGS: BOWEL GAS PATTERN: Normal bowel gas pattern. No dilated loops. CALCIFICATIONS: No suspicious calcifications. SOFT TISSUES: No gross mass or suggestion of organomegaly. HARDWARE: None in the abdomen. BONES: No acute fracture. No worrisome bone lesions. OTHER: No other significant finding. IMPRESSION: NO RADIOGRAPHIC EVIDENCE FOR ACUTE ABDOMINAL DISEASE. TECHNICAL DOCUMENTATION: JOB ID: [id number] [employer]- All Rights Reserved Reading location - IP/workstation name: [email or web address]
[2017-12-08] MEDS ORDERED: NITROGLYCERIN 2% OINTMENT 1 GM PACKET TP ONE (17:00)
[2017-12-08] MEDS: NICARDIPINE HCL RTU, ISO-OS 20 MG/200 ML RTUINJ IV PRN (18:42)
--- NOTE | 2017-12-08 20:40 | RADIOLOGY REPORT (SQ) ---
EXAM DESCRIPTION: CT HEAD WITHOUT COMPLETED DATE/TIME: 12/08/2017 8:24 pm REASON FOR STUDY: hypertensive emergency, vomiting COMPARISON: None. TECHNIQUE: Axial images acquired through the brain without intravenous contrast. Images reviewed wi th bone, brain and subdural windows. Images stored on PACS. All CT scanners at this facility use dose modulation, iterative reconstruction, and/or weight based d osing when appropriate to reduce radiation dose to as low as reasonably achievable (ALARA). [facility]: Dose Right [facility]: CareDose [facility]: Dose Right [facility]: Teradose 4D [facility]: [employer] RADIATION DOSE: CT Rad equipment meets quality standard of care and radiation dose reduction techniq ues were employed. CTDIvol: 53.2 - 55.2 mGy. DLP: 2019 mGy-cm. mGy. LIMITATIONS: Motion artifact. FINDINGS: VENTRICLES: Mildly prominent. CEREBRUM: No mass effect. No hemorrhage. No midline shift. Areas of low density in the white matte r most likely due to chronic micro-vascular ischemic change. No evidence for acute territorial infar ction. CEREBELLUM: No hemorrhage. No alteration of density. No evidence for acute infarction. EXTRAAXIAL SPACES: Age-related involutional change. No fluid collections. ORBITS AND GLOBE: Symmetrical contour of the globes. CALVARIUM: No depressed fracture. PARANASAL SINUSES: No air-fluid level. SOFT TISSUES: No hematoma. IMPRESSION: MILD CHRONIC MICROVASCULAR ISCHEMIA. NO ACUTE IMAGING FINDINGS. EVIDENCE OF ACUTE STROKE: NO. COMMENT: Quality ID # [id number]: Final reports with documentation of one or more dose reduction techniques (e.g., Automated exposure control, adjustment of the mA and/or kV according to patient size, use of iterative reconstruction technique) TECHNICAL DOCUMENTATION: JOB ID: [id number] 2010 [employer]- All Rights Reserved Reading location - IP/workstation name: [email or web address]
--- NOTE | 2017-12-08 21:37 | EKG REPORT ---
SEVERITY:- ABNORMAL ECG - SINUS RHYTHM LEFT ATRIAL ABNORMALITY PROBABLE LEFT VENTRICULAR HYPERTROPHY ANTERIOR Q WAVES, POSSIBLY DUE TO LVH : Confirmed by: Elsa Quick 08-Dec-2017 21:36:22
[2017-12-09] MEDS: NICARDIPINE HCL RTU, ISO-OS 20 MG/200 ML RTUINJ IV PRN ×3 (01:20→09:05)
[2017-12-09] MEDS ORDERED: ONDANSETRON HCL INJ/PF 4 MG/2 ML SDV IV ONE ×2 (05:41→08:37)
[2017-12-09 06:34] LABS: BLOOD UREA NITROGEN 119 mg/dL (7-20); CALCIUM 8.7 mg/dL (8.4-10.2); POTASSIUM 4.4 mmol/L (3.6-5.0)
[2017-12-09 06:43] LABS: CARBON DIOXIDE 17 mmol/L (22-30); CHLORIDE 88 mmol/L (98-107); SODIUM 130.7 mmol/L (137-145)
[2017-12-09 07:03] LABS: GLUCOSE 622 mg/dL (75-110)
[2017-12-09 07:13] LABS: ANION GAP 26 (5-19)
[2017-12-09] MEDS ORDERED: INSULIN REG, HUMAN 100 UNIT/ML 3 ML VIAL (PYX) SUBCUT ONE (07:16)
[2017-12-09] MEDS ORDERED: INSULIN GLARGINE,HUM.REC.ANLOG 1,000 UNIT/10 ML UNIT SUBCUT ONE (07:17)
[2017-12-09] MEDS ORDERED: NICARDIPINE HCL RTU, ISO-OS 20 MG/200 ML RTUINJ IV ONE (09:03)
[2017-12-09 10:40] VITALS: BP 141/64
== END 2017-12-09 11:04 | disposition short-term general hospital (02) ==
LOC: ER 10:59
DX: I12.0 Hypertensive chronic kidney disease with stage 5 chronic kidney disease or end stage renal disease (principal); E11.22 Type 2 diabetes mellitus with diabetic chronic kidney disease; N18.6 End stage renal disease; N17.9 Acute kidney failure, unspecified; Z99.2 Dependence on renal dialysis; Z79.4 Long term (current) use of insulin; R11.2 Nausea with vomiting, unspecified; F17.200 Nicotine dependence, unspecified, uncomplicated
CPT/HCPCS: 93005; 99285; 96372; 96375; 96365; 96366; 36415; 82962; 83690; 85025; 80048; 80053; 84484; 83880; 71045; 74018; 70450; 93010; A9270 ×2; J2550; J2405 ×2; J3490 ×2

== ENCOUNTER 2018-01-01 07:19 | Day surgery (SDC) | payer MEDICARE, MEDICAID ==
[~2018-01-01 07:19] MED LIST changes: +DIAZEPAM 5 MG TABLET PO PRN; -FENTANYL CITRATE INJ/PF 100 MCG/2 ML AMPUL ONE; -LIDOCAINE 0.5% INJ-PF (5 MG/ML) 50 ML SDV ONE; -LIDOCAINE 2% INJ-PF (20 MG/ML) 10 ML AMPUL ONE; -MIDAZOLAM 2 MG/2 ML INJ ONE; +OXYCODONE-ACETAMINOPHEN 5-325 MG TABLET PO PRN; -PROPOFOL INJ 200 MG/20 ML VIAL IV ONE
[2018-01-01] MEDS ORDERED: DIAZEPAM 5 MG TABLET ONE (07:54)
[2018-01-01] MEDS ORDERED: OXYCODONE-ACETAMINOPHEN 5-325 MG TABLET ONE (07:55)
[2018-01-01 07:59] LABS: HEMATOCRIT 31.9 % (37.9-51.0); HEMOGLOBIN 10.9 g/dL (13.5-17.0); MEAN CORPUSCULAR HEMOGLOBIN 32.2 pg (27.0-33.4); MEAN CORPUSCULAR HGB CONC 34.1 g/dL (32.0-36.0); MEAN CORPUSCULAR VOLUME 94 fl (80-97); PLATELET COUNT 229 10^3/uL (150-450); RED BLOOD COUNT 3.39 10^6/uL (4.35-5.55); RED CELL DISTRIBUTION WIDTH 14.7 % (11.5-14.0); WHITE BLOOD COUNT 7.9 10^3/uL (4.0-10.5)
[2018-01-01 08:27] LABS: ANION GAP 10 (5-19); BLOOD UREA NITROGEN 25 mg/dL (7-20); CALCIUM 9.3 mg/dL (8.4-10.2); CARBON DIOXIDE 32 mmol/L (22-30); CHLORIDE 95 mmol/L (98-107); GLUCOSE 107 mg/dL (75-110); POTASSIUM 3.3 mmol/L (3.6-5.0); SODIUM 137.4 mmol/L (137-145)
[2018-01-01] MEDS ORDERED: CLONIDINE HCL 0.2 MG TABLET PO ONE (08:45)
[2018-01-01] MEDS ORDERED: NIFEDIPINE 30 MG TAB.ER.24 PO ONE (09:00)
[2018-01-01] MEDS ORDERED: LIDOCAINE 0.5% INJ-PF (5 MG/ML) 50 ML SDV ONE (11:31)
[2018-01-01] MEDS ORDERED: HEPARIN SOD (PORCINE) 5,000 UNIT/ML 1 ML SYRINGE ONE (11:32)
[2018-01-01] MEDS ORDERED: FENTANYL CITRATE INJ/PF 100 MCG/2 ML AMPUL ONE (11:32)
[2018-01-01] MEDS ORDERED: MIDAZOLAM 2 MG/2 ML INJ ONE (11:32)
--- NOTE | 2018-01-01 12:20 | PDOC H&P ---
General Chief Complaint: This patient has been referred across for intervention because his left arm transposed basilic vein fistula has demonstrated markedly decreased flows. - Diagnosis (1) Dialysis AV fistula malfunction Is this a Current Diagnosis?: Yes (2) Diabetes mellitus type II, controlled Is this a Current Diagnosis?: Yes (5) Hypertension Is this a Current Diagnosis?: Yes - Current Medications/Allergies Home Medications: Aspirin [Aspirin EC] 81 mg PO DAILY 07/19/16 Atorvastatin Calcium [Lipitor 20 mg Tablet] 20 mg PO QHS 07/19/16 B Complex W-C No.20/Folic Acid [Dez Caps Softgel] 1 cap PO DAILY 07/19/16 Clonidine HCl [Catapres 0.3 mg Tablet] 0.3 mg PO Q8 07/19/16 Docusate Sodium [Colace 100 mg Capsule] 100 mg PO BID 07/19/16 Furosemide [Lasix] 40 mg PO DAILY 07/19/16 Irbesartan [Avapro] 75 mg PO QHS 07/19/16 Nifedipine [Procardia Xl] 90 mg PO Q12 07/19/16 Omeprazole 20 mg PO BID 07/19/16 Calcium Acetate [Phoslo 667 mg Capsule] 1,334 mg PO MEALS 12/18/16 Finasteride [Proscar 5 mg Tablet] 5 mg PO NOON 12/18/16 Tamsulosin HCl 0.4 mg PO DAILY 12/18/16 Isosorb Dinit/Hydralazine HCl [Bidil 20-37.5 mg Tablet] 1 tab PO Q8 09/11/17 Allergies/Adverse Reactions: No Known Allergies Allergy (Verified 12/08/17 11:00) Past Medical History Cardiac Medical History: Reports: Hypertension, Peripheral Vascular Disease Denies: Coronary Artery Disease, Myocardial Infarction Pulmonary Medical History: Reports: Chronic Obstructive Pulmonary Disease (COPD) , Pneumonia Denies: Asthma, Bronchitis Neurological Medical History: Denies: Seizures Endocrine Medical History: Reports: Diabetes Mellitus Type 1, Diabetes Mellitus Type 2 Renal/ Medical History: Reports: End Stage Renal Disease Musculoskeltal Medical History: Reports: Arthritis - Bilat legs Psychiatric Medical History: Denies: Depression Hematology: Denies: Anemia Past Surgical History Past Surgical History: Reports: Vascular Surgery - AV FISTULA ARAMIS Denies: Pacemaker Family History Family History: Reviewed & Not Pertinent, DM Parental Family History Reviewed: No Children Family History Reviewed: No Sibling(s) Family History Reviewed.: No Social History Smoking Status: Current Every Day Smoker Frequency of Alcohol Use: None Hx Recreational Drug Use: No Drugs: None Hx Prescription Drug Abuse: No Physical Exam Vital Signs: Temp Pulse Resp BP Pulse Ox 98.4 F 77 16 141/63 H 99 01/01/18 08:20 01/01/18 09:44 01/01/18 09:44 01/01/18 09:44 01/01/18 09:44 Intake & Output 12/31/17 01/01/18 01/02/18 06:59 06:59 06:59 Weight 79.1 kg 79.1 kg Additional comments: Constitutional: Well-developed well-nourished -[place]wegian gentleman. No apparent acute distress. Eyes: Mucous membranes pink and moist, pupils equal and reactive to light. Conjunctiva normal. Cornea normal. ENT: Hearing grossly normal. External pinna normal to inspection. Teeth partly intact. Tongue normal to inspection. Cardiac: Heart sounds normal. Respiratory breath sounds are present bilaterally, normal. Normal respiratory effort. Sk Psychiatric: Judgment, memory, insight seem normal. Mood is pleasant and appropriate. Extremities: Upper extremities show normal range of movement. Pulses present noted to the radial arteries. Capillary refill normal. No cyanosis noted. No muscle wasting noted. Left arm transposed basilic vein fistula noted. Considerably softer than expected. Collapses easily with proximal pressure. Suggestive of inflow stenosis. Impression/Plan Plan: This patient with end-stage renal disease has a malfunctioning AV fistula. Angiogram and possibly angioplasty is recommended. He has had these several times in the past for fistula maintenance. He wishes to proceed. He understands the risks benefits and expected outcome.
--- NOTE | 2018-01-01 12:23 | Discharge Summary ---
Discharge Summary (SDC) - Discharge Final Diagnosis: #1 malfunctioning AV fistula left arm transposed basilic. 2. End-stage renal disease on hemodialysis. 3. Diabetes mellitus type mellitus type II. 4. Coronary artery disease. 5. Hypertension Date of Surgery: 01/01/18 Discharge Date: 01/01/18 Condition: Fair Treatment or Instructions: Discharge home [after recovery per ASU criteria]. Diet , [renal],as tolerated, when fully awake advance as tolerated. Activities within moderation encouraged. Follow up in my office by appointment in about [1 month. Call for appointment. Leave wounds [covered], [keep clean and dry, until hemodialysis. Meds per med rec. May shower [in 48 hrs], [try to keep operated area as dry as possible]. Referrals: ALEKS HARKINS MD [Primary Care Provider] - Discharge Diet: Other (Comments) - Renal. Respiratory Treatments at Home: Deep Breathing/Coughing Discharge Activity: Activity As Tolerated Report the Following to Your Physician Immediately: Shortness of Breath, Unusual Bleeding
--- NOTE | 2018-01-01 12:29 | Operative Report ---
Operative Report DATE OF SURGERY: 01/01/18 PREOPERATIVE DIAGNOSIS: #1 malfunctioning AV fistula left arm transposed basilic. 2. End-stage renal disease on hemodialysis. 3. Diabetes mellitus type mellitus type II. 4. Coronary artery disease. 5. Hypertension POSTOPERATIVE DIAGNOSIS: #1 malfunctioning AV fistula left arm transposed basilic. 2. End-stage renal disease on hemodialysis. 3. Diabetes mellitus type mellitus type II. 4. Coronary artery disease. 5. Hypertension OPERATION: 1. Needle introduction of the fistula. 2. Angioplasty and fistula. 3. Angiogram and interpretation. SURGEON: LALI ROBINS GLASS BEVELLER: None. ANESTHESIA: Moderate Sedation TISSUE REMOVED OR ALTERED: Not applicable. COMPLICATIONS: None. ESTIMATED BLOOD LOSS: 2 mL. INTRAOPERATIVE FINDINGS: Of a well founded left arm transposed basilic vein fistula. Fair amount of ectasia noted in the frequently accessed portions, about 8 cm in length. About 2 cm in diameter. The fistula itself seems comparatively soft distally, proximally hyper pulsatile. Consistent with inflow disease. Angiogram demonstrates a normal caliber inflow artery. No gross defects noted. The first 4 cm somewhat tortuous and there is an area of collaterals which suggests at least relative stenosis. Angioplasty with a 5 mm balloon in the affected area showed no obvious waist. Nevertheless after dilatation of the segment there was marked improvement with almost disappearance of the collaterals and with improved and more normal pulse to palpation in the fistula. A cephalad angiogram was quite normal to the superior vena cava. PROCEDURE: PROCEDURE: After verifying the procedure and having obtained informed consent, the patient's right arm and forearm were prepared with Chlorhexidine and draped out with sterile linen. Local anesthesia infiltrated. Percutaneous access into the fistula ,[retrograde], obtained about [20 cm] from the arteriovenous anastomosis using a micro puncture needle followed by micro puncture wire and then a micro puncture catheter. Angiogram was now done to the catheter to demonstrate the cephalad findings which are as above. Somewhat sluggish flow. findings. A 0.035 [place] wire was inserted, and over this, a 6 Pashto short introducer was placed. Angiogram was done, Angioplasty was elected., this was followed by a [5 mm] angioplasty balloon . Angioplasty was now done at the proximal 5-6 cm of fistula, and perianastomotic segment. This was done very carefully using a 3 mils syringe and sustained for 1-2 minutes. Completion angiogram demonstrated [satisfactory result]. The instrumentation was now withdrawn over hand pressure for 10 minutes . Dressings applied, procedure concluded. Exposure time: 2 minutes Radiation: 16.8 tr-carl. Contrast: 25 mL of Isovue-M 300 low osmolality. DICTATING PHYSICIAN: LALI ARROYO M.D. cc: LALI ARROYO M.D. ([id number]) >>
--- NOTE | 2018-01-01 13:28 | RADIOLOGY REPORT (SQ) ---
EXAM DESCRIPTION: FISTULAGRAM W/PLASTY COMPLETED DATE/TIME: 01/01/2018 12:26 pm REASON FOR STUDY: T82.858A T82.858A STENOSIS OF OTHER VASCULAR PROSTH DEV/GRFT, INIT COMPARISON: 12/18/2016. FLUOROSCOPY TIME: 2.0 minutes. 24 images saved to PACS. TECHNIQUE: Intra-operative images acquired during surgical procedure to evaluate progress. NUMBER OF IMAGES: 0.4 sets of images. LIMITATIONS: None. FINDINGS: Imaging in fluoroscopy during right upper extremity dialysis access evaluation and plasty by Dr. Coulter . Please refer to the operative report for further details. IMPRESSION: INTRA PROCEDURAL IMAGING ABOVE . COMMENT: Quality ID [id number]: Final reports for procedures using fluoroscopy that document radiation exp osure indices, or exposure time and number of fluorographic images (if radiation exposure indices are not available) Please consult full operative report of the attending physician for description of the procedure. TECHNICAL DOCUMENTATION: JOB ID: [id number] [employer]- All Rights Reserved Reading location - IP/workstation name: [email or web address]
[2018-01-01 15:16] VITALS: BP 137/61
--- NOTE | 2018-01-01 19:54 | EKG REPORT ---
SEVERITY:- ABNORMAL ECG - SINUS RHYTHM PROBABLE LEFT ATRIAL ABNORMALITY BORDERLINE LEFT AXIS DEVIATION CONSIDER ANTEROSEPTAL INFARCT BORDERLINE PROLONGED QT INTERVAL : Confirmed by: Eri Luna MD 01-Jan-2018 19:53:09
== END 2018-01-01 13:40 | disposition home or self-care (01) ==
LOC: CCL 07:19
PROVIDERS: ATTEND Surgery
DX: T82.858A Stenosis of other vascular prosthetic devices, implants and grafts, initial encounter (principal); Y83.2 Surgical operation with anastomosis, bypass or graft as the cause of abnormal reaction of the patient, or of later complication, without mention of misadventure at the time of the procedure; I12.0 Hypertensive chronic kidney disease with stage 5 chronic kidney disease or end stage renal disease; N18.6 End stage renal disease; Z99.2 Dependence on renal dialysis; I73.9 Peripheral vascular disease, unspecified; J44.9 Chronic obstructive pulmonary disease, unspecified; E10.22 Type 1 diabetes mellitus with diabetic chronic kidney disease; F17.210 Nicotine dependence, cigarettes, uncomplicated; M19.90 Unspecified osteoarthritis, unspecified site; I25.10 Atherosclerotic heart disease of native coronary artery without angina pectoris; Z01.818 Encounter for other preprocedural examination
CPT/HCPCS: 36415; 85027; 80048; 36902; 93005; 93010; C1752; C1725; C1887; C1769; J2250; J1644 ×2; A9270 ×4; J3010; J3490

== ENCOUNTER 2018-08-07 16:35 | Emergency (ER) | payer MEDICARE, MEDICAID ==
--- NOTE | 2018-08-07 16:54 | ER Document Report ---
ED Medical Screen (RME) - General Chief Complaint: Arm Problem Stated Complaint: ARM BLEEDING Time Seen by Provider: 08/07/18 16:50 Primary Care Provider: Glenna JERRY MD [Primary Care Provider] - Follow up as needed Mode of Arrival: Medic Information source: Patient Notes: Patient presents from dialysis for bleeding fistula. He received 2000 units of heparin today. Upon finishing dialysis his fistula started bleeding. He reports they put a clamp on it but it was still bleeding. They called EMS and sent him here. Site does not appear to be bleeding actively at this time. I have greeted and performed a rapid initial assessment of this patient. A comprehensive ED assessment and evaluation of the patient, analysis of test results and completion of the medical decision making process will be conducted by additional ED providers. Dictation of this chart was performed using voice recognition software; therefore, there may be some unintended grammatical errors. TRAVEL OUTSIDE OF THE [place] IN LAST 30 DAYS: No - Related Data Allergies/Adverse Reactions: No Known Allergies Allergy (Verified 08/07/18 16:36) Past Medical History - Social History Family history: Reviewed & Not Pertinent - Past Medical History Cardiac Medical History: Reports: Hx Hypertension, Hx Peripheral Vascular Disease Denies: Hx Coronary Artery Disease, Hx Heart Attack Pulmonary Medical History: Reports: Hx COPD, Hx Pneumonia Denies: Hx Asthma, Hx Bronchitis Neurological Medical History: Denies: Hx Cerebrovascular Accident, Hx Seizures Endocrine Medical History: Reports: Hx Diabetes Mellitus Type 1, Hx Diabetes Mellitus Type 2 Renal/ Medical History: Reports: Hx End Stage Renal Disease, Hx Hemodialysis - Sunday, Sunday, and Sunday. Denies: Hx Peritoneal Dialysis Musculoskeltal Medical History: Reports Hx Arthritis - Bilat legs Psychiatric Medical History: Denies: Hx Depression Past Surgical History: Reports: Hx Neurologic Surgery - back BIOPSY, Hx Vascular Surgery - AV FISTULA ARAMIS. Denies: Hx Pacemaker - Immunizations Hx Diphtheria, Pertussis, Tetanus Vaccination: Yes History of Influenza Vaccine for 12/2016 - 05/2017 Season: Yes Physical Exam - Vital signs Vitals: Temp Pulse Resp BP Pulse Ox 98.2 F 73 20 168/62 H 100 08/07/18 16:45 08/07/18 16:45 08/07/18 16:45 08/07/18 16:45 08/07/18 16:45 Course - Vital Signs Vital signs: Temp Pulse Resp BP Pulse Ox 98.2 F 73 20 168/62 H 100 08/07/18 16:45 08/07/18 16:45 08/07/18 16:45 08/07/18 16:45 08/07/18 16:45 Doctor's Discharge - Discharge Referrals: Glenna JERRY MD [Primary Care Provider] - Follow up as needed
--- NOTE | 2018-08-07 19:04 | ER Document Report ---
ED General - General Chief Complaint: Arm Problem Stated Complaint: ARM BLEEDING Time Seen by Provider: 08/07/18 16:50 Primary Care Provider: Glenna JERRY MD [Primary Care Provider] - Follow up as needed Mode of Arrival: Ambulatory Information source: Patient TRAVEL OUTSIDE OF THE [place] IN LAST 30 DAYS: No - HPI Patient complains to provider of: Bleeding at right AV fistula Onset: This afternoon Onset/Duration: Sudden Quality of pain: No pain Severity: None Associated symptoms: None Exacerbated by: Denies Relieved by: Denies Similar symptoms previously: No Recently seen / treated by doctor: No Notes: 68-year-old -[place] male with history of hemodialysis comes in today with right AV fistula bleeding. Apparently he was hemodialyzed today and continue to have bleeding from the right antecubital space. Came in by ambulance. - Related Data Allergies/Adverse Reactions: No Known Allergies Allergy (Verified 08/07/18 16:36) Past Medical History - General Information source: Patient - Social History Smoking Status: Smoker,Current Status Unk Family History: Reviewed & Not Pertinent, DM Patient has suicidal ideation: No Patient has homicidal ideation: No - Past Medical History Cardiac Medical History: Reports: Hx Hypertension, Hx Peripheral Vascular Disease Denies: Hx Coronary Artery Disease, Hx Heart Attack Pulmonary Medical History: Reports: Hx COPD, Hx Pneumonia Denies: Hx Asthma, Hx Bronchitis Neurological Medical History: Denies: Hx Cerebrovascular Accident, Hx Seizures Endocrine Medical History: Reports: Hx Diabetes Mellitus Type 1, Hx Diabetes Mellitus Type 2 Renal/ Medical History: Reports: Hx End Stage Renal Disease, Hx Hemodialysis - Sunday, Sunday, and Sunday. Denies: Hx Peritoneal Dialysis Musculoskeletal Medical History: Reports Hx Arthritis - Bilat legs Psychiatric Medical History: Denies: Hx Depression Past Surgical History: Reports: Hx Neurologic Surgery - back BIOPSY, Hx Vascular Surgery - AV FISTULA ARAMIS. Denies: Hx Pacemaker - Immunizations Hx Diphtheria, Pertussis, Tetanus Vaccination: Yes Hx Pneumococcal Vaccination: 03/26/06 Review of Systems - Review of Systems Notes: Constitutional: No fevers. No chills. EENT: No eye redness. No eye pain. No ear pain. No sore throat. Cardiovascular: No chest pain. No palpitations. Positive bleeding right AV fistula Respiratory: No cough. No shortness of breath. No respiratory distress. Gastrointestinal: No abdominal pain. No nausea, vomiting, or diarrhea. Genitourinary: Atraumatic. No lesions. No pain. No discharge. Musculoskeletal: Atraumatic. No swelling. No deformities. Skin: No rash or lesions. Lymphatic: No swollen lymph nodes. Neurologic: No headache. No syncope. Psychiatric: No suicidal or homicidal ideation. Physical Exam - Vital signs Vitals: Temp Pulse Resp BP Pulse Ox 98.2 F 73 20 168/62 H 100 08/07/18 16:45 08/07/18 16:45 08/07/18 16:45 08/07/18 16:45 08/07/18 16:45 - Notes Notes: General: Well-developed, well-nourished. In no acute distress. Non-toxic appearing. Cardiac: Well-perfused. Regular rate and rhythm. No murmurs, rubs, or gallops. Pulmonary: No respiratory distress. No cyanosis. Bilateral lung fiels are clear to auscultation. Abdominal: Non-distended. Non-rigid. Bowels sounds are present in all four quadrants. No guarding or rebound. HEENT: Head is atraumatic. Conjunctivae not reddened. No tearing. PERRL. EOMI. Orbits atraumatic. No periorbital swelling or erythema. Oropharynx is without erythema, swelling, or exudates. Neck: Supple. No adenopathy. No meningismus. Dermatologic: Warm with good turgor. No rash. Atraumatic. Chest: Atraumatic. No chest wall tenderness to palpation. Musculoskeletal: Moves all extremities well. No range of motion deficits. no muscular or joint tenderness. No paraspinal muscle tenderness. no midline spinal tenderness or step-off. Genitourinary: Examination deferred Neurologic: No gross neurologic deficits. Psychiatric: Normal mood. Vascular: Right AV fistula has stopped bleeding. Dressings in place Course - Re-evaluation Re-evalutation: 08/07/18 19:01 We will go ahead and put a hemostatic type dressing over the AV fistula and re- wrap. We will discharge home - Vital Signs Vital signs: Temp Pulse Resp BP Pulse Ox 98.2 F 73 20 168/62 H 100 08/07/18 16:45 08/07/18 16:45 08/07/18 16:45 08/07/18 16:45 08/07/18 16:45 Discharge - Discharge Clinical Impression: Hemorrhage of arteriovenous fistula Qualifiers: Encounter type: initial encounter Qualified Code(s): T82.838A - Hemorrhage due to vascular prosthetic devices, implants and grafts, initial encounter Condition: Good Disposition: HOME, SELF-CARE Additional Instructions: The fistula was probably bleeding excessively because of the heparin used around the time of hemodialysis. The bleeding appears to have stopped at this time. If it resumes and you cannot stop it by putting compression on it, return to the emergency department. Referrals: Glenna JERRY MD [Primary Care Provider] - Follow up as needed
[2018-08-07 19:30] VITALS: BP 185/64
== END 2018-08-07 21:01 | disposition home or self-care (01) ==
LOC: ER 16:35
DX: T82.838A Hemorrhage due to vascular prosthetic devices, implants and grafts, initial encounter (principal); F17.200 Nicotine dependence, unspecified, uncomplicated; I10 Essential (primary) hypertension; E11.9 Type 2 diabetes mellitus without complications
CPT/HCPCS: 99283

== ENCOUNTER 2018-11-18 18:23 | Inpatient (IN) | payer MEDICARE, MEDICAID ==
--- NOTE | 2018-11-18 19:31 | ER Document Report ---
ED Medical Screen (RME) - General Chief Complaint: Constipation Stated Complaint: CONSTIPATION Time Seen by Provider: 11/18/18 19:26 Primary Care Provider: Glenna JERRY MD [Primary Care Provider] - Follow up as needed TRAVEL OUTSIDE OF THE [place] IN LAST 30 DAYS: No - HPI Notes: 11/18/18 19:29 68-year-old male to the emergency department with complaints of constipation for the past week. He states that he feels like his abdomen is bloated. He states occasionally it will cramp. He admits that a couple nights ago he had some episodes of vomiting. He states that his last bowel movement was over 1 week ago and it was busch in color. Denies any fevers, chills, chest pain, shortness of breath. He states that he is tried [id number] laxatives and has not had any relief. I performed a medical screening exam on this patient. We will go ahead and order basic labs. Have him go back to the main side for further evaluation and management by main side provider. - Related Data Allergies/Adverse Reactions: No Known Allergies Allergy (Verified 08/07/18 16:36) Past Medical History - Social History Frequency of alcohol use: None Drug Abuse: None Family history: Reviewed & Not Pertinent - Past Medical History Cardiac Medical History: Reports: Hx Hypertension, Hx Peripheral Vascular Disease Denies: Hx Coronary Artery Disease, Hx Heart Attack Pulmonary Medical History: Reports: Hx COPD, Hx Pneumonia Denies: Hx Asthma, Hx Bronchitis Neurological Medical History: Denies: Hx Cerebrovascular Accident, Hx Seizures Endocrine Medical History: Reports: Hx Diabetes Mellitus Type 1, Hx Diabetes Mellitus Type 2 Renal/ Medical History: Reports: Hx End Stage Renal Disease, Hx Hemodialysis - Sunday, Sunday, and Sunday. Denies: Hx Peritoneal Dialysis Musculoskeltal Medical History: Reports Hx Arthritis - Bilat legs Psychiatric Medical History: Denies: Hx Depression Past Surgical History: Reports: Hx Neurologic Surgery - back BIOPSY, Hx Vascular Surgery - AV FISTULA ARAMIS. Denies: Hx Pacemaker - Immunizations Hx Diphtheria, Pertussis, Tetanus Vaccination: Yes History of Influenza Vaccine for 12/2016 - 05/2017 Season: Yes Physical Exam - Vital signs Vitals: Temp Pulse Resp BP Pulse Ox 98.6 F 79 18 163/57 H 94 11/18/18 18:30 11/18/18 18:30 11/18/18 18:30 11/18/18 18:30 11/18/18 18:30 Course - Vital Signs Vital signs: Temp Pulse Resp BP Pulse Ox 97.5 F 74 18 167/81 H 96 11/18/18 19:18 11/18/18 19:18 11/18/18 19:18 11/18/18 19:18 11/18/18 19:18 Doctor's Discharge - Discharge Referrals: Glenna JERRY MD [Primary Care Provider] - Follow up as needed
[2018-11-18 20:24] LABS: ABSOLUTE BASOPHILS # (AUTO) 0.1 10^3/uL (0.0-0.2); ABSOLUTE EOSINOPHILS # (AUTO) 0.1 10^3/uL (0.0-0.6); ABSOLUTE LYMPHOCYTES (AUTO) 0.8 10^3/uL (0.5-4.7); ABSOLUTE MONOCYTES (AUTO) 0.6 10^3/uL (0.1-1.4); BASOPHILS % (AUTO) 2.2 % (0-2); EOSINOPHILS % (AUTO) 2.4 % (0-6); HEMATOCRIT 29.2 % (37.9-51.0); HEMOGLOBIN 9.7 g/dL (13.5-17.0); LYMPHOCYTES % (AUTO) 14.2 % (13-45); MEAN CORPUSCULAR HEMOGLOBIN 30.5 pg (27.0-33.4); MEAN CORPUSCULAR HGB CONC 33.3 g/dL (32.0-36.0); MEAN CORPUSCULAR VOLUME 92 fl (80-97); MONOCYTES % (AUTO) 11.1 % (3-13); PLATELET COUNT 274 10^3/uL (150-450); RED BLOOD COUNT 3.18 10^6/uL (4.35-5.55); RED CELL DISTRIBUTION WIDTH 15.8 % (11.5-14.0); SEGMENTED NEUTROPHILS % (AUTO) 70.1 % (42-78); TOTAL CELLS COUNTED % (AUTO) 100 %; WHITE BLOOD COUNT 5.8 10^3/uL (4.0-10.5)
[2018-11-18 20:54] LABS: ANION GAP 10 (5-19); BLOOD UREA NITROGEN 20 mg/dL (7-20); CALCIUM 9.3 mg/dL (8.4-10.2); CARBON DIOXIDE 32 mmol/L (22-30); CHLORIDE 97 mmol/L (98-107); GLUCOSE 196 mg/dL (75-110); POTASSIUM 3.8 mmol/L (3.6-5.0)
--- NOTE | 2018-11-18 22:21 | RADIOLOGY REPORT (SQ) ---
EXAM DESCRIPTION: [facility]: XR ABDOMEN SUPINE AND ERECT WITH CHEST (ABD ACUTE SERIES) Views: 3 CLINICAL HISTORY: 68 years Male, abd pain COMPARISON: 12/08/2017 FINDINGS: AP Chest: There is slight blunting of the right costophrenic angle, new since prior exam. Bilateral central interstitial edema is noted, with mild patchy alveolar densities in the left lung. No pneumothorax. Mediastinum is within normal limits for positioning. No acute bone findings. Supine and erect AP abdomen: There is moderate proximal colonic fecal retention. No small bowel distention. No air-fluid levels or free air. Chronic degenerative changes are noted at both hips. IMPRESSION: 1. Bilateral peripherally central interstitial infiltrates, indeterminate for cardiogenic pulmonary edema versus an atypical interstitial pneumonia. 2. Minimal right pleural effusion. 3. Proximal colonic fecal retention, but no small bowel distention.
--- NOTE | 2018-11-18 23:05 | ER Document Report ---
ED General - General Chief Complaint: Constipation Stated Complaint: CONSTIPATION Time Seen by Provider: 11/18/18 19:26 Primary Care Provider: Glenna JERRY MD [Primary Care Provider] - Follow up as needed Information source: Patient TRAVEL OUTSIDE OF THE [place] IN LAST 30 DAYS: No - HPI Notes: Patient presents complaining that he has had abdominal discomfort. He also states been approximately 6 days since he had a bowel movement. He states his abdomen has had some generalized discomfort. Is been diffuse. It does not radiate. Is mild to moderate. It is now gone and he has no discomfort. He has not noticed any that makes it better or worse. He denies any problems with urination. He is a dialysis patient has had no problem with his dialysis recently. No cough cold or congestion. No rashes. No fevers. - Related Data Allergies/Adverse Reactions: No Known Allergies Allergy (Verified 08/07/18 16:36) Past Medical History - General Information source: Patient - Social History Smoking Status: Current Every Day Smoker Frequency of alcohol use: None Drug Abuse: None Family History: Reviewed & Not Pertinent, DM Patient has suicidal ideation: No Patient has homicidal ideation: No - Past Medical History Cardiac Medical History: Reports: Hx Hypertension, Hx Peripheral Vascular Disease Denies: Hx Coronary Artery Disease, Hx Heart Attack Pulmonary Medical History: Reports: Hx COPD, Hx Pneumonia Denies: Hx Asthma, Hx Bronchitis Neurological Medical History: Denies: Hx Cerebrovascular Accident, Hx Seizures Endocrine Medical History: Reports: Hx Diabetes Mellitus Type 1, Hx Diabetes Mellitus Type 2 Renal/ Medical History: Reports: Hx End Stage Renal Disease, Hx Hemodialysis - Sunday, Sunday, and Sunday. Denies: Hx Peritoneal Dialysis Musculoskeletal Medical History: Reports Hx Arthritis - Bilat legs Psychiatric Medical History: Denies: Hx Depression Past Surgical History: Reports: Hx Neurologic Surgery - back BIOPSY, Hx Vascular Surgery - AV FISTULA ARAMIS. Denies: Hx Pacemaker - Immunizations Hx Diphtheria, Pertussis, Tetanus Vaccination: Yes Hx Pneumococcal Vaccination: 03/26/06 Review of Systems - Review of Systems Constitutional: denies: Chills, Fever Cardiovascular: denies: Chest pain, Dyspnea Respiratory: denies: Cough, Short of breath -: Yes All other systems reviewed and negative Physical Exam - Vital signs Vitals: Temp Pulse Resp BP Pulse Ox 98.6 F 79 18 163/57 H 94 11/18/18 18:30 11/18/18 18:30 11/18/18 18:30 11/18/18 18:30 11/18/18 18:30 Interpretation: Normal - General General appearance: Appears well, Alert - HEENT Head: Normocephalic, Atraumatic Eyes: Normal Pupils: PERRL - Respiratory Respiratory status: No respiratory distress Chest status: Nontender Breath sounds: Normal Chest palpation: Normal - Cardiovascular Rhythm: Regular Heart sounds: Normal auscultation Murmur: No - Abdominal Inspection: Normal Distension: Distended - Abdomen is mildly distended but soft and nontender. Bowel sounds: Normal Tenderness: Nontender Organomegaly: No organomegaly - Back Back: Normal, Nontender - Extremities General upper extremity: Normal inspection, Nontender, Normal color, Normal ROM, Normal temperature General lower extremity: Normal inspection, Nontender, Normal color, Normal ROM, Normal temperature, Normal weight bearing. No: Janice's sign - Neurological Neuro grossly intact: Yes Cognition: Normal Orientation: AAOx4 Hallie Coma Scale Eye Opening: Spontaneous [place] Coma Scale Verbal: Oriented Hallie Coma Scale Motor: Obeys Commands Hallie Coma Scale Total: 15 Speech: Normal Motor strength normal: LUE, RUE, LLE, RLE Sensory: Normal - Psychological Associated symptoms: Normal affect, Normal mood - Skin Skin Temperature: Warm Skin Moisture: Dry Skin Color: Normal Course - Re-evaluation Re-evalutation: 11/18/18 23:02 Patient reassessed at this time he is resting comfortably in the bed. He still denies any current abdominal pain. X-ray shows some constipation and patient be treated with GoLYTELY. There is also some questionable perihilar infiltrates but patient has no respiratory symptoms this is most likely some mild edema. I see no evidence that the patient has an infectious process in the lungs. - Vital Signs Vital signs: Temp Pulse Resp BP Pulse Ox 97.5 F 70 18 172/77 H 98 11/18/18 19:18 11/18/18 21:16 11/18/18 21:16 11/18/18 21:16 11/18/18 21:16 - Laboratory Result Diagrams: 11/18/18 20:15 11/18/18 20:15 Laboratory results interpreted by me: 11/18/18 11/18/18 20:15 20:15 RBC 3.18 L Hgb 9.7 L Hct 29.2 L RDW 15.8 H Baso % (Auto) 2.2 H Chloride 97 L Carbon Dioxide 32 H Creatinine 5.75 H Est GFR ( Amer) 12 L Est GFR (MDRD) Non-Af 10 L Glucose 196 H - Diagnostic Test Radiology reviewed: Image reviewed, Reports reviewed Discharge - Discharge Clinical Impression: End stage renal disease Constipation Qualifiers: Constipation type: unspecified constipation type Qualified Code(s): K59.00 - Constipation, unspecified Condition: Stable Disposition: HOME, SELF-CARE Instructions: Constipation ([facility]) Prescriptions: Peg 3350/Na Sulf,Bicarb,Cl/KCl [Golytely Solution 4000 ml] 4,000 ml PO Q1 1 Days #1 bottle Referrals: Glenna JERRY MD [Primary Care Provider] - Follow up as needed
--- NOTE | 2018-11-19 01:13 | RADIOLOGY REPORT (SQ) ---
EXAM DESCRIPTION: [facility]: XR CHEST 2 VIEWS Views: 2 CLINICAL HISTORY: 68 years Male, hypoxia COMPARISON: 12/08/2017 FINDINGS: There are scattered bilateral dense alveolar/interstitial infiltrates. Lungs are somewhat hyperinflated, suggesting COPD. No pneumothorax or pleural effusion. Cardiomediastinal silhouette is within normal limits. Bony structures are unremarkable for age. IMPRESSION: 1. Patchy bilateral infiltrates. The pattern favors an atypical pneumonia rather than congestive heart failure.
[2018-11-19] MEDS ORDERED: ASPIRIN 81 MG TABLET, CHEWABLE PO ONE (03:56)
--- NOTE | 2018-11-19 06:19 | RADIOLOGY REPORT (SQ) ---
EXAM DESCRIPTION: NM LUNG VENTILATION PERFUSION COMPLETED DATE/TME: 11/19/2018 02:39 CLINICAL HISTORY: 68 years Male, hypoxia COMPARISON: None. RADIONUCLIDE AND DOSE: 5.3-mCi of Tc99m MAA (perfusion), IV. 29.6-mCi of Tc99m DTPA (ventilation), aerosal. LIMITATIONS: Anterior and posterior perfusion imaging only due to patient's inability to tolerate additional positioning. Incomplete ventilation component of the exam. Unable to form adequate ventilation seal. Findings No perfusion defect. No evidence of pulmonary embolus. Incomplete ventilation component of the exam. Impression 1. No perfusion defect. No evidence of pulmonary embolus. Perfusion exam: Limitation. 2. Incomplete ventilation component of the exam.
[2018-11-19] MEDS ORDERED: LEVALBUTEROL HCL NEB 0.63 MG/3 ML AMPUL NEB PRN (06:30)
[2018-11-19] MEDS ORDERED: MAG HYDROX/AL HYDROX/SIMETH SUSP 30 ML UDCUP PO PRN (06:30)
[2018-11-19] MEDS ORDERED: ONDANSETRON HCL INJ/PF 4 MG/2 ML SDV IV PRN (06:30)
[2018-11-19] MEDS ORDERED: MAGNESIUM HYDROXIDE SUSP 30 ML UDCUP PO PRN (06:30)
[2018-11-19] MEDS ORDERED: NICOTINE 21 MG/24 HR PATCH.TD24 TD PRN (06:32)
[2018-11-19] MEDS ORDERED: ACETAMINOPHEN 325 MG TABLET PO PRN (06:32)
[2018-11-19] MEDS ORDERED: NALBUPHINE HCL INJ 10 MG/1 ML AMPULE IV PRN ×3 (06:32→07:11)
--- NOTE | 2018-11-19 06:52 | PDOC H&P ---
History of Present Illness Admission Date/PCP: 11/19/2018 06:10 K Cordell JERRY MD Patient complains of: Constipation History of Present Illness: MARILU CRAWFORD is a 68 year old male who presented to the emergency room with a 6- day history of constipation. He admits that he has not had a bowel movement for 6 days and his abdomen has been generally uncomfortable with diffuse brief intermittent aches and cramping. Pain does not radiate and is mild to moderate in severity. He admits prior similar episodes on numerous occasions and has not identified any aggravating or ameliorating factors for his constipation. In the emergency room he was noted to be constipated on an abdominal series x-ray. He was treated with GoLYTELY and after short time he developed the need to have a bowel movement. He went to the bathroom to move his bowels and emerged from the bathroom diaphoretic and short of breath. Since that time he has improved but continues to be dyspneic with exertion having his O2 sat dropped into the low 80s while ambulating without oxygen. Because of his acute dyspnea a V/Q lung scan has been obtained however results are still not available at this time. Patient will be admitted to observation status for further evaluation and treatment. Past Medical History Cardiac Medical History: Reports: Hypertension, Peripheral Vascular Disease Denies: Coronary Artery Disease, Myocardial Infarction Pulmonary Medical History: Reports: Chronic Obstructive Pulmonary Disease (COPD), Pneumonia Denies: Asthma, Bronchitis EENT Medical History: Denies: Cataracts, Ears - Hearing aids Neurological Medical History: Denies: Hemorrhagic CVA, Ischemic CVA, Seizures Endocrine Medical History: Reports: Diabetes Mellitus Type 2 Denies: Diabetes Mellitus Type 1, Hyperthyroidism, Hypothyroidism, Obesity Renal/ Medical History: Reports: End Stage Renal Disease Denies: Nephrolithiasis Malignancy Medical History: Reports: None GI Medical History: Denies: Cirrhosis, Crohn's Disease, Hepatitis, Ulcerative Colitis Musculoskeltal Medical History: Reports: Arthritis - Bilat legs Denies: Gout Skin Medical History: Denies: Eczema, Psoriasis Psychiatric Medical History: Reports: Tobacco Dependency Denies: Alcohol Dependency, Depression, Substance Abuse Traumatic Medical History: Reports: None Hematology: Reports: Anemia - iron deficiency Denies: Bleeding Tendencies Infectious Medical History: Reports: None Past Surgical History Past Surgical History: Reports: Vascular Surgery - Arteriovenous fistula for dialysis right upper arm Social History Information Source: Patient Lives with: Spouse/Significant other Smoking Status: Current Every Day Smoker Frequency of Alcohol Use: None Hx Recreational Drug Use: No Drugs: None Hx Prescription Drug Abuse: No - Advance Directive Resuscitation Status: Full Code Surrogate healthcare decision maker:: Jack Choudhary Family History Family History: DM, Hypertension Parental Family History Reviewed: Yes Children Family History Reviewed: No Sibling(s) Family History Reviewed.: Yes Medication/Allergy Home Medications: Aspirin [Aspirin EC] 81 mg PO DAILY 07/19/16 Atorvastatin Calcium [Lipitor 20 mg Tablet] 20 mg PO QHS 07/19/16 B Complex W-C No.20/Folic Acid [Dez Caps Softgel] 1 cap PO DAILY 07/19/16 Clonidine HCl [Catapres 0.3 mg Tablet] 0.3 mg PO Q8 07/19/16 Docusate Sodium [Colace 100 mg Capsule] 100 mg PO BID 07/19/16 Furosemide [Lasix] 40 mg PO DAILY 07/19/16 Irbesartan [Avapro] 75 mg PO QHS 07/19/16 Nifedipine [Procardia Xl] 90 mg PO Q12 07/19/16 Omeprazole 20 mg PO BID 07/19/16 Calcium Acetate [Phoslo 667 mg Capsule] 1,334 mg PO MEALS 12/18/16 Finasteride [Proscar 5 mg Tablet] 5 mg PO NOON 12/18/16 Tamsulosin HCl 0.4 mg PO DAILY 12/18/16 Isosorb Dinit/Hydralazine HCl [Bidil 20-37.5 mg Tablet] 1 tab PO Q8 09/11/17 Lactulose [Constulose] 10 gm PO BID PRN #7 ml 12/08/17 Peg 3350/Na Sulf,Bicarb,Cl/KCl [Golytely Solution 4000 ml] 4,000 ml PO Q1 1 Days #1 bottle 11/18/18 Allergies/Adverse Reactions: No Known Allergies Allergy (Verified 08/07/18 16:36) Review of Systems Constitutional: ABSENT: chills, fever(s) Eyes: ABSENT: visual disturbances, other - Eye pain Ears: ABSENT: hearing changes, other - Ear pain Nose, Mouth, and Throat: ABSENT: mouth pain, sore throat Cardiovascular: ABSENT: chest pain, palpitations Respiratory: ABSENT: cough, dyspnea Gastrointestinal: PRESENT: as per HPI, abdominal pain, constipation. ABSENT: diarrhea, nausea, vomiting Genitourinary: ABSENT: dysuria, hematuria Musculoskeletal: ABSENT: back pain, joint swelling, muscle weakness Integumentary: ABSENT: pruritus, rash Neurological: ABSENT: confusion, convulsions, focal weakness, memory loss, syncope Psychiatric: ABSENT: anxiety, depression Endocrine: ABSENT: cold intolerance, heat intolerance Hematologic/Lymphatic: ABSENT: easy bleeding, easy bruising Allergic/Immunologic: ABSENT: seasonal rhinorrhea Physical Exam Vital Signs: Temp Pulse Resp BP Pulse Ox 97.5 F 70 12 176/68 H 98 11/18/18 19:18 11/18/18 21:16 11/19/18 04:01 11/19/18 04:01 11/19/18 04:01 Intake & Output 11/17/18 11/18/18 11/19/18 23:59 23:59 23:59 Weight 81.2 kg General appearance: PRESENT: no acute distress, cooperative Head exam: PRESENT: atraumatic, normocephalic Eye exam: PRESENT: conjunctiva pink. ABSENT: conjunctival injection, scleral icterus Ear exam: PRESENT: normal external ear exam. ABSENT: bleeding, drainage Mouth exam: PRESENT: dry mucosa, neck supple Neck exam: ABSENT: thyromegaly, tracheal deviation Respiratory exam: PRESENT: clear to auscultation bob, symmetrical, unlabored Cardiovascular exam: PRESENT: RRR. ABSENT: clicks, gallop, rubs Pulses: PRESENT: normal radial pulses, normal dorsalis pedis pul Vascular exam: PRESENT: normal capillary refill. ABSENT: pallor GI/Abdominal exam: PRESENT: normal bowel sounds, soft Extremities exam: PRESENT: other - AV fistula right upper extremity. ABSENT: joint swelling, pedal edema Musculoskeletal exam: ABSENT: deformity, dislocation Neurological exam: PRESENT: alert, oriented to person, oriented to place, oriented to time, oriented to situation, CN II-XII grossly intact. ABSENT: motor sensory deficit Psychiatric exam: PRESENT: appropriate affect, normal mood Skin exam: PRESENT: dry, intact, warm. ABSENT: jaundice, rash, urticaria Results Laboratory Results: 11/18/18 20:15 11/18/18 20:15 11/18/18 11/18/18 20:15 20:15 WBC 5.8 RBC 3.18 L Hgb 9.7 L Hct 29.2 L MCV 92 MCH 30.5 MCHC 33.3 RDW 15.8 H Plt Count 274 Seg Neutrophils % 70.1 Sodium 138.8 Potassium 3.8 Chloride 97 L Carbon Dioxide 32 H Anion Gap 10 BUN 20 Creatinine 5.75 H Est GFR ( Amer) 12 L Glucose 196 H Calcium 9.3 11/18/18 11/18/18 20:15 20:15 Troponin I 0.125 NT-Pro-B Natriuret Pep 89315 H Impressions: Acute Abdomen Series 11/18/18 21:32 IMPRESSION: 1. Bilateral peripherally central interstitial infiltrates, indeterminate for cardiogenic pulmonary edema versus an atypical interstitial pneumonia. 2. Minimal right pleural effusion. 3. Proximal colonic fecal retention, but no small bowel distention. Chest X-Ray 11/18/18 23:32 IMPRESSION: 1. Patchy bilateral infiltrates. The pattern favors an atypical pneumonia rather than congestive heart failure. Assessment and Plan - Diagnosis (1) Acute respiratory failure with hypoxia Is this a current diagnosis for this admission?: Yes Plan: Patient's hypoxia persists and will be treated with supplemental oxygen via nasal cannula to maintain an O2 sat between 90 and 94%. Patient will be ambulated and receive a pulmonary toilet. Hopes to be the patient to be weaned off oxygen and be ambulatory without dyspnea or hypoxia within 24 to 48 hours. He will be monitored closely for vital signs and oxygen saturations throughout his hospital course. (2) Constipation Qualifiers: Constipation type: unspecified constipation type Qualified Code(s): K59.00 - Constipation, unspecified Is this a current diagnosis for this admission?: Yes Plan: Patient's constipation has been treated with GoLYTELY and has resolved at this point. Patient will be observed for any recurrence of constipation or abdominal pain. (3) End stage renal disease Is this a current diagnosis for this admission?: Yes Plan: Patient's renal disease should not be a problem unless he is hospitalized past his next dialysis appointment which is on Sunday. 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 (4) Diabetes mellitus type 2 in nonobese Is this a current diagnosis for this admission?: Yes Plan: Patient will be continued on his usual diabetic medications. He will be on a diabetic diet. Before meals and at bedtime Accu-Cheks will be obtained and he will be treated with a sliding scale insulin for hyperglycemia and a hypoglycemic protocol if necessary. (5) Tobacco use disorder, severe, dependence Is this a current diagnosis for this admission?: Yes Plan: Smoking cessation is advised and counseled briefly at the bedside. A nicotine replacement patch is available for the patient's use if desired. - Time Time Spent with patient: 15-24 minutes Smoking Cessation Education: 3 to 10 minutes Medications reviewed and adjusted accordingly: Yes - Inpatient Certification Based on my medical assessment, after consideration of the patient's comorbidities, presenting symptoms, or acuity I expect that the services needed warrant INPATIENT care.: No I certify that my determination is in accordance with my understanding of Medicare's requirements for reasonable and necessary INPATIENT services [42 CFR 412.3e].: No Medical Necessity: Need Close Monitoring Due to Risk of Patient Decompensation
--- NOTE | 2018-11-19 07:13 | EKG REPORT ---
SEVERITY:- ABNORMAL ECG - PACEMAKER SPIKES OR ARTIFACTS SINUS RHYTHM PROBABLE LEFT ATRIAL ABNORMALITY LEFT VENTRICULAR HYPERTROPHY BORDERLINE PROLONGED QT INTERVAL : Confirmed by: Bib Centeno MD 19-Nov-2018 07:11:53
[2018-11-19] MEDS: LEVALBUTEROL HCL NEB 1.25 MG/3 ML AMPUL NEB SCH ×2 (08:09→16:21)
[2018-11-19] MEDS: BUDESONIDE NEB 0.5 MG/2 ML AMPUL NEB SCH ×2 (08:09→19:57)
[2018-11-19] MEDS: IPRATROPIUM BROMIDE 0.02% NEB 0.5 MG/2.5 ML AMPUL NEB SCH ×2 (08:09→16:21)
--- NOTE | 2018-11-19 09:58 | Progress Note ---
Provider Note Provider Note: This is a patient of Dr. Burleson, to whom I have communicated about this situation, and will be transferring care to Dr. Burleson's service.
[2018-11-19] MEDS: DOCUSATE SODIUM 100 MG CAPSULE PO SCH ×2 (11:12→17:14)
[2018-11-19] MEDS: HEPARIN SOD (PORCINE) 5,000 UNIT/ML 1 ML VIAL SUBCUT SCH ×2 (14:40→22:05)
[2018-11-19] MEDS: PANTOPRAZOLE SODIUM 40 MG TABLET.DR PO SCH (17:14)
[2018-11-19] MEDS ORDERED: LACTULOSE PO SCH (17:45)
[2018-11-19] MEDS ORDERED: IRBESARTAN 75 MG PO SCH (17:45)
[2018-11-19] MEDS ORDERED: (PENDING PHARMACY ID) (Clonidine Hcl [Catapres 0.3 Mg Tablet] 0.3 MG) PO SCH (17:45)
[2018-11-19] MEDS ORDERED: (PENDING PHARMACY ID) (Nifedipine [Nifedipine Er] 90 MG) PO SCH (18:00)
[2018-11-19] MEDS: FUROSEMIDE 40 MG TABLET PO SCH (19:39)
[2018-11-19] MEDS: FINASTERIDE 5 MG TABLET PO SCH (19:39)
[2018-11-19] MEDS: FOLIC ACID/VITAMIN B COMP W-C CAPSULE PO SCH (19:40)
[2018-11-19] MEDS: TAMSULOSIN HCL 0.4 MG CAP.SR.24H PO SCH (19:40)
[2018-11-19] MEDS: CALCIUM ACETATE 667 MG CAPSULE PO SCH (19:40)
[2018-11-19] MEDS: LACTULOSE SYRUP 20 GM/30 ML UDCUP PO SCH (19:40)
[2018-11-19] MEDS: LOSARTAN POTASSIUM 25 MG TABLET PO SCH (19:40)
[2018-11-19] MEDS: CLONIDINE HCL 0.1 MG TABLET PO SCH (22:01)
[2018-11-19] MEDS: ISOSORB DINIT/HYDRALAZINE HCL 20-37.5 MG TABLET PO SCH (22:01)
[2018-11-19] MEDS: NIFEDIPINE 30 MG TAB.ER.24 PO SCH (22:02)
[2018-11-19] MEDS: ATORVASTATIN CALCIUM 20 MG TABLET PO SCH (22:02)
[2018-11-19] MEDS: INSULIN GLARGINE,HUM.REC.ANLOG 1,000 UNIT/10 ML VIAL SUBCUT SCH (22:04)
[2018-11-20] MEDS: IPRATROPIUM BROMIDE 0.02% NEB 0.5 MG/2.5 ML AMPUL NEB SCH ×3 (01:06→16:20)
[2018-11-20] MEDS: LEVALBUTEROL HCL NEB 1.25 MG/3 ML AMPUL NEB SCH ×3 (01:06→16:20)
[2018-11-20] MEDS ORDERED: EPOETIN ALFA INJ 20000 UNIT/1 ML VIAL (RENAL) IV PRN (05:00)
[2018-11-20] MEDS: ISOSORB DINIT/HYDRALAZINE HCL 20-37.5 MG TABLET PO SCH ×3 (06:00→22:07)
[2018-11-20] MEDS: HEPARIN SOD (PORCINE) 5,000 UNIT/ML 1 ML VIAL SUBCUT SCH ×3 (06:00→22:09)
[2018-11-20] MEDS: CLONIDINE HCL 0.1 MG TABLET PO SCH ×3 (06:00→22:08)
[2018-11-20] MEDS: PANTOPRAZOLE SODIUM 40 MG TABLET.DR PO SCH ×2 (06:00→17:40)
[2018-11-20] MEDS ORDERED: EPOETIN ALFA-EPBX 10,000 UNIT/ML VIAL (RENAL) IV PRN (08:14)
[2018-11-20 08:21] LABS: ANION GAP 14 (5-19); BLOOD UREA NITROGEN 45 mg/dL (7-20); CALCIUM 9.2 mg/dL (8.4-10.2); CARBON DIOXIDE 28 mmol/L (22-30); CHLORIDE 98 mmol/L (98-107); GLUCOSE 101 mg/dL (75-110); POTASSIUM 3.6 mmol/L (3.6-5.0)
[2018-11-20] MEDS: BUDESONIDE NEB 0.5 MG/2 ML AMPUL NEB SCH ×2 (08:59→20:11)
[2018-11-20] MEDS: LACTULOSE SYRUP 20 GM/30 ML UDCUP PO SCH (11:51)
[2018-11-20] MEDS: DOCUSATE SODIUM 100 MG CAPSULE PO SCH ×2 (11:52→17:40)
[2018-11-20] MEDS: LOSARTAN POTASSIUM 25 MG TABLET PO SCH (11:52)
[2018-11-20] MEDS: TAMSULOSIN HCL 0.4 MG CAP.SR.24H PO SCH (11:52)
[2018-11-20] MEDS: FOLIC ACID/VITAMIN B COMP W-C CAPSULE PO SCH (11:52)
[2018-11-20] MEDS: CALCIUM ACETATE 667 MG CAPSULE PO SCH ×3 (11:53→17:40)
[2018-11-20] MEDS: FUROSEMIDE 40 MG TABLET PO SCH (11:53)
[2018-11-20] MEDS: NIFEDIPINE 30 MG TAB.ER.24 PO SCH ×2 (11:54→22:16)
[2018-11-20] MEDS: FINASTERIDE 5 MG TABLET PO SCH (11:54)
--- NOTE | 2018-11-20 12:32 | PDOC CONSULTATION ---
Consultation Consult Date: 11/20/18 Provider Consulted: Glenna JERRY Consult reason:: ESRD for hemodialysis. History of Present Illness Admission Date/PCP: 11/19/18 06:23 Glenna JERRY MD History of Present Illness: MARILU CRAWFORD is a 68 year old male History of ESRD on dialysis in the background of diabetes mellitus hypertension presented to the emergency room with a 6-day history of constipation. He admits that he has not had a bowel movement for 6 days and his abdomen has been generally uncomfortable with diffuse brief intermittent aches and cramping. Pain does not radiate and is mild to moderate in severity. In the emergency room he was noted to be constipated on an abdominal series x- ray. He was treated with GoLYTELY and after short time he developed the need to have a bowel movement. He went to the bathroom to move his bowels and emerged from the bathroom diaphoretic and short of breath. Since that time he has improved but continues to be dyspneic with exertion having his O2 sat dropped into the low 80s while ambulating without oxygen. VQ scan done was negative. Patient currently being seen on hemodialysis with which is undergoing without any issues. He states he has no complaints at the moment and feels back to baseline. He denies any history of chest pain or shortness of breath. Labs and medications were reviewed. Dialysis orders were reviewed with the treating dialysis nurse. Past Medical History Cardiac Medical History: Reports: Hypertension-primary, Peripheral Vascular Disease Denies: Coronary Artery Disease, Myocardial Infarction Pulmonary Medical History: Reports: Chronic Obstructive Pulmonary Disease (COPD), Pneumonia Denies: Asthma, Bronchitis EENT Medical History: Denies: Cataracts, Ears - Hearing aids Neurological Medical History: Denies: Hemorrhagic CVA, Ischemic CVA, Seizures Endocrine Medical History: Reports: Diabetes Mellitus Type 2 Denies: Diabetes Mellitus Type 1, Hyperthyroidism, Hypothyroidism, Obesity Complications of Diabetes: Reports: None Renal/ Medical History: Reports: End Stage Renal Disease, Secondary Hyp erparathyroidism Denies: Nephrolithiasis Malignancy Medical History: Reports: None GI Medical History: Denies: Cirrhosis, Crohn's Disease, Hepatitis, Ulcerative Colitis Musculoskeltal Medical History: Reports: Arthritis - Bilat legs Denies: Gout Skin Medical History: Denies: Eczema, Psoriasis Psychiatric Medical History: Reports: Tobacco Dependency Denies: Alcohol Dependency, Depression, Substance Abuse Traumatic Medical History: Reports: None Infectious Medical History: Reports: None Past Surgical History Past Surgical History: Reports: Vascular Surgery - Arteriovenous fistula for dialysis right upper arm Denies: Pacemaker Social History Lives with: Spouse/Significant other Smoking Status: Current Every Day Smoker Last Time Smoked: 11-17-2018 Frequency of Alcohol Use: None Hx Recreational Drug Use: No Drugs: None Hx Prescription Drug Abuse: No - Advance Directive Resuscitation Status: Full Code Family History Parental Family History Reviewed: Yes - History of CKD. Children Family History Reviewed: Yes Sibling(s) Family History Reviewed.: Yes - Had a brother with history of ESRD on dialysis who earlier. Medication/Allergy Home Medications: Atorvastatin Calcium [Lipitor 20 mg Tablet] 20 mg PO QHS 11/19/18 Calcium Acetate [Phoslo 667 Mg Capsule] 667 mg PO AC 11/19/18 Clonidine HCl [Catapres 0.3 mg Tablet] 0.3 mg PO Q8 11/19/18 Finasteride [Proscar 5 mg Tablet] 5 mg PO DAILY 11/19/18 Folic Acid/Vitamin B Comp W-C [Renal Softgel] 1 mg PO DAILY 11/19/18 Furosemide [Lasix 40 mg Tablet] 40 mg PO DAILY 11/19/18 Insulin Glargine,Hum.rec.anlog [Lantus Insulin 100 Unit/1 ml 10 ml] 20 unit SUBCUT DAILY 11/19/18 Irbesartan [Avapro] 75 mg PO DAILY 11/19/18 Isosorb Dinit/Hydralazine HCl [Bidil 20-37.5 mg Tablet] 1 tab PO Q8 11/19/18 Lactulose [Constulose 10 gm/15 mL Oral Solution] 60 ml PO DAILY 11/19/18 Nifedipine [Nifedipine ER] 90 mg PO BID 11/19/18 Omeprazole 20 mg PO BID 11/19/18 Tamsulosin HCl [Flomax] 0.4 mg PO DAILY 11/19/18 Allergies/Adverse Reactions: No Known Allergies Allergy (Verified 08/07/18 16:36) Review of Systems Constitutional: PRESENT: anorexia, fatigue. ABSENT: chills, fever(s), headache(s), weakness, weight loss Eyes: ABSENT: visual disturbances Ears: ABSENT: hearing changes Nose, Mouth, and Throat: ABSENT: mouth pain, sore throat Cardiovascular: PRESENT: dyspnea on exertion. ABSENT: chest pain, edema, orthropnea, palpitations Respiratory: PRESENT: dyspnea. ABSENT: cough, hemoptysis Gastrointestinal: PRESENT: abdominal pain, bloating, constipation, nausea. ABSENT: coffee ground emesis, diarrhea, dysphagia, heartburn, hematemesis, hematochezia, melena Musculoskeletal: ABSENT: deformity, joint swelling Integumentary: ABSENT: lesions, pruritus, rash Neurological: ABSENT: abnormal movements, abnormal speech, confusion, convulsions, focal weakness, frequent falls, lack of coordination Endocrine: ABSENT: heat intolerance, polydipsia Hematologic/Lymphatic: ABSENT: easy bleeding, easy bruising, lymphadenopathy Physical Exam Vital Signs: Temp Pulse Resp BP Pulse Ox 98.1 F 88 18 158/75 H 94 11/19/18 23:00 11/20/18 09:05 11/20/18 09:05 11/19/18 23:00 11/20/18 09:05 Intake & Output 11/19/18 11/20/18 11/21/18 06:59 06:59 06:59 Intake Total 236 Balance 236 Weight 81.2 kg 81.2 kg General appearance: PRESENT: no acute distress Eye exam: PRESENT: EOMI, PERRLA Ear exam: PRESENT: normal external ear exam Mouth exam: PRESENT: moist, neck supple Neck exam: ABSENT: lymphadenopathy, meningismus, tenderness, thyromegaly, tracheal deviation Respiratory exam: PRESENT: decreased breath sounds. ABSENT: crackles Cardiovascular exam: PRESENT: +S1, +S2 GI/Abdominal exam: PRESENT: normal bowel sounds, soft. ABSENT: organomegaly, tenderness Extremities exam: ABSENT: pedal edema Neurological exam: PRESENT: alert, awake, oriented to person, oriented to place Psychiatric exam: PRESENT: appropriate affect Results Laboratory Results: 11/18/18 20:15 11/20/18 07:36 11/20/18 07:36 Sodium 139.6 Potassium 3.6 Chloride 98 Carbon Dioxide 28 Anion Gap 14 BUN 45 H Creatinine 9.78 H Est GFR ( Amer) 6 L Glucose 101 Calcium 9.2 11/18/18 11/18/18 20:15 20:15 Troponin I 0.125 NT-Pro-B Natriuret Pep 13386 H Impressions: Acute Abdomen Series 11/18/18 21:32 IMPRESSION: 1. Bilateral peripherally central interstitial infiltrates, indeterminate for cardiogenic pulmonary edema versus an atypical interstitial pneumonia. 2. Minimal right pleural effusion. 3. Proximal colonic fecal retention, but no small bowel distention. Chest X-Ray 11/18/18 23:32 IMPRESSION: 1. Patchy bilateral infiltrates. The pattern favors an atypical pneumonia rather than congestive heart failure. Assessment & Plan - Diagnosis (1) Acute respiratory failure with hypoxia Is this a current diagnosis for this admission?: Yes Plan: Currently patient looks stable. Further management as per hospitalist.VQ scan was apparently negative. (2) Constipation Qualifiers: Constipation type: unspecified constipation type Qualified Code(s): K59.00 - Constipation, unspecified Is this a current diagnosis for this admission?: Yes Plan: Improved with treatment done in the ER. (3) End stage renal disease Is this a current diagnosis for this admission?: Yes Plan: Patient currently undergoing dialysis without any issues. Vital signs are stable. Dialysis is being continuously supervised to ensure safe and smooth procedure. Dialysis orders were reviewed with the treating dialysis nurse. Plan to remove between 2 and 3 L as tolerated. (4) Diabetes mellitus type II, controlled Plan: Advised tight control. (5) Hypertension Qualifiers: Hypertension type: essential hypertension Qualified Code(s): I10 - Essential (primary) hypertension Plan: Uncontrolled. Monitor on dialysis.
--- NOTE | 2018-11-20 16:15 | RADIOLOGY REPORT (SQ) ---
EXAM DESCRIPTION: CT CHEST WITHOUT COMPLETED DATE/TIME: 11/20/2018 4:04 pm REASON FOR STUDY: PNEUMONIA R10.30 LOWER ABDOMINAL PAIN, UNSPECIFIED J84.10 PULMONARY FIBROSIS, U NSPECIFIED COMPARISON: None. TECHNIQUE: CT scan performed of the chest without intravenous contrast. Images reviewed with lung, soft tissue and bone windows. Reconstructed coronal and sagittal MPR images reviewed. All images st ored on PACS. All CT scanners at this facility use dose modulation, iterative reconstruction, and/or weight based d osing when appropriate to reduce radiation dose to as low as reasonably achievable (ALARA). [facility]: Dose Right [facility]: CareDose [facility]: Dose Right [facility]: Teradose 4D [facility]: [email or web address] RADIATION DOSE: CT Rad equipment meets quality standard of care and radiation dose reduction techniq ues were employed. CTDIvol: 6.4 mGy. DLP: 244 mGy-cm. mGy. LIMITATIONS: No technical limitations. FINDINGS: LUNGS AND PLEURA: There is patchy bilateral airspace disease. There are small effusions. There is atelectasis in the lung bases. Findings may represent asymmetric edema or pneumonitis. HILAR AND MEDIASTINAL STRUCTURES: No identified masses or abnormal nodes. No obvious aneurysm. HEART AND VASCULAR STRUCTURES: There is a small pericardial effusion. UPPER ABDOMEN: Multiple bilateral renal cysts. THYROID AND OTHER SOFT TISSUES: No masses. No adenopathy. BONES: No significant finding. HARDWARE: None in the chest. OTHER: No other significant findings. IMPRESSION: Patchy alveolar airspace disease in both upper lobes. Bibasilar atelectasis and small e ffusions. Findings most likely represent infectious or inflammatory pneumonitis. Less likely asymme tric edema. TECHNICAL DOCUMENTATION: JOB ID: [id number] Quality ID # [id number]: Final reports with documentation of one or more dose reduction techniques (e.g., Au tomated exposure control, adjustment of the mA and/or kV according to patient size, use of iterative reconstruction technique) 2010 [employer]- All Rights Reserved Reading location - IP/workstation name: [email or web address]
--- NOTE | 2018-11-20 16:30 | PDOC PROGRESS REPORT ---
Subjective Progress Note for:: 11/20/18 Subjective:: Patient was seen today by the bedside, he was admitted initially by the hospitalist, he apparently came to the emergency room for evaluation of constipation, he was prescribed GoLYTELY in the emergency room he had a large bowel movement in the ER, he was about to be discharged and the subsequently developed severe hypoxemia on the basis of the pulse oximetry, the oxygen saturation was low. A VQ scan was obtained this was negative for pulmonary embolism, he was subsequently admitted by the hospitalist, he was transferred back to my service last night because it is my office regular patient I saw him today,he had hemodialysis today, I did a CT chest without contrast, it demonstrated patchy alveolar infiltrate on both upper lobes ,cannot rule out pneumonia. Patient is a recalcitrant smoker he has a history of pneumonia, diabetes he will be treated with IV antibiotic for pneumonia Reason For Visit: ACUTE HYPOXIC RESPIRATORY FAILURE Physical Exam Vital Signs: Temp Pulse Resp BP Pulse Ox 97.9 F 70 16 163/75 H 99 11/20/18 12:00 11/20/18 12:00 11/20/18 12:00 11/20/18 12:00 11/20/18 12:00 Intake & Output 11/19/18 11/20/18 11/21/18 06:59 06:59 06:59 Intake Total 236 170 Balance 236 170 Weight 81.2 kg 81.2 kg General appearance: PRESENT: no acute distress Eye exam: PRESENT: PERRLA Respiratory exam: PRESENT: rhonchi, wheezes Cardiovascular exam: PRESENT: +S1, +S2 GI/Abdominal exam: PRESENT: soft Neurological exam: PRESENT: alert Results Laboratory Results: 11/18/18 20:15 11/20/18 07:36 11/20/18 07:36 Sodium 139.6 Potassium 3.6 Chloride 98 Carbon Dioxide 28 Anion Gap 14 BUN 45 H Creatinine 9.78 H Est GFR ( Amer) 6 L Glucose 101 Calcium 9.2 11/18/18 11/18/18 20:15 20:15 Troponin I 0.125 NT-Pro-B Natriuret Pep 28239 H Impressions: Acute Abdomen Series 11/18/18 21:32 IMPRESSION: 1. Bilateral peripherally central interstitial infiltrates, indeterminate for cardiogenic pulmonary edema versus an atypical interstitial pneumonia. 2. Minimal right pleural effusion. 3. Proximal colonic fecal retention, but no small bowel distention. Chest X-Ray 11/18/18 23:32 IMPRESSION: 1. Patchy bilateral infiltrates. The pattern favors an atypical pneumonia rather than congestive heart failure. Chest CT 11/20/18 00:00 IMPRESSION: Patchy alveolar airspace disease in both upper lobes. Bibasilar atelectasis and small effusions. Findings most likely represent infectious or inflammatory pneumonitis. Less likely asymmetric edema. 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
[2018-11-20] MEDS: CEFTRIAXONE 1 GM/D5W RTU 1 GM/50 ML RTUPB IV SCH (17:41)
[2018-11-20] MEDS ORDERED: LEVOFLOXACIN 500 MG TABLET PO SCH (18:00)
[2018-11-20] MEDS ORDERED: PANTOPRAZOLE SODIUM 20 MG TABLET.DR PO SCH (19:00)
[2018-11-20 21:02] LABS: ARTERIAL BLOOD BASE EXCESS 2.9 mmol/L; ARTERIAL BLOOD H2CO3 1.05 mmol/L (1.05-1.35); ARTERIAL BLOOD HCO3 26.1 mmol/L (20-24); ARTERIAL BLOOD O2 SATURATION 93.5 % (94-98); ARTERIAL BLOOD PCO2 34.8 mmHg (35-45); ARTERIAL BLOOD PH 7.49 (7.35-7.45); ARTERIAL BLOOD PO2 61.6 mmHg (80-100); ARTERIAL BLOOD TOTAL CO2 27.2 mmol/L (23-27)
[2018-11-20 21:03] LABS: ARTERIAL BLOOD FIO2 ROOM AIR
[2018-11-20] MEDS: ATORVASTATIN CALCIUM 20 MG TABLET PO SCH (22:09)
[2018-11-20] MEDS: INSULIN GLARGINE,HUM.REC.ANLOG 1,000 UNIT/10 ML VIAL SUBCUT SCH (22:10)
[2018-11-21] MEDS: IPRATROPIUM BROMIDE 0.02% NEB 0.5 MG/2.5 ML AMPUL NEB SCH ×3 (00:06→16:18)
[2018-11-21] MEDS: LEVALBUTEROL HCL NEB 1.25 MG/3 ML AMPUL NEB SCH ×3 (00:06→16:18)
[2018-11-21] MEDS: CLONIDINE HCL 0.1 MG TABLET PO SCH ×3 (05:28→21:40)
[2018-11-21] MEDS: ISOSORB DINIT/HYDRALAZINE HCL 20-37.5 MG TABLET PO SCH ×3 (05:29→21:39)
[2018-11-21] MEDS: PANTOPRAZOLE SODIUM 40 MG TABLET.DR PO SCH ×2 (05:29→16:59)
[2018-11-21] MEDS: HEPARIN SOD (PORCINE) 5,000 UNIT/ML 1 ML VIAL SUBCUT SCH ×3 (05:31→21:40)
[2018-11-21] MEDS: BUDESONIDE NEB 0.5 MG/2 ML AMPUL NEB SCH ×2 (07:58→19:57)
[2018-11-21] MEDS: TAMSULOSIN HCL 0.4 MG CAP.SR.24H PO SCH (09:18)
[2018-11-21] MEDS: CALCIUM ACETATE 667 MG CAPSULE PO SCH ×3 (09:18→16:57)
[2018-11-21] MEDS: FINASTERIDE 5 MG TABLET PO SCH (09:18)
[2018-11-21] MEDS: NIFEDIPINE 30 MG TAB.ER.24 PO SCH ×2 (09:18→21:39)
[2018-11-21] MEDS: DOCUSATE SODIUM 100 MG CAPSULE PO SCH ×2 (09:18→17:00)
[2018-11-21] MEDS: FOLIC ACID/VITAMIN B COMP W-C CAPSULE PO SCH (09:18)
[2018-11-21] MEDS: LOSARTAN POTASSIUM 25 MG TABLET PO SCH (09:18)
[2018-11-21] MEDS: LACTULOSE SYRUP 20 GM/30 ML UDCUP PO SCH (09:18)
[2018-11-21] MEDS: FUROSEMIDE 40 MG TABLET PO SCH (09:18)
[2018-11-21] MEDS ORDERED: ACETAMINOPHEN 325 MG TABLET PO PRN (10:17)
[2018-11-21] MEDS ORDERED: ONDANSETRON HCL INJ/PF 4 MG/2 ML SDV IV PRN (10:30)
[2018-11-21 11:37] LABS: HEPATITS B SURFACE ANTIGEN Negative (Negative)
[2018-11-21 12:47] LABS: HEPATITIS C VIRUS ANTIBODY <0.1 s/co ratio (0.0-0.9)
[2018-11-21] MEDS: CEFTRIAXONE 1 GM/D5W RTU 1 GM/50 ML RTUPB IV SCH (16:59)
--- NOTE | 2018-11-21 20:23 | PDOC PROGRESS REPORT ---
Subjective Progress Note for:: 11/21/18 Subjective:: Patient seen by the bedside, he was admitted yesterday he has pneumonia is responding to antibiotic hopefully discharge home tomorrow on p.o. drugs Reason For Visit: ACUTE HYPOXIC RESP FAILURE, PNEUMONIA Physical Exam Vital Signs: Temp Pulse Resp BP Pulse Ox 97.3 F 68 16 142/62 H 95 11/21/18 15:33 11/21/18 19:57 11/21/18 19:57 11/21/18 15:33 11/21/18 19:57 Intake & Output 11/20/18 11/21/18 11/22/18 06:59 06:59 06:59 Intake Total 236 460 410 Output Total 3200 Balance 236 -2740 410 Weight 81.2 kg 78.6 kg General appearance: PRESENT: no acute distress Eye exam: PRESENT: PERRLA Respiratory exam: PRESENT: clear to auscultation bob Cardiovascular exam: PRESENT: +S1, +S2 GI/Abdominal exam: PRESENT: soft Neurological exam: PRESENT: alert Results Laboratory Results: 11/18/18 20:15 11/20/18 07:36 11/20/18 20:50 Carbonic Acid 1.05 HCO3/H2CO3 Ratio 24:1 ABG pH 7.49 H ABG pCO2 34.8 L ABG pO2 61.6 L ABG HCO3 26.1 H ABG O2 Saturation 93.5 L ABG Base Excess 2.9 FiO2 ROOM AIR 11/18/18 11/18/18 20:15 20:15 Troponin I 0.125 NT-Pro-B Natriuret Pep 58790 H Impressions: Acute Abdomen Series 11/18/18 21:32 IMPRESSION: 1. Bilateral peripherally central interstitial infiltrates, indeterminate for cardiogenic pulmonary edema versus an atypical interstitial pneumonia. 2. Minimal right pleural effusion. 3. Proximal colonic fecal retention, but no small bowel distention. Chest X-Ray 11/18/18 23:32 IMPRESSION: 1. Patchy bilateral infiltrates. The pattern favors an atypical pneumonia rather than congestive heart failure. Chest CT 11/20/18 00:00 IMPRESSION: Patchy alveolar airspace disease in both upper lobes. Bibasilar atelectasis and small effusions. Findings most likely represent infectious or inflammatory pneumonitis. Less likely asymmetric edema. Assessment & Plan - Diagnosis (1) Bilateral pneumonia Qualifiers: Pneumonia type: due to unspecified organism Lung location: unspecified part of lung Qualified Code(s): J18.9 - Pneumonia, unspecified organism Is this a current diagnosis for this admission?: Yes Plan: Continue IV antibiotic (2) ESRD (end stage renal disease) on dialysis Is this a current diagnosis for this admission?: Yes (3) Anemia in ESRD (end-stage renal disease) Is this a current diagnosis for this admission?: Yes (4) Diabetes mellitus type II, controlled Qualifiers: Diabetes mellitus fci insulin use: with fci use Diabetes mellitus complication status: with kidney complications Diabetes mellitus complication detail: with chronic kidney disease Chronic kidney disease stage: on chronic dialysis Qualified Code(s): E11.22 - Type 2 diabetes mellitus with diabetic chronic kidney disease; N18.6 - End stage renal disease; Z79.4 - buttermaker continuous churn (current) use of insulin; Z99.2 - Dependence on renal dialysis Is this a current diagnosis for this admission?: Yes
[2018-11-21] MEDS ORDERED: EPOETIN ALFA-EPBX 20,000 UNIT in SYRINGE, DISPOSABLE, 1 EACH IV PRN (20:34)
[2018-11-21] MEDS: INSULIN GLARGINE,HUM.REC.ANLOG 1,000 UNIT/10 ML VIAL SUBCUT SCH (21:40)
[2018-11-21] MEDS: ATORVASTATIN CALCIUM 20 MG TABLET PO SCH (21:41)
[2018-11-22] MEDS: IPRATROPIUM BROMIDE 0.02% NEB 0.5 MG/2.5 ML AMPUL NEB SCH ×3 (00:09→15:54)
[2018-11-22] MEDS: LEVALBUTEROL HCL NEB 1.25 MG/3 ML AMPUL NEB SCH ×3 (00:09→15:54)
[2018-11-22] MEDS ORDERED: NORMAL SALINE 1000 ML 1,000 ML IV PRN (05:00)
[2018-11-22] MEDS: PANTOPRAZOLE SODIUM 40 MG TABLET.DR PO SCH ×2 (05:26→17:14)
[2018-11-22] MEDS: ISOSORB DINIT/HYDRALAZINE HCL 20-37.5 MG TABLET PO SCH ×2 (05:26→15:33)
[2018-11-22] MEDS: HEPARIN SOD (PORCINE) 5,000 UNIT/ML 1 ML VIAL SUBCUT SCH ×2 (05:26→13:45)
[2018-11-22] MEDS: CLONIDINE HCL 0.1 MG TABLET PO SCH ×2 (05:26→15:38)
[2018-11-22 06:38] LABS: ABSOLUTE BASOPHILS # (AUTO) 0.1 10^3/uL (0.0-0.2); ABSOLUTE EOSINOPHILS # (AUTO) 0.3 10^3/uL (0.0-0.6); ABSOLUTE LYMPHOCYTES (AUTO) 2.1 10^3/uL (0.5-4.7); ABSOLUTE MONOCYTES (AUTO) 0.4 10^3/uL (0.1-1.4); ABSOLUTE NEUT (AUTO) 3.3 10^3/uL (1.7-8.2); BASOPHILS % (AUTO) 1.2 % (0-2); EOSINOPHILS % (AUTO) 4.2 % (0-6); HEMATOCRIT 28.4 % (37.9-51.0); HEMOGLOBIN 9.4 g/dL (13.5-17.0); LYMPHOCYTES % (AUTO) 34.9 % (13-45); MEAN CORPUSCULAR HEMOGLOBIN 29.2 pg (27.0-33.4); MEAN CORPUSCULAR HGB CONC 33.1 g/dL (32.0-36.0); MONOCYTES % (AUTO) 6.7 % (3-13); PLATELET COUNT 198 10^3/uL (150-450); RED BLOOD COUNT 3.22 10^6/uL (4.35-5.55); RED CELL DISTRIBUTION WIDTH 18.5 % (11.5-14.0); TOTAL CELLS COUNTED % (AUTO) 100 %; WHITE BLOOD COUNT 6.1 10^3/uL (4.0-10.5)
[2018-11-22 06:54] LABS: ANION GAP 7 (5-19); BLOOD UREA NITROGEN 49 mg/dL (7-20); CALCIUM 8.8 mg/dL (8.4-10.2); CARBON DIOXIDE 26 mmol/L (22-30); CHLORIDE 106 mmol/L (98-107); GLUCOSE 89 mg/dL (75-110); POTASSIUM 3.6 mmol/L (3.6-5.0)
[2018-11-22 07:16] LABS: MEAN CORPUSCULAR VOLUME 88 fl (80-97)
[2018-11-22] MEDS ORDERED: EPOETIN ALFA-EPBX 10,000 UNIT in SYRINGE, DISPOSABLE, 1 EACH IV PRN (08:00)
[2018-11-22] MEDS: BUDESONIDE NEB 0.5 MG/2 ML AMPUL NEB SCH (09:13)
--- NOTE | 2018-11-22 10:47 | PDOC PROGRESS REPORT ---
Subjective Progress Note for:: 11/22/18 Subjective:: I am seeing the patient during dialysis this morning. He is a little bit grouchy today. He is been wanting to go home since yesterday. While on dialysis is receiving breathing treatments. So far he is tolerating dialysis currently. Reason For Visit: ACUTE HYPOXIC RESP FAILURE, PNEUMONIA Physical Exam Vital Signs: Temp Pulse Resp BP Pulse Ox 97.5 F 67 16 138/54 H 100 11/22/18 07:34 11/22/18 09:13 11/22/18 09:13 11/22/18 07:34 11/22/18 09:13 Intake & Output 11/21/18 11/22/18 11/23/18 06:59 06:59 06:59 Intake Total 460 410 Output Total 3200 Balance -2740 410 Weight 78.6 kg 79.9 kg Vitals during dialysis: Blood pressure 153/73, heart rate of 69, blood flow rate of 400 mL/min and dialysate flow rate of 800 mL/min. Exam: General appearance: PRESENT: no acute distress, cooperative, well-developed, well-nourished Head exam: PRESENT: atraumatic, normocephalic Eye exam: PRESENT: conjunctiva pink, PERRLA. ABSENT: scleral icterus Neck exam: ABSENT: JVD Respiratory exam: PRESENT: Diminished breath sounds. ABSENT: crackles, rales, rhonchi, unlabored, wheezes Cardiovascular exam: PRESENT: Regular rate rhythm -+S1, +S2. ABSENT: diastolic murmur, systolic murmur GI/Abdominal exam: PRESENT: normal bowel sounds, soft. ABSENT: guarding, mass, tenderness Extremities exam: ABSENT: No edema Neurological exam: PRESENT: alert, awake, oriented to person, place and time. Skin exam: PRESENT: dry, warm, Cardiovascular exam: PRESENT: +S1, +S2 GI/Abdominal exam: PRESENT: normal bowel sounds, soft. ABSENT: organomegaly, tenderness Results Laboratory Results: 11/22/18 06:15 11/22/18 06:15 11/22/18 11/22/18 06:15 06:15 WBC 6.1 RBC 3.22 L Hgb 9.4 L Hct 28.4 L MCV 88 D MCH 29.2 MCHC 33.1 RDW 18.5 H Plt Count 198 Seg Neutrophils % 53.0 Sodium 139.2 Potassium 3.6 Chloride 106 Carbon Dioxide 26 Anion Gap 7 BUN 49 H Creatinine 6.36 H Est GFR ( Amer) 11 L Glucose 89 Calcium 8.8 11/18/18 11/18/18 20:15 20:15 Troponin I 0.125 NT-Pro-B Natriuret Pep 97707 H Impressions: Acute Abdomen Series 11/18/18 21:32 IMPRESSION: 1. Bilateral peripherally central interstitial infiltrates, indeterminate for cardiogenic pulmonary edema versus an atypical interstitial pneumonia. 2. Minimal right pleural effusion. 3. Proximal colonic fecal retention, but no small bowel distention. Chest X-Ray 11/18/18 23:32 IMPRESSION: 1. Patchy bilateral infiltrates. The pattern favors an atypical pneumonia rather than congestive heart failure. Chest CT 11/20/18 00:00 IMPRESSION: Patchy alveolar airspace disease in both upper lobes. Bibasilar atelectasis and small effusions. Findings most likely represent infectious or inflammatory pneumonitis. Less likely asymmetric edema. Assessment & Plan - Diagnosis (1) ESRD (end stage renal disease) on dialysis Is this a current diagnosis for this admission?: Yes Plan: We will do dialysis today for 3 hours, using the patient's AV fistula, with 3 potassium bath, blood flow rate of 400 mL per minute, dialysate flow rate of 800 mL per minute, ultrafiltration 2 L as tolerated, no heparin and Procrit with 10,000 units during dialysis intravenously. Patient will be monitored throughout dialysis treatment and adjust accordingly. Discussed treatment prescription with her dialysis nurse. (2) Anemia in ESRD (end-stage renal disease) Is this a current diagnosis for this admission?: Yes Plan: Patient will receive with a Retacrit today. (3) Bilateral pneumonia Qualifiers: Pneumonia type: due to unspecified organism Lung location: unspecified part of lung Qualified Code(s): J18.9 - Pneumonia, unspecified organism Is this a current diagnosis for this admission?: Yes Plan: On antibiotics per Dr. Burleson. (4) Diabetes mellitus type 2 in nonobese Is this a current diagnosis for this admission?: Yes (5) Hypertension Qualifiers: Hypertension type: essential hypertension Qualified Code(s): I10 - Essential (primary) hypertension (6) Constipation Qualifiers: Constipation type: unspecified constipation type Qualified Code(s): K59.00 - Constipation, unspecified Is this a current diagnosis for this admission?: Yes Plan: Resolved. - Notes Notes: From nephrology standpoint I think the patient can be discharged home anytime after dialysis today and send home with oral antibiotics. - Time Time with patient: 15-25 minutes
[2018-11-22] MEDS: LACTULOSE SYRUP 20 GM/30 ML UDCUP PO SCH (13:36)
[2018-11-22] MEDS: CALCIUM ACETATE 667 MG CAPSULE PO SCH ×3 (13:39→15:32)
[2018-11-22] MEDS: FUROSEMIDE 40 MG TABLET PO SCH (13:40)
[2018-11-22] MEDS: TAMSULOSIN HCL 0.4 MG CAP.SR.24H PO SCH (13:40)
[2018-11-22] MEDS: FOLIC ACID/VITAMIN B COMP W-C CAPSULE PO SCH (13:40)
[2018-11-22] MEDS: DOCUSATE SODIUM 100 MG CAPSULE PO SCH ×2 (13:40→17:13)
[2018-11-22] MEDS: LOSARTAN POTASSIUM 25 MG TABLET PO SCH (13:41)
[2018-11-22] MEDS: NIFEDIPINE 30 MG TAB.ER.24 PO SCH (13:42)
[2018-11-22] MEDS: FINASTERIDE 5 MG TABLET PO SCH (13:43)
[2018-11-22 17:00] VITALS: BP 163/75
[2018-11-22] MEDS: CEFTRIAXONE 1 GM/D5W RTU 1 GM/50 ML RTUPB IV SCH (17:25)
[2018-11-22] MEDS ORDERED: LEVOFLOXACIN 500 MG TABLET PO SCH (18:00)
--- NOTE | 2018-11-22 18:19 | PDOC DISCHARGE SUMMARY ---
General - Admit/Disc Date/PCP Admission Date/Primary Care Provider: 11/19/18 06:23 K Cordell JERRY MD Discharge Date: 11/22/18 - Discharge Diagnosis (1) Acute respiratory failure with hypoxia Is this a current diagnosis for this admission?: Yes (2) Bilateral pneumonia Is this a current diagnosis for this admission?: Yes (3) ESRD (end stage renal disease) on dialysis Is this a current diagnosis for this admission?: Yes (4) Anemia in ESRD (end-stage renal disease) Is this a current diagnosis for this admission?: Yes (5) Diabetes mellitus type II, controlled Is this a current diagnosis for this admission?: Yes - Additional Information Resuscitation Status: Full Code Discharge Diet: As Tolerated Discharge Activity: Activity As Tolerated, Balance Activity w/Rest Prescriptions: Levofloxacin [Levaquin 500 mg Tablet] 500 mg PO DAILY #10 tablet Home Medications: Atorvastatin Calcium [Lipitor 20 mg Tablet] 20 mg PO QHS 11/19/18 Calcium Acetate [Phoslo 667 mg Capsule] 667 mg PO AC 11/19/18 Clonidine HCl [Catapres 0.3 mg Tablet] 0.3 mg PO Q8 11/19/18 Finasteride [Proscar 5 mg Tablet] 5 mg PO DAILY 11/19/18 Folic Acid/Vitamin B Comp W-C [Renal Softgel] 1 mg PO DAILY 11/19/18 Furosemide [Lasix 40 mg Tablet] 40 mg PO DAILY 11/19/18 Insulin Glargine,Hum.rec.anlog [Lantus Insulin 100 Unit/1 ml 10 ml] 20 unit SUBCUT DAILY 11/19/18 Irbesartan [Avapro] 75 mg PO DAILY 11/19/18 Isosorb Dinit/Hydralazine HCl [Bidil 20-37.5 mg Tablet] 1 tab PO Q8 11/19/18 Lactulose [Constulose 10 gm/15 mL Oral Solution] 60 ml PO DAILY 11/19/18 Nifedipine [Nifedipine ER] 90 mg PO BID 11/19/18 Omeprazole 20 mg PO BID 11/19/18 Tamsulosin HCl [Flomax] 0.4 mg PO DAILY 11/19/18 Levofloxacin [Levaquin 500 mg Tablet] 500 mg PO DAILY #10 tablet 11/22/18 History of Present Illness History of Present Illness: MARILU CRAWFORD is a 68 year old male, Patient came to the emergency room initially for evaluation of constipation, he was given GoLYTELY in the emergency room, he was about to be discharged home then he was found to have no oxygen saturation, because of this finding, a VQ scan was done that was negative. He was initially admitted under hospitalist because the ED physician was not aware that is my office patient Hospital Course Hospital Course: He was admitted for hypoxemic respiratory failure, CAT scan showed pneumonia, he has end-stage renal disease on hemodialysis, he was seen by nephrology underwent dialysis on this admission, patient was seen today is stable to be discharged home Physical Exam Vital Signs: Temp Pulse Resp BP Pulse Ox 97.8 F 67 16 163/75 H 99 11/22/18 16:54 11/22/18 16:54 11/22/18 16:54 11/22/18 16:54 11/22/18 16:54 Intake & Output 11/21/18 11/22/18 11/23/18 06:59 06:59 06:59 Intake Total 460 410 720 Output Total 3200 2100 Balance -2740 410 -1380 Weight 78.6 kg 79.9 kg General appearance: PRESENT: no acute distress Head exam: PRESENT: atraumatic, normocephalic Eye exam: PRESENT: PERRLA Ear exam: PRESENT: normal external ear exam Mouth exam: PRESENT: moist, tongue midline Neck exam: PRESENT: full ROM Respiratory exam: PRESENT: clear to auscultation bob Cardiovascular exam: PRESENT: RRR, +S1, +S2 Pulses: PRESENT: normal dorsalis pedis pul, +2 pedal pulses bilateral Vascular exam: PRESENT: normal capillary refill GI/Abdominal exam: PRESENT: normal bowel sounds, soft Rectal exam: PRESENT: deferred Neurological exam: PRESENT: alert, CN II-XII grossly intact Psychiatric exam: PRESENT: appropriate affect, normal mood Skin exam: PRESENT: dry, intact, warm Results Laboratory Results: 11/22/18 06:15 11/22/18 06:15 11/22/18 11/22/18 06:15 06:15 WBC 6.1 RBC 3.22 L Hgb 9.4 L Hct 28.4 L MCV 88 D MCH 29.2 MCHC 33.1 RDW 18.5 H Plt Count 198 Seg Neutrophils % 53.0 Sodium 139.2 Potassium 3.6 Chloride 106 Carbon Dioxide 26 Anion Gap 7 BUN 49 H Creatinine 6.36 H Est GFR ( Amer) 11 L Glucose 89 Calcium 8.8 11/18/18 11/18/18 20:15 20:15 Troponin I 0.125 NT-Pro-B Natriuret Pep [id number] H Impressions: Acute Abdomen Series 11/18/18 21:32 IMPRESSION: 1. Bilateral peripherally central interstitial infiltrates, indeterminate for cardiogenic pulmonary edema versus an atypical interstitial pneumonia. 2. Minimal right pleural effusion. 3. Proximal colonic fecal retention, but no small bowel distention. Chest X-Ray 11/18/18 23:32 IMPRESSION: 1. Patchy bilateral infiltrates. The pattern favors an atypical pneumonia rather than congestive heart failure. Chest CT 11/20/18 00:00 IMPRESSION: Patchy alveolar airspace disease in both upper lobes. Bibasilar atelectasis and small effusions. Findings most likely represent infectious or inflammatory pneumonitis. Less likely asymmetric edema. Qualifiers - * PATIENT BEING DISCHARGED WITH ANY OF THE FOLLOWING DIAGNOSIS: No VTE patient discharged on overlapping Therapy?: No Reason(s) for not prescribing Overlap Therapy:: Not indicated Stroke Pt being discharged on Anti-thrombolytic therapy?: No Reason(s) for not prescribing Anti-thrombolytic therapy:: Not indicated Stroke Pt being discharged on Anti-coagulation therapy?: No Reason(s) for not prescribing Anti-coagulation therapy:: Not indicated Stroke Pt being discharged on Statins?: No Reason(s) for not prescribing Statins therapy:: Not indicated MS Pt being discharged on Aspirin therapy?: No Reason(s) for not prescribing Aspirin therapy:: Not indicated MS Pt being discharged on Statins?: No Reason(s) for not prescribing Statin therapy:: Not indicated MS Pt discharged ACEI/ARBS?: No Reason(s) for not prescribing ACEI/ARBS:: Not indicated Acute Heart Failure - Is this a Heart Failure Patient?: No Follow-up Appointment scheduled within 7 days?: Yes
== END 2018-11-22 18:10 | disposition home or self-care (01) | DRG 189 ==
LOC: ER 18:23 → OBSVTOIN 11-19 06:23 → EH 11-19 06:23 → 4S 11-19 15:18
PROVIDERS: ADMIT Internal Medicine; ATTEND Internal Medicine
PROC: 5A1D70Z Performance of Urinary Filtration, Intermittent, Less than 6 Hours Per Day (ICD-10-PCS; principal; 2018-11-19)
DX: J96.01 Acute respiratory failure with hypoxia (principal); J18.9 Pneumonia, unspecified organism; N18.6 End stage renal disease; N25.81 Secondary hyperparathyroidism of renal origin; E11.22 Type 2 diabetes mellitus with diabetic chronic kidney disease; E11.51 Type 2 diabetes mellitus with diabetic peripheral angiopathy without gangrene; J44.9 Chronic obstructive pulmonary disease, unspecified; Z99.2 Dependence on renal dialysis; D63.1 Anemia in chronic kidney disease; I12.9 Hypertensive chronic kidney disease with stage 1 through stage 4 chronic kidney disease, or unspecified chronic kidney disease; K59.00 Constipation, unspecified; M19.90 Unspecified osteoarthritis, unspecified site; F17.200 Nicotine dependence, unspecified, uncomplicated; D50.9 Iron deficiency anemia, unspecified; Z79.4 Long term (current) use of insulin; Z87.01 Personal history of pneumonia (recurrent); Z84.1 Family history of disorders of kidney and ureter
CPT/HCPCS: 36415; 36600; 71046; 71250; 74022; 78582; 80048; 80074; 82803; 82962; 83880; 84484; 85025; 86317; 93005; 93010; 99284; A9540; A9567; G0378; J0696; J1644; J1815; J3490; Q5105; Q9969

== ENCOUNTER 2018-12-04 16:55 | Emergency (ER) | payer MEDICARE, MEDICAID ==
--- NOTE | 2018-12-04 17:40 | ER Document Report ---
ED General - General Chief Complaint: Dialysis Shunt Problem Stated Complaint: BLEEDING FISTULA Time Seen by Provider: 12/04/18 17:30 Primary Care Provider: ALEKS HARKINS MD [Primary Care Provider] - Follow up as needed TRAVEL OUTSIDE OF THE [place] IN LAST 30 DAYS: No - HPI Notes: Patient is a 68-year-old male with a history of end-stage renal disease, dialysis Sunday, who presents to the emergency department for evaluation of his fistula bleeding. His fistula was accessed as normal, had normal dialysis earlier today. He continued to bleed at the site. Dialysis nurses attempted to achieve hemostasis for approximately 45 minutes, at which point they placed a clamp and send him to the ED. The patient denies any pain of any sort. No numbness or tingling. He has no other acute complaints or concerns. He states his been taking his medications as prescribed. - Related Data Allergies/Adverse Reactions: No Known Allergies Allergy (Verified 12/04/18 17:22) Past Medical History - General Information source: Patient - Social History Smoking Status: Current Every Day Smoker Drug Abuse: None Family History: DM, Hypertension - Past Medical History Cardiac Medical History: Reports: Hx Hypertension, Hx Peripheral Vascular Disease Denies: Hx Coronary Artery Disease, Hx Heart Attack Pulmonary Medical History: Reports: Hx COPD, Hx Pneumonia Denies: Hx Asthma, Hx Bronchitis Neurological Medical History: Denies: Hx Cerebrovascular Accident, Hx Seizures Endocrine Medical History: Reports: Hx Diabetes Mellitus Type 2. Denies: Hx Diabetes Mellitus Type 1, Hx Hyperthyroidism, Hx Hypothyroidism Renal/ Medical History: Reports: Hx End Stage Renal Disease, Hx Hemodialysis - Sunday, Sunday, and Sunday. Denies: Hx Peritoneal Dialysis GI Medical History: Denies: Hx Cirrhosis, Hx Crohn's Disease, Hx Hepatitis, Hx Ulcerative Colitis Musculoskeletal Medical History: Reports Hx Arthritis - Bilat legs, Denies Hx Gout Skin Medical History: Denies Hx Eczema, Denies Hx Psoriasis Psychiatric Medical History: Denies: Hx Depression Infectious Medical History: Denies: Hx Hepatitis Past Surgical History: Reports: Hx Neurologic Surgery - back BIOPSY, Hx Vascular Surgery - Arteriovenous fistula for dialysis right upper arm. Denies: Hx Pacemaker - Immunizations Hx Diphtheria, Pertussis, Tetanus Vaccination: Yes Hx Pneumococcal Vaccination: 03/26/06 Review of Systems - Review of Systems Constitutional: No symptoms reported EENT: No symptoms reported Cardiovascular: No symptoms reported Respiratory: No symptoms reported Gastrointestinal: No symptoms reported Genitourinary: No symptoms reported Musculoskeletal: No symptoms reported Skin: No symptoms reported Hematologic/Lymphatic: See HPI Neurological/Psychological: No symptoms reported Physical Exam - Vital signs Vitals: Temp Pulse Resp BP Pulse Ox 98.4 F 70 18 180/65 H 98 12/04/18 16:57 12/04/18 16:57 12/04/18 16:57 12/04/18 16:57 12/04/18 16:57 - Notes Notes: Is a very pleasant 68-year-old male who appears stated age in no acute distress. Is neuropsych and atraumatic. Pupils are equal round reactive to light. Oral mucosa is moist. Heart is regular, lungs are clear to station bilaterally. Examination of the right upper extremity yields intact and dry bandage in place with a clamp overlying the fistula in the right bicep region. Neurovascularly intact distally to the entire right upper extremity. Course - Re-evaluation Re-evalutation: 12/04/18 17:40 Patient presents emergency department for evaluation. At this point the patient's bandages are dry and intact, I do not see any sign of bleedthrough. We will leave the clamp in place as it is, we will continue to monitor before taking down the client. The patient again has no signs of significant vascular compromise, will continue to monitor. 12/04/18 20:37 I was able to take down some of the dressing, remove the clamp. He had no rebleeding. He was monitored here for about 45 minutes following that and bandage remained dry. We will then leave bandage in place. Patient is amenable to this plan. He is to report to dialysis as normal on Sunday. Return to the ED with worsening or new concerning symptoms. - Vital Signs Vital signs: Temp Pulse Resp BP Pulse Ox 98.4 F 70 18 180/65 H 98 12/04/18 16:57 12/04/18 16:57 12/04/18 16:57 12/04/18 16:57 12/04/18 16:57 Discharge - Discharge Clinical Impression: Dialysis AV fistula malfunction Qualifiers: Encounter type: initial encounter Qualified Code(s): T82.590A - Other mechanical complication of surgically created arteriovenous fistula, initial encounter Condition: Stable Disposition: HOME, SELF-CARE Additional Instructions: Keep bandage in place. Follow-up for normal dialysis as scheduled on Sunday. If your bleeding begins again, return immediately to the emergency department for evaluation. Referrals: ALEKS HARKINS MD [Primary Care Provider] - Follow up as needed
[2018-12-04 21:23] VITALS: BP 169/73
== END 2018-12-04 21:23 | disposition home or self-care (01) ==
LOC: ER 16:55
DX: T82.590A Other mechanical complication of surgically created arteriovenous fistula, initial encounter (principal); I12.0 Hypertensive chronic kidney disease with stage 5 chronic kidney disease or end stage renal disease; E11.22 Type 2 diabetes mellitus with diabetic chronic kidney disease; N18.6 End stage renal disease; Z99.2 Dependence on renal dialysis; F17.200 Nicotine dependence, unspecified, uncomplicated
CPT/HCPCS: 99284

== ENCOUNTER 2019-02-20 19:49 | Inpatient (IN) | payer MEDICARE, MEDICAID ==
[2019-02-20] MEDS ORDERED: NITROGLYCERIN/D5W 50 MG/250 ML RTUINJ IV PRN (20:21)
--- NOTE | 2019-02-20 20:33 | ER Document Report ---
ED General - General Chief Complaint: Breathing Difficulty Stated Complaint: CHEST PAIN/SHORTNESS OF BREATH Time Seen by Provider: 02/20/19 20:19 Primary Care Provider: ALEKS HARKINS MD [Primary Care Provider] - Follow up as needed TRAVEL OUTSIDE OF THE [place] IN LAST 30 DAYS: No - HPI Notes: Patient is a 69-year-old male, end-stage renal disease, who presents to the emergency department for evaluation of difficulty breathing. He is normally a Sunday dialysis patient. He was dialyzed on Sunday secondary to the holiday. He states he started feeling short of breath last night. The patient states he has had a minimal cough. He denies any fevers or chills. He has pain in his chest and abdomen, really cannot describe him for me in any way. He states the constant, otherwise does not offer me any other significant description. He states that he is unsure as to whether or not he took his medications this evening, believes he took his daytime medications. He states he urinates some, but cannot quantify this for me, states that is not daily. - Related Data Allergies/Adverse Reactions: No Known Allergies Allergy (Verified 12/04/18 17:22) Past Medical History - General Information source: Patient, [facility] Records - Social History Smoking Status: Current Every Day Smoker Frequency of alcohol use: Occasional Family History: DM, Hypertension Patient has suicidal ideation: No Patient has homicidal ideation: No - Past Medical History Cardiac Medical History: Reports: Hx Hypertension, Hx Peripheral Vascular Disease Denies: Hx Coronary Artery Disease, Hx Heart Attack Pulmonary Medical History: Reports: Hx COPD, Hx Pneumonia Denies: Hx Asthma, Hx Bronchitis Neurological Medical History: Denies: Hx Cerebrovascular Accident, Hx Seizures Endocrine Medical History: Reports: Hx Diabetes Mellitus Type 2. Denies: Hx Diabetes Mellitus Type 1, Hx Hyperthyroidism, Hx Hypothyroidism Renal/ Medical History: Reports: Hx End Stage Renal Disease, Hx Hemodialysis - Sunday, Sunday, and Sunday. Denies: Hx Peritoneal Dialysis GI Medical History: Denies: Hx Cirrhosis, Hx Crohn's Disease, Hx Hepatitis, Hx Ulcerative Colitis Musculoskeletal Medical History: Reports Hx Arthritis - Bilat legs, Denies Hx Gout Skin Medical History: Denies Hx Eczema, Denies Hx Psoriasis Psychiatric Medical History: Denies: Hx Depression Infectious Medical History: Denies: Hx Hepatitis Past Surgical History: Reports: Hx Neurologic Surgery - back BIOPSY, Hx Vascular Surgery - Arteriovenous fistula for dialysis right upper arm. Denies: Hx Pacemaker - Immunizations Hx Diphtheria, Pertussis, Tetanus Vaccination: Yes Hx Pneumococcal Vaccination: 03/26/06 Review of Systems - Review of Systems Constitutional: No symptoms reported EENT: No symptoms reported Cardiovascular: See HPI Respiratory: See HPI Gastrointestinal: See HPI Genitourinary: No symptoms reported Musculoskeletal: No symptoms reported Skin: No symptoms reported Neurological/Psychological: No symptoms reported Physical Exam - Vital signs Vitals: Pulse Ox 85 L 02/20/19 20:00 - Notes Notes: This is a 69-year-old male, already on the BiPAP when I enter the room, who appears his stated age and a mild amount of distress. He remains tachypneic with a respiratory rate of about 27. Head is normocephalic and atraumatic, pupils are equal round, reactive to light. Heart is regular rate and rhythm, lungs show coarse rales throughout. Abdomen is mildly distended and diffusely tender without rebound or guarding. Extremities without cyanosis or clubbing. He does have 1+ pretibial pitting edema. Skin is warm and dry. Patient is awake and alert, moves all extremities spontaneously, no facial asymmetry, follows commands without difficulty. Course - Re-evaluation Re-evalutation: 02/20/19 20:32 Patient is a 69-year-old male, with a known history of end-stage renal disease, who presents emergency department for evaluation of dyspnea. When EMS found him he was found to be significantly hypoxic. He was placed on CPAP and route, but he did not respond. Upon arrival he was markedly hypertensive. BiPAP was initiated, please see orders. Patient's blood pressure was noted to be markedly elevated, the systolic in the 230s. Nitroglycerin drip was initiated, starting dose of 20 mcg/min. This is ordered an effort to cause pulmonary vasodilation as well as lower his blood pressure. At this point I will reassess to see if t his helps his chest pain. IV was established, laboratory investigations are pending, we will continue to monitor. 02/20/19 22:13 Patient is stable on the nitroglycerin drip. He is chest pain-free, feeling improved. Laboratory investigations revealed a significant leukocytosis, CO2 retention. Chest x-ray shows findings concerning for infiltrate. His blood pressure is currently significantly improved. Contacting Dr. Ortiz regarding ultimate disposition of this patient. 02/20/19 22:[address] Ortiz. He asked if I could speak with Dr. Abbott as well as the blow torch burner about the patient. Dr. Abbott states he would be happy to dialyze the patient tomorrow. Phone call being will be placed to the blow torch burner. 02/21/19 01:[address] angiogram of the chest revealed bilateral pneumonia with parapneumonic infiltrates. No pulmonary embolus or other acute finding, including cavitary lesion, was noted. Patient's blood pressure continued to creep up, but he remains chest pain-free. He is sitting comfortably on the BiPAP. I will go ahead and increase his nitroglycerin drip. Patient's troponin continues to be elevated, but I do not strongly suspect a cardiac source, but this to be likely secondary to his need for dialysis and his pneumonia/respiratory failure. I spoke with CANNERY TENDER ENGINEER Fawad Russell, overnight blow torch burner, he will come down and evaluate the patient. 02/21/19 01:49 Patient was accepted by the blow torch burner for admission. 02/21/19 01:50 - Vital Signs Vital signs: Temp Pulse Resp BP Pulse Ox 97.9 F 29 H 225/88 H 95 02/20/19 21:20 02/21/19 01:35 02/21/19 01:35 02/21/19 01:35 - Laboratory Result Diagrams: 02/20/19 20:00 02/20/19 20:00 Laboratory results interpreted by me: 02/20/19 02/20/19 02/20/19 20:00 20:00 20:13 WBC 16.1 H RBC 3.59 L Hgb 11.0 L Hct 34.3 L RDW 17.3 H Lymph % (Auto) 5.9 L Absolute Neuts (auto) 13.9 H Seg Neutrophils % 86.3 H Carbonic Acid 1.70 H ABG pH 7.28 L ABG pCO2 56.6 H ABG pO2 151.7 H ABG HCO3 26.1 H ABG Total CO2 27.9 H ABG O2 Saturation 98.7 H Chloride 96 L Anion Gap 22 H BUN 52 H Creatinine 10.33 H Est GFR ( Amer) 6 L Est GFR (MDRD) Non-Af 5 L Glucose 212 H Calcium 10.8 H Direct Bilirubin 0.7 H Total Protein 8.4 H - Diagnostic Test Radiology reviewed: Image reviewed, Reports reviewed Radiology results interpreted by me: 02/20/19 22:14 Chest X-Ray 02/20/19 20:20 IMPRESSION: Areas of alveolar consolidation in the lower lobes bilaterally and in the right midlung field. Question possibility of cavitation in the infiltrate in the right midlung. Findings suggest pneumonia. Recommend further evaluation with CT of the chest - EKG Interpretation by Me Additional EKG results interpreted by me: 02/20/19 20:31 Sinus tachycardia with a rate of 113 bpm. Left axis deviation. IVCD. Baseline artifact secondary to respirations, but no acute ST elevation concerning for infarction. Critical Care Note - Critical Care Note Total time excluding time spent on procedures (mins): 50 Discharge - Discharge Clinical Impression: End stage renal disease, Hypercapnic respiratory failure, Hypertensive urgency Pneumonia Qualifiers: Pneumonia type: due to unspecified organism Laterality: bilateral Lung location: lower lobe of lung Qualified Code(s): J18.9 - Pneumonia, unspecified organism Condition: Stable Disposition: ADMITTED INPATIENT Admitting Provider: Oswaldo (Corporate Banking Officer) - MARY LOU Russell covering Unit Admitted: ICU Referrals: ALEKS HARKINS MD [Primary Care Provider] - Follow up as needed
[2019-02-20 20:37] LABS: ALBUMIN 4.8 g/dL (3.5-5.0); ALKALINE PHOSPHATASE 112 U/L (38-126); ASPARTATE AMINO TRANSFERASE 32 U/L (17-59); BILIRUBIN,DIRECT 0.7 mg/dL (0.0-0.4); BILIRUBIN,TOTAL 0.8 mg/dL (0.2-1.3); BLOOD UREA NITROGEN 52 mg/dL (7-20); CALCIUM 10.8 mg/dL (8.4-10.2); GLUCOSE 212 mg/dL (75-110); POTASSIUM 3.7 mmol/L (3.6-5.0); TOTAL PROTEIN 8.4 g/dL (6.3-8.2)
[2019-02-20 20:39] LABS: ABSOLUTE BASOPHILS # (AUTO) 0.1 10^3/uL (0.0-0.2); ABSOLUTE EOSINOPHILS # (AUTO) 0.1 10^3/uL (0.0-0.6); ABSOLUTE LYMPHOCYTES (AUTO) 0.9 10^3/uL (0.5-4.7); ABSOLUTE MONOCYTES (AUTO) 1.1 10^3/uL (0.1-1.4); ABSOLUTE NEUT (AUTO) 13.9 10^3/uL (1.7-8.2); BASOPHILS % (AUTO) 0.7 % (0-2); EOSINOPHILS % (AUTO) 0.5 % (0-6); HEMATOCRIT 34.3 % (37.9-51.0); LYMPHOCYTES % (AUTO) 5.9 % (13-45); MEAN CORPUSCULAR HEMOGLOBIN 30.7 pg (27.0-33.4); MEAN CORPUSCULAR HGB CONC 32.2 g/dL (32.0-36.0); MEAN CORPUSCULAR VOLUME 95 fl (80-97); MONOCYTES % (AUTO) 6.6 % (3-13); PLATELET COUNT 326 10^3/uL (150-450); RED BLOOD COUNT 3.59 10^6/uL (4.35-5.55); RED CELL DISTRIBUTION WIDTH 17.3 % (11.5-14.0); SEGMENTED NEUTROPHILS % (AUTO) 86.3 % (42-78); TOTAL CELLS COUNTED % (AUTO) 100 %; WHITE BLOOD COUNT 16.1 10^3/uL (4.0-10.5)
[2019-02-20 20:43] LABS: CARBON DIOXIDE 24 mmol/L (22-30); CHLORIDE 96 mmol/L (98-107)
[2019-02-20 21:05] LABS: ARTERIAL BLOOD BASE EXCESS -1.2 mmol/L; ARTERIAL BLOOD FIO2 100%; ARTERIAL BLOOD HCO3 26.1 mmol/L (20-24); ARTERIAL BLOOD O2 SATURATION 98.7 % (94-98); ARTERIAL BLOOD PCO2 56.6 mmHg (35-45); ARTERIAL BLOOD PH 7.28 (7.35-7.45); ARTERIAL BLOOD PO2 151.7 mmHg (80-100); ARTERIAL BLOOD TOTAL CO2 27.9 mmol/L (23-27)
[2019-02-20 21:06] LABS: ANION GAP 22 (5-19)
--- NOTE | 2019-02-20 21:13 | RADIOLOGY REPORT (SQ) ---
EXAM DESCRIPTION: Chest single view Completed dated time 02/20/2019 8:32 PM CLINICAL HISTORY: 69 years Male dyspnea COMPARISON: 11/19/2018 FINDINGS: Cardiac enlargement. Areas of alveolar infiltrate in the right mid and lower lung field suggesting pneumonia with small right effusion. Patchy areas of infiltrate also present in the left lower lobe with probable small left effusion. Cavitation in the right midlung area is not excluded. This could be further assessed with CT of the chest. IMPRESSION: Areas of alveolar consolidation in the lower lobes bilaterally and in the right midlung field. Question possibility of cavitation in the infiltrate in the right midlung. Findings suggest pneumonia. Recommend further evaluation with CT of the chest
[2019-02-20] MEDS ORDERED: LEVOFLOXACIN 750 MG/D5W RTU 750 MG/150 ML RTUPB IV ONE (21:35)
--- NOTE | 2019-02-20 23:53 | RADIOLOGY REPORT (SQ) ---
EXAM DESCRIPTION: CT CHEST ANGIOGRAPHY WITHOUT THEN WITH IV CONTRAST COMPLETED DATE/TME: 02/20/2019 22:25 CLINICAL HISTORY: 69 years Male SOB, eval for PE COMPARISON: 11/20/2018 TECHNIQUE: Contiguous axial images obtained through the chest during the infusion of IV contrast. Reformatted images obtained. 3-D MIP reformatted images obtained. NASCET criteria utilized for the evaluation of any stenotic lesions. This exam was performed according to our department optimization program which includes automated exposure control, adjustment of the mA and/or kv according to patient size and/or use of iterative reconstruction technique. FINDINGS: Cardiac enlargement. Bilateral pleural effusions. No evidence of pulmonary embolus. Mildly prominent hilar and mediastinal lymph nodes which are nonspecific. Vascular calcification in the aorta and the coronary arteries. There are patchy areas of alveolar infiltrate diffusely with areas of consolidation in the posterior right upper lobe and right lower lobe and to a lesser extent in the left upper and lower lobe. There is no evidence to suggest area of cavitation. IMPRESSION: No evidence to suggest pulmonary embolus Bilateral pulmonary infiltrates worse in the right upper and lower lobe and in the left lung base. Findings suggest pneumonia with para pneumonic effusions No evidence of cavitation Probable reactive adenopathy Cardiac enlargement
--- NOTE | 2019-02-21 01:55 | CRITICAL CARE ADMISSION REPORT ---
HPI Date:: 02/21/19 Time:: 01:42 Reason for ICU Reason:: HTN HPI: This is a pleasant 69-year-old male gentleman who presented to the emergency room earlier this evening with complaints of weakness and shortness of breath. Apparently the patient is an end-stage renal disease patient who normally dialyzes on Sunday, Sunday, and Sunday. Secondary to the holiday he was last dialyzed on Sunday but states over the last 24 to 48 hours he has had increasing weakness and shortness of breath. He also complains of accompanied right-sided chest wall pain and abdominal pain. He states she has had a bout of nausea, no vomiting last bowel movement was this morning. The patient was brought to the emergency room via EMS and was placed on BiPAP in route. Reportedly had hypoxemia to the upper 60s prior to arrival. While in the emergency room the patient had hypertension to 200+ systolic and was placed on a nitro drip. The remainder of the past medical, surgical, social, review of systems was gleaned from the chart as the patient is a very poor historian. - . Plan Summary: 69-year-old male gentleman now with the following issues: #1 End-stage renal disease-nephrology consulted, with plans to dialyze in a.m. #2. Pneumonia-as evidenced by CT chest with infiltrates and leukocytosis. The patient is started broad-spectrum antibiotics and cultures are pending, we will adjust according to speciation. #3. Hypertension-acute on chronic, may be secondary to volume overload versus medication compliance. We will continue the nitro drip and resume other antihypertensive medications with a systolic goal of 180 mmHg. #4. Acute respiratory failure-improved overall on CPAP but with reported hypoxemia to the 60s. We will continue the same likely secondary to above. #5. Abdominal pain-will follow abdominal exam. May need CT abdomen pelvis if exam worsens. Past Medical History Cardiac Medical History: Reports: Hypertension, Peripheral Vascular Disease Denies: Coronary Artery Disease, Myocardial Infarction Pulmonary Medical History: Reports: Chronic Obstructive Pulmonary Disease (COPD), Pneumonia Denies: Asthma, Bronchitis Neurological Medical History: Denies: Seizures Endocrine Medical History: Reports: Diabetes Mellitus Type 2 Denies: Diabetes Mellitus Type 1, Hyperthyroidism, Hypothyroidism Renal/ Medical History: Reports: End Stage Renal Disease GI Medical History: Denies: Cirrhosis, Crohn's Disease, Hepatitis, Ulcerative Colitis Musculoskeltal Medical History: Reports: Arthritis - Bilat legs Denies: Gout Skin Medical History: Denies: Eczema, Psoriasis Psychiatric Medical History: Denies: Depression Hematology: Reports: Anemia - iron deficiency Denies: Bleeding Tendencies Past Surgical History Past Surgical History: Reports: Vascular Surgery - Arteriovenous fistula for d ialysis right upper arm Denies: Pacemaker Social/Family History - Social History Smoking Status: Current Every Day Smoker Frequency of Alcohol Use: None Hx Recreational Drug Use: No Drugs: None Hx Prescription Drug Abuse: No - Medication/Allergies Home Medications: Atorvastatin Calcium [Lipitor 20 mg Tablet] 20 mg PO QHS 11/19/18 Calcium Acetate [Phoslo 667 mg Capsule] 667 mg PO AC 11/19/18 Clonidine HCl [Catapres 0.3 mg Tablet] 0.3 mg PO Q8 11/19/18 Finasteride [Proscar 5 mg Tablet] 5 mg PO DAILY 11/19/18 Folic Acid/Vitamin B Comp W-C [Renal Softgel] 1 mg PO DAILY 11/19/18 Furosemide [Lasix 40 mg Tablet] 40 mg PO DAILY 11/19/18 Insulin Glargine,Hum.rec.anlog [Lantus Insulin 100 Unit/1 ml 10 ml] 20 unit SUBCUT DAILY 11/19/18 Irbesartan [Avapro] 75 mg PO DAILY 11/19/18 Isosorb Dinit/Hydralazine HCl [Bidil 20-37.5 mg Tablet] 1 tab PO Q8 11/19/18 Lactulose [Constulose 10 gm/15 mL Oral Solution] 60 ml PO DAILY 11/19/18 Nifedipine [Nifedipine ER] 90 mg PO BID 11/19/18 Omeprazole 20 mg PO BID 11/19/18 Tamsulosin HCl [Flomax] 0.4 mg PO DAILY 11/19/18 Levofloxacin [Levaquin 500 mg Tablet] 500 mg PO DAILY #10 tablet 11/22/18 Allergies/Adverse Reactions: No Known Allergies Allergy (Verified 12/04/18 17:22) Review of Systems Constitutional: PRESENT: as per HPI, fatigue Eyes: PRESENT: as per HPI Ears: PRESENT: other - bad river band Cardiovascular: PRESENT: chest pain, dyspnea on exertion, edema Respiratory: PRESENT: cough, dyspnea, sputum Gastrointestinal: PRESENT: abdominal pain, bloating, constipation, nausea, vomiting Genitourinary: PRESENT: other - anuria 2/2 esrd Integumentary: PRESENT: wounds Neurological: PRESENT: weakness Physical Exam Vital Signs: Temp Pulse Resp BP Pulse Ox 97.9 F 29 H 225/88 H 95 02/20/19 21:20 02/21/19 01:35 02/21/19 01:35 02/21/19 01:35 Intake & Output 02/19/19 02/20/19 02/21/19 06:59 06:59 06:59 Intake Total 180 Balance 180 Weight 84.5 kg Weight/Height Weight 84.5 kg Height 5 ft 9 in General appearance: PRESENT: hard of hearing, mild distress Head exam: PRESENT: atraumatic Eye exam: PRESENT: EOMI, scleral icterus Ear exam: PRESENT: normal external ear exam Mouth exam: PRESENT: dry mucosa Teeth exam: PRESENT: dental caries, poor dentation Neck exam: PRESENT: JVD Respiratory exam: PRESENT: rhonchi, unlabored Cardiovascular exam: PRESENT: RRR Pulses: PRESENT: normal radial pulses GI/Abdominal exam: PRESENT: distended, soft Rectal exam: PRESENT: deferred Extremities exam: PRESENT: +1 edema Musculoskeletal exam: PRESENT: full ROM Neurological exam: PRESENT: alert, awake, oriented to place, oriented to time, oriented to situation Psychiatric exam: PRESENT: agitated Focused psych exam: PRESENT: restlessness Skin exam: PRESENT: dry, pallor Tubes/Lines: PRESENT: Other - RUE fistula with thrill Laboratory/Radiographs Laboratory Results: 02/20/19 20:00 02/20/19 20:00 02/20/19 02/20/19 02/20/19 20:00 20:00 20:00 WBC 16.1 H RBC 3.59 L Hgb 11.0 L Hct 34.3 L MCV 95 MCH 30.7 MCHC 32.2 RDW 17.3 H Plt Count 326 Seg Neutrophils % 86.3 H Carbonic Acid HCO3/H2CO3 Ratio ABG pH ABG pCO2 ABG pO2 ABG HCO3 ABG O2 Saturation ABG Base Excess FiO2 Sodium 142.2 Potassium 3.7 Chloride 96 L Carbon Dioxide 24 Anion Gap 22 H BUN 52 H Creatinine 10.33 H Est GFR ( Amer) 6 L Glucose 212 H Calcium 10.8 H Total Bilirubin 0.8 AST 32 Alkaline Phosphatase 112 Total Protein 8.4 H Albumin 4.8 Lipase 164.1 02/20/19 20:13 WBC RBC Hgb Hct MCV MCH MCHC RDW Plt Count Seg Neutrophils % Carbonic Acid 1.70 H HCO3/H2CO3 Ratio 15:1 ABG pH 7.28 L ABG pCO2 56.6 H ABG pO2 151.7 H ABG HCO3 26.1 H ABG O2 Saturation 98.7 H ABG Base Excess -1.2 FiO2 100% Sodium Potassium Chloride Carbon Dioxide Anion Gap BUN Creatinine Est GFR ( Amer) Glucose Calcium Total Bilirubin AST Alkaline Phosphatase Total Protein Albumin Lipase 02/20/19 02/20/19 02/20/19 20:00 23:05 23:59 Troponin I 0.298 Cancelled 0.496 Impressions: Chest X-Ray 02/20/19 20:20 IMPRESSION: Areas of alveolar consolidation in the lower lobes bilaterally and in the right midlung field. Question possibility of cavitation in the infiltrate in the right midlung. Findings suggest pneumonia. Recommend further evaluation with CT of the chest Chest/Abdomen CTA 02/20/19 22:25 IMPRESSION: No evidence to suggest pulmonary embolus Bilateral pulmonary infiltrates worse in the right upper and lower lobe and in the left lung base. Findings suggest pneumonia with para pneumonic effusions No evidence of cavitation Probable reactive adenopathy Cardiac enlargement Critical Time Critical Time (minutes): 35 -: The care of a critically ill patient is dynamic. This note represents a static moment in the admission process. orders and treatments may be given simulataneously and urgentl, and time is not primary care sales representative of the treatment process. This patient requires Critical Care secondary to life threating organ or limb dysfunction. Without the need for Critical Care services, the patient is at risk for increasid mortality and morbidity.
[2019-02-21] MEDS ORDERED: ONDANSETRON HCL INJ/PF 4 MG/2 ML SDV IV PRN (01:57)
[2019-02-21] MEDS ORDERED: ACETAMINOPHEN 325 MG TABLET PO PRN (01:57)
[2019-02-21] MEDS: IPRATROPIUM/ALBUTEROL 0.5-2.5 MG/3 ML AMPUL NEB SCH ×6 (02:57→20:55)
[2019-02-21] MEDS: NITROGLYCERIN/D5W 50 MG/250 ML RTUINJ IV PRN ×2 (03:05→17:30)
[2019-02-21] MEDS: CLONIDINE HCL 0.2 MG TABLET PO SCH ×2 (03:24→12:03)
[2019-02-21] MEDS ORDERED: ISOSORB DINIT/HYDRALAZINE HCL 20-37.5 MG TABLET PO SCH ×2 (06:00)
[2019-02-21] MEDS: HEPARIN SOD (PORCINE) 5,000 UNIT/ML 1 ML VIAL SUBCUT SCH ×3 (06:13→21:21)
[2019-02-21] MEDS ORDERED: HEPARIN SOD (PORCINE) 1,000 UNIT/ML 10 ML VIAL IV PRN (07:53)
[2019-02-21] MEDS ORDERED: NIFEDIPINE 30 MG TAB.ER.24 PO SCH ×2 (10:00)
--- NOTE | 2019-02-21 12:16 | EKG REPORT ---
SEVERITY:- ABNORMAL ECG - SINUS RHYTHM LEFT ATRIAL ABNORMALITY LEFT VENTRICULAR HYPERTROPHY PROLONGED QT INTERVAL : Confirmed by: Elsa Quick 21-Feb-2019 12:14:14
--- NOTE | 2019-02-21 12:16 | EKG REPORT ---
SEVERITY:- ABNORMAL ECG - SINUS TACHYCARDIA PROBABLE LEFT ATRIAL ABNORMALITY LEFT VENTRICULAR HYPERTROPHY : Confirmed by: Elsa Quick 21-Feb-2019 12:14:47
[2019-02-21] MEDS ORDERED: IRBESARTAN 75 MG PO SCH (12:45)
[2019-02-21] MEDS ORDERED: (PENDING PHARMACY ID) (Clonidine Hcl [Catapres 0.3 Mg Tablet] 0.3 MG) PO SCH (14:00)
[2019-02-21] MEDS: ISOSORB DINIT/HYDRALAZINE HCL 20-37.5 MG TABLET PO SCH ×2 (15:27→21:20)
[2019-02-21] MEDS: FINASTERIDE 5 MG TABLET PO SCH (15:27)
[2019-02-21] MEDS: CLONIDINE HCL 0.1 MG TABLET PO SCH ×2 (15:27→21:20)
[2019-02-21] MEDS: FUROSEMIDE 40 MG TABLET PO SCH (15:28)
[2019-02-21] MEDS: DOCUSATE SODIUM 100 MG CAPSULE PO SCH (17:07)
[2019-02-21] MEDS: PANTOPRAZOLE SODIUM 20 MG TABLET.DR PO SCH (17:07)
[2019-02-21] MEDS: CALCIUM ACETATE 667 MG CAPSULE PO SCH (17:07)
--- NOTE | 2019-02-21 17:37 | PDOC CONSULTATION ---
Consultation Consult Date: 02/21/19 Provider Consulted: Glenna JERRY Consult reason:: ESRD for emergent dialysis. History of Present Illness Admission Date/PCP: 02/21/19 02:14 ALEKS HARKINS MD History of Present Illness: MARILU CRAWFORD is a 69 year old male with a past medical history significant for long-standing complicated diabetes mellitus, hypertension, ESRD on hemodialysis with was admitted with history of progressive weakness and shortness of breath. He states his last dialysis was Sunday. Admits to indiscretions with diet and fluids. His breathing began to get progressively worse over yesterday and was accompanied by right-sided pleuritic pain and mild abdominal pains. He has been diagnosed with bilateral bronchopneumonia worse on the right side and is currently on IV antibiotics. He says currently he is feeling a whole lot better especially after ultrafiltration of around 3 L of fluid and more on the way. He was initially put on BiPAP which has now been discontinued. He is currently being seen while undergoing dialysis. He says he feels a whole lot better. His blood pressure is very high and is on downward titration of IV nitroglycerin.Dialysis orders were reviewed with the treating dialysis nurse Past Medical History Cardiac Medical History: Reports: Hypertension-primary, Peripheral Vascular Disease Denies: Coronary Artery Disease, Myocardial Infarction Pulmonary Medical History: Reports: Chronic Obstructive Pulmonary Disease (COPD), Pneumonia Denies: Asthma, Bronchitis Neurological Medical History: Denies: Seizures Endocrine Medical History: Reports: Diabetes Mellitus Type 2 Denies: Diabetes Mellitus Type 1, Hyperthyroidism, Hypothyroidism Renal/ Medical History: Reports: End Stage Renal Disease, Secondary Hyperparathyroidism GI Medical History: Denies: Cirrhosis, Crohn's Disease, Hepatitis, Ulcerative Colitis Musculoskeltal Medical History: Reports: Arthritis - Bilat legs Denies: Gout Skin Medical History: Denies: Eczema, Psoriasis Psychiatric Medical History: Denies: Depression Hematology Medical History: Reports Anemia of Chronic Kidney Disease Past Surgical History Past Surgical History: Reports: Vascular Surgery - Arteriovenous fistula for dialysis right upper arm Denies: Pacemaker Social History Smoking Status: Current Every Day Smoker Cigarettes Packs Per Day: 0.5 Electronic Cigarette use?: No Frequency of Alcohol Use: None Hx Recreational Drug Use: No Drugs: None Hx Prescription Drug Abuse: No Family History Parental Family History Reviewed: Yes - History of CKD. Children Family History Reviewed: Yes Sibling(s) Family History Reviewed.: Yes - Had a brother with ESRD on dialysis who . Medication/Allergy Home Medications: Atorvastatin Calcium [Lipitor 20 mg Tablet] 20 mg PO DAILY 02/21/19 B Complex W-C No.20/Folic Acid [Renal Caps Softgel] 1 cap PO DAILY 02/21/19 Calcium Acetate [Phoslo 667 mg Capsule] 1,334 mg PO MEALS 02/21/19 Clonidine HCl [Catapres 0.3 mg Tablet] 0.3 mg PO Q8 02/21/19 Docusate Sodium [Colace 100 mg Capsule] 100 mg PO BID 02/21/19 Finasteride [Proscar 5 mg Tablet] 5 mg PO DAILY 02/21/19 Furosemide [Lasix 40 mg Tablet] 40 mg PO DAILY 02/21/19 Insulin Glargine,Hum.rec.anlog [Lantus Insulin 100 Unit/1 ml 10 ml] 20 units SQ DAILY 02/21/19 Irbesartan [Avapro] 75 mg PO DAILY 02/21/19 Isosorb Dinit/Hydralazine HCl [Bidil 20-37.5 mg Tablet] 1 tab PO Q8 02/21/19 Nifedipine [Nifedipine ER] 90 mg PO BID 02/21/19 Omeprazole 20 mg PO BID 02/21/19 Tamsulosin HCl [Flomax 0.4 mg Cap.sr] 0.4 mg PO QPM 02/21/19 Allergies/Adverse Reactions: No Known Allergies Allergy (Verified 12/04/18 17:22) Review of Systems Constitutional: PRESENT: anorexia, fatigue, weakness. ABSENT: chills, fever(s) Nose, Mouth, and Throat: ABSENT: mouth pain, sore throat Cardiovascular: PRESENT: dyspnea on exertion, orthropnea. ABSENT: chest pain, edema, palpitations Respiratory: PRESENT: cough, dyspnea. ABSENT: hemoptysis Gastrointestinal: PRESENT: abdominal pain, bloating, nausea. ABSENT: coffee ground emesis, diarrhea, dysphagia, heartburn, hematemesis, hematochezia, vomi ting Genitourinary: ABSENT: dysuria, hematuria Musculoskeletal: ABSENT: deformity, joint swelling Integumentary: ABSENT: diaphoresis, erythema, lesions, pruritus, rash Neurological: ABSENT: abnormal speech, confusion, convulsions Hematologic/Lymphatic: ABSENT: easy bleeding, easy bruising Physical Exam Vital Signs: Temp Pulse Resp BP Pulse Ox 98.8 F 85 20 147/61 H 97 02/21/19 12:00 02/21/19 16:45 02/21/19 16:45 02/21/19 14:04 02/21/19 16:45 Intake & Output 02/20/19 02/21/19 02/22/19 06:59 06:59 06:59 Intake Total 411 770 Output Total 5000 5000 Balance -4923 -4422 Weight 80.9 kg 80.9 kg General appearance: PRESENT: mild distress Eye exam: PRESENT: conjunctiva pale, EOMI, PERRLA Ear exam: PRESENT: normal external ear exam Mouth exam: PRESENT: moist Neck exam: ABSENT: lymphadenopathy, meningismus, tenderness, thyromegaly, trache al deviation Respiratory exam: PRESENT: clear to auscultation bob, crackles, decreased breath sounds Cardiovascular exam: PRESENT: +S1, +S2 GI/Abdominal exam: PRESENT: normal bowel sounds, soft. ABSENT: organomegaly, tenderness Extremities exam: PRESENT: pedal edema Neurological exam: PRESENT: alert, awake, oriented to person, oriented to place, oriented to time Psychiatric exam: PRESENT: appropriate affect Skin exam: ABSENT: cyanosis, erythema, rash Results Laboratory Results: 02/20/19 20:00 02/20/19 20:00 02/20/19 02/20/19 02/20/19 20:00 20:00 20:00 WBC 16.1 H RBC 3.59 L Hgb 11.0 L Hct 34.3 L MCV 95 MCH 30.7 MCHC 32.2 RDW 17.3 H Plt Count 326 Seg Neutrophils % 86.3 H Carbonic Acid HCO3/H2CO3 Ratio ABG pH ABG pCO2 ABG pO2 ABG HCO3 ABG O2 Saturation ABG Base Excess FiO2 Sodium 142.2 Potassium 3.7 Chloride 96 L Carbon Dioxide 24 Anion Gap 22 H BUN 52 H Creatinine 10.33 H Est GFR ( Amer) 6 L Glucose 212 H Calcium 10.8 H Total Bilirubin 0.8 AST 32 Alkaline Phosphatase 112 Total Protein 8.4 H Albumin 4.8 Lipase 164.1 02/20/19 20:13 WBC RBC Hgb Hct MCV MCH MCHC RDW Plt Count Seg Neutrophils % Carbonic Acid 1.70 H HCO3/H2CO3 Ratio 15:1 ABG pH 7.28 L ABG pCO2 56.6 H ABG pO2 151.7 H ABG HCO3 26.1 H ABG O2 Saturation 98.7 H ABG Base Excess -1.2 FiO2 100% Sodium Potassium Chloride Carbon Dioxide Anion Gap BUN Creatinine Est GFR ( Amer) Glucose Calcium Total Bilirubin AST Alkaline Phosphatase Total Protein Albumin Lipase 02/20/19 02/20/19 02/20/19 20:00 23:05 23:59 Troponin I 0.298 Cancelled 0.496 02/21/19 02/21/19 07:18 14:30 Troponin I 1.160 1.040 Impressions: Chest X-Ray 02/20/19 20:20 IMPRESSION: Areas of alveolar consolidation in the lower lobes bilaterally and in the right midlung field. Question possibility of cavitation in the infiltrate in the right midlung. Findings suggest pneumonia. Recommend further evaluation with CT of the chest Chest/Abdomen CTA 02/20/19 22:25 IMPRESSION: No evidence to suggest pulmonary embolus Bilateral pulmonary infiltrates worse in the right upper and lower lobe and in the left lung base. Findings suggest pneumonia with para pneumonic effusions No evidence of cavitation Probable reactive adenopathy Cardiac enlargement Assessment & Plan - Diagnosis (1) ESRD (end stage renal disease) on dialysis Plan: Patient currently undergoing dialysis. Removing approximately 4 to 5 L. Dialysis is supervised to ensure safe and smooth procedure. Vital signs are stable but for blood pressure being high and patient being on a nitroglycerin drip. Dialysis orders were reviewed with the treating dialysis nurse. (2) Acute respiratory failure with hypoxia Plan: The face of severe bilateral bronchopneumonia. Patient was initially on BiPAP and only with the holiness of antibiotics and steroids and dialysis/ultrafiltration patient feeling a whole lot better.Currently off the BiPAP. (3) Bilateral pneumonia Qualifiers: Pneumonia type: due to unspecified organism Lung location: unspecified part of lung Qualified Code(s): J18.9 - Pneumonia, unspecified organism Plan: On antibiotics pending cultures. (4) Diabetes mellitus type 2 in nonobese Plan: Advised tight control. (5) Diabetes mellitus type II, controlled Qualifiers: Diabetes mellitus detention insulin use: with intermediate manager use Diabetes mellitus complication status: with kidney complications Diabetes mellitus complication detail: with chronic kidney disease Chronic kidney disease stage: on chronic dialysis Qualified Code(s): E11.22 - Type 2 diabetes mellitus with diabetic chronic kidney disease; N18.6 - End stage renal disease; Z79.4 - group home (current) use of insulin; Z99.2 - Dependence on renal dialysis (6) Hypertensive urgency Plan: Patient on IV nitroglycerin drip. Being down titrated along with fluid removal on ultrafiltration on dialysis. See the response postdialysis.
[2019-02-21] MEDS ORDERED: (PENDING PHARMACY ID) (Nifedipine [Nifedipine Er] 90 MG) PO SCH (18:00)
[2019-02-21] MEDS ORDERED: TAMSULOSIN HCL 0.4 MG CAP.SR.24H PO SCH (18:00)
[2019-02-21] MEDS: NIFEDIPINE 30 MG TAB.ER.24 PO SCH (21:20)
[2019-02-21] MEDS ORDERED: LEVOFLOXACIN 750 MG/D5W RTU 750 MG/150 ML RTUPB IV SCH (22:00)
[2019-02-22] MEDS: IPRATROPIUM/ALBUTEROL 0.5-2.5 MG/3 ML AMPUL NEB SCH ×3 (00:34→08:30)
[2019-02-22 04:29] LABS: ANION GAP 12 (5-19); BLOOD UREA NITROGEN 45 mg/dL (7-20); CALCIUM 9.3 mg/dL (8.4-10.2); CARBON DIOXIDE 28 mmol/L (22-30); CHLORIDE 96 mmol/L (98-107); GLUCOSE 222 mg/dL (75-110)
[2019-02-22 04:36] LABS: ABSOLUTE EOSINOPHILS # (AUTO) 0.1 10^3/uL (0.0-0.6); ABSOLUTE LYMPHOCYTES (AUTO) 0.6 10^3/uL (0.5-4.7); ABSOLUTE MONOCYTES (AUTO) 0.6 10^3/uL (0.1-1.4); ABSOLUTE NEUT (AUTO) 3.2 10^3/uL (1.7-8.2); EOSINOPHILS % (AUTO) 1.9 % (0-6); HEMATOCRIT 33.5 % (37.9-51.0); HEMOGLOBIN 11.2 g/dL (13.5-17.0); LYMPHOCYTES % (AUTO) 13.8 % (13-45); MEAN CORPUSCULAR HEMOGLOBIN 31.1 pg (27.0-33.4); MEAN CORPUSCULAR HGB CONC 33.4 g/dL (32.0-36.0); MEAN CORPUSCULAR VOLUME 93 fl (80-97); MONOCYTES % (AUTO) 13.3 % (3-13); PLATELET COUNT 189 10^3/uL (150-450); RED CELL DISTRIBUTION WIDTH 16.6 % (11.5-14.0); TOTAL CELLS COUNTED % (AUTO) 100 %; WHITE BLOOD COUNT 4.6 10^3/uL (4.0-10.5)
[2019-02-22] MEDS: PANTOPRAZOLE SODIUM 20 MG TABLET.DR PO SCH (05:45)
[2019-02-22] MEDS: CLONIDINE HCL 0.1 MG TABLET PO SCH (05:45)
[2019-02-22] MEDS: ISOSORB DINIT/HYDRALAZINE HCL 20-37.5 MG TABLET PO SCH (05:46)
[2019-02-22] MEDS: HEPARIN SOD (PORCINE) 5,000 UNIT/ML 1 ML VIAL SUBCUT SCH (05:46)
--- NOTE | 2019-02-22 08:56 | PDOC DISCHARGE SUMMARY ---
Impression - Admit/DC Date/PCP Admission Date/Primary Care Provider: 02/21/19 02:14 ALEKS HARKINS MD Discharge Date: 02/22/19 - Discharge Diagnosis (1) Acute respiratory failure with hypoxia Is this a current diagnosis for this admission?: Yes (2) Bilateral pneumonia Is this a current diagnosis for this admission?: Yes (3) Diabetes mellitus type 2 in nonobese Is this a current diagnosis for this admission?: Yes (4) ESRD (end stage renal disease) on dialysis Is this a current diagnosis for this admission?: Yes (5) Tobacco use disorder, severe, dependence Is this a current diagnosis for this admission?: Yes - Assessment Summary: This patient is a 69 yo man with difficulty breathing and hypoxia from a multitude of sources. He has a bilateral pneumonia. He has no hx of aspiration but has beeen nauseous with vomiting around the time of admission. He has ESRD on HD. Last dialysized on Sunday. He also has a hx of smoking. He did not need intubation but instead came to the ICU for urgent HD, bipap briefly and has done well. He has gotten much better quickly making aspiration a definite possibility but with no definitive proof. He is on RA, comfortable, eating and stable for discharge. - Additional Information Resuscitation Status: Full Code Discharge Diet: Regular Discharge Activity: Activity As Tolerated Referrals: ALEKS HARKINS MD [Primary Care Provider] - Follow up as needed Prescriptions: Levofloxacin [Levaquin 500 mg Tablet] 500 mg PO DAILY 5 Days #5 tablet Home Medications: Atorvastatin Calcium [Lipitor 20 mg Tablet] 20 mg PO DAILY 02/21/19 B Complex W-C No.20/Folic Acid [Renal Caps Softgel] 1 cap PO DAILY 02/21/19 Calcium Acetate [Phoslo 667 mg Capsule] 1,334 mg PO MEALS 02/21/19 Clonidine HCl [Catapres 0.3 mg Tablet] 0.3 mg PO Q8 02/21/19 Docusate Sodium [Colace 100 mg Capsule] 100 mg PO BID 02/21/19 Finasteride [Proscar 5 mg Tablet] 5 mg PO DAILY 02/21/19 Furosemide [Lasix 40 mg Tablet] 40 mg PO DAILY 02/21/19 Insulin Glargine,Hum.rec.anlog [Lantus Insulin 100 Unit/1 ml 10 ml] 20 units SQ DAILY 02/21/19 Irbesartan [Avapro] 75 mg PO DAILY 02/21/19 Isosorb Dinit/Hydralazine HCl [Bidil 20-37.5 mg Tablet] 1 tab PO Q8 02/21/19 Nifedipine [Nifedipine ER] 90 mg PO BID 02/21/19 Omeprazole 20 mg PO BID 02/21/19 Tamsulosin HCl [Flomax 0.4 mg Cap.sr] 0.4 mg PO QPM 02/21/19 Levofloxacin [Levaquin 500 mg Tablet] 500 mg PO DAILY 5 Days #5 tablet 02/22/19 History of Present Illiness History of Present Illness: MARILU CRAWFORD is a 69 year old male with evidence of pneumonia, ESRD on HD who presented with SOB and increased WOB. He was dialized and on NTG IV for BP for a day. Now back to baseline, comfortable and on PO meds. Hospital Course Hospital Course: Uneventful see above. Physical Exam Vital Signs: Temp Pulse Resp BP Pulse Ox 97.7 F 73 16 131/56 H 98 02/22/19 03:57 02/22/19 04:55 02/22/19 06:04 02/22/19 06:04 02/22/19 06:04 Intake & Output 02/21/19 02/22/19 02/23/19 06:59 06:59 06:59 Intake Total 411 1173 150 Output Total 5000 5000 Balance -5746 -1557 150 Weight 80.9 kg 80.2 kg General appearance: PRESENT: no acute distress, well-developed, well-nourished Head exam: PRESENT: atraumatic, normocephalic Eye exam: PRESENT: conjunctiva pink, EOMI, PERRLA. ABSENT: scleral icterus Ear exam: PRESENT: normal external ear exam Mouth exam: PRESENT: moist, tongue midline Respiratory exam: PRESENT: clear to auscultation bob. ABSENT: rales, rhonchi, wheezes Cardiovascular exam: PRESENT: RRR. ABSENT: diastolic murmur, rubs, systolic murmur GI/Abdominal exam: PRESENT: normal bowel sounds, soft. ABSENT: distended, guarding, mass, organolmegaly, rebound, tenderness Rectal exam: PRESENT: deferred Extremities exam: PRESENT: full ROM, other - AV fistula patent.. ABSENT: calf tenderness, clubbing, pedal edema Neurological exam: PRESENT: alert, awake, oriented to person, oriented to place, oriented to time, oriented to situation, CN II-XII grossly intact. ABSENT: motor sensory deficit Skin exam: PRESENT: dry, intact, warm. ABSENT: cyanosis, rash Results Laboratory Results: WBC 4.6 10^3/uL (4.0-10.5) 02/22/19 03:42 RBC 3.60 10^6/uL (4.35-5.55) L 02/22/19 03:42 Hgb 11.2 g/dL (13.5-17.0) L 02/22/19 03:42 Hct 33.5 % (37.9-51.0) L 02/22/19 03:42 MCV 93 fl (80-97) 02/22/19 03:42 MCH 31.1 pg (27.0-33.4) 02/22/19 03:42 MCHC 33.4 g/dL (32.0-36.0) 02/22/19 03:42 RDW 16.6 % (11.5-14.0) H 02/22/19 03:42 Plt Count 189 10^3/uL (150-450) 02/22/19 03:42 Lymph % (Auto) 13.8 % (13-45) 02/22/19 03:42 [place] % (Auto) 13.3 % (3-13) H 02/22/19 03:42 Eos % (Auto) 1.9 % (0-6) 02/22/19 03:42 Baso % (Auto) 1.0 % (0-2) 02/22/19 03:42 Absolute Neuts (auto) 3.2 10^3/uL (1.7-8.2) 02/22/19 03:42 Absolute Lymphs (auto) 0.6 10^3/uL (0.5-4.7) 02/22/19 03:42 Absolute Monos (auto) 0.6 10^3/uL (0.1-1.4) 02/22/19 03:42 Absolute Eos (auto) 0.1 10^3/uL (0.0-0.6) 02/22/19 03:42 Absolute Basos (auto) 0.0 10^3/uL (0.0-0.2) 02/22/19 03:42 Seg Neutrophils % 70.0 % (42-78) 02/22/19 03:42 Carbonic Acid 1.70 mmol/L (1.05-1.35) H 02/20/19 20:13 HCO3/H2CO3 Ratio 15:1 02/20/19 20:13 ABG pH 7.28 (7.35-7.45) L 02/20/19 20:13 ABG pCO2 56.6 mmHg (35-45) H 02/20/19 20:13 ABG pO2 151.7 mmHg (80-100) H 02/20/19 20:13 ABG HCO3 26.1 mmol/L (20-24) H 02/20/19 20:13 ABG Total CO2 27.9 mmol/L (23-27) H 02/20/19 20:13 ABG O2 Saturation 98.7 % (94-98) H 02/20/19 20:13 ABG Base Excess -1.2 mmol/L 02/20/19 20:13 FiO2 100% 02/20/19 20:13 Sodium 136.3 mmol/L (137-145) L 02/22/19 03:42 Potassium 4.0 mmol/L (3.6-5.0) 02/22/19 03:42 Chloride 96 mmol/L (98-107) L 02/22/19 03:42 Carbon Dioxide 28 mmol/L (22-30) 02/22/19 03:42 Anion Gap 12 (5-19) 02/22/19 03:42 BUN 45 mg/dL (7-20) H 02/22/19 03:42 Creatinine 8.48 mg/dL (0.52-1.25) H 02/22/19 03:42 Est GFR ( Amer) 8 (>60) L 02/22/19 03:42 Est GFR (MDRD) Non-Af 6 (>60) L 02/22/19 03:42 Glucose 222 mg/dL (75-110) H 02/22/19 03:42 POC Glucose 137 mg/dL (70-110) H 02/21/19 09:19 Lactic Acid (Sepsis) 1.6 mmol/L (0.7-2.1) 02/20/19 20:00 Calcium 9.3 mg/dL (8.4-10.2) 02/22/19 03:42 Total Bilirubin 0.8 mg/dL (0.2-1.3) 02/20/19 20:00 Direct Bilirubin 0.7 mg/dL (0.0-0.4) H 02/20/19 20:00 Neonat Total Bilirubin Not Reportable 02/20/19 20:00 Neonat Direct Bilirubin Not Reportable 02/20/19 20:00 Neonat Indirect Bili Not Reportable 02/20/19 20:00 AST 32 U/L (17-59) 02/20/19 20:00 ALT 22 U/L (<50) 02/20/19 20:00 Alkaline Phosphatase 112 U/L (38-126) 02/20/19 20:00 Troponin I 1.170 ng/mL 02/21/19 18:22 Total Protein 8.4 g/dL (6.3-8.2) H 02/20/19 20:00 Albumin 4.8 g/dL (3.5-5.0) 02/20/19 20:00 Lipase 164.1 U/L (23-300) 02/20/19 20:00 02/20/19 02/20/19 02/20/19 20:00 23:05 23:59 Troponin I 0.298 Cancelled 0.496 02/21/19 02/21/19 02/21/19 07:18 14:30 18:22 Troponin I 1.160 1.040 1.170 Impressions: Chest X-Ray 02/20/19 20:20 IMPRESSION: Areas of alveolar consolidation in the lower lobes bilaterally and in the right midlung field. Question possibility of cavitation in the infiltrate in the right midlung. Findings suggest pneumonia. Recommend further evaluation with CT of the chest Chest/Abdomen CTA 02/20/19 22:25 IMPRESSION: No evidence to suggest pulmonary embolus Bilateral pulmonary infiltrates worse in the right upper and lower lobe and in the left lung base. Findings suggest pneumonia with para pneumonic effusions No evidence of cavitation Probable reactive adenopathy Cardiac enlargement Plan Health Concerns: Pneumonia Plan of Treatment: Even though there is a high likelihood this is aspiration, will treat with levoquin for 5 more days. Goals: Back to baseline level of functioning. Critical Time: 0 Level of Care: MEDICAL Stroke Is this a Stroke Patient?: No Acute Heart Failure - Is this a Heart Failure Patient?: No
[2019-02-22] MEDS: DOCUSATE SODIUM 100 MG CAPSULE PO SCH (09:24)
[2019-02-22] MEDS: FUROSEMIDE 40 MG TABLET PO SCH (09:25)
[2019-02-22] MEDS: NIFEDIPINE 30 MG TAB.ER.24 PO SCH (09:25)
[2019-02-22] MEDS: FINASTERIDE 5 MG TABLET PO SCH (09:25)
[2019-02-22] MEDS: CALCIUM ACETATE 667 MG CAPSULE PO SCH (09:25)
[2019-02-22] MEDS ORDERED: ATORVASTATIN CALCIUM 20 MG TABLET PO SCH (10:00)
[2019-02-22] MEDS ORDERED: LOSARTAN POTASSIUM 25 MG TABLET PO SCH (10:00)
[2019-02-22] MEDS ORDERED: [UNRECOGNIZED DRUG - REMARK] PO SCH (10:00)
[2019-02-22] MEDS ORDERED: INSULIN GLARGINE,HUM.REC.ANLOG 1,000 UNIT/10 ML VIAL SUBCUT SCH (10:00)
[2019-02-22] MEDS ORDERED: VITAMIN B COMPLEX TABLET PO SCH (10:00)
[2019-02-22 10:28] VITALS: BP 124/52
== END 2019-02-22 10:18 | disposition home or self-care (01) | DRG 682 ==
LOC: ER 19:49 → EH 02-21 02:14 → ICU 02-21 03:07
PROVIDERS: ADMIT Anesthesiology; ATTEND Anesthesiology
PROC: 5A1D70Z Performance of Urinary Filtration, Intermittent, Less than 6 Hours Per Day (ICD-10-PCS; principal; 2019-02-21)
DX: I12.0 Hypertensive chronic kidney disease with stage 5 chronic kidney disease or end stage renal disease (principal); N18.6 End stage renal disease; J18.9 Pneumonia, unspecified organism; J96.01 Acute respiratory failure with hypoxia; I16.0 Hypertensive urgency; E11.22 Type 2 diabetes mellitus with diabetic chronic kidney disease; I73.9 Peripheral vascular disease, unspecified; J44.9 Chronic obstructive pulmonary disease, unspecified; F17.210 Nicotine dependence, cigarettes, uncomplicated; Z99.2 Dependence on renal dialysis; Z79.2 Long term (current) use of antibiotics; Z79.4 Long term (current) use of insulin; Z79.899 Other long term (current) drug therapy
CPT/HCPCS: 36415; 36600; 71045; 71275; 80048; 80053; 82803; 82962; 83605; 83690; 84484; 85025; 87040; 93005; 93010; 94640; 94660; 96365; 96366; 96368; 99238; 99285; 99291; J1644; J1815; J1956; J3490; J7620

== ENCOUNTER → 2019-03-13 | Outpatient (CLI) | payer MEDICARE, MEDICAID ==
--- NOTE | 2019-03-13 15:59 | RADIOLOGY REPORT (SQ) ---
EXAM DESCRIPTION: VENOUS UNILATERAL LOWER COMPLETED DATE/TIME: 03/13/2019 3:49 pm REASON FOR STUDY: RLE SWELLING R22.41 LOCALIZED SWELLING, MASS AND LUMP, RIGHT LOWER LIMB COMPARISON: None. TECHNIQUE: Dynamic and static carl scale and color images acquired of the right leg venous system. S elected spectral images acquired with additional compression and augmentation maneuvers. The contrala teral common femoral vein and saphenofemoral junction were also imaged. Images stored on PACS. LIMITATIONS: None. FINDINGS: COMMON FEMORAL: Normal phasicity, compression and augmentation. No visualized echogenic ma terial on carl scale. No defects on color images. FEMORAL: Normal compression and augmentation. No visualized echogenic material on carl scale. No defe cts on color images. POPLITEAL: Normal compression, augmentation. No visualized echogenic material on carl scale. No defec ts on color images. CALF VESSELS: Normal compression, augmentation. No visualized echogenic material on carl scale. No de fects on color images. GSV and SSV: Normal compression, augmentation. No visualized echogenic material on carl scale. No def ects on color images. ANY DEEP VENOUS INSUFFICIENCY: Not evaluated. ANY EVIDENCE OF POPLITEAL CYST: No. OTHER: No other significant finding. CONTRALATERAL COMMON FEMORAL VEIN AND SAPHENOFEMORAL JUNCTION: Normal phasicity, compression and augmentation. No visualized echogenic material on carl scale. No de fects on color images. IMPRESSION: NO EVIDENCE DVT OR SVT IN THE RIGHT LEG. TECHNICAL DOCUMENTATION: JOB ID: [id number] [employer]- All Rights Reserved Reading location - IP/workstation name: [email or web address]
== END ==
LOC: SP 14:54
PROVIDERS: ATTEND Internal Medicine
DX: R22.41 Localized swelling, mass and lump, right lower limb (principal)
CPT/HCPCS: 93971

== ENCOUNTER 2019-03-14 10:08 | Emergency (ER) | payer MEDICARE, MEDICAID ==
--- NOTE | 2019-03-14 10:56 | ER Document Report ---
ED General - General Chief Complaint: Abdominal Pain Stated Complaint: ABDOMINAL PAIN Time Seen by Provider: 03/14/19 10:22 Primary Care Provider: ALEKS HARKINS MD [Primary Care Provider] - Follow up as needed Information source: Patient Notes: 69-year-old male presents to the emergency department with associated shortness of breath and complaint of abdominal pain. Apparently he has been constipated., He is a renal dialysis patient and was dialyzed on Sunday. Presently brought to the emergency department on O2 because sats were in the 80s at home. Patient denies chest pain or palpitations. He is a smoker approximately 2 packs/day. TRAVEL OUTSIDE OF THE [place] IN LAST 30 DAYS: No - Related Data Allergies/Adverse Reactions: No Known Allergies Allergy (Verified 12/04/18 17:22) Past Medical History - Social History Smoking Status: Current Every Day Smoker Chew tobacco use (# tins/day): No Frequency of alcohol use: None Drug Abuse: None Family History: DM, Hypertension Patient has suicidal ideation: No Patient has homicidal ideation: No - Past Medical History Cardiac Medical History: Reports: Hx Hypertension, Hx Peripheral Vascular Disease Denies: Hx Coronary Artery Disease, Hx Heart Attack Pulmonary Medical History: Reports: Hx COPD, Hx Pneumonia Denies: Hx Asthma, Hx Bronchitis Neurological Medical History: Denies: Hx Cerebrovascular Accident, Hx Seizures Endocrine Medical History: Reports: Hx Diabetes Mellitus Type 2. Denies: Hx Diabetes Mellitus Type 1, Hx Hyperthyroidism, Hx Hypothyroidism Renal/ Medical History: Reports: Hx End Stage Renal Disease, Hx Hemodialysis - Sunday, Sunday, and Sunday. Denies: Hx Peritoneal Dialysis GI Medical History: Denies: Hx Cirrhosis, Hx Crohn's Disease, Hx Hepatitis, Hx Ulcerative Colitis Musculoskeletal Medical History: Reports Hx Arthritis - Bilat legs, Denies Hx Gout Skin Medical History: Denies Hx Eczema, Denies Hx Psoriasis Psychiatric Medical History: Denies: Hx Depression Infectious Medical History: Denies: Hx Hepatitis Past Surgical History: Reports: Hx Neurologic Surgery - back BIOPSY, Hx Vascular Surgery - Arteriovenous fistula for dialysis right upper arm. Denies: Hx Pacemaker - Immunizations Hx Diphtheria, Pertussis, Tetanus Vaccination: Yes Hx Pneumococcal Vaccination: 03/26/06 Review of Systems - Review of Systems Notes: Constitutional: Negative for fever. HENT: Negative for sore throat. Eyes: Negative for visual changes. Cardiovascular: Negative for chest pain. Respiratory: + Shortness of breath. Gastrointestinal: + Abdominal pain Genitourinary: Negative for dysuria. Musculoskeletal: Negative for back pain. Skin: Negative for rash. Neurological: Negative for headaches, weakness or numbness. 10 point ROS negative except as marked above and in HPI. Physical Exam - Vital signs Vitals: Temp Pulse Resp BP Pulse Ox 97.7 F 93 24 H 170/84 H 93 03/14/19 10:08 03/14/19 10:08 03/14/19 10:08 03/14/19 10:08 03/14/19 10:08 - Notes Notes: PHYSICAL EXAMINATION: Physical Exam: General: Well-nourished well-developed in no acute distress HEENT: NC/AT, pupils equal round and reactive to light, MM moist,nares clear, Neck: supple, no adenopathy, no masses. Lungs: Bilateral coarse breath sounds with bilateral rales and scattered rhonchi CVS: Regular rate and rhythm no murmur gallop or rub Abdomen: Soft active nontender, no masses, no hepatosplenomegaly Ext: No edema clubbing or cyanosis. Neuro: Alert and responsive, moving all 4 extremities on command, cranial nerves intact. Skin: Intact no open lesions, no rash PSYCH: Normal mood, normal affect. Course - Re-evaluation Re-evalutation: 03/14/19 15:05 Patient is having a increased oxygen demand with hypoxemia and low O2 sats, increased work to breathe and air hunger. He is placed on BiPAP, Lasix 40 mg IV, hydralazine 20 mg IV were given. I discussed the patient with Dr. Abbott for nephrology, he states that the hospital is that his capacity for dialysis patients and that this patient would need to be transferred to another facility. [facility] was contacted and the patient was accepted in transfer by Dr. Caballero. 03/14/19 15:08 Patient is much improved on BiPAP and after the medications. Increased work of breathing has improved and patient is resting better. I explained to him that he had need for emergent dialysis and he has been accepted at [facility]. Patient is in agreement with this plan. - Vital Signs Vital signs: Temp Pulse Resp BP Pulse Ox 97.7 F 93 28 H 185/83 H 97 03/14/19 11:12 03/14/19 10:08 03/14/19 14:20 03/14/19 11:12 03/14/19 14:20 - Laboratory Result Diagrams: 03/14/19 12:05 03/14/19 12:05 Laboratory results interpreted by me: 03/14/19 03/14/19 03/14/19 12:05 12:05 12:05 WBC 10.8 H RBC 3.25 L Hgb 10.0 L Hct 30.0 L RDW 17.3 H Lymph % (Auto) 6.1 L Absolute Neuts (auto) 9.4 H Seg Neutrophils % 87.2 H Potassium 3.5 L Chloride 93 L BUN 38 H Creatinine 9.02 H Est GFR ( Amer) 7 L Est GFR (MDRD) Non-Af 6 L Glucose 162 H Calcium 11.3 H Direct Bilirubin 0.6 H Alkaline Phosphatase 130 H CK-MB (CK-2) 6.61 H NT-Pro-B Natriuret Pep [id number] H Total Protein 8.7 H I have reviewed laboratory data and used this information for the treatment decisions regarding the patient. - Diagnostic Test Radiology reviewed: Image reviewed, Reports reviewed - Chest x-ray: Increased patchy infiltrates with effusion CT abdomen and pelvis with out contrast: No acute intra-abdominal pathology, increased stool in the colon. Critical Care Note - Critical Care Note Total time excluding time spent on procedures (mins): 60 - Critical care time spent obtaining history from patient or surrogate, discussions with consultants, development of treatment plan with patient or surrogate, evaluation of patient's response to treatment, examination of patient, ordering and performing treatments and interventions, ordering and review of laboratory studies, re- evaluation of patient's condition, ordering and review of radiographic studies and review of old charts Discharge - Discharge Clinical Impression: Pulmonary edema, Hypoxia, End-stage renal disease on hemodialysis Respiratory failure Qualifiers: Chronicity: acute Respiratory failure complication: hypoxia Qualified Code(s): J96.01 - Acute respiratory failure with hypoxia Condition: Serious Disposition: [facility] Referrals: ALEKS HARKINS MD [Primary Care Provider] - Follow up as needed
--- NOTE | 2019-03-14 12:05 | RADIOLOGY REPORT (SQ) ---
EXAM DESCRIPTION: CHEST SINGLE VIEW COMPLETED DATE/TIME: 03/14/2019 11:19 am REASON FOR STUDY: Shortness of breath COMPARISON: AP view of the chest from 02/20/2019 EXAM PARAMETERS: NUMBER OF VIEWS: One view. TECHNIQUE: An AP view of the chest was obtained. RADIATION DOSE: NA LIMITATIONS: None. FINDINGS: LUNGS AND PLEURA: Patchy asymmetric basilar predominant alveolar opacities. The costophre zee sulci are blunted. There is no pneumothorax. MEDIASTINUM AND HILAR STRUCTURES: No mediastinal or hilar contour abnormality. HEART AND VASCULAR STRUCTURES: The cardiac silhouette is enlarged. BONES: No acute findings. HARDWARE: None in the chest. OTHER: No other finding. IMPRESSION: The above described radiographic findings are similar to those on the radiograph from and could represent a multifocal pneumonia. TECHNICAL DOCUMENTATION: JOB ID: [id number] [employer]- All Rights Reserved Reading location - IP/workstation name: [email or web address]
[2019-03-14 12:18] LABS: ABSOLUTE EOSINOPHILS # (AUTO) 0.1 10^3/uL (0.0-0.6); ABSOLUTE LYMPHOCYTES (AUTO) 0.7 10^3/uL (0.5-4.7); ABSOLUTE MONOCYTES (AUTO) 0.6 10^3/uL (0.1-1.4); ABSOLUTE NEUT (AUTO) 9.4 10^3/uL (1.7-8.2); BASOPHILS % (AUTO) 0.1 % (0-2); EOSINOPHILS % (AUTO) 0.8 % (0-6); LYMPHOCYTES % (AUTO) 6.1 % (13-45); MEAN CORPUSCULAR HEMOGLOBIN 30.8 pg (27.0-33.4); MEAN CORPUSCULAR HGB CONC 33.4 g/dL (32.0-36.0); MEAN CORPUSCULAR VOLUME 92 fl (80-97); MONOCYTES % (AUTO) 5.8 % (3-13); PLATELET COUNT 379 10^3/uL (150-450); RED BLOOD COUNT 3.25 10^6/uL (4.35-5.55); RED CELL DISTRIBUTION WIDTH 17.3 % (11.5-14.0); SEGMENTED NEUTROPHILS % (AUTO) 87.2 % (42-78); TOTAL CELLS COUNTED % (AUTO) 100 %; WHITE BLOOD COUNT 10.8 10^3/uL (4.0-10.5)
--- NOTE | 2019-03-14 12:23 | RADIOLOGY REPORT (SQ) ---
EXAM DESCRIPTION: CT ABD/PELVIS NO ORAL OR IV COMPLETED DATE/TIME: 03/14/2019 11:54 am REASON FOR STUDY: Abdominal pain COMPARISON: 09/21/2017 TECHNIQUE: CT scan of the abdomen and pelvis performed without intravenous or oral contrast. Images reviewed with lung, soft tissue, and bone windows. Reconstructed coronal and sagittal MPR images revi ewed. All images stored on PACS. All CT scanners at this facility use dose modulation, iterative reconstruction, and/or weight based d osing when appropriate to reduce radiation dose to as low as reasonably achievable (ALARA). [facility]: Dose Right [facility]: CareDose [facility]: Dose Right [facility]: Teradose 4D [facility]: Smart [employer] RADIATION DOSE: CT Rad equipment meets quality standard of care and radiation dose reduction techniq ues were employed. CTDIvol: 6.0 mGy. DLP: 319 mGy-cm.mGy. LIMITATIONS: Breath motion artifact throughout. FINDINGS: LOWER CHEST: Moderate right, small left bilateral pleural effusions and associated extensi ve heterogeneous opacity. There is a 1.0 cm nodule of the dependent left lung base (series 4, image 7). Small pericardial effusion. Coronary artery calcifications. NON-CONTRASTED LIVER, SPLEEN, ADRENALS: Evaluation limited by lack of IV contrast. No identified sign ificant masses. PANCREAS: No masses. No peripancreatic inflammatory changes. GALLBLADDER: No identified stones by CT criteria. No inflammatory changes to suggest cholecystitis. RIGHT KIDNEY AND URETER: Atrophic appearing. No significant calcification. No hydronephrosis or hydr oureter. LEFT KIDNEY AND URETER: Atrophic appearing. No significant calcification. No hydronephrosis or hydro ureter. AORTA AND RETROPERITONEUM: No aneurysm. No retroperitoneal masses or adenopathy. Calcific atheroscle rosis. BOWEL AND PERITONEAL CAVITY: No obvious masses or inflammatory changes. No free fluid. Large burden of stool and stool balls in the colon. APPENDIX: Not clearly visualized. PELVIS, BLADDER, AND ABDOMINAL WALL:No abnormal masses. No free fluid. Bladder normal. Small bilater al inguinal hernias, containing a partial loop of bowel on the left. BONES: No significant findings. OTHER: No other significant finding. IMPRESSION: 1. Examination is significantly limited by extensive breath motion artifact throughout. 2. Within this limitation, there are no obvious noncontrast CT findings of the abdomen or pelvis to explain acute abdominal pain. Large burden of stool and stool balls in the colon. 3. The appendix is not clearly visualized. 4. Moderate right, small left bilateral pleural effusions and associated extensive heterogeneous opac ity, concerning for infection or aspiration. 5. Small pericardial effusion. 6. There is a 1.0 cm nonspecific nodule of the dependent left lung base (series 4, image 7). Recomme nd follow-up in 3 months to establish stability or resolution in the setting of acute appearing airsp iván disease. TECHNICAL DOCUMENTATION: JOB ID: [id number] Quality ID # [id number]: Final reports with documentation of one or more dose reduction techniques (e.g., Au tomated exposure control, adjustment of the mA and/or kV according to patient size, use of iterative reconstruction technique) 2010 [employer]- All Rights Reserved Reading location - IP/workstation name: [email or web address]
[2019-03-14 12:38] LABS: ALBUMIN 4.8 g/dL (3.5-5.0); ALKALINE PHOSPHATASE 130 U/L (38-126); ANION GAP 18 (5-19); ASPARTATE AMINO TRANSFERASE 39 U/L (17-59); BILIRUBIN,DIRECT 0.6 mg/dL (0.0-0.4); BILIRUBIN,TOTAL 0.8 mg/dL (0.2-1.3); BLOOD UREA NITROGEN 38 mg/dL (7-20); CALCIUM 11.3 mg/dL (8.4-10.2); CARBON DIOXIDE 29 mmol/L (22-30); CHLORIDE 93 mmol/L (98-107); GLUCOSE 162 mg/dL (75-110); POTASSIUM 3.5 mmol/L (3.6-5.0); TOTAL PROTEIN 8.7 g/dL (6.3-8.2)
[2019-03-14 12:49] LABS: CREATINE KINASE MB 6.61 ng/mL (<4.55)
[2019-03-14 12:54] LABS: TROPONIN I 0.122 ng/mL
[2019-03-14] MEDS ORDERED: FUROSEMIDE INJ/PF 40 MG/4 ML SDV IV ONE (13:32)
[2019-03-14] MEDS ORDERED: HYDRALAZINE HCL INJ/PF 20 MG/1 ML SDV IV ONE (13:34)
[2019-03-14 16:54] VITALS: BP 186/91
--- NOTE | 2019-03-14 17:28 | EKG REPORT ---
SEVERITY:- ABNORMAL ECG - SINUS RHYTHM VENTRICULAR TRIGEMINY LEFT ATRIAL ABNORMALITY LEFT VENTRICULAR HYPERTROPHY BORDERLINE PROLONGED QT INTERVAL : Confirmed by: Elsa Quick 14-Mar-2019 17:27:19
== END 2019-03-14 16:52 | disposition short-term general hospital (02) ==
LOC: ER 10:08
DX: J96.01 Acute respiratory failure with hypoxia (principal); J81.1 Chronic pulmonary edema; I13.11 Hypertensive heart and chronic kidney disease without heart failure, with stage 5 chronic kidney disease, or end stage renal disease; E11.22 Type 2 diabetes mellitus with diabetic chronic kidney disease; N18.6 End stage renal disease; Z99.2 Dependence on renal dialysis; E11.51 Type 2 diabetes mellitus with diabetic peripheral angiopathy without gangrene; J44.9 Chronic obstructive pulmonary disease, unspecified; I31.3 Pericardial effusion (noninflammatory); R10.9 Unspecified abdominal pain; R91.1 Solitary pulmonary nodule; R00.8 Other abnormalities of heart beat; F17.200 Nicotine dependence, unspecified, uncomplicated
CPT/HCPCS: 93005; 99291; 96374; 96375; 36415; 82553; 83605; 83690; 85025; 80053; 84484; 83880; 71045; 74176; 93010; 94660; J1940; J0360

== ENCOUNTER 2019-05-26 15:41 | Emergency (ER) | payer MEDICARE, MEDICAID ==
--- NOTE | 2019-05-26 17:25 | ER Document Report ---
ED General - General Chief Complaint: Dialysis Shunt Problem Stated Complaint: BLEEDING FROM DIALYSIS PORT Time Seen by Provider: 05/26/19 17:09 Primary Care Provider: ALEKS HARKINS MD [Primary Care Provider] - Follow up as needed Notes: HPI: 69-year-old male who presents today after dialysis with a bleeding right arm fistula. Patient did have some manipulation by the vascular surgeon this past secondary to some intermittent bleeding. Patient states that it was just "dripping out". They placed a clamp on the patient and sent the patient here. Patient denies any lightheadedness, dizziness, chest pain, weakness or numbness. ROS: See HPI Reviewed vital signs and nursing note as charted by RN. PHYSICAL EXAM: CONSTITUTIONAL: Alert and oriented and responds appropriately to questions. We ll-appearing; well-nourished EXT: The right arm has a clamp in it. No active bleeding. Strong thrill to the fistula site. I did remove the clamp very gently and monitored for 20 minutes with no bleeding TRAVEL OUTSIDE OF THE [place] IN LAST 30 DAYS: No - Related Data Allergies/Adverse Reactions: No Known Allergies Allergy (Verified 12/04/18 17:22) Past Medical History - Social History Smoking Status: Current Every Day Smoker Family History: DM, Hypertension Patient has suicidal ideation: No Patient has homicidal ideation: No - Past Medical History Cardiac Medical History: Reports: Hx Hypertension, Hx Peripheral Vascular Disease Denies: Hx Coronary Artery Disease, Hx Heart Attack Pulmonary Medical History: Reports: Hx COPD, Hx Pneumonia Denies: Hx Asthma, Hx Bronchitis Neurological Medical History: Denies: Hx Cerebrovascular Accident, Hx Seizures Endocrine Medical History: Reports: Hx Diabetes Mellitus Type 2. Denies: Hx Diabetes Mellitus Type 1, Hx Hyperthyroidism, Hx Hypothyroidism Renal/ Medical History: Reports: Hx End Stage Renal Disease, Hx Hemodialysis - Sunday, Sunday, and Sunday. Denies: Hx Peritoneal Dialysis GI Medical History: Denies: Hx Cirrhosis, Hx Crohn's Disease, Hx Hepatitis, Hx Ulcerative Colitis Musculoskeletal Medical History: Reports Hx Arthritis - Bilat legs, Denies Hx Gout Skin Medical History: Denies Hx Eczema, Denies Hx Psoriasis Psychiatric Medical History: Denies: Hx Depression Infectious Medical History: Denies: Hx Hepatitis Past Surgical History: Reports: Hx Neurologic Surgery - back BIOPSY, Hx Vascular Surgery - Arteriovenous fistula for dialysis right upper arm. Denies: Hx Pacemaker - Immunizations Hx Diphtheria, Pertussis, Tetanus Vaccination: Yes Hx Pneumococcal Vaccination: 03/26/06 Physical Exam - Vital signs Vitals: Temp Pulse Resp BP Pulse Ox 98.6 F 70 16 186/58 H 100 05/26/19 16:44 05/26/19 16:44 05/26/19 16:44 05/26/19 16:44 05/26/19 16:44 Course - Re-evaluation Re-evalutation: 05/26/19 17:23 Lesion is still hemostatic. I did call the patient's primary care physician Dr. Mathew, whe is aware and will help make follow-up. - Vital Signs Vital signs: Temp Pulse Resp BP Pulse Ox 98.6 F 70 16 186/58 H 100 05/26/19 16:44 05/26/19 16:44 05/26/19 16:44 05/26/19 16:44 05/26/19 16:44 Discharge - Discharge Clinical Impression: Hemorrhage of arteriovenous fistula Qualifiers: Encounter type: initial encounter Qualified Code(s): T82.838A - Hemorrhage due to vascular prosthetic devices, implants and grafts, initial encounter Condition: Good Disposition: HOME, SELF-CARE Additional Instructions: Come back immediately for any return of bleeding, lightheadedness or dizziness, chest pain, or any other acute problems. Please follow-up with the primary care physician as discussed. Referrals: ALEKS HARKINS MD [Primary Care Provider] - Follow up as needed
[2019-05-26 18:04] VITALS: BP 191/65
== END 2019-05-26 18:03 | disposition home or self-care (01) ==
LOC: ER 15:41
DX: T82.838A Hemorrhage due to vascular prosthetic devices, implants and grafts, initial encounter (principal); Y84.1 Kidney dialysis as the cause of abnormal reaction of the patient, or of later complication, without mention of misadventure at the time of the procedure; F17.200 Nicotine dependence, unspecified, uncomplicated; E11.22 Type 2 diabetes mellitus with diabetic chronic kidney disease; I12.0 Hypertensive chronic kidney disease with stage 5 chronic kidney disease or end stage renal disease; N18.6 End stage renal disease; Z99.2 Dependence on renal dialysis
CPT/HCPCS: 99283

== ENCOUNTER 2019-06-10 14:45 | Emergency (ER) | payer MEDICARE, MEDICAID ==
--- NOTE | 2019-06-10 15:33 | ER Document Report ---
ED Medical Screen (RME) - General Chief Complaint: High Blood Pressure Stated Complaint: HIGH BLOOD PRESSSURE Time Seen by Provider: 06/10/19 15:30 Primary Care Provider: ALEKS HARKINS MD [Primary Care Provider] - Follow up as needed Mode of Arrival: Medic Information source: Patient Notes: 69-year-old male patient with history of hypertension presenting with chest pain, abdominal pain, diarrhea and generally not feeling well. Patient reports symptoms started earlier today. He denies any fever cough. He reports he is taking his blood pressure medication medication. Heart sounds S1-S2 present, no ectopy noted, normal rate normal rhythm I have greeted and performed a rapid initial assessment of this patient. A comprehensive ED assessment and evaluation of the patient, analysis of test results and completion of the medical decision making process will be conducted by additional ED providers. I have specifically instructed the patient or family members with the patient to immediately return to any nursing staff should anything change in the patient's condition or with their chief complaint. TRAVEL OUTSIDE OF THE [place] IN LAST 30 DAYS: No - Related Data Allergies/Adverse Reactions: No Known Allergies Allergy (Verified 12/04/18 17:22) Home Medications: atorvastatin. bidil. calcium acetate. clonidine. docusate. furosemide. irbesartsan. nifedipine. omeprazole. karine caps Past Medical History - Social History Family history: Reviewed & Not Pertinent - Past Medical History Cardiac Medical History: Reports: Hx Hypertension, Hx Peripheral Vascular Disease Denies: Hx Coronary Artery Disease, Hx Heart Attack Pulmonary Medical History: Reports: Hx COPD, Hx Pneumonia Denies: Hx Asthma, Hx Bronchitis Neurological Medical History: Denies: Hx Cerebrovascular Accident, Hx Seizures Endocrine Medical History: Reports: Hx Diabetes Mellitus Type 2. Denies: Hx Diabetes Mellitus Type 1, Hx Hyperthyroidism, Hx Hypothyroidism Renal/ Medical History: Reports: Hx End Stage Renal Disease, Hx Hemodialysis - Sunday, Sunday, and Sunday. Denies: Hx Peritoneal Dialysis GI Medical History: Denies: Hx Cirrhosis, Hx Crohn's Disease, Hx Hepatitis, Hx Ulcerative Colitis Musculoskeltal Medical History: Reports Hx Arthritis - Bilat legs, Denies Hx Gout Skin Medical History: Denies Hx Eczema, Denies Hx Psoriasis Psychiatric Medical History: Denies: Hx Depression Infectious Medical History: Denies: Hx Hepatitis Past Surgical History: Reports: Hx Neurologic Surgery - back BIOPSY, Hx Vascular Surgery - Arteriovenous fistula for dialysis right upper arm. Denies: Hx Pacemaker - Immunizations Hx Diphtheria, Pertussis, Tetanus Vaccination: Yes Physical Exam - Vital signs Vitals: Temp Pulse Resp BP Pulse Ox 98.5 F 86 16 183/68 H 100 06/10/19 15:17 06/10/19 15:17 06/10/19 15:17 06/10/19 15:17 06/10/19 15:17 Course - Vital Signs Vital signs: Temp Pulse Resp BP Pulse Ox 98.5 F 86 16 183/68 H 100 06/10/19 15:17 06/10/19 15:17 06/10/19 15:17 06/10/19 15:17 06/10/19 15:17 Doctor's Discharge - Discharge Referrals: ALEKS HARKINS MD [Primary Care Provider] - Follow up as needed
--- NOTE | 2019-06-10 16:02 | RADIOLOGY REPORT (SQ) ---
EXAM DESCRIPTION: CHEST 2 VIEWS COMPLETED DATE/TIME: 06/10/2019 3:50 pm REASON FOR STUDY: CHEST PAIN COMPARISON: 03/14/2019 and 12/08/2017. EXAM PARAMETERS: NUMBER OF VIEWS: two views TECHNIQUE: Digital Frontal and Lateral radiographic views of the chest acquired. RADIATION DOSE: NA LIMITATIONS: none FINDINGS: LUNGS AND PLEURA: Chronic interstitial changes. No infiltrates, masses or pneumothorax. N o pleural effusion. MEDIASTINUM AND HILAR STRUCTURES: No masses or contour abnormalities. HEART AND VASCULAR STRUCTURES: Heart normal size. No evidence for failure. BONES: No acute findings. HARDWARE: None in the chest. OTHER: No other significant finding. IMPRESSION: NO ACUTE RADIOGRAPHIC FINDING IN THE CHEST. TECHNICAL DOCUMENTATION: JOB ID: [id number] 2010 [employer]- All Rights Reserved Reading location - IP/workstation name: [email or web address]
[2019-06-10 16:06] LABS: ABSOLUTE BASOPHILS # (AUTO) 0.1 10^3/uL (0.0-0.2); ABSOLUTE EOSINOPHILS # (AUTO) 0.2 10^3/uL (0.0-0.6); ABSOLUTE LYMPHOCYTES (AUTO) 1.2 10^3/uL (0.5-4.7); ABSOLUTE MONOCYTES (AUTO) 0.8 10^3/uL (0.1-1.4); ABSOLUTE NEUT (AUTO) 5.3 10^3/uL (1.7-8.2); EOSINOPHILS % (AUTO) 2.3 % (0-6); HEMATOCRIT 33.7 % (37.9-51.0); HEMOGLOBIN 11.3 g/dL (13.5-17.0); LYMPHOCYTES % (AUTO) 15.8 % (13-45); MEAN CORPUSCULAR HEMOGLOBIN 31.3 pg (27.0-33.4); MEAN CORPUSCULAR HGB CONC 33.5 g/dL (32.0-36.0); MEAN CORPUSCULAR VOLUME 93 fl (80-97); MONOCYTES % (AUTO) 11.1 % (3-13); PLATELET COUNT 239 10^3/uL (150-450); RED BLOOD COUNT 3.61 10^6/uL (4.35-5.55); RED CELL DISTRIBUTION WIDTH 14.5 % (11.5-14.0); SEGMENTED NEUTROPHILS % (AUTO) 69.8 % (42-78); TOTAL CELLS COUNTED % (AUTO) 100 %; WHITE BLOOD COUNT 7.6 10^3/uL (4.0-10.5)
[2019-06-10 16:23] LABS: ALBUMIN 4.3 g/dL (3.5-5.0); ALKALINE PHOSPHATASE 133 U/L (38-126); ANION GAP 13 (5-19); ASPARTATE AMINO TRANSFERASE 28 U/L (17-59); BILIRUBIN,DIRECT 0.6 mg/dL (0.0-0.4); BILIRUBIN,TOTAL 0.6 mg/dL (0.2-1.3); BLOOD UREA NITROGEN 44 mg/dL (7-20); CALCIUM 10.1 mg/dL (8.4-10.2); CARBON DIOXIDE 29 mmol/L (22-30); CHLORIDE 96 mmol/L (98-107); CREATINE KINASE 121 U/L (55-170); GLUCOSE 157 mg/dL (75-110); POTASSIUM 4.5 mmol/L (3.6-5.0); TOTAL PROTEIN 8.1 g/dL (6.3-8.2)
[2019-06-10 16:34] LABS: CREATINE KINASE MB 3.29 ng/mL (<4.55); TROPONIN I 0.022 ng/mL
--- NOTE | 2019-06-10 21:41 | EKG REPORT ---
SEVERITY:- ABNORMAL ECG - ARTIFACTS SINUS RHYTHM LEFT ATRIAL ABNORMALITY LEFT VENTRICULAR HYPERTROPHY ANTERIOR ST ELEVATION, PROBABLY DUE TO LVH BORDERLINE PROLONGED QT INTERVAL : Confirmed by: Eri Luna MD 10-Jun-2019 21:40:56
[2019-06-10] MEDS ORDERED: ACETAMINOPHEN 325 MG TABLET PO ONE (21:42)
--- NOTE | 2019-06-10 22:04 | ER Document Report ---
Entered by WAGNER CALDERON SCRIBE 06/10/19 [id number] Acting as scribe for:ITA OLIVO DO ED General - General Chief Complaint: High Blood Pressure Stated Complaint: HIGH BLOOD PRESSSURE Time Seen by Provider: 06/10/19 15:30 Primary Care Provider: ALEKS HARKINS MD [Primary Care Provider] - Follow up as needed Mode of Arrival: Medic Information source: Patient Notes: This 69-year-old male presents to the emergency department complaining of not feeling well since last night. Patient reports headache, mild epigastric abdominal pain, dizziness and nausea. Patient denies fever and cough. Patient states that headache is gone now and he feels a lot better now. Patient reports that he had a bowel movement this morning and that he feels better now. Patient is a [facility] dialysis appointment and had his last dialysis appointment yesterday. TRAVEL OUTSIDE OF THE [place] IN LAST 30 DAYS: No - Related Data Allergies/Adverse Reactions: No Known Allergies Allergy (Verified 12/04/18 17:22) Home Medications: atorvastatin. bidil. calcium acetate. clonidine. docusate. furosemide. irbesartsan. nifedipine. omeprazole. karine caps Past Medical History - General Information source: Patient - Social History Smoking Status: Current Every Day Smoker Cigarette use (# per day): Yes Chew tobacco use (# tins/day): No Lives with: Parents - Mother Family History: DM, Hypertension Patient has suicidal ideation: No Patient has homicidal ideation: No - Past Medical History Cardiac Medical History: Reports: Hx Hypertension, Hx Peripheral Vascular Disea se Pulmonary Medical History: Reports: Hx COPD, Hx Pneumonia Endocrine Medical History: Reports: Hx Diabetes Mellitus Type 2 Renal/ Medical History: Reports: Hx End Stage Renal Disease, Hx Hemodialysis - Sunday, Sunday, and Sunday Musculoskeletal Medical History: Reports Hx Arthritis - Bilat legs Past Surgical History: Reports: Hx Neurologic Surgery - back BIOPSY, Hx Vascular Surgery - Arteriovenous fistula for dialysis right upper arm - Immunizations Hx Diphtheria, Pertussis, Tetanus Vaccination: Yes Hx Pneumococcal Vaccination: 03/26/06 Review of Systems - Review of Systems Constitutional: See HPI. denies: Fever EENT: No symptoms reported Cardiovascular: See HPI, Dizziness Respiratory: See HPI. denies: Cough Gastrointestinal: See HPI, Abdominal pain, Nausea Genitourinary: No symptoms reported Male Genitourinary: No symptoms reported Musculoskeletal: No symptoms reported Skin: No symptoms reported Hematologic/Lymphatic: No symptoms reported Neurological/Psychological: See HPI, Headaches -: Yes All other systems reviewed and negative Physical Exam - Vital signs Vitals: Temp Pulse Resp BP Pulse Ox 98.5 F 86 16 183/68 H 100 06/10/19 15:17 06/10/19 15:17 06/10/19 15:17 06/10/19 15:17 06/10/19 15:17 - Notes Notes: Physical Exam: General: Alert, appears well. HEENT: Normocephalic. Atraumatic. PERRL. Extraocular movements intact. Oropharynx clear. Periodontal disease. Neck: Supple. Non-tender. Respiratory: No respiratory distress. Clear and equal breath sounds bilaterally. Cardiovascular: Regular rate and rhythm. Abdominal: Normal Inspection. Non-tender. No distension. Normal Bowel Sounds. Back: No gross abnormalities. Extremities: Moves all four extremities. Upper extremities: Right upper arm has a fistula. Normal ROM. Lower extremities: Normal inspection. No edema. Normal ROM. Neurological: Normal cognition. AAOx4. Normal speech. Psychological: Normal affect. Normal Mood. Skin: Warm. Dry. Normal color. Course - Re-evaluation Re-evalutation: 06/10/19 21:45 MDM Delightful 69 year old female arrives here with complaints of headache earlier with gradual onset that is better now and nausea yesterday that is now better. No fever and no chest pain and no sob. No travel. He is a hemodialysis pt with [facility] hemodialysis and tells me he went to HD yesterday. I have uncovered no serious process at this time and he is hungry and watching tv. We discussed follow up and he expressed understanding. - Vital Signs Vital signs: Temp Pulse Resp BP Pulse Ox 98.7 F 91 20 201/81 H 99 06/10/19 22:40 06/10/19 22:40 06/10/19 22:40 06/10/19 22:40 06/10/19 22:40 - Laboratory Result Diagrams: 06/10/19 15:40 06/10/19 15:40 Laboratory results interpreted by me: 06/10/19 06/10/19 15:40 15:40 RBC 3.61 L Hgb 11.3 L Hct 33.7 L RDW 14.5 H Chloride 96 L BUN 44 H Creatinine 8.45 H Est GFR ( Amer) 8 L Est GFR (MDRD) Non-Af 6 L Glucose 157 H Direct Bilirubin 0.6 H Alkaline Phosphatase 133 H - Diagnostic Test Radiology reviewed: Image reviewed, Reports reviewed - EKG Interpretation by Me EKG shows normal: Sinus rhythm Rate: Normal Rhythm: NSR - NSR LAD [address] elevation or depression my interpretation. Heidrick/QRS: Left axis deviation Voltage: Consistant with LVH Discharge - Discharge Clinical Impression: ESRD (end stage renal disease) on dialysis Hypertension Qualifiers: Hypertension type: unspecified Qualified Code(s): I10 - Essential (primary) hypertension Headache Qualifiers: Headache type: unspecified Headache chronicity pattern: acute headache Intractability: not intractable Qualified Code(s): R51 - Headache Condition: Good Disposition: HOME, SELF-CARE Instructions: High Blood Pressure ([facility]), Kidney Failure ([facility]), Nausea or Vomiting, Nonspecific ([facility]) Additional Instructions: See your doctor in follow up. Rest. Please return here for any problems or any concerns. Prescriptions: Ondansetron [Zofran Odt 4 mg Tablet] 1 - 2 tab PO Q4H PRN #15 tab.rapdis PRN Reason: For Nausea/Vomiting Referrals: ALEKS HARKINS MD [Primary Care Provider] - Follow up as needed I personally performed the services described in the documentation, reviewed and edited the documentation which was dictated to the scribe in my presence, and it accurately records my words and actions.
[2019-06-10 22:41] VITALS: BP 201/81
== END 2019-06-10 22:40 | disposition home or self-care (01) ==
LOC: ER 14:45
DX: I12.0 Hypertensive chronic kidney disease with stage 5 chronic kidney disease or end stage renal disease (principal); E11.22 Type 2 diabetes mellitus with diabetic chronic kidney disease; N18.6 End stage renal disease; Z99.2 Dependence on renal dialysis; R51 Headache; R10.13 Epigastric pain; R42 Dizziness and giddiness; R11.0 Nausea; Z79.899 Other long term (current) drug therapy; F17.210 Nicotine dependence, cigarettes, uncomplicated
CPT/HCPCS: 93005; 99284; 36415; 82553; 82550; 85025; 80053; 84484; 71046; 93010; A9270

== ENCOUNTER 2019-11-14 10:23 | Emergency (ER) | payer MEDICARE, MEDICAID ==
[2019-11-14] MEDS ORDERED: MECLIZINE HCL 25 MG TABLET PO ONE (13:13)
--- NOTE | 2019-11-14 13:44 | RADIOLOGY REPORT (SQ) ---
EXAM DESCRIPTION: CHEST SINGLE VIEW IMAGES COMPLETED DATE/TIME: 11/14/2019 1:31 pm REASON FOR STUDY: cough COMPARISON: 06/10/2019 EXAM PARAMETERS: NUMBER OF VIEWS: One view. TECHNIQUE: Single frontal radiographic view of the chest acquired. RADIATION DOSE: NA LIMITATIONS: None. FINDINGS: LUNGS AND PLEURA: No opacities, masses or pneumothorax. No pleural effusion. MEDIASTINUM AND HILAR STRUCTURES: No masses. Contour normal. HEART AND VASCULAR STRUCTURES: Cardiomegaly. No pulmonary edema. BONES: No acute findings. HARDWARE: None in the chest. OTHER: No other significant finding. IMPRESSION: Cardiomegaly without pulmonary edema. TECHNICAL DOCUMENTATION: JOB ID: [id number] 2010 [employer]- All Rights Reserved Reading location - IP/workstation name: [email or web address]
--- NOTE | 2019-11-14 13:56 | RADIOLOGY REPORT (SQ) ---
EXAM DESCRIPTION: CT HEAD WITHOUT IMAGES COMPLETED DATE/TIME: 11/14/2019 1:41 pm REASON FOR STUDY: dizzy COMPARISON: 12/08/2017 TECHNIQUE: Axial images acquired through the brain without intravenous contrast. Images reviewed wi th bone, brain and subdural windows. Additional sagittal and coronal reconstructions were generated. Images stored on PACS. All CT scanners at this facility use dose modulation, iterative reconstruction, and/or weight based d osing when appropriate to reduce radiation dose to as low as reasonably achievable (ALARA). [facility]: Dose Right [facility]: CareDose [facility]: Dose Right [facility]: Teradose 4D [facility]: VMTurbo RADIATION DOSE: CT Rad equipment meets quality standard of care and radiation dose reduction techniq ues were employed. CTDIvol: 53.2 mGy. DLP: 1097 mGy-cm. mGy. LIMITATIONS: None. FINDINGS: VENTRICLES: Age appropriate. CEREBRUM: No masses. No hemorrhage. No midline shift. Areas of low density in the white matter mos t likely due to chronic micro-vascular ischemic change. No evidence for acute infarction. CEREBELLUM: No masses. No hemorrhage. No alteration of density. No evidence for acute infarction. EXTRAAXIAL SPACES: Mild age-related involutional change. No fluid collections. No masses. ORBITS AND GLOBE: No intra- or extraconal masses. Normal contour of globe without masses. CALVARIUM: No fracture. PARANASAL SINUSES: Mucosal thickening of the ethmoid air cells and left maxillary sinus. Remaining s inuses are clear. SOFT TISSUES: Unchanged high density soft tissue thickening along the posterior calvarium subcutaneou s tissues with scattered calcifications, possibly related to prior trauma/surgery. OTHER: No other significant finding. IMPRESSION: STABLE MILD CHRONIC CHANGES OF ATROPHY AND MICROVASCULAR ISCHEMIA. NO ACUTE PROCESS. EVIDENCE OF ACUTE STROKE: NO. TECHNICAL DOCUMENTATION: JOB ID: [id number] Quality ID # [id number]: Final reports with documentation of one or more dose reduction techniques (e.g., Au tomated exposure control, adjustment of the mA and/or kV according to patient size, use of iterative reconstruction technique) 2010 [employer]- All Rights Reserved Reading location - IP/workstation name: [email or web address]
--- NOTE | 2019-11-14 14:14 | ER Document Report ---
ED General - General Chief Complaint: Cough Stated Complaint: COUGH Time Seen by Provider: 11/14/19 12:26 Primary Care Provider: ALEKS HARKINS MD [Primary Care Provider] - Follow up as needed Mode of Arrival: Medic Information source: Patient Notes: Patient went to dialysis and they did not feel like he was acting himself so they sent him here for further evaluation. Patient presents complaining of dizziness off and on for greater than 2 weeks. Patient states that he gets dizzy when he stands up although at present he denies any dizziness. Patient states he is also had cough for the past 2 days. Patient denies any fever, nausea or vomiting. Patient denies any chest pain or shortness of breath. Patient did not cycle on the dialysis machine. Patient's last dialysis session was 2 days ago on Sunday. Charge nurse spoke to [facility] nursing staff who states that patient had upper respiratory symptoms and they wanted him screened and evaluated for possible COVID. TRAVEL OUTSIDE OF THE [place] IN LAST 30 DAYS: No - HPI Onset: Other - 2 days Onset/Duration: Gradual Quality of pain: No pain Pain Level: Denies Associated symptoms: Nonproductive cough. denies: Chest pain, Fever, Nausea, Vomiting, Shortness of breath, Weakness Exacerbated by: Denies Relieved by: Denies Similar symptoms previously: No Recently seen / treated by doctor: No - Related Data Allergies/Adverse Reactions: No Known Allergies Allergy (Verified 12/04/18 17:22) Past Medical History - General Information source: Patient - Social History Smoking Status: Current Every Day Smoker Frequency of alcohol use: None Drug Abuse: None Lives with: Family Family History: DM, Hypertension - Past Medical History Cardiac Medical History: Reports: Hx Hypertension, Hx Peripheral Vascular Disease Denies: Hx Coronary Artery Disease, Hx Heart Attack Pulmonary Medical History: Reports: Hx COPD, Hx Pneumonia Denies: Hx Asthma, Hx Bronchitis Neurological Medical History: Denies: Hx Cerebrovascular Accident, Hx Seizures Endocrine Medical History: Reports: Hx Diabetes Mellitus Type 2. Denies: Hx Diabetes Mellitus Type 1, Hx Hyperthyroidism, Hx Hypothyroidism Renal/ Medical History: Reports: Hx End Stage Renal Disease, Hx Hemodialysis - Sunday, Sunday, and Sunday. Denies: Hx Peritoneal Dialysis GI Medical History: Denies: Hx Cirrhosis, Hx Crohn's Disease, Hx Hepatitis, Hx Ulcerative Colitis Musculoskeletal Medical History: Reports Hx Arthritis - Bilat legs, Denies Hx Gout Skin Medical History: Denies Hx Eczema, Denies Hx Psoriasis Psychiatric Medical History: Denies: Hx Depression Infectious Medical History: Denies: Hx Hepatitis Past Surgical History: Reports: Hx Neurologic Surgery - back BIOPSY, Hx Vascular Surgery - Arteriovenous fistula for dialysis right upper arm - Immunizations Hx Diphtheria, Pertussis, Tetanus Vaccination: Yes Hx Pneumococcal Vaccination: 03/26/06 Review of Systems - Review of Systems Constitutional: No symptoms reported. denies: Fever EENT: No symptoms reported Cardiovascular: Dizziness. denies: Chest pain Respiratory: Cough. denies: Short of breath Gastrointestinal: No symptoms reported. denies: Abdominal pain, Vomiting Genitourinary: No symptoms reported Male Genitourinary: No symptoms reported Musculoskeletal: No symptoms reported Skin: No symptoms reported Hematologic/Lymphatic: No symptoms reported Neurological/Psychological: No symptoms reported Physical Exam - Vital signs Vitals: Temp Pulse Resp BP Pulse Ox 98.7 F 65 18 151/53 H 96 11/14/19 10:23 11/14/19 10:23 11/14/19 10:23 11/14/19 10:23 11/14/19 10:23 - General General appearance: Appears well, Alert In distress: None - HEENT Head: Normocephalic, Atraumatic Eyes: Normal Conjunctiva: Normal Nasal: Normal Mouth/Lips: Normal Mucous membranes: Normal Neck: Normal, Supple. No: Lymphadenopathy - Respiratory Respiratory status: No respiratory distress Chest status: Nontender Breath sounds: Nonproductive cough. No: Rales, Rhonchi, Stridor, Wheezing Chest palpation: Normal - Cardiovascular Rhythm: Regular Heart sounds: S1 appreciated, S2 appreciated - Abdominal Inspection: Normal Distension: No distension Bowel sounds: Normal Tenderness: Nontender Organomegaly: No organomegaly - Back Back: Normal, Nontender. No: CVA tenderness - Extremities General upper extremity: Normal inspection, Normal strength General lower extremity: Normal inspection, Normal strength - Neurological Neuro grossly intact: Yes Cognition: Normal [place] Coma Scale Eye Opening: Spontaneous Hallie Coma Scale Verbal: Oriented [place] Coma Scale Motor: Obeys Commands [place] Coma Scale Total: 15 - Psychological Associated symptoms: Normal affect, Normal mood - Skin Skin Temperature: Warm Skin Moisture: Dry Skin Color: Normal Course - Re-evaluation Re-evalutation: 11/14/19 15:20 Patient without any complaints at this time aside from cough for the past 2 days. Patient will be COVID tested per Jaron's request. Patient with no elevation in his potassium, chest x-ray reviewed, no concern for any fluid overload. Patient without any dyspnea symptoms. Patient without any pneumonia or pneumothorax noted on x-ray. Patient does have minimally elevated troponin at 0.054 although he has had elevations in his troponin historically. Patient denies any chest pain symptoms. Patient with stable vital signs. Will attempt to schedule dialysis session for patient tomorrow, charge nurse awaiting to hear back from dialysis nurse at this time. 11/14/19 15:31 Orthostatic vital signs reviewed. Patient with stable vital signs and without complaint at this time. Patient has a make-up session of dialysis ordered at 730 tomorrow. The patient was evaluated during the global Covid 19 pandemic, and that diagnosis was suspected/considered upon their initial presentation. Their evaluation, treatment and testing was consistent with current guidelines for patients who present with complaints or symptoms that may be related to Covid 19. Patient presents with upper respiratory symptoms worrisome for possible Covid 19. Patient does not have emergency worrying symptoms such as difficulty breathing, shortness of breath, chest pain, pressure, confusion or cyanosis. Patient appears suitable for discharge as vital signs are stable and patient is nontoxic in appearance. Good return precautions have been discussed with patient, patient verbalized understanding and is agreeable with discharge plan of care at this time. - Vital Signs Vital signs: Temp Pulse Resp BP Pulse Ox 98.1 F 73 18 163/53 H 94 11/14/19 15:46 11/14/19 15:46 11/14/19 15:46 11/14/19 15:46 11/14/19 15:46 - Laboratory Result Diagrams: 11/14/19 14:15 11/14/19 14:15 Laboratory results interpreted by me: 11/14/19 11/14/19 14:15 14:15 RBC 3.79 L Hgb 12.0 L Hct 36.1 L RDW 15.6 H Lymph % (Auto) 9.1 L Chloride 95 L BUN 53 H Creatinine 10.58 H Est GFR ( Amer) 6 L Est GFR (MDRD) Non-Af 5 L Glucose 150 H Magnesium 2.6 H Direct Bilirubin 0.5 H - Diagnostic Test Radiology reviewed: Image reviewed, Reports reviewed - EKG Interpretation by Me EKG shows normal: Sinus rhythm Additional EKG results interpreted by me: 11/14/19 14:16 Sinus rhythm with a rate of 71, QTc 453, patient with increased voltage consistent with LVH Discharge - Discharge Clinical Impression: Dizziness, Cough, Encounter for screening laboratory testing for COVID-19 virus, ESRD (end stage renal disease) on dialysis Condition: Stable Disposition: HOME, SELF-CARE Instructions: COVID-19 Guidance for Persons Under Investigation, Upper Respiratory Illness ([facility]) Additional Instructions: Return immediately for any new or worsening symptoms Followup with your primary care provider, call tomorrow to make a followup appointment You have been rescheduled for dialysis at 7:30 in the morning at [facility]. Referrals: ALEKS HARKINS MD [Primary Care Provider] - Follow up as needed
[2019-11-14 14:28] LABS: ABSOLUTE BASOPHILS # (AUTO) 0.1 10^3/uL (0.0-0.2); ABSOLUTE EOSINOPHILS # (AUTO) 0.2 10^3/uL (0.0-0.6); ABSOLUTE LYMPHOCYTES (AUTO) 0.7 10^3/uL (0.5-4.7); ABSOLUTE MONOCYTES (AUTO) 0.8 10^3/uL (0.1-1.4); ABSOLUTE NEUT (AUTO) 6.4 10^3/uL (1.7-8.2); BASOPHILS % (AUTO) 1.3 % (0-2); EOSINOPHILS % (AUTO) 2.6 % (0-6); HEMATOCRIT 36.1 % (37.9-51.0); LYMPHOCYTES % (AUTO) 9.1 % (13-45); MEAN CORPUSCULAR HEMOGLOBIN 31.6 pg (27.0-33.4); MEAN CORPUSCULAR HGB CONC 33.2 g/dL (32.0-36.0); MEAN CORPUSCULAR VOLUME 95 fl (80-97); MONOCYTES % (AUTO) 9.1 % (3-13); PLATELET COUNT 232 10^3/uL (150-450); RED BLOOD COUNT 3.79 10^6/uL (4.35-5.55); RED CELL DISTRIBUTION WIDTH 15.6 % (11.5-14.0); SEGMENTED NEUTROPHILS % (AUTO) 77.9 % (42-78); TOTAL CELLS COUNTED % (AUTO) 100 %; WHITE BLOOD COUNT 8.2 10^3/uL (4.0-10.5)
[2019-11-14 14:56] LABS: ALBUMIN 4.3 g/dL (3.5-5.0); ALKALINE PHOSPHATASE 81 U/L (38-126); ANION GAP 15 (5-19); ASPARTATE AMINO TRANSFERASE 20 U/L (17-59); BILIRUBIN,DIRECT 0.5 mg/dL (0.0-0.4); BILIRUBIN,TOTAL 0.8 mg/dL (0.2-1.3); BLOOD UREA NITROGEN 53 mg/dL (7-20); CALCIUM 9.9 mg/dL (8.4-10.2); CARBON DIOXIDE 30 mmol/L (22-30); CHLORIDE 95 mmol/L (98-107); GLUCOSE 150 mg/dL (75-110); POTASSIUM 4.7 mmol/L (3.6-5.0); TOTAL PROTEIN 7.5 g/dL (6.3-8.2)
[2019-11-14 15:57] VITALS: BP 163/53
--- NOTE | 2019-11-15 14:13 | EKG REPORT ---
SEVERITY:- ABNORMAL ECG - SINUS RHYTHM PROBABLE LEFT ATRIAL ABNORMALITY LEFT VENTRICULAR HYPERTROPHY ANTERIOR Q WAVES, POSSIBLY DUE TO LVH BORDERLINE T ABNORMALITIES, INFERIOR LEADS : Confirmed by: Elsa Quick 15-Nov-2019 14:12:54
== END 2019-11-14 15:57 | disposition home or self-care (01) ==
LOC: ER 10:23
DX: I12.0 Hypertensive chronic kidney disease with stage 5 chronic kidney disease or end stage renal disease (principal); E11.22 Type 2 diabetes mellitus with diabetic chronic kidney disease; N18.6 End stage renal disease; R42 Dizziness and giddiness; R05 Cough; Z99.2 Dependence on renal dialysis; Z20.828 Contact with and (suspected) exposure to other viral communicable diseases; F17.200 Nicotine dependence, unspecified, uncomplicated; J44.9 Chronic obstructive pulmonary disease, unspecified
CPT/HCPCS: 93005; 99285; 36415; 83735; 85025; 80053; 84484; 71045; 70450; 93010; U0003; A9270; C9803; 87635